=== PATIENT | female | born 1945 | race Caucasian/White ===

== ENCOUNTER → 2018-01-20 14:34 | Outpatient (POV) | payer MEDICARE, OTHER, SELFPAY ==
[2018-01-20 14:54] VITALS: BP 142/48; PULSE 82; RESP 18; TEMP 36.6; O2SAT 97; BMI 26.6
--- NOTE | 2018-01-20 16:24 | HMH.PAINSOAP ---
[facility] Pain Management SOAP Note Subjective:: Patient's a very pleasant 72-year-old white female who presents today as a follow-up. Patient has had good relief with her lumbar epidural steroid injection she had back in September. Patient states that it helped 80% for 3 months. Patient states that the pain is beginning to return. Patient also on tramadol as needed. She states that this helps during the winter. She does not need refills today. Patient's DORIAN #[id number] reviewed and appropriate. States that the medication helps her 70%. She denies any side effects. Patient is interested in getting another lumbar epidural steroid injection. ROS General: no recent weight change, no fever, no sleep disturbances Respiratory: no cough, no shortness of air, no recurring pulmonary infections Cardiovascular/Peripheral Vascular: No chest pain, No palpitations, no edema, no shortness of breath. Gastrointestinal: no incontinence, normal bowel movements reported Genitourinary: no incontinence Musculoskeletal: Back pain Psychiatric: normal mood/ affect, [denies depression], [denies anxiety] Neurological: [denies weakness in extremities], [denies balance issues] Objective:: Physical Exam General: Alert and oriented x3, no acute distress, pleasant and cooperative, [on room air] Lungs: Resps E/U, Symmetrical chest expansion, [CTA bilateral] Eyes: PERRL Musculoskeletal: Flexion and extension of lumbar spine somewhat guarded secondary to pain, deep tendon reflexes normal, strength in upper and lower extremities [5/5], slightly antalgic gait noted, bilateral straight leg test positive at 30? Neurological: speech clear, telephone diaphragm assembler equal, no gross sensory deficits Assessment:: Degenerative disc disease of the lumbar spine with lumbar radiculopathy Plan:: We will schedule lumbar epidural steroid injection at L4-L5 for this patient. Patient has done well with these in the past having up to 80% relief for 3 months. Patient has tried and failed anti-inflammatories along with physical therapy. I will follow-up with this patient 2 weeks after her injection and reassess her symptoms at that time. This note was dictated using voice recognition software and may contain errors or omissions
--- NOTE | 2018-01-20 16:27 | P.CONS_ITS ---
[facility] Pain Management SOAP Note Subjective:: Patient's a very pleasant 72-year-old white female who presents today as a follow-up. Patient has had good relief with her lumbar epidural steroid injection she had back in September. Patient states that it helped 80% for 3 months. Patient states that the pain is beginning to return. Patient also on tramadol as needed. She states that this helps during the winter. She does not need refills today. Patient's DORIAN #[id number] reviewed and appropriate. States that the medication helps her 70%. She denies any side effects. Patient is interested in getting another lumbar epidural steroid injection. ROS General: no recent weight change, no fever, no sleep disturbances Respiratory: no cough, no shortness of air, no recurring pulmonary infections Cardiovascular/Peripheral Vascular: No chest pain, No palpitations, no edema, no shortness of breath. Gastrointestinal: no incontinence, normal bowel movements reported Genitourinary: no incontinence Musculoskeletal: Back pain Psychiatric: normal mood/ affect, [denies depression], [denies anxiety] Neurological: [denies weakness in extremities], [denies balance issues] Objective:: Physical Exam General: Alert and oriented x3, no acute distress, pleasant and cooperative, [ on room air] Lungs: Resps E/U, Symmetrical chest expansion, [CTA bilateral] Eyes: PERRL Musculoskeletal: Flexion and extension of lumbar spine somewhat guarded secondary to pain, deep tendon reflexes normal, strength in upper and lower extremities [5/5], slightly antalgic gait noted, bilateral straight leg test positive at 30? Neurological: speech clear, furniture mover helper equal, no gross sensory deficits Assessment:: Degenerative disc disease of the lumbar spine with lumbar radiculopathy Plan:: We will schedule lumbar epidural steroid injection at L4-L5 for this patient. Patient has done well with these in the past having up to 80% relief for 3 months. Patient has tried and failed anti-inflammatories along with physical therapy. I will follow-up with this patient 2 weeks after her injection and reassess her symptoms at that time. This note was dictated using voice recognition software and may contain errors or omissions
== END ==
PROVIDERS: Family Provider Internal Medicine Adolescent Medicine; PCP Internal Medicine Adolescent Medicine; Visit Provider Clinical Nurse Specialist Family Health
DX: M54.16 Radiculopathy, lumbar region (principal)
CPT/HCPCS: 99212

== ENCOUNTER 2018-02-06 14:16 | Day surgery (SDC) | payer MEDICARE, OTHER, SELFPAY ==
[2018-02-06 14:26] VITALS: BP 174/81; PULSE 69; RESP 18; TEMP 36.9; O2SAT 97; BMI 26.9
--- NOTE | 2018-02-06 15:16 | HMH.PMPROC ---
- Procedure Date: 02/06/18 Time: 15:24 Anesthesiologist:: Hector Mukherjee MD Complications:: None Pre-procedure Diagnosis:: Degenerative disc disease of lumbar spine with lumbar radiculopathy symptoms Post-procedure Diagnosis:: Same Indications for Procedure:: This patient is a pleasant 72-year-old white female who we are treating for low back pain with lumbar radiculopathy symptoms. She had previous lumbar epidural steroid injections back in September which helped her tremendously she was 80% better for 3 months. Her pain is started to return. We will do a repeat lumbar epidural steroid injection today. Procedure Details:: Lumbar epidural steroid injection under fluoroscopy Informed consent was obtained and the risk and benefits of the procedure was explained to the patient. The patient was taken to the procedure room. The patient was placed prone on the procedure table. The patient was prepped and draped in sterile fashion. C-arm fluoroscopy was used to view the lumbar spine. Skin and subcutaneous tissues were anesthetized using lidocaine. I placed an 18-gauge epidural needle and advanced into the L4-L5 interspace using fluoroscopic guidance and [id number] to air. After confirmation of needle placement in the epidural space with dye I injected 2 mL of lidocaine 1.5% with Depo-Medrol 80 mg. Patient tolerated the procedure well with no complications. Plan and Disposition:: We will follow-up with her in 2 weeks we will reevaluate her symptoms at that time.
[2018-02-06 15:17] VITALS: BP 154/98; PULSE 72; RESP 18
[2018-02-06 15:19] VITALS: BP 157/92; PULSE 84; RESP 20
--- NOTE | 2018-02-06 15:24 | P.PCN_ITS ---
- Procedure Date: 02/06/18 Time: 15:24 Anesthesiologist:: Hector Mukherjee MD Complications:: None Pre-procedure Diagnosis:: Degenerative disc disease of lumbar spine with lumbar radiculopathy symptoms Post-procedure Diagnosis:: Same Indications for Procedure:: This patient is a pleasant 72-year-old white female who we are treating for low back pain with lumbar radiculopathy symptoms. She had previous lumbar epidural steroid injections back in September which helped her tremendously she was 80% better for 3 months. Her pain is started to return. We will do a repeat lumbar epidural steroid injection today. Procedure Details:: Lumbar epidural steroid injection under fluoroscopy Informed consent was obtained and the risk and benefits of the procedure was explained to the patient. The patient was taken to the procedure room. The patient was placed prone on the procedure table. The patient was prepped and draped in sterile fashion. C-arm fluoroscopy was used to view the lumbar spine. Skin and subcutaneous tissues were anesthetized using lidocaine. I placed an 18-gauge epidural needle and advanced into the L4-L5 interspace using fluoroscopic guidance and [id number] to air. After confirmation of needle placement in the epidural space with dye I injected 2 mL of lidocaine 1.5 % with Depo-Medrol 80 mg. Patient tolerated the procedure well with no complications. Plan and Disposition:: We will follow-up with her in 2 weeks we will reevaluate her symptoms at that time.
[2018-02-06 15:28] VITALS: BP 184/92; PULSE 81; RESP 16; O2SAT 96
== END 2018-02-06 15:30 | disposition home or self-care (01) ==
LOC: SC.PAINP 14:18
PROVIDERS: Family Provider Internal Medicine Adolescent Medicine; PCP Internal Medicine Adolescent Medicine; Visit Provider Anesthesiology
DX: M51.16 Intervertebral disc disorders with radiculopathy, lumbar region (principal)
CPT/HCPCS: 62323; J1040; Q9966

== ENCOUNTER → 2018-02-24 11:38 | Outpatient (POV) | payer MEDICARE, OTHER, SELFPAY ==
[2018-02-24 11:56] VITALS: BP 130/58; PULSE 60; RESP 18; O2SAT 97; BMI 28.3
--- NOTE | 2018-02-24 12:07 | HMH.PAINSOAP ---
[facility] Pain Management SOAP Note Subjective:: She has a very pleasant 72-year-old white female who presents today for follow-up after lumbar epidural steroid injection. Patient is doing extremely well. Patient has significant pain relief of 90%. Patient's last injection lasted her 3 months. Patient states that she would like to return when her pain begins to come back. Patient is also being medically managed with tramadol 50 mg 1 p.o. 4 times daily. Patient does not need refills today. Patient denies any side effects to the medication. Patient rates her pain at 2 out of 10 today. ROS General: no recent weight change, no fever, no sleep disturbances Respiratory: no cough, no shortness of air, no recurring pulmonary infections Cardiovascular/Peripheral Vascular: No chest pain, No palpitations, no edema, no shortness of breath. Gastrointestinal: no new onset incontinence, normal bowel movements reported Genitourinary: no new onset incontinence Musculoskeletal: Back pain Psychiatric: normal mood/ affect, Neurological: [denies weakness in extremities], [denies balance issues] Objective:: Physical Exam General: Alert and oriented x3, no acute distress, pleasant and cooperative, [on room air] Lungs: Resps E/U, Symmetrical chest expansion, Eyes: PERRL Musculoskeletal: Flexion and extension of lumbar spine somewhat guarded secondary to pain, deep tendon reflexes normal, strength in upper and lower extremities [5/5], slightly antalgic gait noted Neurological: speech clear, automotive brake technician equal, no gross sensory deficits Assessment:: Degenerative disc disease of the lumbar spine with lumbar radiculopathy symptoms Plan:: We will plan to see this patient back in 3 months and reassess her symptoms at that time. Patient is to call our office if her pain begins to return or worsen. Patient is in no need for tramadol refills today however we will call some in if she needs them. Patient's DORIAN #[id number] reviewed and appropriate. This note was dictated using voice recognition software and may contain errors or omissions
--- NOTE | 2018-04-03 12:09 | PC.PHONENOTE ---
called in Rx for Tramadol 50mg QID with 1 refill to pt's pharmacy
== END ==
PROVIDERS: Family Provider Internal Medicine Adolescent Medicine; PCP Internal Medicine Adolescent Medicine; Visit Provider Clinical Nurse Specialist Family Health
DX: M54.16 Radiculopathy, lumbar region (principal)
CPT/HCPCS: 99212

== ENCOUNTER → 2018-03-04 07:02 | Outpatient (CLI) | payer MEDICARE, OTHER, SELFPAY ==
--- NOTE | 2018-03-04 07:05 | NM_ITS ---
CARDIOLITE SPECT MYOCARDIAL PERFUSION SCAN, REST AND STRESS: EXERCISE STRESS [facility] REVIEW QGS EF AND WALL MOTION EVALUATION: QPS - PERFUSION EVALUATION HISTORY: sob DOSE: 10.27 mCi technetium 99m mibi intravenously at rest followed by 30.6 mCi technetium 99m mibi following the intravenous ministration of 0.4 mg of Lexiscan. Resting blood pressure is 174/89. Stress blood pressure 176/86. FINDINGS: Ejection fraction is calculated to be 78. Stress images reveal decreased activity in the mid anterior apical wall while rest images reveal no significant change. IMPRESSION: Clinical correlation. It is possible this could represent breast attenuation however anterior defect is also possible. Normal ejection fraction wall motion
--- NOTE | 2018-03-04 08:28 | HMH.ITSHM ---
METHOTREXATE MELOXICAM OMEPRAZOLE FOLIC ACID ZETIA TRAMADOL LISIONPRIL CARVEDILOL AMLODIPINE
== END ==
PROVIDERS: Family Provider Internal Medicine Adolescent Medicine; PCP Internal Medicine Adolescent Medicine; Visit Provider Internal Medicine Adolescent Medicine
DX: R06.09 Other forms of dyspnea (principal)
CPT/HCPCS: 78452; 93017; A9502; J2785

== ENCOUNTER → 2018-05-26 09:21 | Outpatient (POV) | payer MEDICARE, OTHER, SELFPAY ==
[2018-05-26 09:23] VITALS: BP 177/86; PULSE 80; RESP 18; O2SAT 98; BMI 27.4
--- NOTE | 2018-05-26 09:34 | HMH.PAINSOAP ---
[facility] Pain Management SOAP Note Subjective:: Patient is a pleasant 72-year-old white female who presents today for follow-up. Patient has been doing extremely well with receiving injections every couple months along with her tramadol 50 mg 1 p.o. 4 times daily. Patient only takes this when necessary. Patient does not need any refills today. Patient denies any side effects to the medication. She rates the pain a 4 out of 10 today. Patient's recently she states that standing at the exacerbated her pain. Patient would like to have another epidural injection. Patient gets 80-90% relief of her pain symptoms for up to 3 months with these injections. Patient states she is much more functional. Patient is continuing to do home stretching regimen and is not on any anticoagulation therapy. ROS General: no recent weight change, no fever, no sleep disturbances Respiratory: no cough, no shortness of air, no recurring pulmonary infections Cardiovascular/Peripheral Vascular: No chest pain, No palpitations, no edema, no shortness of breath. Gastrointestinal: no incontinence, normal bowel movements reported Genitourinary: no incontinence Musculoskeletal: Back pain, leg pain Psychiatric: normal mood/ affect Neurological: [denies weakness in extremities], [denies balance issues] Objective:: Physical Exam General: Alert and oriented x3, no acute distress, pleasant and cooperative, [on room air] Lungs: Resps E/U, Symmetrical chest expansion, Eyes: PERRL Musculoskeletal: Flexion and extension of lumbar spine somewhat guarded secondary to pain, deep tendon reflexes normal, strength in upper and lower extremities [5/5], antalgic gait noted, positive straight leg raise test bilaterally at 30? Neurological: speech clear, cardiac technician equal, no gross sensory deficits Assessment:: Degenerative disc disease of the lumbar spine with lumbar radiculopathy Plan:: We will schedule L4-L5 lumbar epidural steroid injection for the patient given the efficacy of this in the past. Patient's can continue on with her tramadol 50 mg 1 p.o. 4 times daily as needed. Patient does not need any refills today. I will follow-up with this patient after her injection. This note was dictated using voice recognition software and may contain errors or omissions
--- NOTE | 2018-05-26 09:37 | P.CONS_ITS ---
[facility] Pain Management SOAP Note Subjective:: Patient is a pleasant 72-year-old white female who presents today for follow- up. Patient has been doing extremely well with receiving injections every couple months along with her tramadol 50 mg 1 p.o. 4 times daily. Patient only takes this when necessary. Patient does not need any refills today. Patient denies any side effects to the medication. She rates the pain a 4 out of 10 today. Patient's recently she states that standing at the exacerbated her pain. Patient would like to have another epidural injection. Patient gets 80-90% relief of her pain symptoms for up to 3 months with these injections. Patient states she is much more functional. Patient is continuing to do home stretching regimen and is not on any anticoagulation therapy. ROS General: no recent weight change, no fever, no sleep disturbances Respiratory: no cough, no shortness of air, no recurring pulmonary infections Cardiovascular/Peripheral Vascular: No chest pain, No palpitations, no edema, no shortness of breath. Gastrointestinal: no incontinence, normal bowel movements reported Genitourinary: no incontinence Musculoskeletal: Back pain, leg pain Psychiatric: normal mood/ affect Neurological: [denies weakness in extremities], [denies balance issues] Objective:: Physical Exam General: Alert and oriented x3, no acute distress, pleasant and cooperative, [ on room air] Lungs: Resps E/U, Symmetrical chest expansion, Eyes: PERRL Musculoskeletal: Flexion and extension of lumbar spine somewhat guarded secondary to pain, deep tendon reflexes normal, strength in upper and lower extremities [5/5], antalgic gait noted, positive straight leg raise test bilaterally at 30? Neurological: speech clear, automotive detailer equal, no gross sensory deficits Assessment:: Degenerative disc disease of the lumbar spine with lumbar radiculopathy Plan:: We will schedule L4-L5 lumbar epidural steroid injection for the patient given the efficacy of this in the past. Patient's can continue on with her tramadol 50 mg 1 p.o. 4 times daily as needed. Patient does not need any refills today. I will follow-up with this patient after her injection. This note was dictated using voice recognition software and may contain errors or omissions
== END ==
PROVIDERS: Family Provider Internal Medicine Adolescent Medicine; PCP Internal Medicine Adolescent Medicine; Visit Provider Clinical Nurse Specialist Family Health
DX: M54.16 Radiculopathy, lumbar region (principal)
CPT/HCPCS: 99212

== ENCOUNTER → 2018-06-30 12:49 | Outpatient (POV) | payer MEDICARE, OTHER, SELFPAY ==
[2018-06-30 12:57] VITALS: BP 156/78; PULSE 74; RESP 18; O2SAT 98; BMI 27.4
--- NOTE | 2018-06-30 13:08 | HMH.PAINSOAP ---
[facility] Pain Management SOAP Note Subjective:: patient is a pleasant 72-year-old white female who presents today for follow-up after lumbar epidural steroid injection patient is having complete relief in her back however she is having a lot of left SI joint pain. She rates the pain a 3 out of 10. Patient states that she if she sits for long periods of time she has a lot of numbness and tingling in her buttock. ROS General: no recent weight change, no fever, no sleep disturbances Respiratory: no cough, no shortness of air, no recurring pulmonary infections Cardiovascular/Peripheral Vascular: No chest pain, No palpitations, no edema, no shortness of breath. Gastrointestinal: no incontinence, normal bowel movements reported Genitourinary: no incontinence Musculoskeletal: SI joint pain Psychiatric: normal mood/ affect Neurological: [denies weakness in extremities], [denies balance issues] Objective:: Physical Exam General: Alert and oriented x3, no acute distress, pleasant and cooperative, [on room air] Lungs: Resps E/U, Symmetrical chest expansion, Eyes: PERRL Musculoskeletal: Flexion and extension of lumbar spine somewhat guarded secondary to pain, deep tendon reflexes normal, strength in upper and lower extremities [5/5], [abnormal gait noted] the left sided Humble's test positive Neurological: speech clear, iron assorter equal, no gross sensory deficits Assessment:: 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 I believe it would be beneficial given her symptomology. Patient's tried and failed anti-inflammatories. This note was dictated using voice recognition software and may contain errors or omissions
--- NOTE | 2018-06-30 13:11 | P.CONS_ITS ---
[facility] Pain Management SOAP Note Subjective:: patient is a pleasant 72-year-old white female who presents today for follow-up after lumbar epidural steroid injection patient is having complete relief in her back however she is having a lot of left SI joint pain. She rates the pain a 3 out of 10. Patient states that she if she sits for long periods of time she has a lot of numbness and tingling in her buttock. ROS General: no recent weight change, no fever, no sleep disturbances Respiratory: no cough, no shortness of air, no recurring pulmonary infections Cardiovascular/Peripheral Vascular: No chest pain, No palpitations, no edema, no shortness of breath. Gastrointestinal: no incontinence, normal bowel movements reported Genitourinary: no incontinence Musculoskeletal: SI joint pain Psychiatric: normal mood/ affect Neurological: [denies weakness in extremities], [denies balance issues] Objective:: Physical Exam General: Alert and oriented x3, no acute distress, pleasant and cooperative, [ on room air] Lungs: Resps E/U, Symmetrical chest expansion, Eyes: PERRL Musculoskeletal: Flexion and extension of lumbar spine somewhat guarded secondary to pain, deep tendon reflexes normal, strength in upper and lower extremities [5/5], [abnormal gait noted] the left sided Humble's test positive Neurological: speech clear, map maker equal, no gross sensory deficits Assessment:: 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 I believe it would be beneficial given her symptomology. Patient's tried and failed anti-inflammatories. This note was dictated using voice recognition software and may contain errors or omissions
== END ==
PROVIDERS: Family Provider Internal Medicine Adolescent Medicine; PCP Internal Medicine Adolescent Medicine; Visit Provider Clinical Nurse Specialist Family Health
DX: M51.16 Intervertebral disc disorders with radiculopathy, lumbar region (principal); M46.1 Sacroiliitis, not elsewhere classified
CPT/HCPCS: 99213

== ENCOUNTER → 2018-09-08 11:26 | Outpatient (POV) | payer MEDICARE, OTHER, SELFPAY ==
[2018-09-08 11:38] VITALS: BP 140/89; PULSE 97; RESP 18; O2SAT 97; BMI 26.9
--- NOTE | 2018-09-08 12:11 | HMH.PAINSOAP ---
[facility] Pain Management SOAP Note Subjective:: Patient is a pleasant 72-year-old white female who presents today for follow-up. Patient states that she has begun to have more pain in her lower back and would like a repeat of her lumbar epidural steroid injection. Patient states she gets 80% relief for several months with this. She rates her pain a 3 out of 10 today however she states it does fluctuate. Patient's not on any blood thinner and is continuing a home stretching program. Patient's tried and failed anti-inflammatories along with physical therapy. ROS General: no recent weight change, no fever, no sleep disturbances Respiratory: no cough, no shortness of air, no recurring pulmonary infections Cardiovascular/Peripheral Vascular: No chest pain, No palpitations, no edema, no shortness of breath. Gastrointestinal: no incontinence, normal bowel movements reported Genitourinary: no incontinence Musculoskeletal: Back pain, leg pain Psychiatric: normal mood/ affect Neurological: [denies weakness in extremities], [denies balance issues] Objective:: Physical Exam General: Alert and oriented x3, no acute distress, pleasant and cooperative, [on room air] Lungs: Resps E/U, Symmetrical chest expansion, Eyes: PERRL Musculoskeletal: Flexion and extension of lumbar spine somewhat guarded secondary to pain, deep tendon reflexes normal, strength in upper and lower extremities [5/5], antalgic gait noted Neurological: speech clear, nutrition associate equal, no gross sensory deficits Assessment:: Degenerative disc disease lumbar spine with lumbar radiculopathy Plan:: We will schedule a L4-L5 lumbar epidural injection for the patient. We will also refill her tramadol 50 mg 1 p.o. 4 times daily as needed. Patient denies side effects to this. Patient's DORIAN reviewed and appropriate. Dr. Mukherjee is reviewed this chart and agrees with this plan of care. This note was dictated using voice recognition software and may contain errors or omissions
== END ==
PROVIDERS: PCP Internal Medicine Adolescent Medicine; Visit Provider Clinical Nurse Specialist Family Health
DX: M51.16 Intervertebral disc disorders with radiculopathy, lumbar region (principal)
CPT/HCPCS: 99213

== ENCOUNTER → 2018-10-20 13:41 | Outpatient (POV) | payer MEDICARE, OTHER, SELFPAY ==
[2018-10-20 14:17] VITALS: BP 137/68; PULSE 87; RESP 18; O2SAT 99; BMI 26.9
--- NOTE | 2018-10-20 14:37 | P.CONS_ITS ---
[facility] Pain Management SOAP Note Subjective:: Patient is a pleasant 73-year-old white female who we are treating for low back pain. Patient is following up after lumbar epidural steroid injection. She is doing extremely well rating her pain a 3 out of 10 today. Patient would like to follow-up on a as needed basis. ROS General: no recent weight change, no fever, no sleep disturbances Respiratory: no cough, no shortness of air, no recurring pulmonary infections Cardiovascular/Peripheral Vascular: No chest pain, No palpitations, no edema, no shortness of breath. Gastrointestinal: no incontinence, normal bowel movements reported Genitourinary: no incontinence Musculoskeletal: Back pain at times Psychiatric: normal mood/ affect Neurological: [denies weakness in extremities], [denies balance issues] Objective:: Physical Exam General: Alert and oriented x3, no acute distress, pleasant and cooperative, [on room air] Lungs: Resps E/U, Symmetrical chest expansion, Eyes: PERRL Musculoskeletal: Flexion and extension of lumbar spine somewhat guarded secondary to pain, deep tendon reflexes normal, strength in upper and lower extremities [5/5], slightly antalgic gait noted Neurological: speech clear, nurse practitioner physician assistant equal, no gross sensory deficits Assessment:: Degenerative disc disease lumbar spine with lumbar radiculopathy symptoms Plan:: We will see the patient back on an as-needed basis. Patient's been instructed to call the office if she has any issues prior to her next appointment. This note was dictated using voice recognition software and may contain errors or omissions
--- NOTE | 2018-12-16 14:59 | PC.NURSE ---
TRAMADOL 50MG QID WITH 2 REFILLS CALLED INTO [facility] PER PROVIDER ORDER.
== END ==
PROVIDERS: PCP Internal Medicine Adolescent Medicine; Visit Provider Clinical Nurse Specialist Family Health
DX: M51.16 Intervertebral disc disorders with radiculopathy, lumbar region (principal)
CPT/HCPCS: 99213

== ENCOUNTER → 2018-12-03 12:27 | Outpatient (CLI) | payer MEDICARE, OTHER, SELFPAY ==
--- NOTE | 2018-12-03 12:35 | XR_ITS ---
XR chest 2V HISTORY: Cough ITS.REASON: ACUTE BRONCHOPNEUMONIA ORDERING PHYSICIAN: Mayank Jimenes MD PATIENT AGE: 73 years COMPARISON: 04/01/2017 FINDINGS: The cardiomediastinal silhouette and pulmonary vascularity are within normal limits. Hiatal hernia is present.. There is slight increased density in the right perihilar region with some silhouetting of the heart border suggesting an area of infiltrate within the right middle lobe. No acute bony abnormalities. IMPRESSION: Hiatal hernia. Right middle lobe infiltrate
== END ==
PROVIDERS: PCP Internal Medicine Adolescent Medicine; Visit Provider Internal Medicine Adolescent Medicine
DX: J18.0 Bronchopneumonia, unspecified organism (principal)
CPT/HCPCS: 71046

== ENCOUNTER → 2018-12-15 10:24 | Outpatient (CLI) | payer MEDICARE, OTHER, SELFPAY ==
--- NOTE | 2018-12-15 10:38 | MM_ITS ---
MM Dig screening mamm BI w/CAD ORDERING PHYSICIAN : Mayank Jimenes MD PATIENT AGE: 73 years GENDER: Female COMPARISON: January 2017. November 2013 bilateral digital mammogram. Also, film screen studies from 2008 INDICATION: Routine SCREENINGNo hormones. No new complaints. Patient with benign excisional biopsy left and right breast. Family history. Mother breast cancer premenopausal TECHNIQUE: Standard CC and MLO images were obtained. R2 CAD reviewed. Additional MLO view left breast included FINDINGS: Minimal residual fibroglandular elements with moderate generalized fatty replacement. Lower breast bilaterally.. No Dominant mass nor suspicious calcifications either breast. .. Have some subtle architectural distortion from previous biopsy particularly evident on left breast MLO view.. No significant new findings. CAD computer review highlights no areas of concern. IMPRESSION: ....... Stable bilateral mammogram. No new areas of concern. Bilateral follow-up one year recommended. Low-density breast BI-RADS Category: 1 Negative RECOMMENDED FOLLOW-UP: 1YR 1 YEAR FOLLOW-UP (A letter has been sent to the patient regarding results of the study.)
--- NOTE | 2018-12-15 10:39 | XR_ITS ---
XR DEXA axial skeleton HISTORY: ITS.REASON: OSTEOPOROSIS ORDERING PHYSICIAN: Mayank Jimenes MD PATIENT AGE: 73 years COMPARISON: None FINDINGS: The BMD measured at the right femoral neck is 0.579 g/cm squared with a T score of -3.4. This is considered osteoporotic according to the World Health Organization criteria. Fracture risk is high. Treatment is advised. The L1-L4 density has a T score of 0.9. There is sclerosis of the lumbar spine with scoliosis. IMPRESSION: Osteoporosis with high fracture risk. Treatment is advised. Recommend follow-up exam December 2019
== END ==
PROVIDERS: PCP Internal Medicine Adolescent Medicine; Visit Provider Internal Medicine Adolescent Medicine
DX: Z12.31 Encounter for screening mammogram for malignant neoplasm of breast (principal); M81.0 Age-related osteoporosis without current pathological fracture
CPT/HCPCS: 77067; 77080

== ENCOUNTER 2019-01-08 14:05 | Outpatient (CLI) | payer MEDICARE, OTHER, SELFPAY ==
[2019-01-08 14:00] VITALS: BP 122/72; PULSE 70; RESP 18; TEMP 36.6; O2SAT 97
== END 2019-01-08 14:20 | disposition home or self-care (01) ==
LOC: INF 14:05
PROVIDERS: Visit Provider Internal Medicine Adolescent Medicine
DX: M81.0 Age-related osteoporosis without current pathological fracture (principal)
CPT/HCPCS: 96372; J0897

== ENCOUNTER → 2019-02-16 12:26 | Outpatient (CLI) | payer MEDICARE, OTHER, SELFPAY ==
--- NOTE | 2019-02-16 12:31 | XR_ITS ---
XR chest 2V HISTORY: Follow-up pneumonia ITS.REASON: PNEUMONIA ORDERING PHYSICIAN: Mayank Jimenes MD PATIENT AGE: 73 years COMPARISON: 12/03/2018 FINDINGS: Unremarkable heart size. There is a moderate-sized hiatal hernia. Previously noted consolidation and right perihilar region has shown improvement. Patchy density is present in the left midlung laterally may be due to an area of atelectasis or infiltrate. No lobar consolidation or collapse is evident at this time. There is mild wedging of T12 and L1. IMPRESSION: 1. Resolved right perihilar infiltrate. 2. Left midlung atelectasis or infiltrate versus developing fibrosis. 3. Hiatal hernia
== END ==
PROVIDERS: PCP Internal Medicine Adolescent Medicine; Visit Provider Internal Medicine Adolescent Medicine
DX: J18.1 Lobar pneumonia, unspecified organism (principal)
CPT/HCPCS: 71046

== ENCOUNTER → 2019-06-08 11:22 | Outpatient (POV) | payer MEDICARE, OTHER, SELFPAY ==
[2019-06-08 11:29] VITALS: BP 140/81; PULSE 78; RESP 16; O2SAT 98; BMI 26.6
--- NOTE | 2019-06-08 11:37 | HMH.PAINSOAP ---
[facility] Pain Management SOAP Note Subjective:: Patient is an extremely pleasant 73-year-old white female who presents today for follow-up. Patient is having a new complaint in regards to her pain it is more of a heaviness and weakness when she standing and walking. She finds herself leaning forward for relief. Back in 2017 she was diagnosed with severe canal stenosis. We have not had any updated imaging. I do believe it would be beneficial. She has had multiple epidurals with significant relief however she is due one now. She is not on any anticoagulation therapy. She rates her pain today a 6 out of 10. ROS General: no recent weight change, no fever, no sleep disturbances Respiratory: no cough, no shortness of air, no recurring pulmonary infections Cardiovascular/Peripheral Vascular: No chest pain, No palpitations, no edema, no shortness of breath. Gastrointestinal: no incontinence, normal bowel movements reported Genitourinary: no incontinence Musculoskeletal: Back pain, leg pain Psychiatric: normal mood/ affect Neurological: [denies weakness in extremities], [denies balance issues] Objective:: Physical Exam General: Alert and oriented x3, no acute distress, pleasant and cooperative, [on room air] Lungs: Resps E/U, Symmetrical chest expansion, Eyes: PERRL Musculoskeletal: Flexion and extension of lumbar spine somewhat guarded secondary to pain, deep tendon reflexes normal, strength in upper and lower extremities [5/5], [abnormal gait noted] Neurological: speech clear, quantitative software engineer equal, no gross sensory deficits Assessment:: 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 Since her pain is changed and it seems more stenotic in nature. We will send her for an updated MRI for potential mild procedure. Dr. Mukherjee has reviewed this note and agrees with this plan of care. This note was dictated using voice recognition software and may contain errors or omissions
== END ==
PROVIDERS: PCP Internal Medicine Adolescent Medicine; Visit Provider Clinical Nurse Specialist Family Health
DX: M51.16 Intervertebral disc disorders with radiculopathy, lumbar region (principal); M48.062 Spinal stenosis, lumbar region with neurogenic claudication
CPT/HCPCS: 99212

== ENCOUNTER → 2019-06-10 10:14 | Outpatient (CLI) | payer MEDICARE, OTHER, SELFPAY ==
--- NOTE | 2019-06-10 10:17 | MR_ITS ---
MR lumbar spine wo con, MR 3-d myelogram/MRCP HISTORY: LBP. Burning sensation on RT side of back. Weakness bilateral legs. Tingling and numbness in LT leg. Unable to stand for long periods. Symptoms XYRS. ITS.REASON: BACK PAIN ORDERING PHYSICIAN: Hector Mukherjee MD PATIENT AGE: 73 years Comparison: MRI 03-29-17 TECHNIQUE: Standard multiplanar multiecho sequences are performed without contrast. 3-D MIP and myelographic images are also rendered and reviewed FINDINGS: Severe degenerative changes are present in the lumbar spine with multilevel degenerative disc disease, bulging disc, and facet and ligamentum hypertrophy as detailed below. There is mild lumbar scoliosis convex left slightly greater compared to the previous study. T11-T12: Unremarkable. T12-L1: Degenerative disc disease with bulging disc slightly eccentric toward the left with [id number] left-sided foraminal narrowing not significantly changed. L1-L2: Degenerative disc disease with concentric bulging disc eccentric toward the left with facet and ligamentum flavum hypertrophy with moderate bilateral foraminal narrowing not significant change. There is mild right lateral translation of L1 on L2 slightly greater when compared to the previous exam. L2-L3: Degenerative disc disease with concentric bulging disc with moderate facet and ligamentum flavum hypertrophy with moderate to severe right-sided lateral recess and foraminal narrowing and moderate left-sided foraminal narrowing. Not significantly changed. There is also prominent bulging of the disc laterally at this level similar to the previous exam L3-L4: Degenerative disc disease with bulging disc with moderate to severe facet and ligamentum flavum hypertrophy with canal stenosis. There is a small central disc herniation with superior extrusion as previously described. There is severe bilateral lateral recess and foraminal narrowing not significant changed. L4-L5: Degenerative disc disease with concentric bulging disc which is eccentric toward the left with severe facet and ligamentum hypertrophy with transverse narrowing of the canal. There is severe left lateral recess and foraminal narrowing and moderate right lateral recess and severe right-sided foraminal narrowing. There is an associated small left paracentral disc protrusion similar to the previous exam. L5-S1: Degenerative disc disease with bulging disc with canal stenosis with severe bilateral foraminal narrowing along with facet and ligamentum flavum hypertrophy. No acute fracture or dislocation. Overall no significant change compared to the previous exam. IMPRESSION: Abnormal MRI lumbar spine. There is lumbar scoliosis with multilevel degenerative disc disease along with facet and ligamentum flavum hypertrophy bulging disc and central disc herniation with superior extrusion at L3-L4 and small left paracentral disc protrusion at L4-L5. There is canal stenosis with severe lateral recess and foraminal narrowing. PLEASE SEE ABOVE FOR DETAILED DESCRIPTION AT EACH LEVEL. Overall no significant change compared to the previous exam
== END ==
PROVIDERS: PCP Internal Medicine Adolescent Medicine; Visit Provider Anesthesiology
DX: M54.5 Low back pain (principal)
CPT/HCPCS: 72148; 76376

== ENCOUNTER 2019-06-11 13:56 | Outpatient (CLI) | payer MEDICARE, OTHER, SELFPAY | END 2019-06-11 14:00 | disposition home or self-care (01) | LOC: INF 13:56 | PROVIDERS: Visit Provider Internal Medicine Adolescent Medicine | DX: M81.0 Age-related osteoporosis without current pathological fracture (principal) | CPT/HCPCS: 96372; J0897 ==

== ENCOUNTER → 2019-07-20 10:37 | Outpatient (POV) | payer MEDICARE, OTHER, SELFPAY ==
[2019-07-20 11:59] VITALS: BP 128/77; PULSE 88; RESP 18; O2SAT 98; BMI 26.8
--- NOTE | 2019-07-20 12:25 | HMH.PAINSOAP ---
[facility] Pain Management SOAP Note Subjective:: It is a very pleasant 73-year-old white female who presents today for follow-up after epidural injection. She is doing well rating her pain a 3 out of 10. Patient also wanted to discuss a mild procedure. We talked in length in regards to this. Patient at this time is good to continue to think about it. She would like a repeat epidural when the weather begins to get cold. She gets 80% relief up to 3 months with it. ROS General: no recent weight change, no fever, no sleep disturbances Respiratory: no cough, no shortness of air, no recurring pulmonary infections Cardiovascular/Peripheral Vascular: No chest pain, No palpitations, no edema, no shortness of breath. Gastrointestinal: no incontinence, normal bowel movements reported Genitourinary: no incontinence Musculoskeletal: Back pain, leg pain Psychiatric: normal mood/ affect, Neurological: [denies weakness in extremities], [denies balance issues] Objective:: Physical Exam General: Alert and oriented x3, no acute distress, pleasant and cooperative, [on room air] Lungs: Resps E/U, Symmetrical chest expansion, Eyes: PERRL Musculoskeletal: Flexion and extension of lumbar spine somewhat guarded secondary to pain, deep tendon reflexes normal, strength in upper and lower extremities [5/5], [abnormal gait noted] Neurological: speech clear, elastic cutter equal, no gross sensory deficits Assessment:: Degenerative disc disease lumbar spine with lumbar radiculopathy along with ligamentum flavum hypertrophy spinal stenosis and neurogenic claudication Plan:: We will schedule an L4-L5 lumbar epidural steroid injection for the patient in 2 months reassess her symptoms at that time. She is good to take information in regards to the mild home with her. She is not on any anticoagulation therapy she is continuing a home stretching program. She is also on anti-inflammatories. She has been instructed to call the office if she has any issues prior to her next appointment. Dr. Mukherjee has reviewed this note and agrees with this plan of care. This note was dictated using voice recognition software and may contain errors or omissions Pain Management Hx Components *Have you ever received a pneumonia vaccine?: Yes *Have you received a flu vaccine this season?: Yes - *Social History *Occupational Status:: other *Travel in the last 8 weeks: None
--- NOTE | 2019-07-20 12:28 | P.CONS_ITS ---
[facility] Pain Management SOAP Note Subjective:: It is a very pleasant 73-year-old white female who presents today for follow-up after epidural injection. She is doing well rating her pain a 3 out of 10. Patient also wanted to discuss a mild procedure. We talked in length in regards to this. Patient at this time is good to continue to think about it. She would like a repeat epidural when the weather begins to get cold. She gets 80% relief up to 3 months with it. ROS General: no recent weight change, no fever, no sleep disturbances Respiratory: no cough, no shortness of air, no recurring pulmonary infections Cardiovascular/Peripheral Vascular: No chest pain, No palpitations, no edema, no shortness of breath. Gastrointestinal: no incontinence, normal bowel movements reported Genitourinary: no incontinence Musculoskeletal: Back pain, leg pain Psychiatric: normal mood/ affect, Neurological: [denies weakness in extremities], [denies balance issues] Objective:: Physical Exam General: Alert and oriented x3, no acute distress, pleasant and cooperative, [on room air] Lungs: Resps E/U, Symmetrical chest expansion, Eyes: PERRL Musculoskeletal: Flexion and extension of lumbar spine somewhat guarded secondary to pain, deep tendon reflexes normal, strength in upper and lower extremities [5/5], [abnormal gait noted] Neurological: speech clear, ground nuclear weapons assembly officer equal, no gross sensory deficits Assessment:: Degenerative disc disease lumbar spine with lumbar radiculopathy along with ligamentum flavum hypertrophy spinal stenosis and neurogenic claudication Plan:: We will schedule an L4-L5 lumbar epidural steroid injection for the patient in 2 months reassess her symptoms at that time. She is good to take information in regards to the mild home with her. She is not on any anticoagulation therapy she is continuing a home stretching program. She is also on anti- inflammatories. She has been instructed to call the office if she has any issues prior to her next appointment. Dr. Mukherjee has reviewed this note and agrees with this plan of care. This note was dictated using voice recognition software and may contain errors or omissions Pain Management Hx Components *Have you ever received a pneumonia vaccine?: Yes *Have you received a flu vaccine this season?: Yes - *Social History *Occupational Status:: other *Travel in the last 8 weeks: None
== END ==
PROVIDERS: PCP Internal Medicine Adolescent Medicine; Visit Provider Clinical Nurse Specialist Family Health
DX: M51.16 Intervertebral disc disorders with radiculopathy, lumbar region (principal); M48.062 Spinal stenosis, lumbar region with neurogenic claudication; M46.06 Spinal enthesopathy, lumbar region
CPT/HCPCS: 99212

== ENCOUNTER 2019-12-23 11:03 | Outpatient (CLI) | payer MEDICARE, OTHER, SELFPAY ==
[2019-12-23 11:06] VITALS: BP 139/77; PULSE 76; RESP 18; TEMP 36.6; O2SAT 98
== END 2019-12-23 11:35 | disposition home or self-care (01) ==
LOC: INF 11:04
PROVIDERS: Visit Provider Internal Medicine Adolescent Medicine
DX: M81.0 Age-related osteoporosis without current pathological fracture (principal)
CPT/HCPCS: 96372; J0897

== ENCOUNTER 2020-06-22 11:20 | Outpatient (CLI) | payer MEDICARE, OTHER, SELFPAY ==
[2020-06-22 12:05] VITALS: BP 122/85; PULSE 98; RESP 18; TEMP 36.8; O2SAT 100
== END 2020-06-22 12:15 | disposition home or self-care (01) ==
LOC: INF 11:39
PROVIDERS: Visit Provider Internal Medicine Adolescent Medicine
DX: M81.0 Age-related osteoporosis without current pathological fracture (principal)
CPT/HCPCS: 96372; J0897

== ENCOUNTER 2021-01-18 10:55 | Outpatient (CLI) | payer MEDICARE, OTHER, SELFPAY ==
[2021-01-18 11:04] VITALS: BP 120/66; PULSE 78; RESP 18; TEMP 36.4; O2SAT 100
== END 2021-01-18 11:26 | disposition home or self-care (01) ==
LOC: INF 10:55
PROVIDERS: Visit Provider Internal Medicine Adolescent Medicine
DX: M81.0 Age-related osteoporosis without current pathological fracture (principal)
CPT/HCPCS: 96372; J0897

== ENCOUNTER → 2021-02-13 10:44 | Outpatient (POV) | payer MEDICARE, OTHER, SELFPAY ==
[2021-02-13 12:24] VITALS: BP 121/74; PULSE 69; RESP 18; O2SAT 98; BMI 31.2
--- NOTE | 2021-02-13 12:29 | P.CONS_ITS ---
[facility] Pain Management SOAP Note Subjective:: Patient is a pleasant 75-year-old white female who presents today for follow-up. Patient was previously scheduled for a L3-L4 L4-L5 L5-S1 bilateral minimally invasive lumbar decompression. This was prior to the pandemic. Patient is now returning wanting to move forward with this. Patient has had an epidurogram showing significant stenosis in this area. Per Dr. Nelson last note these are the levels he felt would benefit from a minimally invasive lumbar decompression. We will move forward with this. Patient's not on any anticoagulation therapy. She rates her pain a 4 out of 10. She has difficulty with standing or walking. She has relief of her symptomology when she sitting down. ROS General: no recent weight change, no fever, no sleep disturbances Respiratory: no cough, no shortness of air, no recurring pulmonary infections Cardiovascular/Peripheral Vascular: No chest pain, No palpitations, no edema, no shortness of breath. Gastrointestinal: no new onset incontinence, normal bowel movements reported Genitourinary: no new onset incontinence Musculoskeletal: Back pain, leg pain Psychiatric: normal mood/ affect, [denies depression], [denies anxiety] Neurological: Weakness in bilateral lower extremities when walking and standing, [denies new onset balance issues] Objective:: Physical Exam General: Alert and oriented x3, no acute distress, pleasant and cooperative, [on room air] Lungs: Resps E/U, Symmetrical chest expansion, Eyes: PERRL Musculoskeletal: Flexion and extension of lumbar spine somewhat guarded secondary to pain, deep tendon reflexes normal, strength in upper and lower extremities [5/5], [abnormal gait noted] Neurological: speech clear, shopping investigator equal, no gross sensory deficits Assessment:: Generative disc disease lumbar spine lumbar radiculopathy symptoms with spinal stenosis and neurogenic claudication Plan:: Forward with a before planned L3-L4 L4-L5 L5-S1 bilateral minimally invasive lumbar decompression. I will follow-up with her afterwards reassess her symptoms at that time she has been instructed to call the office if she has any issues prior to her next appointment. We will continue her tramadol 50 mg 1 p.o. 3 times daily as needed. Dr. Mukherjee has reviewed this note and agrees with this plan of care. This note was dictated using voice recognition software and may contain errors or omissions [facility] History I have reviewed the patient's past medical history: Yes Medical History: Reports:: Hyperlipidemia, Hypertension, Palpitations Denies:: Cancer, Diabetes Mellitus Type 1, Diabetes Mellitus Type 2, Internal Pacemaker, MRSA, Seizures *Have you ever received a pneumonia vaccine?: Yes *Have you received a flu vaccine this season?: Yes Other Medical History: Reports: Anemia, Arthritis, Cataracts, Hormone Therapy, Sinus Problems. Denies: Blood Transfusion Reaction Laterality Cases: Left: Carpal Tunnel Release, Bilateral: Breast Biopsy, Tonsillectomy Other Surgeries: Yes: Tubal Ligation. No: Pacemaker Amputation: No Fractures: No - *Social History Smoking Status: Former smoker Alcohol Intake: never *Occupational Status:: other Housing: house Household Members: none *Travel in the last 8 weeks: None Family Hx:: Cancer, Diabetes, Hypertension, Stroke
== END ==
PROVIDERS: PCP Internal Medicine Adolescent Medicine; Visit Provider Clinical Nurse Specialist Family Health
DX: M51.16 Intervertebral disc disorders with radiculopathy, lumbar region (principal); M48.062 Spinal stenosis, lumbar region with neurogenic claudication
CPT/HCPCS: 99212; G0463

== ENCOUNTER → 2021-02-21 14:07 | Outpatient (CLI) | payer MEDICARE, OTHER, SELFPAY ==
[2021-02-21 14:36] LABS: Basophils % 0.3 % (0.1-2.0); Eosinophils # 0.5 K/mm3 (0.0-0.4); Eosinophils % 4.3 % (0.1-12.0); Hematocrit 35.5 % (37.0-47.0); Hemoglobin 11.6 g/dL (12.2-16.2); Lymphocytes # 2.1 K/mm3 (0.7-4.5); Lymphocytes % 17.6 % (10-50); Mean Corpuscular HGB Conc 32.7 g/dL (31.8-35.4); Mean Corpuscular Hemoglobin 30.4 pg (27.0-31.2); Mean Platelet Volume 8.3 fl (7.4-10.4); Monocytes # 0.6 K/mm3 (0.1-1.0); Monocytes % 5.4 % (1.7-9.3); Neutrophils # 8.4 K/mm3 (1.8-7.8); Neutrophils % 72.3 % (37.0-80.0); Platelet Count 252 K/mm3 (142-424); Red Blood Count 3.82 M/mm3 (4.20-5.40); Red Cell Distribution Width 15.2 % (11.5-17.5); White Blood Count 11.7 K/mm3 (4.8-10.8)
[2021-02-21 15:57] LABS: Chloride 100 mmol/L (98-107)
[2021-02-21 15:58] LABS: Potassium 4.7 mmoL/L (3.5-5.1); Sodium 136 mmol/L (136-145)
[2021-02-21 16:01] LABS: Anion Gap 14.7 mEq/L (5-15); Blood Urea Nitrogen 17 mg/dl (7-17); Calcium 9.1 mg/dl (8.4-10.2); Carbon Dioxide 26 mmol/L (22.0-30.0); Estimated Glomerular Filt Rate 44 ml/min (>60); GFR (African American) 53 ML/MIN (>60); Glucose 100 mg/dl (74-100)
[2021-02-21 16:36] LABS: Coronavirus 19 IgG Antibody Positive (Negative); Coronavirus 19 IgM Antibody Negative (Negative)
== END ==
PROVIDERS: Visit Provider Anesthesiology
DX: Z01.818 Encounter for other preprocedural examination (principal); Z20.822 Contact with and (suspected) exposure to COVID-19; M51.36 Other intervertebral disc degeneration, lumbar region
CPT/HCPCS: 36415; 80048; 85025; 86328

== ENCOUNTER → 2021-02-22 08:32 | Day surgery (SDC) | payer MEDICARE, OTHER, SELFPAY ==
[2021-02-20 14:25] VITALS: BMI 26.6
--- NOTE | 2021-02-22 09:02 | SUR.PREOP ---
Patient not NPO, patient to be rescheduled
== END ==
PROVIDERS: PCP Internal Medicine Adolescent Medicine; Visit Provider Anesthesiology
DX: Z53.20 Procedure and treatment not carried out because of patient's decision for unspecified reasons (principal)
CPT/HCPCS: 96374

== ENCOUNTER → 2021-05-08 14:23 | Outpatient (POV) | payer MEDICARE, OTHER, SELFPAY ==
[2021-05-08 14:55] VITALS: BP 130/71; PULSE 80; RESP 20; O2SAT 98; BMI 25.7
--- NOTE | 2021-05-08 15:17 | HMH.PAINSOAP ---
[facility] Pain Management SOAP Note Subjective:: Patient is a 75-year-old white female who presents today for follow-up. Patient is being treated in clinic for degenerative disc disease lumbar spine with lumbar radicular symptoms. She was scheduled for mild procedure at L3-L4 L4-L5 L5-S1 bilaterally. Unfortunately, during Covid, her procedure was canceled. She has gotten somewhat confused during that time as to what procedure entailed and whether or not she wished to proceed proceed with the procedure. She is here today for her medication refill tramadol 50 mg 1 tablet p.o. 3 times daily. She denies any side effects to the medication. She and I did have a long discussion concerning a mild procedure. Her pain is primarily in her low back. She says due to the pain she has difficulty standing and walking for prolonged periods. She does not have any radicular pain, however. Her pain is primarily in her low back worse to the left low back area at this time. She says she can only walk 20 to 30 feet without developing severe low back pain and having to sit. He has tried and failed conservative therapies of physical therapy for more than 6 weeks along with continued home stretching. She has not gotten any significant relief. Tramadol does give her some relief. She denies any side effects. Her Dorian #[id number] has been reviewed and is appropriate. Drug screen is appropriate. Review of Systems General: No recent weight changes, no fever, no sleep disturbances Respiratory: No cough, no shortness of air, no recurring pulmonary infections Cardiovascular/peripheral vascular: No chest pain, no palpitations, no edema, no shortness of breath Gastrointestinal: No new onset incontinence, normal bowel movements reported Genitourinary: No new onset incontinence Musculoskeletal: No back pain worse with standing or walking Psychiatric: Normal mood/affect Neurological: [Denies weakness in extremities], [denies balance issues] Objective:: Physical exam General: Alert and oriented x3, no acute distress, pleasant and cooperative, [on room air] Lungs: Respirations even and unlabored, symmetrical chest expansion Eyes: PERRL Musculoskeletal: Flexion and extension of lumbar spine somewhat guarded secondary to pain, deep tendon reflexes normal, strength in upper and lower extremities [5/5], [abnormal gait noted] Neurological: Speech clear, management coordinator equal, no gross sensory deficit Assessment:: Degenerative disc disease lumbar spine with lumbar radiculopathy symptoms, back pain Plan:: We will refill the patient's tramadol 50 mg 1 tablet p.o. 3 times daily. We will give the patient 3 months of medication see her back in the clinic in 3 months for reevaluation of symptoms. She has been instructed to contact clinic if she has an concerns for next ointment. Risks and benefits of the medication have been explained in detail to the patient. The patient has been advised to consult with his/her primary care provider and pharmacist regarding drug-drug interaction of medications currently prescribed. Patient has been prescribed a controlled substance after being counseled on the medication, medication safety, and possible side effects. DORIAN report has been obtained and reviewed prior to prescription and found to be appropriate. Opioid contract was reviewed and signed by the patient, and that they have agreed to all of the terms set forth by our compliance program. Patient has been instructed to contact the clinic with any concerns before the next appointment. Dr. Mukherjee has reviewed this note and agrees with this plan of care. This note was dictated using voice recognition software and make contain errors or omissions. [facility] History I have reviewed the patient's past medical history: Yes Medical History: Reports:: Hyperlipidemia, Hypertension, Palpitations Denies:: Cancer, Diabetes Mellitus Type 1, Diabetes Mellitus Type 2, Internal Pacemaker, MRSA, Seizures *Hav
== END ==
PROVIDERS: PCP Internal Medicine Adolescent Medicine; Visit Provider Clinical Nurse Specialist Family Health
DX: M51.16 Intervertebral disc disorders with radiculopathy, lumbar region (principal)
CPT/HCPCS: 99212; G0463

== ENCOUNTER → 2021-06-12 14:37 | Outpatient (POV) | payer MEDICARE, OTHER, SELFPAY ==
[2021-06-12 14:50] VITALS: BP 162/78; PULSE 78; RESP 18; O2SAT 97; BMI 25.0
--- NOTE | 2021-06-12 15:03 | P.CONS_ITS ---
[facility] Pain Management SOAP Note Subjective:: Patient is a pleasant 75-year-old white female that presents today for follow-up and medication refills. She is currently being treated for degenerative disc disease of the lumbar spine with lumbar radiculopathy. She is rating her pain today a 7 out of 10. She is currently managed with tramadol 50 mg 3 times a day. She was scheduled for a mild procedure previously to bilateral L3-L4 L4-L5 and L5-S1. The procedure was canceled during Covid. At this time she is willing to postpone her mild procedure. She is requesting refills on her prescriptions today. Her Eleazar number is [id number] she has an active morphine equivalent of 0. Her previous drug screens have been reviewed and appropriate Review of Systems General: No recent weight changes, no fever, no sleep disturbances Respiratory: No cough, no shortness of air, no recurring pulmonary infections Cardiovascular/peripheral vascular: No chest pain, no palpitations, no edema, no shortness of breath Gastrointestinal: No new onset incontinence, normal bowel movements reported Genitourinary: No new onset incontinence Musculoskeletal: [Low back pain is] Psychiatric: [Normal mood/affect] Neurological: [Denies weakness in extremities], [denies balance issues] Objective:: Physical exam General: Alert and oriented x3 no acute distress, pleasant and cooperative, [on room air] Lungs: Respirations even and unlabored, symmetrical chest expansion Eyes: PERRL Musculoskeletal: Flexion and extension of the lumbar spine nonguarded, deep tendon reflexes normal, strength in upper and lower extremities 5 out of 5 normal gait noted Neurological: Speech clear, enterprise analyst equal, no gross sensory deficit Assessment:: Degenerative disc disease of the lumbar spine with lumbar radiculopathy, back pain Plan:: We will continue the patient's tramadol 50 mg 3 times daily. We will provide her with 3 months worth of medication refills. She will need to follow-up in the clinic in 3 months. She is welcome to contact the clinic prior to her next appointment date if she has any questions or concerns. Dr. Mukherjee has reviewed this note and agrees with this plan of care. This note was dictated using voice recognition software and make contain errors or omissions. [facility] History Medical History: Reports:: Hyperlipidemia, Hypertension, Palpitations Denies:: Cancer, Diabetes Mellitus Type 1, Diabetes Mellitus Type 2, Internal Pacemaker, MRSA, Seizures *Have you ever received a pneumonia vaccine?: Yes *Have you received a flu vaccine this season?: Yes Other Medical History: Reports: Anemia, Arthritis, Cataracts, Hormone Therapy, Sinus Problems. Denies: Blood Transfusion Reaction Laterality Cases: Left: Carpal Tunnel Release, Bilateral: Breast Biopsy, Tonsillectomy Other Surgeries: Yes: Tubal Ligation. No: Pacemaker Amputation: No Fractures: No - *Social History Smoking Status: Former smoker Tobacco Type: cigarettes # Packs/Day (cigarettes): 1 Alcohol Intake: never Alcohol Intake Frequency:: holidays/special occasions only *Occupational Status:: unemployed Housing: house Household Members: none *Travel in the last 8 weeks: None Family Hx:: Cancer, Diabetes, Hypertension, Stroke
== END ==
PROVIDERS: Visit Provider Family Medicine
DX: M51.16 Intervertebral disc disorders with radiculopathy, lumbar region (principal)
CPT/HCPCS: 99212; G0463

== ENCOUNTER 2021-08-02 10:51 | Outpatient (CLI) | payer MEDICARE, OTHER, SELFPAY ==
[2021-08-02 11:10] VITALS: BP 136/72; PULSE 85; RESP 16; TEMP 36.6; O2SAT 100
== END 2021-08-02 11:25 | disposition home or self-care (01) ==
LOC: INF 10:53
PROVIDERS: PCP Internal Medicine Adolescent Medicine; Visit Provider Internal Medicine Adolescent Medicine
DX: M81.0 Age-related osteoporosis without current pathological fracture (principal)
CPT/HCPCS: 96372; J0897

== ENCOUNTER → 2021-08-08 11:32 | Outpatient (POV) | payer MEDICARE, OTHER, SELFPAY ==
[2021-08-08 11:46] VITALS: BP 135/56; PULSE 61; RESP 18; O2SAT 98; BMI 25.2
--- NOTE | 2021-08-08 12:07 | HMH.PAINSOAP ---
[facility] Pain Management SOAP Note Subjective:: Patient is a 75-year-old white female who presents today for follow-up and for medication refills. She has been treated for degenerative disc disease lumbar spine with lumbar radiculopathy symptoms. Patient's pain is a 6 out of 10. She says that she is having worsening low back pain, left side that improved somewhat with sitting, however, worsens with standing and walking and with bending forward. She does not want to undergo injective therapy at this time. She has postponed the mild procedure. She is currently on tramadol 50 mg 1 tablet p.o. 3 times daily. She says this does give her significant relief up to 60%, however, pain is returning midday. We discussed increasing to 4 times daily. She would like to try this. She does not want any medication stronger than what she is currently taking. We also discussed compounding cream. She would like to try this. She is using Salonpas to the left low back area. She uses ice and heat intermittently. Review of Systems General: No recent weight changes, no fever, no sleep disturbances Respiratory: No cough, no shortness of air, no recurring pulmonary infections Cardiovascular/peripheral vascular: No chest pain, no palpitations, no edema, no shortness of breath Gastrointestinal: No new onset incontinence, normal bowel movements reported Genitourinary: No new onset incontinence Musculoskeletal: Left low back pain worse with standing, walking and bending Psychiatric: [Normal mood/affect] Neurological: [Denies weakness in extremities], [denies balance issues] Objective:: Physical exam General: Alert and oriented x3, no acute distress, pleasant and cooperative, [on room air] Lungs: Respirations even and unlabored, symmetrical chest expansion Eyes: PERRL Musculoskeletal: Flexion and extension of lumbar [spine] somewhat guarded secondary to pain, strength in upper and lower extremities [5/5], [antalgic gait noted] Neurological: 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 We will give the patient 3 months of medication. We will also start her on compounding cream to the lumbar spine to see if this relieves some of the patient's breakthrough pain. Due to Covid and high risk of exposure in the facility along with the patient's comorbidities, we will schedule the patient for a telehealth visit via telephone with her next visit. She is in agreement. Risks and benefits of the medication have been explained in detail to the patient. The patient has been advised to consult with his/her primary care provider and pharmacist regarding drug-drug interaction of medications currently prescribed. Patient has been prescribed a controlled substance after being counseled on the medication, medication safety, and possible side effects. DORIAN report has been obtained and reviewed prior to prescription and found to be appropriate. Opioid contract was reviewed and signed by the patient, and that they have agreed to all of the terms set forth by our compliance program. Patient has been instructed to contact the clinic with any concerns before the next appointment. Dr. Mukherjee has reviewed this note and agrees with this plan of care. This note was dictated using voice recognition software and make contain errors or omissions. No [facility] History I have reviewed the patient's past medical history: Yes Medical History: Reports:: Hyperlipidemia, Hypertension, Palpitations Denies:: Cancer, Diabetes Mellitus Type 1, Diabetes Mellitus Type 2, Internal Pacemaker, MRSA, Seizures *Have you ever received a pneumonia vaccine?: Yes *Have you received a flu vaccine this season?: Yes Other Medical History: Reports: Anemia, Arthritis, Cataracts, Hormone Therapy, Sinus Problems. Denies: Blood Tr
== END ==
PROVIDERS: PCP Internal Medicine Adolescent Medicine; Visit Provider Clinical Nurse Specialist Family Health
DX: M51.16 Intervertebral disc disorders with radiculopathy, lumbar region (principal)
CPT/HCPCS: 99212; G0463

== ENCOUNTER → 2021-09-11 11:27 | Outpatient (POV) | payer MEDICARE, OTHER, SELFPAY ==
[2021-09-11 11:33] VITALS: BP 176/98; PULSE 88; RESP 18; O2SAT 98; BMI 25.2
--- NOTE | 2021-09-11 13:58 | HMH.PAINSOAP ---
[facility] Pain Management SOAP Note Subjective:: Patient is a very pleasant 75-year-old white female who presents today for medication refills. We do treat the patient for chronic low back pain. She has pain that is worse to the left side. The pain does worsen with standing, walking and bending forward. She has undergone injective therapy in the past and has gotten minimal relief. She does rate her pain a 6 out of 10 today. She was ordered compounding cream at her last visit but has forgotten to use the medication. She says that she will try to remember to take the medication this week. We do manage the patient with tramadol 50 mg 1 tablet p.o. 3 times daily which does give her up to 70% relief. Patient's Dorian #[id number] has been reviewed and is appropriate. Morphine equivalent is 20. Drug screens have been appropriate. She denies any side effects to the medication. Review of Systems General: No recent weight changes, no fever, no sleep disturbances Respiratory: No cough, no shortness of air, no recurring pulmonary infections Cardiovascular/peripheral vascular: No chest pain, no palpitations, no edema, no shortness of breath Gastrointestinal: No new onset incontinence, normal bowel movements reported Genitourinary: No new onset incontinence Musculoskeletal: Low back pain worse to left side Psychiatric: [Normal mood/affect] Neurological: [Denies weakness in extremities], [denies balance issues] Objective:: Physical exam General: Alert and oriented x3, no acute distress, pleasant and cooperative Lungs: Respirations even and unlabored, symmetrical chest expansion Eyes: PERRL Musculoskeletal: Flexion and extension of lumbar [spine] somewhat guarded secondary to pain, [antalgic gait noted] Neurological: Speech clear, no gross sensory deficit Assessment:: Degenerative disc disease lumbar spine with lumbar radiculopathy symptoms Plan:: We will refill the patient's tramadol 50 mg 1 tablet p.o. 3 times daily. We will give her 3 months of medication. She does have a telehealth visit in October. We will refill medications at that time as well. We will avoid exposure to Covid by doing telehealth visit. She has been advised that she can contact the clinic, however if symptoms change or if she needs to be seen in the clinic before or after her telehealth visit. Risks and benefits of the medication have been explained in detail to the patient. If side effects do present with the medication, patient has been advised to stop the medication immediately and call the clinic. The patient has been advised to consult with his/her primary care provider and pharmacist regarding drug-drug interaction of medications currently prescribed. Risks and benefits of the medication have been explained in detail to the patient. The patient does understand the risk of dependence on the medication when given over a prolonged period. Patient has been advised of risks of oversedation with the prescribed medication. Narcan has been offered to the paitent in the event of oversedation. Patient has been advised that a family member should also be educated regarding administration of Narcan. The patient has been advised to consult with his/her primary care provider and pharmacist regarding drug-drug interaction of medications currently prescribed. Patient has been prescribed a controlled substance after being counseled on the medication, medication safety, and possible side effects. DORIAN report has been obtained and reviewed prior to prescription and found to be appropriate. Opioid contract was reviewed and signed by the patient, and that they have agreed to all of the terms set forth by our compliance program. Patient has been instructed to contact the clinic with any concerns before the next appointment. Dr. Mukherjee has reviewed this note and agrees with this plan of care. This note was dictated using voice recognition software and make contain
== END ==
PROVIDERS: Visit Provider Clinical Nurse Specialist Family Health
DX: M51.16 Intervertebral disc disorders with radiculopathy, lumbar region (principal)
CPT/HCPCS: 99212; G0463

== ENCOUNTER → 2021-09-15 13:22 | Outpatient (CLI) | payer MEDICARE, OTHER, SELFPAY | PROVIDERS: Visit Provider Nurse Practitioner Family | DX: M54.50 Low back pain, unspecified (principal) | CPT/HCPCS: 87086 ==

== ENCOUNTER 2021-10-04 18:09 | Emergency (ER) | payer MEDICARE, OTHER, SELFPAY ==
[2021-10-04 19:34] VITALS: BP 139/71; PULSE 69; RESP 19; TEMP 36.8; O2SAT 99; BMI 25.7
--- NOTE | 2021-10-04 19:53 | XR_ITS ---
PROCEDURE INFORMATION: Exam: XR Chest Exam date and time: 10/04/2021 7:53 PM Age: 76 years old Clinical indication: Cough and shortness of breath; Patient HX: SOA, congestion; Additional info: SOA, congestions TECHNIQUE: Imaging protocol: XR of the chest. Views: 2 views. COMPARISON: DX CXR2V XR chest 2V 02/16/2019 12:36 PM FINDINGS: Lungs: Hyperexpanded lungs without infiltrate. Pleural spaces: Unremarkable. No pleural effusion. No pneumothorax. Heart/Mediastinum: Large hiatal hernia. Bones/joints: Unremarkable. IMPRESSION: 1. Hyperexpanded lungs without infiltrate. 2. Hiatal hernia.
[2021-10-04 19:59] LABS: Basophils # 0.1 K/mm3 (0-0.2); Basophils % 0.6 % (0.1-2.0); Eosinophils # 0.2 K/mm3 (0.0-0.4); Eosinophils % 2.6 % (0.1-12.0); Hematocrit 34.9 % (37.0-47.0); Hemoglobin 11.6 g/dL (12.2-16.2); Lymphocytes # 1.5 K/mm3 (0.7-4.5); Lymphocytes % 19.3 % (10-50); Mean Corpuscular HGB Conc 33.3 g/dL (31.8-35.4); Mean Corpuscular Volume 96.2 fl (81-99); Mean Platelet Volume 9.3 fl (7.4-10.4); Monocytes # 0.3 K/mm3 (0.1-1.0); Monocytes % 3.6 % (1.7-9.3); Neutrophils # 5.7 K/mm3 (1.8-7.8); Neutrophils % 73.9 % (37.0-80.0); Platelet Count 235 K/mm3 (142-424); Red Blood Count 3.63 M/mm3 (4.20-5.40); Red Cell Distribution Width 15.4 % (11.5-17.5); White Blood Count 7.7 K/mm3 (4.8-10.8)
[2021-10-04 20:03] LABS: Chloride 100 mmol/L (98-107); Sodium 133 mmol/L (136-145)
[2021-10-04 20:04] LABS: Potassium 4.8 mmoL/L (3.5-5.1)
[2021-10-04 20:06] LABS: Alanine Aminotransferase 16 U/L (12-78); Albumin Level 4.1 g/dl (3.5-5.0); Albumin/Globulin Ratio 1.4 (1.1-1.8); Alkaline Phosphatase 77 U/L (38-126); Anion Gap 12.8 mEq/L (5-15); Aspartate Amino Transferase 46 U/L (14-36); Bilirubin,Total 0.4 mg/dl (0.2-1.3); Blood Urea Nitrogen 18 mg/dl (7-17); Calcium 9.1 mg/dl (8.4-10.2); Carbon Dioxide 25 mmol/L (22.0-30.0); Creatinine Clearance Estimated 47 mL/min (50-200); Estimated Glomerular Filt Rate 48 ml/min (>60); GFR (African American) 58 ML/MIN (>60); Globulin 2.9 g/dL (1.3-3.2); Glucose 103 mg/dl (74-100)
[2021-10-04 20:07] LABS: Magnesium 1.9 mg/dl (1.6-2.3)
[2021-10-04 20:21] LABS: Troponin I < 0.01 ng/ml (0.00-0.034)
--- NOTE | 2021-10-04 20:22 | CT_ITS ---
PROCEDURE INFORMATION: Exam: CT Head Without Contrast Exam date and time: 10/04/2021 8:22 PM Age: 76 years old Clinical indication: Dizziness TECHNIQUE: Imaging protocol: Computed tomography of the head without contrast. Radiation optimization: All CT scans at this facility use at least one of these dose optimization techniques: automated exposure control; mA and/or kV adjustment per patient size (includes targeted exams where dose is matched to clinical indication); or iterative reconstruction. COMPARISON: [facility] CT HEAD-W/WO CONTRAST 03/29/2017 12:45 PM FINDINGS: Brain: Normal. No hemorrhage. Unremarkable white matter. No mass effect. Cerebral ventricles: No ventriculomegaly. Paranasal sinuses: Visualized sinuses are unremarkable. No fluid levels. Mastoid air cells: Visualized mastoid air cells are well aerated. Bones/joints: Unremarkable. No acute fracture. Soft tissues: Unremarkable. IMPRESSION: No acute intracranial abnormality.
--- NOTE | 2021-10-04 20:37 | HMH.EDDIZZ ---
ED Disposition Clinical Impression: Dizziness UTI (urinary tract infection) Qualifiers: Urinary tract infection type: site unspecified Hematuria presence: without hematuria Qualified Code(s): N39.0 - Urinary tract infection, site not specified Disposition: Home, Self-Care Condition on Discharge: Good Instructions: DI for Urinary Tract Infection (UTI) Additional Instructions: use meds and see pcp for follow up and urine culture results Prescriptions: Fluconazole [Diflucan 150mg tab] 150 mg PO ONCE #3 tab Prescription Printed Cefdinir [Omnicef 300mg Capsule] 300 mg PO BID #14 cap Prescription Printed Referrals: Mayank Jimenes MD [Primary Care Provider] - - Critical Care Critical Care Time: No Attestation: On 10/04/21, the high probability of a clinically significant, sudden or life threatening deterioration of the following system(s) required my full and direct attention, intervention and personal management. The time I documented below is in addition to time spent performing reported procedures but includes the following listed in this critical care notation. Medical Decision Making - Medical Records Medical records reviewed: Yes: I reviewed the patient's medical records. - Eleazar Inquiry Pt receiving controlled substance: No Vital Signs: 10/04/21 19:34 Temperature 98.2 F Temperature Source Oral Pulse Rate [Right] 69 Respiratory Rate 19 Blood Pressure [Right Arm] 139/71 Blood Pressure Mean [Right Arm] 93 Blood Pressure Source [Right Arm] Automatic Cuff 02 Sat by Pulse Oximetry 99 Oxygen Delivery Method Room Air - Lab Data Lab results reviewed: Yes: I reviewed the patient's lab results. Lab Results 10/04/21 19:38: WBC 7.7, RBC 3.63 L, Hgb 11.6 L, Hct 34.9 L, MCV 96.2, MCH 32.0 H, MCHC 33.3, RDW 15.4, Plt Count 235, MPV 9.3, Neut % (Auto) 73.9, Lymph % (Auto) 19.3, [place] % (Auto) 3.6, Eos % (Auto) 2.6, Baso % (Auto) 0.6, Neut # (Auto) 5.7, Lymph # (Auto) 1.5, [place] # (Auto) 0.3, Eos # (Auto) 0.2, Baso # (Auto) 0.1, ESR 66 H 10/04/21 19:38: Sodium 133 L, Potassium 4.8, Chloride 100, Carbon Dioxide 25, Anion Gap 12.8, BUN 18 H, Creatinine 1.10 H, Estimated Creat Clear 47, Estimated GFR 48 L, Est GFR ( Amer) 58 L, Glucose 103 H, Calcium 9.1, Magnesium 1.9, Total Bilirubin 0.4, AST 46 H, ALT 16, Alkaline Phosphatase 77, Troponin I < 0.01, C-Reactive Protein 2.0, Total Protein 7.0, Albumin 4.1, Globulin 2.9, Albumin/Globulin Ratio 1.4, Procalcitonin 0.080 10/04/21 20:55: Urine Color Yellow, Urine Appearance Sl cloudy, Urine pH 7.0, Ur Specific [place] <= 1.005, Urine Protein Negative, Urine Glucose (UA) Negative, Urine Ketones Negative, Urine Blood Trace-i, Urine Nitrate Negative, Urine Bilirubin Negative, Urine Urobilinogen 0.2, Ur Leukocyte Esterase 3+ A, Urine RBC Occasional, Urine WBC 20-50, Ur Squamous Epith Cells 3-5, Urine Bacteria 3+ 10/04/21 20:55: SARS-CoV-2 (PCR) Not detected, Influenza A Untype (PCR) Not detected, Influenza Type B (PCR) Not detected Result diagrams: 10/04/21 19:38 10/04/21 19:38 Orders (Tests/Meds): ED MEDICATIONS Generic Name Dose Route Start Last Admin Trade Name Freq PRN Reason Stop Dose Admin Ceftriaxone Sodium 1 gm/ 50 mls @ 100 mls/hr 10/04/21 21:45 10/04/21 21:52 Sodium Chloride IV 10/18/21 21:44 100 mls/hr Q24H ANKIT Administration Discontinued Medications Generic Name Dose Route Start Last Admin Trade Name Freq PRN Reason Stop Dose Admin Fluconazole 100 mg 10/04/21 22:34 10/04/21 22:37 Fluconazole 100mg Tablet PO 10/04/21 22:35 100 mg ONCE ONE Administration Sodium Chloride 1,000 mls @ 999 mls/hr 10/04/21 20:00 10/04/21 19:57 Sod Chlor 0.9% 1000ml Bag IV 10/04/21 21:00 999 mls/hr .Q1H1M ANKIT Administration Methylprednisolone Sodium Succinate 125 mg 10/04/21 21:35 10/04/21 21:52 Methylprednisolone Sod Succ 125mg Vial IV 10/04/21 21:36 125 mg ONCE ONE Administration ORDERS Category Date Time S
--- NOTE | 2021-10-04 20:38 | CT_ITS ---
PROCEDURE INFORMATION: Exam: CT Maxillofacial Without Contrast, Sinus Exam date and time: 10/04/2021 8:38 PM Age: 76 years old Clinical indication: Nasal congestion; Additional info: Sinus congestion TECHNIQUE: Imaging protocol: CT Maxillofacial without contrast. Focus on the sinuses. Radiation optimization: All CT scans at this facility use at least one of these dose optimization techniques: automated exposure control; mA and/or kV adjustment per patient size (includes targeted exams where dose is matched to clinical indication); or iterative reconstruction. COMPARISON: CT HEAD/BRAIN WO CON 10/04/2021 8:40 PM FINDINGS: Frontal sinuses: Normal. No air-fluid levels. Ethmoid air cells: Normal. No air-fluid levels. Sphenoid sinuses: A small amount of frothy material is seen in the dependent portion of the left sphenoid sinus. Maxillary sinuses: Normal. No air-fluid levels. Ostiomeatal units are patent. Nasal cavity/Septum: Unremarkable. Orbital cavity: Bilateral pseudophakia noted. Bones/joints: Unremarkable. Soft tissues: Unremarkable. Auditory system: Soft tissue density in the bilateral external auditory canals is most likely cerumen. Dental: Metal artifact from dental hardware slightly limits exam. IMPRESSION: A small amount of frothy material is seen in the left sphenoid sinus. Sinuses are otherwise clear.
--- NOTE | 2021-10-04 20:40 | PC.NURSE ---
pt to CT
[2021-10-04 21:01] LABS: Coronavirus 19, PCR Not Detected (NotDetected); Influenza A, PCR Not Detected (NotDetected); Influenza B, PCR Not Detected (NotDetected)
[2021-10-04 21:03] LABS: Microscopic, Urine URINE MICROSCOPIC (MICROSCOPIC)
[2021-10-04 21:14] LABS: Appearance,Urine SL CLOUDY (Clear); Bilirubin,Urine Negative (Negative); Blood, Urine TRACE-I (Negative); Color,Urine YELLOW (Yellow); Glucose,Urine (UA) Negative (Negative); Ketones,Urine Negative (Negative); Leukocyte Esterase,Urine 3+ (Negative); Nitrate,Urine Negative (Negative); Protein,Urine Negative (Negative); Specific Gravity, Urine <= 1.005 (1.005-1.030); Urobilinogen,Urine 0.2 EU/dl (0.2)
[2021-10-04 21:15] LABS: Erythrocyte Sedimentation Rate 66 mm/hr (0-30)
[2021-10-04 21:26] LABS: Bacteria,Urine 3+ /lpf; RBC,Urine Occasional #/hpf (0-3); WBC,Urine 20-50 #/hpf (0-3)
[2021-10-04 22:42] LABS: NT Pro Brain Natriuretic Pep. 492 pg/mL (0-450)
[2021-10-04 23:04] VITALS: BP 126/82; PULSE 78; RESP 18; TEMP 36.7; O2SAT 99
== END 2021-10-04 23:06 | disposition home or self-care (01) ==
LOC: UTC 18:13 → ER 18:46
PROVIDERS: Emergency Provider Emergency Medicine; PCP Internal Medicine Adolescent Medicine
DX: N30.00 Acute cystitis without hematuria (principal); I10 Essential (primary) hypertension; E78.5 Hyperlipidemia, unspecified; Z88.2 Allergy status to sulfonamides; Z87.891 Personal history of nicotine dependence; Z20.822 Contact with and (suspected) exposure to COVID-19
CPT/HCPCS: 70450; 70486; 71046; 80053; 81001; 83735; 83880; 84145; 84484; 85025; 85651; 86140; 87086; 96365; 96366; 96375; 99283; C9803; U0003; U0005

== ENCOUNTER → 2021-11-02 17:50 | Outpatient (CLI) | payer MEDICARE, OTHER, SELFPAY | PROVIDERS: Visit Provider Internal Medicine Adolescent Medicine | DX: R30.0 Dysuria (principal); B95.2 Enterococcus as the cause of diseases classified elsewhere | CPT/HCPCS: 87086; 87088; 87186 ==

== ENCOUNTER → 2021-11-06 11:39 | Outpatient (POV) | payer MEDICARE, OTHER, SELFPAY ==
--- NOTE | 2021-11-06 11:55 | P.CONS_ITS ---
[facility] Pain Management SOAP Note Subjective:: Patient is a pleasant 76-year-old female who is here as a telehealth visit. Patient is currently being treated for degenerative disc disease of lumbar spine with lumbar radiculopathy symptoms. Patient is being treated with tramadol 50 mg 3 times a day. Patient denies any side effects from this medication. Patient denies any change in location type of pain. Patient says that there was a miscommunication last time she was only scheduled tramadol 50 mg daily. She says this is not enough to manage her pain so she has been supplementing it with Tylenol. She is also using compounding cream to help with her discomfort. She rates her pain today as 7 out of 10. Her Eleazra number is [id number] with an active morphine equivalent of 5. General: No recent weight changes, no fever, no sleep disturbances Respiratory: No cough, no shortness of air, no recurring pulmonary infections Cardiovascular/peripheral vascular: No chest pain, no palpitations, no edema, no shortness of breath Gastrointestinal: No new onset incontinence, normal bowel movements reported Genitourinary: No new onset incontinence Musculoskeletal: Low back pain Psychiatric: [Normal mood/affect] Neurological: [Denies weakness in extremities], [denies balance issues] Objective:: General: Alert and oriented x3, no acute distress, pleasant and cooperative, [on room air] Lungs: Respirations even and unlabored, symmetrical chest expansion Eyes: PERRL Musculoskeletal: Flexion and extension of [lumbar] [spine] somewhat guarded secondary to pain, [antalgic gait noted] Neurological: Speech clear, no gross sensory deficit Assessment:: Patient did disease of the lumbar spine with lumbar radiculopathy symptoms Plan:: We will refill the patient's tramadol 50 mg 3 times a day. We will provide the patient with 3 months worth of refills. We will see the patient back in 3 months here in our clinic. Patient has been instructed to contact the clinic with any concerns before the next appointment. This note was dictated using voice recognition software and make contain errors or omissions. [facility] History Medical History: Reports:: Hyperlipidemia, Hypertension, Palpitations Denies:: Cancer, Diabetes Mellitus Type 1, Diabetes Mellitus Type 2, Internal Pacemaker, MRSA, Seizures *Have you ever received a pneumonia vaccine?: Yes *Have you received a flu vaccine this season?: Yes Other Medical History: Reports: Anemia, Arthritis, Cataracts, Hormone Therapy, Sinus Problems. Denies: Blood Transfusion Reaction Laterality Cases: Left: Carpal Tunnel Release, Bilateral: Breast Biopsy, Tonsillectomy Other Surgeries: Yes: Tubal Ligation. No: Pacemaker Amputation: No Fractures: No - *Social History Smoking Status: Former smoker Tobacco Type: cigarettes # Packs/Day (cigarettes): 1 Alcohol Intake: never Alcohol Intake Frequency:: holidays/special occasions only *Occupational Status:: unemployed Housing: house Household Members: none *Travel in the last 8 weeks: Inside the [place] Family Hx:: Cancer, Diabetes, Hypertension, Stroke
== END ==
PROVIDERS: Visit Provider Family Medicine
DX: M51.16 Intervertebral disc disorders with radiculopathy, lumbar region (principal)
CPT/HCPCS: 99212; G0463

== ENCOUNTER → 2021-12-21 13:36 | Outpatient (CLI) | payer MEDICARE, OTHER, SELFPAY ==
--- NOTE | 2021-12-21 13:41 | CT_ITS ---
FINAL REPORT TECHNIQUE: Thin section axial CT images of the facial bones and sinuses were obtained without contrast. Coronal reformatted images were also obtained.This study was performed with techniques to keep radiation doses as low as reasonably achievable, (ALARA). Individualized dose reduction techniques using automated exposure control or adjustment of mA and/or kV according to the patient''''s size were employed. CLINICAL HISTORY: CHRONIC MAXILLARY,CHRONIC VERTIGO COMPARISON: October 04, 2021 FINDINGS: There is opacification of the left posterior ethmoid air cells. There is mild mucosal thickening of the superior left maxillary sinus. There is mild mucosal thickening of several ethmoid air cells. No fluid levels are identified. There is been interval improvement in fluid or debris in the left sphenoid sinus as seen on the previous exam. The ostiomeatal units have an unremarkable appearance. There is minimal leftward nasal septal deviation. No fracture or acute bony abnormality is identified. IMPRESSION: Findings consistent with mild sinusitis. Reviewed, Interpreted and Dictated by Vladislav Mckinley III, MD Transcribed by Misty Rocha Authenticated by Vladislav Mckinley III, MD on 12/21/2021 03:32:49 PM [facility]
--- NOTE | 2021-12-21 13:41 | CT_ITS ---
FINAL REPORT TECHNIQUE: Axial images of the temporal bones including the mastoid regions were obtained. Coronal and sagittal reformats were submitted. This study was performed with techniques to keep radiation doses as low as reasonably achievable (ALARA). Individualized dose reduction techniques using automated exposure control or adjustment of mA and/or kV according to the patient's size were employed. CLINICAL HISTORY: CHRONIC MAXILLARY,CHRONIC VERTIGO COMPARISON: Head C dated October 04, 2021 FINDINGS: The bilateral mastoid air cells and mastoid antra have an unremarkable appearance without evidence of mastoiditis. There are no fluid levels. Middle ear cavities appear normal. Ossicles are normal. Inner ear structures are intact. The external auditory canals are normal. IMPRESSION: No acute abnormality is identified. Reviewed, Interpreted and Dictated by Vladislva Mckinley III, MD Transcribed by Misty Rocha Authenticated by Vladislav Mckinley III, MD on 12/21/2021 03:33:[address] [facility]
== END ==
PROVIDERS: PCP Internal Medicine Adolescent Medicine; Visit Provider Internal Medicine Adolescent Medicine
DX: R42 Dizziness and giddiness (principal); J32.0 Chronic maxillary sinusitis
CPT/HCPCS: 70486

== ENCOUNTER → 2022-02-19 13:50 | Outpatient (POV) | payer MEDICARE, OTHER, SELFPAY ==
[2022-02-19 14:59] VITALS: BP 121/58; PULSE 99; RESP 18; TEMP 36.3; O2SAT 95; BMI 26.6
--- NOTE | 2022-02-19 15:19 | HMH.PAINSOAP ---
[facility] Pain Management SOAP Note Subjective:: Patient is a pleasant 76-year-old female who is here for medication refill and follow-up. Patient is currently being treated for degenerative disc disease of lumbar spine with lumbar radiculopathy symptoms. Patient is being managed with tramadol 50 mg 3 times a day and compounding cream. Patient denies any side effects from the medications. Patient denies any changes to the location and type of pain. Patient states that this is adequately helping manage their pain. Rates pain as 6 out of 10. [facility] number [id number] with an active morphine equivalent 0. Drug screens have been reviewed and appropriate. ORT score is low risk Review of Systems: General: No recent weight changes, no fever, no sleep disturbances Respiratory: No cough, no shortness of air, no recurring pulmonary infections Cardiovascular/peripheral vascular: No chest pain, no palpitations, no edema, no shortness of breath Gastrointestinal: No new onset incontinence, normal bowel movements reported Genitourinary: No new onset incontinence Musculoskeletal: Low back pain Psychiatric: [Normal mood/affect] Neurological: [Denies weakness in extremities], [denies balance issues] Objective:: Physical Exam: General: Alert and oriented x3, no acute distress, pleasant and cooperative, [on room air] Lungs: Respirations even and unlabored, symmetrical chest expansion Eyes: PERRL Musculoskeletal: Flexion and extension of lumbar [spine] somewhat guarded secondary to pain, [antalgic gait noted] Neurological: Speech clear, no gross sensory deficit Assessment:: Degenerative disc disease of lumbar spine with lumbar radiculopathy symptoms Plan:: We will continue the patient's tramadol 50 mg 3 times a day and compounding cream. We will provide the patient with 3 months of refills. We would like to see the patient back in 3 months for follow-up and reevaluation of chronic pain syndrome. Patient has been advised of risks of oversedation with the prescribed medication. Narcan has been offered to the patient in the event of oversedation. Patient has been advised that a family member should also be educated regarding administration of Narcan. Patient has been instructed to contact the clinic with any concerns before the next appointment. Dr. Mukherjee has reviewed this note and agrees with this plan of care. This note was dictated using voice recognition software and make contain errors or omissions. [facility] History Medical History: Reports:: Hyperlipidemia, Hypertension, Palpitations Denies:: Cancer, Diabetes Mellitus Type 1, Diabetes Mellitus Type 2, Internal Pacemaker, MRSA, Seizures *Have you ever received a pneumonia vaccine?: Yes *Have you received a flu vaccine this season?: Yes Other Medical History: Reports: Anemia, Arthritis, Cataracts, Hormone Therapy, Sinus Problems. Denies: Blood Transfusion Reaction Laterality Cases: Left: Carpal Tunnel Release, Bilateral: Breast Biopsy, Tonsillectomy Other Surgeries: Yes: Tubal Ligation. No: Pacemaker Amputation: No Fractures: No - *Social History Smoking Status: Former smoker Tobacco Type: cigarettes # Packs/Day (cigarettes): 1 Alcohol Intake: never Alcohol Intake Frequency:: holidays/special occasions only *Occupational Status:: retired Housing: house Household Members: none *Travel in the last 8 weeks: None Family Hx:: Cancer, Diabetes, Hypertension, Stroke
== END ==
PROVIDERS: Visit Provider Student in an Organized Health Care Education/Training Program
DX: M51.16 Intervertebral disc disorders with radiculopathy, lumbar region (principal)
CPT/HCPCS: 99212; G0463

== ENCOUNTER 2022-02-27 08:32 | Observation (INO) | payer MEDICARE, OTHER, SELFPAY ==
[2022-02-27] VITALS (12 sets, daily range): BP systolic 134–168; BP diastolic 63–102; PULSE 65–93; RESP 14–20; TEMP 36.3–36.8; O2SAT 94–99; BMI 25.7; BMI 25.0
--- NOTE | 2022-02-27 08:47 | HMH.EDGENADL ---
ED Disposition Clinical Impression: Renal cyst GI bleed Qualifiers: GI bleed type/associated pathology: gastrointestinal hemorrhage with hematemesis Qualified Code(s): K92.0 - Hematemesis Disposition: Admitted As Inpatient Condition on Discharge: Fair Time of Disposition: 12:11 - Critical Care Critical Care Time: No Attestation: On 02/27/22, the high probability of a clinically significant, sudden or life threatening deterioration of the following system(s) required my full and direct attention, intervention and personal management. The time I documented below is in addition to time spent performing reported procedures but includes the following listed in this critical care notation. Medical Decision Making - Medical Records Medical records reviewed: Yes: I reviewed the patient's medical records. - Eleazar Inquiry Pt receiving controlled substance: No Vital Signs: 02/27/22 08:32 02/27/22 09:01 02/27/22 09:30 Temperature 98.2 F Temperature Source Oral Pulse Rate 81 67 Pulse Rate [Right Radial] 93 H Respiratory Rate 18 18 Blood Pressure 145/88 H 168/85 H Blood Pressure [Right Arm] 164/102 H Blood Pressure Mean 107 104 Blood Pressure Mean [Right Arm] 122 Blood Pressure Source [Right Arm] Automatic Cuff Blood Pressure Position [Right Arm] Sitting 02 Sat by Pulse Oximetry 97 99 96 Oxygen Delivery Method Room Air Room Air Room Air 02/27/22 10:00 02/27/22 10:30 02/27/22 11:00 Temperature Temperature Source Pulse Rate 65 77 69 Pulse Rate [Right Radial] Respiratory Rate 14 16 15 Blood Pressure 164/80 H 165/81 H 167/70 H Blood Pressure [Right Arm] Blood Pressure Mean 108 101 102 Blood Pressure Mean [Right Arm] Blood Pressure Source [Right Arm] Blood Pressure Position [Right Arm] 02 Sat by Pulse Oximetry 96 96 96 Oxygen Delivery Method 02/27/22 12:11 Temperature Temperature Source Pulse Rate 82 Pulse Rate [Right Radial] Respiratory Rate Blood Pressure 146/81 H Blood Pressure [Right Arm] Blood Pressure Mean 104 Blood Pressure Mean [Right Arm] Blood Pressure Source [Right Arm] Blood Pressure Position [Right Arm] 02 Sat by Pulse Oximetry 96 Oxygen Delivery Method Room Air - Lab Data Lab Results 02/27/22 08:49: WBC 12.9 H, RBC 3.62 L, Hgb 11.0 L, Hct 34.0 L, MCV 93.9, MCH 30.3, MCHC 32.3, RDW 15.2, Plt Count 312, MPV 9.1, Neut % (Auto) 80.8 H, Lymph % (Auto) 10.5, [place] % (Auto) 4.5, Eos % (Auto) 1.5, Baso % (Auto) 2.7 H, Neut # (Auto) 10.4 H, Lymph # (Auto) 1.4, [place] # (Auto) 0.6, Eos # (Auto) 0.2, Baso # (Auto) 0.4 H 02/27/22 08:49: Sodium 135 L, Potassium 3.7, Chloride 96 L, Carbon Dioxide 34 H, Anion Gap 8.7, BUN 29 H, Creatinine 1.20 H, Estimated GFR 43 L, Est GFR ( Amer) 53 L, Glucose 133 H, Calcium 11.1 H, Total Bilirubin 0.8, AST 33, ALT 24, Alkaline Phosphatase 71, Total Protein 6.7, Albumin 3.7, Globulin 3.0, Albumin/Globulin Ratio 1.2, Lipase 27 02/27/22 09:23: Gastric Occult Blood Positive 02/27/22 09:33: SARS-CoV-2 (PCR) Not detected, Influenza A Untype (PCR) Not detected, Influenza Type B (PCR) Not detected Result diagrams: 02/27/22 08:49 02/27/22 08:49 Orders (Tests/Meds): ED MEDICATIONS Generic Name Dose Route Start Last Admin Trade Name Freq PRN Reason Stop Dose Admin Pantoprazole Sodium 80 mg/ 100 mls @ 100 mls/hr 02/27/22 12:15 Sodium Chloride IV 02/27/22 13:14 ONCE ONE Pantoprazole Sodium 80 mg/ 100 mls @ 10 mls/hr 02/27/22 13:15 Sodium Chloride IV 03/02/22 13:14 .Q10H ANKIT Discontinued Medications Generic Name Dose Route Start Last Admin Trade Name Freq PRN Reason Stop Dose Admin Lactated Ringer's 1,000 mls @ 999 mls/hr 02/27/22 08:45 02/27/22 08:52 Lactated Ringer's 1000 Ml Bag IV 02/27/22 09:45 999 mls/hr .Q1H1M ANKIT Administration Iopamidol 75 ml 02/27/22 10:24 02/27/22 10:25 Iopamidol-370 (76%);100ml Bottle IV 02/27/22 10:25 75 ml ONCE ONE Administratio
[2022-02-27 09:00] LABS: Basophils # 0.4 K/mm3 (0-0.2); Basophils % 2.7 % (0.1-2.0); Eosinophils # 0.2 K/mm3 (0.0-0.4); Eosinophils % 1.5 % (0.1-12.0); Lymphocytes # 1.4 K/mm3 (0.7-4.5); Lymphocytes % 10.5 % (10-50); Mean Corpuscular HGB Conc 32.3 g/dL (31.8-35.4); Mean Corpuscular Hemoglobin 30.3 pg (27.0-31.2); Mean Corpuscular Volume 93.9 fl (81-99); Mean Platelet Volume 9.1 fl (7.4-10.4); Monocytes # 0.6 K/mm3 (0.1-1.0); Monocytes % 4.5 % (1.7-9.3); Neutrophils # 10.4 K/mm3 (1.8-7.8); Neutrophils % 80.8 % (37.0-80.0); Platelet Count 312 K/mm3 (142-424); Red Blood Count 3.62 M/mm3 (4.20-5.40); Red Cell Distribution Width 15.2 % (11.5-17.5); White Blood Count 12.9 K/mm3 (4.8-10.8)
[2022-02-27 09:02] LABS: Chloride 96 mmol/L (98-107); Potassium 3.7 mmoL/L (3.5-5.1); Sodium 135 mmol/L (136-145)
[2022-02-27 09:05] LABS: Alanine Aminotransferase 24 U/L (12-78); Albumin Level 3.7 g/dl (3.5-5.0); Albumin/Globulin Ratio 1.2 (1.1-1.8); Alkaline Phosphatase 71 U/L (38-126); Anion Gap 8.7 mEq/L (5-15); Aspartate Amino Transferase 33 U/L (14-36); Bilirubin,Total 0.8 mg/dl (0.2-1.3); Blood Urea Nitrogen 29 mg/dl (7-17); Calcium 11.1 mg/dl (8.4-10.2); Carbon Dioxide 34 mmol/L (22.0-30.0); Estimated Glomerular Filt Rate 43 ml/min (>60); GFR (African American) 53 ML/MIN (>60); Glucose 133 mg/dl (74-100); Lipase 27 U/L (23-300); Total Protein,Serum 6.7 g/dl (6.3-8.2)
--- NOTE | 2022-02-27 09:26 | CT_ITS ---
FINAL REPORT CLINICAL HISTORY: abdominal pain, vomiting FINDINGS: Technique: The patient was injected with intravenous contrast. Oral contrast was administered. Axial images through the abdomen and pelvis were performed. This study was performed with techniques to keep radiation doses as low as reasonably achievable (ALARA). Individualized dose reduction techniques using automated exposure control or adjustment of mA and/or kV according to the patient's size were employed. Abdomen: There are several small nodules in the lung bases with the largest on the right measuring 3 mm and the largest on the left measuring 7 mm. There is mild atelectasis or scarring in the lung bases. There is a large hiatal hernia. The liver is normal in size and attenuation. There are gallstones within the gallbladder. The spleen is unremarkable. The adrenals are normal. The pancreas is unremarkable. There are several small bilateral renal cysts. There is a mass in the posterior right kidney measuring 7 mm that does not appear to be a simple cyst. This may represent a hyperdense cyst or renal neoplasm. The aorta is normal in caliber. There is no free fluid or adenopathy. Pelvis: The appendix is normal. There is sigmoid diverticulosis. There is wall thickening of the posterior urinary bladder which may be inflammatory or neoplastic. There is no free fluid or adenopathy. IMPRESSION: Several small nodules in the lung bases. Recommend follow-up chest CT in 6 months. Mass in posterior right kidney, does not appear to be a simple cyst. Recommend renal mass protocol CT. Wall thickening of the posterior urinary bladder, may be inflammatory or neoplastic. Can be further evaluated with cystoscopy. Reviewed, Interpreted and Dictated by Vladislav Mckinley III, MD Transcribed by Misty Rocha Authenticated by Vladislav Mckinley III, MD on 02/27/2022 11:41:44 AM [facility]
[2022-02-27 09:40] LABS: Coronavirus 19, PCR Not Detected (NotDetected); Influenza A, PCR Not Detected (NotDetected); Influenza B, PCR Not Detected (NotDetected)
[2022-02-27 09:49] LABS: Occult Blood,Gastric Fluid Positive (Negative)
--- NOTE | 2022-02-27 09:57 | PC.NURSE ---
rad notified of CT order, spoke with Milton
--- NOTE | 2022-02-27 10:16 | PC.NURSE ---
pt to CT
--- NOTE | 2022-02-27 10:23 | PC.NURSE ---
pt return from CT
--- NOTE | 2022-02-27 11:21 | PC.NURSE ---
contacted rad to check on status of CT reading, they checked on it said radiologist is in reading the study now.
--- NOTE | 2022-02-27 11:40 | PC.NURSE ---
calling rashmi again to obtain a final CT read. spoke with tera and she stated the prelim was in that she was going to call and have it moved to final.
--- NOTE | 2022-02-27 11:46 | PC.NURSE ---
when pt came back from the rest room she requested to have a break from the vs monitor
--- NOTE | 2022-02-27 12:13 | PC.NURSE ---
CAROLA FIGUEROA speaking with Dr. High
--- NOTE | 2022-02-27 12:17 | PC.NURSE ---
notified care management of admission, spoke with Noris
--- NOTE | 2022-02-27 12:22 | PC.NURSE ---
Called Dr Bagley for consult on patient, they will let him know and have him call back.
--- NOTE | 2022-02-27 12:28 | PC.NURSE ---
pt medication list obtained over the phone by Christine at [facility]
--- NOTE | 2022-02-27 12:41 | PC.NURSE ---
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
[2022-02-27 12:47] LABS: Lactic Acid 1.1 mmol/L (0.7-2.1)
--- NOTE | 2022-02-27 12:59 | PC.NURSE ---
dr frank at bedside
--- NOTE | 2022-02-27 12:59 | PC.NURSE ---
Dr. High at BS
--- NOTE | 2022-02-27 13:03 | PC.NURSE ---
report called to josefa castellon rn on second floor.
--- NOTE | 2022-02-27 13:58 | P.CONPHA_ITS ---
[facility] Pharmacy VTE Monitoring - Patient Demographics Admission date: 02/27/22 Report Date: 02/27/22 Time: 13:58 Allergies/Adverse Reactions: Patient Allergies Sulfa (Sulfonamide Antibiotics) [SULFA (SULFONAMIDE ANTIBIOTICS)] Allergy (Intermediate, Verified 05/08/21 14:55) HEART RACES Height: 1.65 m Weight: 70.307 kg Patient Problems: Current Active Problems GI bleed (Acute) Renal cyst (Acute) - VTE Risk Labs: VTE Related Lab Results Hgb 11.0 g/dL (12.2-16.2) L 02/27/22 08:49 Hct 34.0 % (37.0-47.0) L 02/27/22 08:49 Plt Count 312 K/mm3 (142-424) 02/27/22 08:49 BUN 29 mg/dl (7-17) H 02/27/22 08:49 Creatinine 1.20 mg/dl (0.52-1.04) H 02/27/22 08:49 Was VTE Risk Assessment Performed: Yes VTE Score: 5 VTE Risk Level: Low Risk Clinical Trial Participant: No - Prophylaxis VTE Prophylaxis Ordered?: Yes Types of VTE Prophylaxis: TEDS Knee High Location of Applied Device: Bilateral Lower Extremeties
--- NOTE | 2022-02-27 14:26 | HMH.GSCON ---
*Admission Date: 02/27/22 *Reason for consult:: Possible GI blood loss *History of present illness: Patient is a very pleasant 76-year-old female. She had been in her usual state of health until today when she presented to the emergency department. She had significant vomiting. This was quite copious. She describes it as dark thick resembling a tobacco use . She has been having some issues with urinary tract infections over several months and she does state that some of the medication has been upsetting to her stomach. She was evaluated in the emergency department and emesis was found to be Gastroccult positive. Currently has a stable hemoglobin of 11 with baseline of approximately 11.6. Her BUN is somewhat higher than normal at 29. Work-up in the emergency department included CT scan of the abdomen pelvis which revealed large hiatal hernia. Patient denies any rectal bleeding or definite melena. No prior history of ulcer disease. Given the patient's ongoing symptomatology arrangements were made for inpatient admission. Surgery was asked to see the patient for upper endoscopy. Review of Systems - Review of Systems Review of systems:: pertinent systems reviewed and negative unless documented below - *Neurologic Denies headache(s), Denies dizziness [facility] History I have reviewed the patient's past medical history: Yes Medical History: Reports:: Hyperlipidemia, Hypertension, Palpitations Denies:: Cancer, Diabetes Mellitus Type 1, Diabetes Mellitus Type 2, Internal Pacemaker, MRSA, Seizures *Have you ever received a pneumonia vaccine?: Yes *Have you received a flu vaccine this season?: Yes Other Medical History: Reports: Anemia, Arthritis (RA), Cataracts, Hormone Therapy, Sinus Problems. Denies: Blood Transfusion Reaction Laterality Cases: Left: Carpal Tunnel Release, Bilateral: Breast Biopsy, Tonsillectomy Other Surgeries: Yes: Tubal Ligation. No: Pacemaker Amputation: No Fractures: No - *Social History Last grade of school completed: High school graduate Smoking Status: Former smoker Tobacco Type: cigarettes # Packs/Day (cigarettes): 1 Alcohol Intake: never Alcohol Intake Frequency:: holidays/special occasions only *Occupational Status:: retired Housing: house Household Members: none *Travel in the last 8 weeks: None Family Hx:: Unable to obtain Meds Home Medications Medication Instructions Recorded Confirmed Type Folic Acid [Folic Acid 1mg tablet] 1 mg PO DAILY 01/08/19 02/27/22 History Omeprazole [Omeprazole 20mg Tab] 20 mg PO DAILY 01/08/19 02/27/22 History carvediloL [Carvedilol 12.5mg Tab] 12.5 mg PO BID 01/08/19 02/27/22 History lisinopriL [Lisinopril 10mg Tab] 10 mg PO BID 01/08/19 02/27/22 History metHOTREXate sodium [metHOTREXate 5 mg PO WEEKLY 01/08/19 02/27/22 History 2.5mg Tablet] Meloxicam 15 mg PO DAILY 01/18/21 02/27/22 History Rosuvastatin Calcium 10 mg PO DAILY 02/20/21 02/27/22 History Tramadol HCl [Tramadol 50mg 50 mg PO TID 02/19/22 02/27/22 History Tab] Methenamine Hippurate [Hiprex] 1 gm PO BID 02/27/22 02/27/22 History estradioL [Estradiol] 42.5 gm VG DIRECTED 02/27/22 02/27/22 History Allergies Allergy/AdvReac Type Severity Reaction Status Date / Time Sulfa (Sulfonamide Allergy Intermediate HEART RACES Verified 05/08/21 14:55 Antibiotics) [SULFA (SULFONAMIDE ANTIBIOTICS)] Exam Vital signs and Labs for Last 24 Hours: Temp Pulse Resp BP Pulse Ox 97.7 F 77 19 148/64 H 96 02/27/22 14:03 02/27/22 14:03 02/27/22 14:03 02/27/22 14:03 02/27/22 14:03 Laboratory Results - last 24 hr 02/27/22 08:49: WBC 12.9 H, RBC 3.62 L, Hgb 11.0 L, Hct 34.0 L, MCV 93.9, MCH 30.3, MCHC 32.3, RDW 15.2, Plt Count 312, MPV 9.1, Neut % (Auto) 80.8 H, Lymph % (Auto) 10.5, [place] % (Auto) 4.5, Eos % (Auto) 1.5, Baso % (Auto) 2.7 H, Neut # (Auto) 10.4 H, Lymph # (Auto) 1.4, [place] # (Auto) 0.6, Eos # (Auto) 0.2, Baso # (Auto) 0.4 H 02/27/22 08:49: Sodium 135 L, Potassium
[2022-02-27 15:49] LABS: Microscopic, Urine URINE MICROSCOPIC (MICROSCOPIC)
[2022-02-27 15:52] LABS: Appearance,Urine CLOUDY (Clear); Bilirubin,Urine Negative (Negative); Blood, Urine Negative (Negative); Color,Urine YELLOW (Yellow); Glucose,Urine (UA) Negative (Negative); Ketones,Urine Negative (Negative); Leukocyte Esterase,Urine Negative (Negative); Nitrate,Urine Negative (Negative); PH,Urine 7.5 (5.0-8.5); Protein,Urine Negative (Negative); Urobilinogen,Urine 0.2 EU/dl (0.2)
--- NOTE | 2022-02-27 15:57 | HMH.HP ---
*Admission Date: 02/27/22 *Chief complaint: nausea and vomiting, coffee ground emesis. *History of present illness: Mrs. Rocha is a pleasant 76-year-old female who presented to the ER this morning due to nausea and vomiting. At home she states that she was not feeling well and had an upset stomach. Has a hard vomiting that showed dark, coffee-ground type emesis. On arrival to the ER was found to be hemodynamically stable. Mild abdominal pain noted. Work-up initiated with CBC, CMP, lipase, gastric occult. Initiated on IV fluids, antiemetics, and pantoprazole. Gastroccult was positive. Concern for gastritis or esophageal irritation. Remainder of labs remarkable for mild anemia with hemoglobin of 11, not far off her baseline. Slight leukocytosis. Mild elevation in creatinine consistent with her baseline chronic kidney disease. BUN elevated above normal however. Has responded well to IV fluids. Medicine consulted for admission and observation. Surgery to be consulted in case of worsening GI bleed or need for scope. CT of abdomen obtained showing hiatal hernia. Patient evaluated in the ER by myself prior to her transfer to the floor. Appeared in good spirits, no significant pain. No further vomiting at this time. Denies shortness of breath, cough, chest pain, diarrhea. [facility] History I have reviewed the patient's past medical history: Yes Medical History: Reports:: Hyperlipidemia, Hypertension, Palpitations Denies:: Cancer, Diabetes Mellitus Type 1, Diabetes Mellitus Type 2, Internal Pacemaker, MRSA, Seizures *Have you ever received a pneumonia vaccine?: Yes *Have you received a flu vaccine this season?: Yes Other Medical History: Reports: Anemia, Arthritis (RA), Cataracts, Hormone Therapy, Sinus Problems. Denies: Blood Transfusion Reaction Laterality Cases: Left: Carpal Tunnel Release, Bilateral: Breast Biopsy, Tonsillectomy Other Surgeries: Yes: Tubal Ligation. No: Pacemaker Amputation: No Fractures: No - *Social History Last grade of school completed: High school graduate Smoking Status: Former smoker Tobacco Type: cigarettes # Packs/Day (cigarettes): 1 Alcohol Intake: never Alcohol Intake Frequency:: holidays/special occasions only *Occupational Status:: retired Housing: house Household Members: none *Travel in the last 8 weeks: None Family Hx:: Unable to obtain Review of Systems - Review of Systems Review of systems:: pertinent systems reviewed and negative unless documented below (14 point review of systems performed, pertinent positives and negatives as per HPI) - *Neurologic Denies headache(s), Denies dizziness Meds Home Medications Medication Instructions Recorded Confirmed Type Folic Acid [Folic Acid 1mg tablet] 1 mg PO DAILY 01/08/19 02/27/22 History Omeprazole [Omeprazole 20mg Tab] 20 mg PO DAILY 01/08/19 02/27/22 History carvediloL [Carvedilol 12.5mg Tab] 12.5 mg PO BID 01/08/19 02/27/22 History lisinopriL [Lisinopril 10mg Tab] 10 mg PO BID 01/08/19 02/27/22 History metHOTREXate sodium [metHOTREXate 5 mg PO WEEKLY 01/08/19 02/27/22 History 2.5mg Tablet] Meloxicam 15 mg PO DAILY 01/18/21 02/27/22 History Rosuvastatin Calcium 10 mg PO DAILY 02/20/21 02/27/22 History Tramadol HCl [Tramadol 50mg 50 mg PO TID 02/19/22 02/27/22 History Tab] Amlodipine Besylate 1 tab PO DAILY 02/27/22 02/27/22 History Methenamine Hippurate [Hiprex] 1 gm PO BID 02/27/22 02/27/22 History estradioL [Estradiol] 42.5 gm VG DIRECTED 02/27/22 02/27/22 History Allergies Allergy/AdvReac Type Severity Reaction Status Date / Time Sulfa (Sulfonamide Allergy Intermediate HEART RACES Verified 05/08/21 14:55 Antibiotics) [SULFA (SULFONAMIDE ANTIBIOTICS)] Exam Vital signs and Labs for Last 24 Hours: Temp Pulse Resp BP Pulse Ox 97.7 F 77 19 148/64 H 96 02/27/22 14:03 02/27/22 14:03 02/27/22 14:03 02/27/22 14:03 02/27/22 14:03 Laboratory Results - last 24 hr 02/27/22 08:49: WBC 1
[2022-02-27 17:01] LABS: Bacteria,Urine 4+ /lpf
[2022-02-28] VITALS (14 sets, daily range): BP systolic 98–138; BP diastolic 48–78; PULSE 70–83; RESP 16–20; TEMP 36.3–36.9; O2SAT 93–98; BMI 55.8
--- NOTE | 2022-02-28 06:17 | PC.NURSE ---
PT OFF FLOOR VIA BED WITH OR STAFF AT THIS TIME
--- NOTE | 2022-02-28 06:52 | HMH.ANESCL ---
[facility] Anesthesia Checklist - Patient Identification Patient Identification: Arm Band - Structural Data Admitted From: Home Planned Operative Procedure/s: EGD Consent for Planned Operative Procedure(s) Verified: Yes Verified Documents: Surgical Consent, History and Physical - NPO Status Verified Time NPO: 00:00 - Additional verifications Anesthesia Reactions: No Hx Blood Transfusions: Yes Blood Transfusion Reaction: No - Airway Assessment C-Spine Mobility Assessed: Yes (mp2) TMJ Mobility Assessed: Yes Dentition: Good Dentition - Neurological Assessment Level of Consciousness: Awake, Alert - Anesthesia Plan Anesthesia Risk discussed: Yes Anesthesia Plan: Verified ASA Class: II Anesthesia Type: MAC [facility] History I have reviewed the patient's past medical history: Yes Medical History: Reports:: Hyperlipidemia, Hypertension, Palpitations Denies:: Cancer, Diabetes Mellitus Type 1, Diabetes Mellitus Type 2, Internal Pacemaker, MRSA, Seizures *Have you ever received a pneumonia vaccine?: Yes *Have you received a flu vaccine this season?: Yes Other Medical History: Reports: Anemia, Arthritis (RA), Cataracts, Hormone Therapy, Sinus Problems. Denies: Blood Transfusion Reaction Anesthesia experience/problems:: nac Laterality Cases: Left: Carpal Tunnel Release, Bilateral: Breast Biopsy, Tonsillectomy Other Surgeries: Yes: Tubal Ligation. No: Pacemaker Amputation: No Fractures: No - *Social History Last grade of school completed: High school graduate Smoking Status: Former smoker Tobacco Type: cigarettes # Packs/Day (cigarettes): 1 Alcohol Intake: never Alcohol Intake Frequency:: holidays/special occasions only Substance Use Type: denies use *Occupational Status:: retired Housing: house Household Members: none *Travel in the last 8 weeks: None Family Hx:: Unable to obtain
--- NOTE | 2022-02-28 07:15 | HMH.SCOPE ---
- Procedure: Date: 02/28/22 Patient Date of :: 1945 Procedure Performed:: Esophagogastroduodenoscopy with biopsy Indications:: Patient is a very pleasant 76-year-old female. She had been in her usual state of health until today when she presented to the emergency department. She had significant vomiting. This was quite copious. She describes it as dark thick resembling a tobacco use . She has been having some issues with urinary tract infections over several months and she does state that some of the medication has been upsetting to her stomach. She was evaluated in the emergency department and emesis was found to be Gastroccult positive. Currently has a stable hemoglobin of 11 with baseline of approximately 11.6. Her BUN is somewhat higher than normal at 29. Work-up in the emergency department included CT scan of the abdomen pelvis which revealed large hiatal hernia. Patient denies any rectal bleeding or definite melena. No prior history of ulcer disease. Given the patient's ongoing symptomatology arrangements were made for inpatient admission. Surgery was asked to see the patient for upper endoscopy. She does take meloxicam. Overnight she has done well with no clinical bleeding. She has had some dry heaves . Performing Provider:: Vladislav Downs MD Referring Provider:: Uvaldo High MD Sedation:: MAC sedation Procedure:: Patient was taken to endoscopy procedure room. She was positioned in lateral decubitus position. Adequate intravenous sedation was achieved with anesthesia titration of propofol. Olympus endoscope was inserted via the oropharynx. Esophagus was cannulated. There was some mild tortuosity of the esophagus consistent with possible esophageal dysmotility. Gastroesophageal junction was encountered at 32 cm from the incisors. Stomach was cannulated and insufflated. Retroflexion revealed a moderately large sliding hiatal hernia. There were some very shallow Victor Hugo's erosions from the hiatal hernia but this was relatively minimal. There is some diffuse gastropathy. In the prepyloric location there was a small erosion which was shallow. Pylorus was traversed. Within the duodenum there was noted to be duodenitis. She did have 2 moderate ulcers within the duodenal bulb which were clean-based and shallow. No stigmata of bleeding. There was an ulcer in the second portion of the duodenum which had a clean exudative base. It was felt unsafe to advance the endoscope beyond this. Endoscope was withdrawn to the stomach and gastric antral mucosal biopsies obtained for histopathologic analysis for MARIA ESTHER test. Stomach was desufflated and the scope was withdrawn. Findings:: 1. Findings consistent with mild esophageal dysmotility 2. Gastroesophageal junction at 32 cm 3. Minimal shallow Victor Hugo's erosions 4. Moderately large sliding hiatal hernia 5. Diffuse gastropathy 6. Prepyloric gastric erosion 7. Duodenitis 8. 2 moderate shallow clean-based ulcers in the duodenal bulb, no stigmata of bleeding 9. Moderate ulcer and second portion of the duodenum, clean-based, no stigmata of bleeding Endoscope was not advanced beyond the second portion of the duodenum Recommendations:: We will go ahead and start a limited diet. Recommend high-dose proton pump inhibitors. If she is ultimately tolerating diet without nausea or vomiting and remains stable may be able to discharge on therapeutic dose proton pump inhibitors with plans for follow-up endoscopy in 6 to 12 weeks. Complications:: None Estimated blood obtained (mL): 1
--- NOTE | 2022-02-28 07:45 | PC.NURSE ---
Pt a + o x4. Pt has not had any episodes of n/v t/o night. No BM. Pt has been NPO since midnight. No complaints voiced to staff. Call light within reach.
--- NOTE | 2022-02-28 07:55 | HMH.PHAINT ---
Home medication list was verified using the patient's P[employer] claim history and information provided by the patient.
--- NOTE | 2022-02-28 08:24 | HMH.ACPN2 ---
Internal Medicine - PN: Subj *Date: 02/28/22 *Time: 08:24 Interval history: Patient did well with endoscopy. Discussed case with surgeon and reviewed note. Appreciate procedure. Patient is awake and alert. Exam Vital signs and Labs for Last 24 Hours: Temp Pulse Resp BP Pulse Ox 97.4 F L 74 18 117/55 L 97 02/28/22 07:15 02/28/22 07:30 02/28/22 07:30 02/28/22 07:30 02/28/22 07:30 Laboratory Results - last 24 hr 02/27/22 08:49: WBC 12.9 H, RBC 3.62 L, Hgb 11.0 L, Hct 34.0 L, MCV 93.9, MCH 30.3, MCHC 32.3, RDW 15.2, Plt Count 312, MPV 9.1, Neut % (Auto) 80.8 H, Lymph % (Auto) 10.5, [place] % (Auto) 4.5, Eos % (Auto) 1.5, Baso % (Auto) 2.7 H, Neut # (Auto) 10.4 H, Lymph # (Auto) 1.4, [place] # (Auto) 0.6, Eos # (Auto) 0.2, Baso # (Auto) 0.4 H 02/27/22 08:49: Sodium 135 L, Potassium 3.7, Chloride 96 L, Carbon Dioxide 34 H, Anion Gap 8.7, BUN 29 H, Creatinine 1.20 H, Estimated GFR 43 L, Est GFR ( Amer) 53 L, Glucose 133 H, Calcium 11.1 H, Total Bilirubin 0.8, AST 33, ALT 24, Alkaline Phosphatase 71, Total Protein 6.7, Albumin 3.7, Globulin 3.0, Albumin/Globulin Ratio 1.2, Lipase 27 02/27/22 09:23: Gastric Occult Blood Positive 02/27/22 09:33: SARS-CoV-2 (PCR) Not detected, Influenza A Untype (PCR) Not detected, Influenza Type B (PCR) Not detected 02/27/22 12:38: Lactate 1.1 02/27/22 15:45: Urine Color Yellow, Urine Appearance Cloudy, Urine pH 7.5, Ur Specific [place] 1.010, Urine Protein Negative, Urine Glucose (UA) Negative, Urine Ketones Negative, Urine Blood Negative, Urine Nitrate Negative, Urine Bilirubin Negative, Urine Urobilinogen 0.2, Ur Leukocyte Esterase Negative, Urine RBC None, Urine WBC 10-20, Ur Squamous Epith Cells 3-5, Urine Bacteria 4+ I & O for Last 24 hours: Intake & Output 02/25/22 02/26/22 02/27/22 02/28/22 11:59 11:59 11:59 11:59 Output Total 0 / 0 Balance 0 / 0 Weight 155 lb 335 lb 1.642 oz - Constitutional no acute distress - *Routine HEENT Exam Head: Present: normocephalic Eye: Present: EOMI, PERRL ENT: Present: mucous membranes moist - *Routine Neck Exam Present: supple. Absent: lymphadenopathy - *Routine Respiratory Exam Present: CTA bilaterally - *Routine Cardiovascular Exam Present: RRR - *Routine Abdominal Exam Present: soft, normoactive bowel sounds. Absent: tenderness - *Routine Extremities Exam Absent: cyanosis, clubbing, edema - *Routine Skin Exam Present: warm. Absent: rash - *Routine Neurological Exam Present: alert, oriented X3 Assessment and Plan (1) GI bleed Status: Acute Category: Medical Code(s): K92.2 - Gastrointestinal hemorrhage, unspecified (2) Essential hypertension Status: Chronic Category: Medical Code(s): I10 - Essential (primary) hypertension (3) Hyperlipidemia Status: Chronic Category: Medical Code(s): E78.5 - Hyperlipidemia, unspecified (4) History of recurrent UTI (urinary tract infection) Status: Chronic Category: Medical Code(s): Z87.440 - Personal history of urinary (tract) infections (5) Mild chronic anemia Status: Chronic Category: Medical Code(s): D64.9 - Anemia, unspecified (6) CKD (chronic kidney disease) stage 3, GFR 30-59 ml/min Status: Chronic Qualifiers: Chronic kidney disease stage 3 subtype: stage 3a (GFR 45-59) Qualified Code(s): N18.31 - Chronic kidney disease, stage 3a Category: Medical Code(s): N18.30 - Chronic kidney disease, stage 3 unspecified - Assessment and plan all Dx Assessment and Plan for all problems:: No evidence of bleeding. No oxygen requirement. If does well with lunch will discharge home with plan outlined by surgery. Hold meloxicam
[2022-02-28 09:44] LABS: Chloride 100 mmol/L (98-107); Potassium 3.3 mmoL/L (3.5-5.1); Sodium 134 mmol/L (136-145)
[2022-02-28 09:47] LABS: Anion Gap 9.3 mEq/L (5-15); Basophils # 0.2 K/mm3 (0-0.2); Basophils % 1.8 % (0.1-2.0); Blood Urea Nitrogen 19 mg/dl (7-17); Calcium 9.1 mg/dl (8.4-10.2); Carbon Dioxide 28 mmol/L (22.0-30.0); Creatinine Clearance Estimated 36 mL/min (50-200); Eosinophils # 0.2 K/mm3 (0.0-0.4); Eosinophils % 2.2 % (0.1-12.0); Estimated Glomerular Filt Rate 48 ml/min (>60); GFR (African American) 58 ML/MIN (>60); Glucose 105 mg/dl (74-100); Hematocrit 29.6 % (37.0-47.0); Hemoglobin 9.3 g/dL (12.2-16.2); Lymphocytes # 2.2 K/mm3 (0.7-4.5); Lymphocytes % 21.7 % (10-50); Mean Corpuscular HGB Conc 31.3 g/dL (31.8-35.4); Mean Corpuscular Volume 95.7 fl (81-99); Mean Platelet Volume 9.8 fl (7.4-10.4); Monocytes # 0.5 K/mm3 (0.1-1.0); Monocytes % 5.4 % (1.7-9.3); Neutrophils % 68.9 % (37.0-80.0); Platelet Count 234 K/mm3 (142-424); Red Blood Count 3.09 M/mm3 (4.20-5.40); Red Cell Distribution Width 15.3 % (11.5-17.5); White Blood Count 10.1 K/mm3 (4.8-10.8)
--- NOTE | 2022-02-28 12:06 | PC.NURSE ---
PT IS RESTING IN BED WITH FAMILY IN ROOM. ALERT AND ORIENTED X4. PT TOLERATED FULL LIQUID DIET THIS MORNING. LUNG SOUNDS CLEAR. ABDOMEN SOFT/NON TENDER WITH ACTIVE BOWEL SOUNDS. PT HAS BEEN AMBULATING TO THE BATHROOM. VSS. WILL CONTINUE TO MONITOR.
--- NOTE | 2022-02-28 13:36 | HMH.DCSUM ---
General - General Admission date:: 02/27/22 Discharge date: 02/28/22 HPI HPI: Mrs. Rocha is a pleasant 76-year-old female who presented to the ER this morning due to nausea and vomiting. At home she states that she was not feeling well and had an upset stomach. Has a hard vomiting that showed dark, coffee-ground type emesis. On arrival to the ER was found to be hemodynamically stable. Mild abdominal pain noted. Work-up initiated with CBC, CMP, lipase, gastric occult. Initiated on IV fluids, antiemetics, and pantoprazole. Gastroccult was positive. Concern for gastritis or esophageal irritation. Remainder of labs remarkable for mild anemia with hemoglobin of 11, not far off her baseline. Slight leukocytosis. Mild elevation in creatinine consistent with her baseline chronic kidney disease. BUN elevated above normal however. Has responded well to IV fluids. Medicine consulted for admission and observation. Surgery to be consulted in case of worsening GI bleed or need for scope. CT of abdomen obtained showing hiatal hernia. Patient evaluated in the ER by myself prior to her transfer to the floor. Appeared in good spirits, no significant pain. No further vomiting at this time. Denies shortness of breath, cough, chest pain, diarrhea. Hospital Course Hospital Course: Patient was admitted, placed on IV fluids and intravenous Protonix. Stopped vomiting, no further hematemesis. Surgery took her to the EGD suite this morning, found Victor Hugo's erosions and shallow ulcerations, biopsies were taken but no suspicious lesions were noted. The patient tolerated this well and had vast improvement in her abdominal pain. Through the morning and early afternoon today she is progressed with her diet, has progressed to a full liquid diet with no problems, nausea or vomiting. No melanotic stool. Plan we did discharge home today. I have asked her to stop her meloxicam, we have started Protonix twice daily and sucralfate 4 times daily. I will see her on Saturday, surgical follow-up will be arranged for repeat endoscopy in the next couple of months. Objective Vital signs: Temp Pulse Resp BP Pulse Ox 97.9 F 78 16 138/73 98 02/28/22 10:45 02/28/22 10:45 02/28/22 10:45 02/28/22 10:45 02/28/22 10:45 no acute distress - *Routine HEENT Exam Head: Present: normocephalic Eye: Present: EOMI, PERRL ENT: Present: mucous membranes moist - *Routine Neck Exam Present: supple - *Routine Respiratory Exam Present: CTA bilaterally - *Routine Cardiovascular Exam Present: RRR - *Routine Abdominal Exam Present: soft, normoactive bowel sounds. Absent: tenderness - *Routine Extremities Exam Absent: cyanosis, clubbing, edema - *Routine Skin Exam Present: warm. Absent: rash - Detailed Eye Exam Eyelids: Bilateral normal inspection Results Labs on day of discharge: Labs from last 24 hours 02/28/22 02/28/22 02/27/22 09:24 09:24 15:45 WBC 10.1 RBC 3.09 L Hgb 9.3 L Hct 29.6 L MCV 95.7 MCH 30.0 MCHC 31.3 L RDW 15.3 Plt Count 234 MPV 9.8 Neut % (Auto) 68.9 Lymph % (Auto) 21.7 [place] % (Auto) 5.4 Eos % (Auto) 2.2 Baso % (Auto) 1.8 Neut # (Auto) 7.0 Lymph # (Auto) 2.2 [place] # (Auto) 0.5 Eos # (Auto) 0.2 Baso # (Auto) 0.2 Sodium 134 L Potassium 3.3 L Chloride 100 Carbon Dioxide 28 Anion Gap 9.3 BUN 19 H D Creatinine 1.10 H Estimated Creat Clear 36 Estimated GFR 48 L Est GFR ( Amer) 58 L Glucose 105 H Calcium 9.1 Urine Color Yellow Urine Appearance Cloudy Urine pH 7.5 Ur Specific [place] 1.010 Urine Protein Negative Urine Glucose (UA) Negative Urine Ketones Negative Urine Blood Negative Urine Nitrate Negative Urine Bilirubin Negative Urine Urobilinogen 0.2 Ur Leukocyte Esterase Negative Urine RBC None Urine WBC 10-20 Ur Squamous Epith Cells
--- NOTE | 2022-02-28 13:52 | HMH.PHAINT ---
I spoke with the patient and her family member today about her medication list. Went over the new medications being sent in for the patient, medications the patient was to continue, medication the patient was to hold, and the medications the patient was to stop taking. When we spoke, the patient and the family member did not have any questions or concerns. The patient was provided a copy of the medication list and informed on where the new medications could be picked up at.
--- NOTE | 2022-03-01 14:56 | CARE MANAGER ---
Contacted patient and discussed hospital discharge. Patient states she feels better and had a good night's sleep. She has picked up her medication and stopped what she is not supposed to take anymore. She is aware of follow up appointment on the . She denies questions or concerns. NINOSKA Davis
== END 2022-02-28 14:11 | disposition home or self-care (01) ==
LOC: ER 12:11 → 2ND 12:35
PROVIDERS: Surgery; Admitting Provider Internal Medicine Adolescent Medicine; Emergency Provider Emergency Medicine; PCP Internal Medicine Adolescent Medicine; Visit Provider Internal Medicine Adolescent Medicine
PROC: 0DJ08ZZ Inspection of Upper Intestinal Tract, Via Natural or Artificial Opening Endoscopic (ICD-10-PCS; CPT 43235; principal; 2022-02-28 07:00)
DX: K92.0 Hematemesis (principal); K22.4 Dyskinesia of esophagus; K44.9 Diaphragmatic hernia without obstruction or gangrene; K26.4 Chronic or unspecified duodenal ulcer with hemorrhage; K29.81 Duodenitis with bleeding; K25.4 Chronic or unspecified gastric ulcer with hemorrhage; N18.30 Chronic kidney disease, stage 3 unspecified; I12.9 Hypertensive chronic kidney disease with stage 1 through stage 4 chronic kidney disease, or unspecified chronic kidney disease; E87.5 Hyperkalemia; Z20.822 Contact with and (suspected) exposure to COVID-19; Z79.890 Hormone replacement therapy; Z79.899 Other long term (current) drug therapy; Z88.2 Allergy status to sulfonamides; D64.9 Anemia, unspecified
CPT/HCPCS: 43239; G0378; 36415; 74177; 80048; 80053; 81001; 82272; 83605; 83690; 85025; 87086; 88305; 96365; 96375; 99285; C9803; G0328; J2405; Q9967; U0003; U0005

== ENCOUNTER → 2022-03-05 12:35 | Outpatient (CLI) | payer MEDICARE, OTHER, SELFPAY ==
[2022-03-05 14:07] LABS: Blood Urea Nitrogen 18 mg/dl (7-17); Estimated Glomerular Filt Rate 48 ml/min (>60); GFR (African American) 58 ML/MIN (>60)
== END ==
PROVIDERS: Visit Provider Internal Medicine Adolescent Medicine
DX: N28.89 Other specified disorders of kidney and ureter (principal)
CPT/HCPCS: 36415; 82565; 84520

== ENCOUNTER → 2022-03-09 09:55 | Outpatient (CLI) | payer MEDICARE, OTHER, SELFPAY ==
--- NOTE | 2022-03-09 10:02 | CT_ITS ---
FINAL REPORT TECHNIQUE: Axial images were obtained from the lung bases through the pubic symphysis before and after the administration of intravenous contrast. This study was performed with techniques to keep radiation doses as low as reasonably achievable (ALARA). Individualized dose reduction techniques using automated exposure control or adjustment of mA and/or kV according to the patient's size were employed. CLINICAL HISTORY: RENAL PROTOCOL-RENAL MASS FINDINGS: Precontrast images demonstrate no evidence of nephrolithiasis or hydronephrosis. There are high-density gallstones in the dependent portion of the gallbladder. Abdomen: A majority of the stomach is intrathoracic. There is an incompletely visualized 8 mm nodule in the left lung base on image 1 of series 5. The liver parenchyma is homogeneous. There is fatty infiltration of the pancreas. The spleen, and adrenal glands are unremarkable. There is a high-density partially exophytic mass arising from the posterior right kidney measuring 9 mm. This demonstrates 49 Hounsfield units pre-contrast and 55 Hounsfield units post-contrast consistent with a complex benign cyst. There is a 1.2 cm mass in the anterior left kidney consistent with a benign cyst. There is no evidence of bowel obstruction. Pelvis: The appendix is normal. There is urinary bladder wall thickening and trabeculation that may represent chronic cystitis. There is no mass, free fluid or adenopathy. The uterus lies eccentric to the right. There is scattered diverticula throughout the sigmoid colon. IMPRESSION: Complex benign cyst in the posterior right kidney with benign cyst in the anterior left kidney. Gallstones. Intrathoracic stomach. 8 mm nodule in the left lung base. Recommend dedicated chest CT. Reviewed, Interpreted and Dictated by Silvestre Edmond MD Transcribed by Uday Brock Authenticated by Silvestre Edmond MD on 03/09/2022 04:57:25 PM [facility]
== END ==
PROVIDERS: PCP Internal Medicine Adolescent Medicine; Visit Provider Internal Medicine Adolescent Medicine
DX: N28.89 Other specified disorders of kidney and ureter (principal)
CPT/HCPCS: 74178; Q9967

== ENCOUNTER 2022-03-09 19:05 | Emergency (ER) | payer MEDICARE, OTHER, SELFPAY ==
[2022-03-09 19:05] VITALS: BP 115/92; PULSE 129; RESP 24; TEMP 37.7; O2SAT 94; BMI 25.2
--- NOTE | 2022-03-09 19:16 | ECG_ITS ---
APPROVED REPORT Exam: Resting ECG HR:101 bpm ECG Measurements Heart Rate 101 AXES QRSd 82 QRS 78 QT 307 T 72 QTc 365 Conclusion ATRIAL FIBRILLATION WITH RAPID VENTRICULAR RESPONSE MODERATE ST DEPRESSION [0.05+ mV ST DEPRESSION] ABNORMAL ECG UNCONFIRMED REPORT Electronically signed by : Mayank Jimenes MD 03/11/2022 20:15:51
--- NOTE | 2022-03-09 19:23 | PC.NURSE ---
PT PLACED ON 02 2L NC FOR COMFORT.
--- NOTE | 2022-03-09 19:26 | XR_ITS ---
PROCEDURE INFORMATION: Exam: XR Chest Exam date and time: 03/09/2022 7:29 PM Age: 76 years old Clinical indication: Shortness of breath; Additional info: SOA TECHNIQUE: Imaging protocol: XR of the chest. Views: 1 view. COMPARISON: CR XR CHEST 2V 10/04/2021 7:55 PM FINDINGS: Lungs: Diffuse interstitial coarsening which is more prominent than on prior examination. No lobar consolidation. Pleural spaces: No pneumothorax. Heart/Mediastinum: Moderate hiatal hernia. Bones/joints: Degenerative changes of the shoulders. IMPRESSION: Diffuse interstitial coarsening which may in part be chronic however can be seen atypical infection or asymmetric edema.
[2022-03-09 19:30] VITALS: PULSE 117; PULSE 95; O2SAT 96
--- NOTE | 2022-03-09 19:35 | CT_ITS ---
PROCEDURE INFORMATION: Exam: CTA Chest With Contrast Exam date and time: 03/09/2022 8:14 PM Age: 76 years old Clinical indication: Shortness of breath; Additional info: Hypoxia TECHNIQUE: Imaging protocol: Computed tomographic angiography of the chest with contrast. 3D rendering (Not supervised by radiologist): MIP and/or 3D reconstructed images were created by the technologist. Radiation optimization: All CT scans at this facility use at least one of these dose optimization techniques: automated exposure control; mA and/or kV adjustment per patient size (includes targeted exams where dose is matched to clinical indication); or iterative reconstruction. Contrast material: ISOVUE 370; Contrast volume: 70 ml; Contrast route: INTRAVENOUS (IV); COMPARISON: CR XR CHEST PORTABLE 03/09/2022 7:29 PM FINDINGS: Pulmonary arteries: Normal. No pulmonary emboli. Aorta: No aortic aneurysm. No aortic dissection. Lungs: Interstitial and bronchial wall thickening with multiple nodular opacities throughout bilateral lungs measuring up to 13 mm. Pleural spaces: No pneumothorax. No pleural effusion. Heart: No cardiomegaly. No pericardial effusion. Lymph nodes: Enlarged mediastinal lymph nodes measuring up to 12 mm. Diaphragm: Moderately large hiatal hernia. Bones/joints: No acute fracture. Soft tissues: No significant swelling. IMPRESSION: Interstitial and bronchial wall thickening with multiple nodular opacities throughout bilateral lungs which may be infectious or inflammatory however malignancy cannot be excluded.For patients at low risk (minimal or absent history of smoking and of other known risk factors), recommend CT Chest at 3-6 months, then consider CT Chest at 18-24 months. For patients at high risk (history of smoking or of other known risk factors), recommend CT Chest at 3-6 months, then CT Chest at 18-24 months. (Reference: Dav) References: Dav Westbrook et al. Guidelines for Management of Incidental Pulmonary Nodules Detected on CT Images: From the Fleischner Society 2017. Radiology. 2017;284(1):228-243.
[2022-03-09 19:50] LABS: Coronavirus 19, PCR Not Detected (NotDetected); Influenza A, PCR Not Detected (NotDetected); Influenza B, PCR Not Detected (NotDetected)
[2022-03-09 20:01] LABS: Alanine Aminotransferase 21 U/L (12-78); Albumin Level 3.5 g/dl (3.5-5.0); Albumin/Globulin Ratio 1.3 (1.1-1.8); Alkaline Phosphatase 63 U/L (38-126); Anion Gap 12.6 mEq/L (5-15); Aspartate Amino Transferase 30 U/L (14-36); Bilirubin,Total 0.6 mg/dl (0.2-1.3); Blood Urea Nitrogen 9 mg/dl (7-17); Calcium 9.2 mg/dl (8.4-10.2); Carbon Dioxide 25 mmol/L (22.0-30.0); Chloride 96 mmol/L (98-107); Creatinine Clearance Estimated 50 mL/min (50-200); Estimated Glomerular Filt Rate 54 ml/min (>60); GFR (African American) 65 ML/MIN (>60); Globulin 2.8 g/dL (1.3-3.2); Glucose 148 mg/dl (74-100); Potassium 3.6 mmoL/L (3.5-5.1); Sodium 130 mmol/L (136-145); Total Protein,Serum 6.3 g/dl (6.3-8.2)
[2022-03-09 20:07] LABS: VBG Base Excess -2.4 mmol/L (-2.4-2.3); VBG HCO3 21.9 mmol/L (23-30); VBG Oxygen Saturation 91.8 % (50-70); VBG PCO2 33.6 mmol/L (35-51); VBG PH 7.43 mmol/L (7.31-7.41); VBG PO2 57.7 mmol/L (28-40); VBG Total CO2 22.9 mmol/L (23-27)
[2022-03-09 20:14] LABS: NT Pro Brain Natriuretic Pep. 638 pg/mL (0-450)
[2022-03-09 20:15] LABS: Troponin I < 0.01 ng/ml (0.00-0.034)
--- NOTE | 2022-03-09 20:39 | HMH.EDGENADL ---
ED Disposition Clinical Impression: Shortness of breath Disposition: Home, Self-Care Condition on Discharge: Good Referrals: Alexis Sams MD [Primary Care Provider] - - Critical Care Critical Care Time: No Attestation: On 03/09/22, the high probability of a clinically significant, sudden or life threatening deterioration of the following system(s) required my full and direct attention, intervention and personal management. The time I documented below is in addition to time spent performing reported procedures but includes the following listed in this critical care notation. Medical Decision Making - Medical Records Medical records reviewed: Yes: I reviewed the patient's medical records. - [place]azar Inquiry Pt receiving controlled substance: No Vital Signs: 03/09/22 19:05 Temperature 99.8 F H Temperature Source Oral Pulse Rate [Left Radial] 129 H Respiratory Rate 24 Blood Pressure [Right Arm] 115/92 H Blood Pressure Mean [Right Arm] 99 Blood Pressure Position [Right Arm] Sitting 02 Sat by Pulse Oximetry 94 L Oxygen Delivery Method Room Air - Lab Data Lab Results 03/09/22 19:26: VBG pH 7.43 H, VBG pCO2 33.6 L, VBG pO2 57.7 H, VBG HCO3 21.9 L, VBG Total CO2 22.9 L, VBG O2 Saturation 91.8 H, VBG Base Excess -2.4 03/09/22 19:37: SARS-CoV-2 (PCR) Not detected, Influenza A Untype (PCR) Not detected, Influenza Type B (PCR) Not detected 03/09/22 19:42: WBC 10.5, RBC 3.40 L, Hgb 9.9 L, Hct 30.9 L, MCV 90.7, MCH 28.9, MCHC 31.9, RDW 13.8, Plt Count 248, MPV 8.7, Neut % (Auto) 94.5 H, Lymph % (Auto) 1.9 L, [place] % (Auto) 2.9, Eos % (Auto) 0.6, Baso % (Auto) 0.0 L, Neut # (Auto) 9.9 H, Lymph # (Auto) 0.2 L, [place] # (Auto) 0.3, Eos # (Auto) 0.1, Baso # (Auto) 0.0, Total Counted 100, Neutrophils % (Manual) 92 H, Band Neutrophils % 1.0, Lymphocytes % (Manual) 1 L, Monocytes % (Manual) 6, Platelet Estimate Normal, Stomatocytes 1+ 03/09/22 19:42: Sodium 130 L, Potassium 3.6, Chloride 96 L, Carbon Dioxide 25, Anion Gap 12.6, BUN 9, Creatinine 1.00, Estimated Creat Clear 50, Estimated GFR 54 L, Est GFR ( Amer) 65, Glucose 148 H, Calcium 9.2, Total Bilirubin 0.6, AST 30, ALT 21, Alkaline Phosphatase 63, Troponin I < 0.01, NT-Pro-B Natriuret Pep 638 H, Total Protein 6.3, Albumin 3.5, Globulin 2.8, Albumin/Globulin Ratio 1.3 Result diagrams: 03/09/22 19:42 03/09/22 19:42 Orders (Tests/Meds): ED MEDICATIONS Generic Name Dose Route Start Last Admin Trade Name Freq PRN Reason Stop Dose Admin Lactated Ringer's 500 mls @ 999 mls/hr 03/09/22 19:30 03/09/22 19:38 Lactated Ringer's 1000 Ml Bag IV 03/09/22 20:00 999 mls/hr .Q31M ANKIT Administration Sodium Chloride 8 ml 03/09/22 19:26 Sodium Chloride 0.9% 10ml Vial IV 04/08/22 19:25 NEEDED PRN dilute pepcid Discontinued Medications Generic Name Dose Route Start Last Admin Trade Name Freq PRN Reason Stop Dose Admin Albuterol/Ipratropium 6 ml 03/09/22 19:26 Ipratropium/Albuterol 3 Ml Neb IH 03/09/22 19:27 ONCE ONE Diphenhydramine HCl 50 mg 03/09/22 19:26 03/09/22 19:38 Diphenhydramine 50mg/Ml Vial IV 03/09/22 19:27 50 mg ONCE ONE Administration Famotidine 20 mg 03/09/22 19:26 03/09/22 19:38 Famotidine 20mg/2ml Vial IV 03/09/22 19:27 20 mg ONCE ONE Administration Iopamidol 70 ml 03/09/22 20:33 03/09/22 20:34 Iopamidol-370 (76%);100ml Bottle IV 03/09/22 20:34 70 ml ONCE ONE Administration Methylprednisolone Sodium Succinate 125 mg 03/09/22 19:26 03/09/22 19:39 Methylprednisolone Sod Succ 125mg Vial IV 03/09/22 19:27 125 mg ONCE ONE Administration Sodium Chloride 50 ml 03/09/22 20:33 0.9 % Sodium Chloride 50 Ml Vial IV 03/09/22 20:34 ONCE ONE Sodium Chloride 10 ml 03/09/22 20:33 03/09/22 20:34 Sodium Chloride 0.9% 10ml Syr (Rad Only) IV 03/09/22 20:34 10 ml ONCE ONE Administration ORDERS Category Date Time Status Troponin I Q3H Lab 03/09/22 22:30 [place]
[2022-03-09 21:00] LABS: Eosinophils # 0.1 K/mm3 (0.0-0.4); Eosinophils % 0.6 % (0.1-12.0); Hematocrit 30.9 % (37.0-47.0); Hemoglobin 9.9 g/dL (12.2-16.2); Lymphocytes # 0.2 K/mm3 (0.7-4.5); Lymphocytes % 1.9 % (10-50); Mean Corpuscular HGB Conc 31.9 g/dL (31.8-35.4); Mean Corpuscular Hemoglobin 28.9 pg (27.0-31.2); Mean Corpuscular Volume 90.7 fl (81-99); Mean Platelet Volume 8.7 fl (7.4-10.4); Monocytes # 0.3 K/mm3 (0.1-1.0); Monocytes % 2.9 % (1.7-9.3); Neutrophils # 9.9 K/mm3 (1.8-7.8); Neutrophils % 94.5 % (37.0-80.0); Platelet Count 248 K/mm3 (142-424); Red Cell Distribution Width 13.8 % (11.5-17.5); White Blood Count 10.5 K/mm3 (4.8-10.8)
[2022-03-09 21:02] LABS: MANUAL DIFFERENTIAL MANUAL DIFFERENTIAL (MANUAL DIFF)
[2022-03-09 21:29] LABS: Lymphocytes % 1 % (10-50); Monocytes % 6 % (2-9); Neutrophils % 92 % (42-76); Platelet Estimate Normal; Stomatocytes 1+; Total Cells Counted 100
[2022-03-09 22:22] VITALS: BP 148/68; PULSE 90; RESP 18; TEMP 37; O2SAT 97
== END 2022-03-09 23:04 | disposition home or self-care (01) ==
PROVIDERS: Emergency Provider Emergency Medicine; PCP Emergency Medicine
DX: R06.02 Shortness of breath (principal); R00.2 Palpitations; E78.5 Hyperlipidemia, unspecified; Z87.891 Personal history of nicotine dependence; Z79.899 Other long term (current) drug therapy; I10 Essential (primary) hypertension
CPT/HCPCS: 71045; 71275; 74178; 80053; 82803; 83880; 84484; 85007; 85025; 93005; 96374; 96375; 99284; C9803; Q9967; U0003; U0005

== ENCOUNTER → 2022-05-09 11:15 | Outpatient (CLI) | payer MEDICARE, OTHER, SELFPAY | PROVIDERS: PCP Internal Medicine Adolescent Medicine; Visit Provider Surgery | DX: Z01.812 Encounter for preprocedural laboratory examination (principal); Z20.822 Contact with and (suspected) exposure to COVID-19; Z13.810 Encounter for screening for upper gastrointestinal disorder; K27.9 Peptic ulcer, site unspecified, unspecified as acute or chronic, without hemorrhage or perforation | CPT/HCPCS: C9803; U0003; U0005 ==

== ENCOUNTER 2022-05-11 11:21 | Day surgery (SDC) | payer MEDICARE, OTHER, SELFPAY ==
[2022-05-04 15:42] VITALS: BMI 25.2
[2022-05-11 11:56] VITALS: BP 144/85; PULSE 50; RESP 20; TEMP 37.2; O2SAT 98
--- NOTE | 2022-05-11 12:35 | HMH.ANESCL ---
[facility] Anesthesia Checklist - Patient Identification Patient Identification: Arm Band - Structural Data Admitted From: Home Planned Operative Procedure/s: EGD Consent for Planned Operative Procedure(s) Verified: Yes - NPO Status Verified Time NPO: 00:00 - Additional verifications Anesthesia Reactions: No Hx Blood Transfusions: Yes Blood Transfusion Reaction: No - Airway Assessment C-Spine Mobility Assessed: Yes TMJ Mobility Assessed: Yes - Neurological Assessment Level of Consciousness: Awake Hx Seizures: No Numbness or tingling in extremities: No - Anesthesia Plan Anesthesia Risk discussed: Yes Anesthesia Plan: Verified ASA Class: II Anesthesia Type: [facility] History I have reviewed the patient's past medical history: Yes Medical History: Reports:: Hyperlipidemia, Hypertension, Palpitations Denies:: Cancer, Diabetes Mellitus Type 1, Diabetes Mellitus Type 2, Internal Pacemaker, MRSA, Seizures *Have you ever received a pneumonia vaccine?: Yes *Have you received a flu vaccine this season?: Yes Other Medical History: Reports: Anemia, Arthritis, Cataracts, Hormone Therapy, Sinus Problems. Denies: Blood Transfusion Reaction Anesthesia experience/problems:: None Laterality Cases: Left: Carpal Tunnel Release, Bilateral: Breast Biopsy, Tonsillectomy Other Surgeries: Yes: EGD, Tubal Ligation. No: Pacemaker Amputation: No Fractures: No - *Social History Last grade of school completed: Advanced degree Smoking Status: Former smoker Tobacco Type: cigarettes # Packs/Day (cigarettes): 1 Alcohol Intake: never Alcohol Intake Frequency:: holidays/special occasions only Substance Use Type: denies use *Occupational Status:: retired Housing: house Household Members: none *Travel in the last 8 weeks: None Family Hx:: Unable to obtain
[2022-05-11 13:08] VITALS: O2SAT 98
--- NOTE | 2022-05-11 13:09 | HMH.GSHP ---
HPI HPI: Patient presents to the office for follow-up EGD. She underwent EGD as an inpatient on 02/28/2022 after she had presented with vomiting resembling coffee-ground and tobacco juice . EGD revealed the followin.? Findings consistent with mild esophageal dysmotility 2.? Gastroesophageal junction at 32 cm 3.? Minimal shallow Victor Hugo's erosions 4.? Moderately large sliding hiatal hernia 5.? Diffuse gastropathy 6.? Prepyloric gastric erosion 7.? Duodenitis 8.? 2 moderate shallow clean-based ulcers in the duodenal bulb, no stigmata of bleeding 9.? Moderate ulcer and second portion of the duodenum, clean-based, no stigmata of bleeding Endoscope was not advanced beyond the second portion of the duodenum Patient has been doing relatively well. She has been watching her diet. She has had some nausea from sinus drainage. She is on Carafate and Protonix. She is off meloxicam and methotrexate. [facility] History I have reviewed the patient's past medical history: Yes Medical History: Reports:: Hyperlipidemia, Hypertension, Palpitations Denies:: Cancer, Diabetes Mellitus Type 1, Diabetes Mellitus Type 2, Internal Pacemaker, MRSA, Seizures *Have you ever received a pneumonia vaccine?: Yes *Have you received a flu vaccine this season?: Yes Other Medical History: Reports: Anemia, Arthritis, Cataracts, Hormone Therapy, Sinus Problems. Denies: Blood Transfusion Reaction Anesthesia experience/problems:: None Laterality Cases: Left: Carpal Tunnel Release, Bilateral: Breast Biopsy, Tonsillectomy Other Surgeries: Yes: EGD, Tubal Ligation. No: Pacemaker Amputation: No Fractures: No - *Social History Last grade of school completed: Advanced degree Smoking Status: Former smoker Tobacco Type: cigarettes # Packs/Day (cigarettes): 1 Alcohol Intake: never Alcohol Intake Frequency:: holidays/special occasions only Substance Use Type: denies use *Occupational Status:: retired Housing: house Household Members: none *Travel in the last 8 weeks: None Family Hx:: Unable to obtain Review of Systems - Review of Systems Review of systems:: pertinent systems reviewed and negative unless documented below Meds Home Medications Medication Instructions Recorded Confirmed Type Folic Acid [Folic Acid 1mg tablet] 1 mg PO DAILY 01/08/19 05/11/22 History carvediloL [Carvedilol 12.5mg Tab] 12.5 mg PO BID 01/08/19 05/11/22 History lisinopriL [Lisinopril 10mg Tab] 10 mg PO BID 01/08/19 05/11/22 History Rosuvastatin Calcium 10 mg PO DAILY 02/20/21 05/11/22 History Tramadol HCl [Tramadol 50mg 50 mg PO TID 02/19/22 05/11/22 History Tab] Amlodipine Besylate 2.5 mg PO DAILY 02/27/22 05/11/22 History estradioL [Estradiol] 1 applic VG DIRECTED 02/27/22 05/11/22 History Pantoprazole Sodium [Protonix 40mg 40 mg PO BID 03/09/22 05/11/22 History tablet] Sucralfate [Sucralfate 1gm 1 gm PO ACHS 03/09/22 05/11/22 History Tab] methotrexate sodium 2.5 mg tablet 2.5 mg PO DAILY tab 03/29/22 05/11/22 History Allergies Allergy/AdvReac Type Severity Reaction Status Date / Time Sulfa (Sulfonamide Allergy Intermediate HEART RACES Verified 03/29/22 09:27 Antibiotics) [SULFA (SULFONAMIDE ANTIBIOTICS)] Exam Vital signs and Labs for Last 24 Hours: Temp Pulse Resp BP Pulse Ox 98.9 F 50 L 20 144/85 H 98 05/11/22 11:56 05/11/22 11:56 05/11/22 11:56 05/11/22 11:56 05/11/22 11:56 - Constitutional no acute distress - *Routine HEENT Exam Head: Present: normocephalic Eye: Present: EOMI, PERRL ENT: Present: mucous membranes moist - *Routine Neck Exam Present: supple. Absent: lymphadenopathy - *Routine Respiratory Exam Present: CTA bilaterally - *Routine Cardiovascular Exam Present: RRR - *Routine Abdominal Exam Present: soft, normoactive bowel sounds. Absent: tenderness - *Routine Rectal Exam Rectal:: deferred - *Routine Genitalia Exam Genitalia:: deferred - *Routine Extremities Exam Abse
--- NOTE | 2022-05-11 13:27 | P.PCN_ITS ---
- Procedure: Date: 05/11/22 Patient Date of :: 1945 Procedure Performed:: Esophagogastroduodenoscopy with biopsies Indications:: Patient presents to the office for follow-up EGD. She underwent EGD as an inpatient on 02/28/2022 after she had presented with vomiting resembling coffee- ground and tobacco juice . EGD revealed the followin.? Findings consistent with mild esophageal dysmotility 2.? Gastroesophageal junction at 32 cm 3.? Minimal shallow Victor Hugo's erosions 4.? Moderately large sliding hiatal hernia 5.? Diffuse gastropathy 6.? Prepyloric gastric erosion 7.? Duodenitis 8.? 2 moderate shallow clean-based ulcers in the duodenal bulb, no stigmata of bleeding 9.? Moderate ulcer and second portion of the duodenum, clean-based, no stigmata of bleeding Endoscope was not advanced beyond the second portion of the duodenum Patient has been doing relatively well. She has been watching her diet. She is on Carafate and Protonix. She is off meloxicam and methotrexate. Performing Provider:: Vladislav Downs MD Referring Provider:: Mayank Jimenes MD Sedation:: MAC sedation Procedure:: Patient was taken to endoscopy procedure room. She was positioned in lateral decubitus position. Adequate intravenous sedation was achieved with anesthesia titration of propofol. Olympus endoscope was inserted via the oropharynx. Esophagus was cannulated. Endoscope was advanced. She had evidence of esophageal dysmotility. Gastroesophageal junction was encountered at 30 cm from the incisors. Initially evaluation of the gastric lumen was difficult due to hiatal hernia. Stomach was insufflated and retroflexion revealed a moderately large sliding hiatal hernia. There were some shallow minimal Victor Hugo's erosions. She had evidence of some mild diffuse gastropathy. Pylorus was traversed. Within the duodenal bulb there were couple of areas consistent with scarring from healed ulceration. There was no evidence of any persistent ulcer however. Biopsies were obtained. Hemostasis was observed. Endoscope was withdrawn into the stomach. Gastric antral mucosal biopsy was obtained. Stomach was desufflated and the endoscope was withdrawn. Findings:: Gastroesophageal junction at 30 cm from incisors Findings consistent with esophageal dysmotility Moderately large sliding hiatal hernia Shallow Victor Hugo's erosions secondary to hiatal hernia Evidence of healed duodenal ulcers, biopsied Mild gastropathy Recommendations:: I would recommend continuation of proton pump inhibitors. Plan to treat H. pylori if biopsies show positivity. May be able to discontinue Carafate. Complications:: Not immediately apparent Estimated blood obtained (mL): 3
[2022-05-11 13:35] VITALS: BP 80/50; PULSE 71; RESP 18; TEMP 36.6; O2SAT 93
[2022-05-11 13:45] VITALS: BP 103/56; PULSE 77; RESP 18; O2SAT 97
[2022-05-11 13:55] VITALS: BP 111/67; PULSE 72; RESP 18; O2SAT 97
== END 2022-05-11 13:55 | disposition home or self-care (01) ==
LOC: OUTP 11:22
PROVIDERS: PCP Internal Medicine Adolescent Medicine; Visit Provider Surgery
PROC: 0DJ08ZZ Inspection of Upper Intestinal Tract, Via Natural or Artificial Opening Endoscopic (ICD-10-PCS; CPT 43235; principal; 2022-05-11 12:30)
DX: K27.9 Peptic ulcer, site unspecified, unspecified as acute or chronic, without hemorrhage or perforation (principal); E78.5 Hyperlipidemia, unspecified; N18.30 Chronic kidney disease, stage 3 unspecified; I12.9 Hypertensive chronic kidney disease with stage 1 through stage 4 chronic kidney disease, or unspecified chronic kidney disease; Z79.899 Other long term (current) drug therapy
CPT/HCPCS: 43239; 88305

== ENCOUNTER → 2022-05-21 10:54 | Outpatient (POV) | payer MEDICARE, OTHER, SELFPAY ==
--- NOTE | 2022-05-21 12:13 | HMH.PAINSOAP ---
[facility] Pain Management SOAP Note Subjective:: Patient is a pleasant 76-year-old female who is here for medication refill and follow-up. Patient is currently being treated for degenerative disc disease of lumbar spine with lumbar radiculopathy symptoms. Patient is rating her pain a 6 out of 10 today. She states her pain is in her low back and describes it as a stiff achy pain. Patient is currently being managed with tramadol 50 mg 3 times a day and compounding cream. She denies any side effects from this medication. She denies any changes to the location or type of pain. She states that this is adequately managing her pain. sHe is requesting a refill of her tramadol and compounding cream today. Patient previously had a stomach bleed 2 months ago. SHe had to stop her methotrexate and meloxicam due to this reason. She is following up with Dr. Downs on regarding this. She had a scope 2 weeks ago and stated that the ulcer was healing. Her Eleazar is [id number]. It has been reviewed and is appropriate. Review of Systems: General: No recent weight changes, no fever, no sleep disturbances Respiratory: No cough, no shortness of air, no recurring pulmonary infections Cardiovascular/peripheral vascular: No chest pain, no palpitations, no edema, no shortness of breath Gastrointestinal: No new onset incontinence, normal bowel movements reported Genitourinary: No new onset incontinence Musculoskeletal: [Low back pain] Psychiatric: [Normal mood/affect] Neurological: [Denies weakness in extremities], [denies balance issues] Objective:: Physical Exam: General: Alert and oriented x3, no acute distress, pleasant and cooperative Lungs: Respirations even and unlabored, symmetrical chest expansion Eyes: PERRL Musculoskeletal: Flexion and extension of lumbar [spine] somewhat guarded secondary to pain, [antalgic gait noted] Neurological: Speech clear, no gross sensory deficit Assessment:: Degenerative disc disease of lumbar spine with lumbar radiculopathy symptoms Plan:: We will continue the patient's tramadol 50 mg 3 times a day. Her compounding cream should still have refills. I have given her handout to contact [place] to verify this and explained that she can call us back if she does not have any refills left. We will give her refills for 3 months. Patient will return to clinic in 3 months for follow-up and medication refill. Patient has been instructed to contact the clinic with any concerns before the next appointment. Dr. Mukherjee has reviewed this note and agrees with this plan of care. This note was dictated using voice recognition software and make contain errors or omissions. [facility] History I have reviewed the patient's past medical history: Yes Medical History: Reports:: Hyperlipidemia, Hypertension, Palpitations Denies:: Cancer, Diabetes Mellitus Type 1, Diabetes Mellitus Type 2, Internal Pacemaker, MRSA, Seizures *Have you ever received a pneumonia vaccine?: Yes *Have you received a flu vaccine this season?: Yes Other Medical History: Reports: Anemia, Arthritis, Cataracts, Hormone Therapy, Sinus Problems. Denies: Blood Transfusion Reaction Laterality Cases: Left: Carpal Tunnel Release, Bilateral: Breast Biopsy, Tonsillectomy Other Surgeries: Yes: EGD, Tubal Ligation. No: Pacemaker Amputation: No Fractures: No - *Social History Smoking Status: Former smoker Tobacco Type: cigarettes # Packs/Day (cigarettes): 1 Alcohol Intake: never Alcohol Intake Frequency:: holidays/special occasions only Substance Use Type: denies use *Occupational Status:: retired Housing: house Household Members: none *Travel in the last 8 weeks: Inside the [facility] Family Hx:: Unable to obtain
[2022-05-21 13:57] VITALS: BP 124/67; PULSE 93; RESP 18; TEMP 36.7; O2SAT 98; BMI 27.4
== END ==
PROVIDERS: Visit Provider Student in an Organized Health Care Education/Training Program
DX: M51.16 Intervertebral disc disorders with radiculopathy, lumbar region (principal); M19.90 Unspecified osteoarthritis, unspecified site
CPT/HCPCS: 99212; G0463

== ENCOUNTER → 2022-08-20 11:19 | Outpatient (POV) | payer MEDICARE, OTHER, SELFPAY ==
[2022-08-20 11:52] VITALS: BP 122/47; PULSE 91; RESP 18; TEMP 36.3; O2SAT 96; BMI 25.7
--- NOTE | 2022-08-20 12:46 | EXP.PAIN.SOA ---
[facility] Pain Management SOAP Note Subjective:: Patient is a pleasant 76-year-old female who is here for medication refill and follow-up. Patient is currently being treated for degenerative disease of lumbar spine with lumbar radiculopathy symptoms. Patient is being managed with tramadol 50 mg 3 times a day and compounding cream. Patient denies any side effects from the medications. Patient denies any changes to the location and type of pain. Patient states that this is adequately helping manage their pain. Rates pain as 8 out of 10. [facility] number [id number] with an active morphine equivalent 0. Drug screens have been reviewed and appropriate. Patient was previously prescribed methotrexate and meloxicam but had to be discontinued because she had stomach bleeding around February 2022. She has not had any more issues in regards to this. Review of Systems: General: No recent weight changes, no fever, no sleep disturbances Respiratory: No cough, no shortness of air, no recurring pulmonary infections Cardiovascular/peripheral vascular: No chest pain, no palpitations, no edema, no shortness of breath Gastrointestinal: No new onset incontinence, normal bowel movements reported Genitourinary: No new onset incontinence Musculoskeletal: Low back pain Psychiatric: [Normal mood/affect] Neurological: [Denies weakness in extremities], [denies balance issues] Objective:: Physical Exam: General: Alert and oriented x3, no acute distress, pleasant and cooperative Lungs: Respirations even and unlabored, symmetrical chest expansion Eyes: PERRL Musculoskeletal: Flexion and extension of lumbar [spine] somewhat guarded secondary to pain, [antalgic gait noted] Neurological: Speech clear, no gross sensory deficit Assessment:: Degenerative disc disease of the lumbar spine with lumbar radiculopathy symptoms Plan:: We will continue the patient's tramadol 50 mg 3 times a day. We will provide the patient with 3 months of refills. We would like to see the patient back in 3 months for follow-up and reevaluation of chronic pain syndrome. Patient has been advised of risks of oversedation with the prescribed medication. Narcan has been offered to the patient in the event of oversedation. Patient has been advised that a family member should also be educated regarding administration of Narcan. Patient has been instructed to contact the clinic with any concerns before the next appointment. Dr. Mukherjee has reviewed this note and agrees with this plan of care. This note was dictated using voice recognition software and make contain errors or omissions. PFSH PFSH Social History Smoking Status: Former smoker second hand exposure: No alcohol intake: never substance use type: denies use current occupational status: retired Travel in the last 8 weeks: None household members: none housing: house current occupational exposures/hazards: No caffeine: Yes
== END | disposition home or self-care (01) ==
PROVIDERS: PCP Internal Medicine Adolescent Medicine; Visit Provider Student in an Organized Health Care Education/Training Program
DX: M51.16 Intervertebral disc disorders with radiculopathy, lumbar region (principal); Z79.899 Other long term (current) drug therapy
CPT/HCPCS: 99212; G0463

== ENCOUNTER → 2022-10-23 10:17 | Outpatient (CLI) | payer MEDICARE, OTHER, SELFPAY ==
[2022-10-23 10:43] LABS: Basophils # 0.1 K/mm3 (0-0.2); Basophils % 0.9 % (0.1-2.0); Eosinophils # 0.3 K/mm3 (0.0-0.4); Eosinophils % 4.1 % (0.1-12.0); Hemoglobin 10.8 g/dL (12.2-16.2); Lymphocytes # 2.2 K/mm3 (0.7-4.5); Lymphocytes % 29.5 % (10-50); Mean Corpuscular HGB Conc 32.7 g/dL (31.8-35.4); Mean Corpuscular Hemoglobin 27.2 pg (27.0-31.2); Mean Corpuscular Volume 83.2 fl (81-99); Mean Platelet Volume 9.3 fl (7.4-10.4); Monocytes # 0.5 K/mm3 (0.1-1.0); Monocytes % 6.6 % (1.7-9.3); Neutrophils # 4.3 K/mm3 (1.8-7.8); Neutrophils % 58.9 % (37.0-80.0); Platelet Count 326 K/mm3 (142-424); Red Blood Count 3.97 M/mm3 (4.20-5.40); Red Cell Distribution Width 16.2 % (11.5-17.5); White Blood Count 7.3 K/mm3 (4.8-10.8)
[2022-10-23 11:10] LABS: Chloride 101 mmol/L (98-107); Potassium 4.5 mmoL/L (3.5-5.1); Sodium 136 mmol/L (136-145)
[2022-10-23 11:13] LABS: Alanine Aminotransferase 14 U/L (12-78); Alkaline Phosphatase 113 U/L (38-126); Amylase 40 U/L (30-110); Anion Gap 11.5 mEq/L (5-15); Aspartate Amino Transferase 31 U/L (14-36); Bilirubin,Total 0.4 mg/dl (0.2-1.3); Blood Urea Nitrogen 16 mg/dl (7-17); Calcium 10.1 mg/dl (8.4-10.2); Carbon Dioxide 28 mmol/L (22.0-30.0); Estimated Glomerular Filt Rate 40 ml/min (>60); GFR (African American) 48 ML/MIN (>60); Glucose 112 mg/dl (74-100); Lipase 12 U/L (23-300)
[2022-10-23 11:14] LABS: Albumin Level 3.5 g/dl (3.5-5.0); Albumin/Globulin Ratio 1.2 (1.1-1.8); Total Protein,Serum 6.5 g/dl (6.3-8.2)
== END ==
PROVIDERS: PCP Internal Medicine Adolescent Medicine; Visit Provider Internal Medicine Adolescent Medicine
DX: R10.10 Upper abdominal pain, unspecified (principal); K26.4 Chronic or unspecified duodenal ulcer with hemorrhage; N18.30 Chronic kidney disease, stage 3 unspecified
CPT/HCPCS: 36415; 80053; 82150; 83690; 85025

== ENCOUNTER → 2022-10-31 10:03 | Outpatient (CLI) | payer MEDICARE, OTHER, SELFPAY ==
--- NOTE | 2022-10-31 10:08 | CT_ITS ---
FINAL REPORT TECHNIQUE: Axial images through the abdomen and pelvis were performed without contrast. This study was performed with techniques to keep radiation doses as low as reasonably achievable, (ALARA). Individualized dose reduction techniques using automated exposure control or adjustment of mA and/or kV according to the patient's size were employed. CLINICAL HISTORY: DUODENAL ULCER WITH HEMORRAGE COMPARISON: 03/09/2022 FINDINGS: ABDOMEN: There is right middle lobe and right lower lobe atelectasis or scar. There are several small nodules in the right lower lobe, favor inflammatory. These are new since prior. There has been interval improvement in the left lower lobe nodule since the prior. There is a large hiatal hernia. The heart size is normal. Limited images of the liver are unremarkable. Multiple gallstones are identified. There is moderate vascular calcification. The spleen is normal. No adrenal mass is identified. The aorta is normal in caliber. There is no significant free fluid or adenopathy. There is no nephrolithiasis. There is no hydronephrosis. There are 2 small left renal masses consistent with cysts as seen on the prior. There is a 7 mm mass in the posterior right kidney which is not a simple cyst, hyperdense cyst is favored. Finding is slightly smaller since the previous. PELVIS: The appendix is unremarkable. There is sigmoid diverticulosis without evidence of diverticulitis. There is mild bladder wall thickening, likely inflammatory. There is no significant free fluid or adenopathy. IMPRESSION: Cholelithiasis. Bilateral renal cysts. Sigmoid diverticulosis without evidence of diverticulitis. Reviewed, Interpreted and Dictated by Vladislav Mckinley III, MD Transcribed by Yanna Gan Authenticated and [facility]
== END ==
PROVIDERS: PCP Internal Medicine Adolescent Medicine; Visit Provider Internal Medicine Adolescent Medicine
DX: R10.10 Upper abdominal pain, unspecified (principal); K26.4 Chronic or unspecified duodenal ulcer with hemorrhage; N18.30 Chronic kidney disease, stage 3 unspecified
CPT/HCPCS: 74176

== ENCOUNTER → 2022-11-19 10:22 | Outpatient (POV) | payer MEDICARE, OTHER, SELFPAY ==
--- NOTE | 2022-11-19 10:24 | EXP.PAIN.SOA ---
[facility] Pain Management SOAP Note Subjective:: Patient is a pleasant 77-year-old female who presents today for medication refill and follow-up. We are currently treating the patient for degenerative disc disease of lumbar spine with lumbar radiculopathy symptoms. Today the patient rates her pain a 5 out of 10. Patient denies any new trauma or injury. Patient denies any change location or type of pain she experiences. Patient is currently managed with tramadol 50 mg 3 times daily. Patient denies any side effects from this medication. She states this medication does help manage her pain symptoms. She is requesting a refill at today's visit. She is also prescribed compounding cream that provides additional improvement. Her Eleazar is. It has been reviewed and appropriate. Review of Systems: General: No recent weight changes, no fever, no sleep disturbances Respiratory: No cough, no shortness of air, no recurring pulmonary infections Cardiovascular/peripheral vascular: No chest pain, no palpitations, no edema, no shortness of breath Gastrointestinal: No new onset incontinence, normal bowel movements reported Genitourinary: No new onset incontinence Musculoskeletal: Low back pain Psychiatric: [Normal mood/affect] Neurological: [Denies weakness in extremities], [denies balance issues] Objective:: Physical Exam: General: Alert and oriented x3, no acute distress, pleasant and cooperative Lungs: Respirations even and unlabored, symmetrical chest expansion Eyes: PERRL Musculoskeletal: Flexion and extension of lumbar [spine] somewhat guarded secondary to pain, [antalgic gait noted] Neurological: Speech clear, no gross sensory deficit ORT score updated with minimal risk Assessment:: Degenerative disc disease of lumbar spine with lumbar radiculopathy symptoms Plan:: Patient continues to experience pain in her low back and radiating into her lower extremities however she is doing well with her current medication regimen. I will refill the patient's tramadol 50 mg 3 times daily and provide a 3-month supply of this medication. Patient was unable to provide a urine sample for a drug screen and I have counseled the patient that she can do this at her next visit. Patient will return to clinic in 3 months for reevaluation of symptoms, medication refill and follow-up. Patient has been advised of risks of oversedation with the prescribed medication. Narcan has been offered to the patient in the event of oversedation. Patient has been advised that a family member should also be educated regarding administration of Narcan. Patient has been instructed to contact the clinic with any concerns before the next appointment. Dr. Mukherjee has reviewed this note and agrees with this plan of care. This note was dictated using voice recognition software and make contain errors or omissions. [facility] Disclaimer: The information contained in this section may have been updated after the patient was seen, as this information can be updated by other users. Social History Smoking Status: Former smoker second hand exposure: No alcohol intake: never substance use type: denies use current occupational status: retired Travel in the last 8 weeks: None household members: none housing: house current occupational exposures/hazards: No caffeine: Yes
[2022-11-19 10:35] VITALS: BP 122/60; PULSE 96; RESP 18; O2SAT 97; BMI 25.7
== END | disposition home or self-care (01) ==
PROVIDERS: Visit Provider Nurse Practitioner Family
DX: M51.16 Intervertebral disc disorders with radiculopathy, lumbar region (principal); Z79.899 Other long term (current) drug therapy
CPT/HCPCS: 99212; G0463

== ENCOUNTER → 2023-02-18 09:46 | Outpatient (CLI) | payer MEDICARE, OTHER, SELFPAY ==
[2023-02-21 12:15] LABS: Acetone <.010 g/dL (0.000-0.010); Butalbital <1 ug/mL (1-10); Chlordiazepoxide <0.1 ug/mL (0.1-0.9); Diazepam <0.1 ug/mL (0.1-0.9); Ethanol <.010 g/dL (0.000-0.010); Isopropanol <.010 g/dL (0.000-0.010); Pentobarbital <1 ug/mL (1-5)
== END ==
PROVIDERS: PCP Internal Medicine Adolescent Medicine; Visit Provider Nurse Practitioner Family
DX: Z79.891 Long term (current) use of opiate analgesic (principal)
CPT/HCPCS: 36415; 80306; 80307

== ENCOUNTER → 2023-02-18 10:20 | Outpatient (POV) | payer MEDICARE, OTHER, SELFPAY ==
[2023-02-18 10:54] VITALS: BP 107/80; PULSE 78; RESP 18; O2SAT 97; BMI 28.3
--- NOTE | 2023-02-18 11:08 | A.OFFVIS_ITS ---
[facility] Pain Management SOAP Note Subjective:: Patient is a pleasant 77-year-old female who presents today for medication refill and follow-up. We are currently treating the patient for degenerative disc disease of lumbar spine with lumbar radiculopathy symptoms. Today she rates her pain a 4 out of 10. Patient denies any new trauma or injury. Patient denies any change location or type of pain she experiences. She does state that she continues to have significant pain related to her arthritis in her hands and other joints. She is currently managed with tramadol 50 mg 3 times a day and compounding cream. Patient denies any side effects from this medications. She is requesting a refill of her tramadol as well as her compounding cream. She states she has 1 last refill of her cream. Her Eleazar is [phone]. It has been reviewed and appropriate. Review of Systems: General: No recent weight changes, no fever, no sleep disturbances Respiratory: No cough, no shortness of air, no recurring pulmonary infections Cardiovascular/peripheral vascular: No chest pain, no palpitations, no edema, no shortness of breath Gastrointestinal: No new onset incontinence, normal bowel movements reported Genitourinary: No new onset incontinence Musculoskeletal: Low back pain, hand pain Psychiatric: [Normal mood/affect] Neurological: [Denies weakness in extremities], [denies balance issues] Objective:: Physical Exam: General: Alert and oriented x3, no acute distress, pleasant and cooperative Lungs: Respirations even and unlabored, symmetrical chest expansion Eyes: PERRL Musculoskeletal: Flexion and extension of lumbar [spine] somewhat guarded secondary to pain, [antalgic gait noted] Neurological: Speech clear, no gross sensory deficit Assessment:: Degenerative disc disease of lumbar spine with lumbar radiculopathy symptoms, arthritis Plan:: patient is doing well with her current medication regimen. I will refill her tramadol 50 mg 3 times a day and provide a 3-month supply of this medication. I will also send in a new order for compounding cream. Patient will return to clinic in 3 months for reevaluation of symptoms, medication refill and follow- up. Patient has been instructed to contact the clinic with any concerns before the next appointment. Dr. Mukherjee has reviewed this note and agrees with this plan of care. This note was dictated using voice recognition software and make contain errors or omissions. [facility] Disclaimer: The information contained in this section may have been updated after the patient was seen, as this information can be updated by other users. Social History Smoking Status: Former smoker second hand exposure: No alcohol intake: never substance use type: denies use current occupational status: retired Travel in the last 8 weeks: None household members: none housing: house current occupational exposures/hazards: No caffeine: Yes
== END | disposition home or self-care (01) ==
PROVIDERS: Visit Provider Nurse Practitioner Family
DX: M51.16 Intervertebral disc disorders with radiculopathy, lumbar region (principal); M19.90 Unspecified osteoarthritis, unspecified site; Z79.899 Other long term (current) drug therapy
CPT/HCPCS: 36415; 80306; 80307; 99212; G0463

== ENCOUNTER → 2023-02-22 09:19 | Outpatient (CLI) | payer MEDICARE, OTHER, SELFPAY ==
--- NOTE | 2023-02-22 09:24 | XR_ITS ---
FINAL REPORT TECHNIQUE: Bone densitometry calculations of the lumbar spine and left hip were obtained. CLINICAL HISTORY: . post menopausal screening FINDINGS: DEXA BONE DENSITY AXIAL SKELETON Using L1-4, the bone mineral density of the spine is 1.059 g/cm2, corresponding to T-score of 0.1. Note these values are likely falsely elevated secondary to hypertrophic changes. Using the right hip, the bone mineral density of the total hip is 0.477 g/cm2, corresponding to a T-score of -3.8. NOTE: T-score: Standard deviation compared with peak bone mass of young adult mean. *Following the recommendations of the International Society of Bone Densitometry, classification of hip BMD is based on the lower of two T-scores; total hip or femoral neck. IMPRESSION: Osteoporosis: Lowest T-score is at or below -2.5. This patient's T-score meets the World Health Organization criteria for osteoporosis. FRAX not reported because: Some T-score for Spine Total or hip Total or femoral neck at or below -2.5. Reviewed, Interpreted and Dictated by Vladislav Mckinley III, MD Transcribed by Misty Rocha Authenticated and [facility]
== END ==
PROVIDERS: PCP Internal Medicine Adolescent Medicine; Visit Provider Internal Medicine Adolescent Medicine
DX: M81.0 Age-related osteoporosis without current pathological fracture (principal)
CPT/HCPCS: 77080

== ENCOUNTER 2023-03-05 13:47 | Outpatient (CLI) | payer MEDICARE, OTHER, SELFPAY ==
[2023-03-05 13:55] VITALS: BP 120/72; PULSE 73; RESP 18; O2SAT 97
== END 2023-03-05 14:10 | disposition home or self-care (01) ==
LOC: INF 13:48
PROVIDERS: PCP Internal Medicine Adolescent Medicine; Visit Provider Internal Medicine Adolescent Medicine
DX: M81.0 Age-related osteoporosis without current pathological fracture (principal)
CPT/HCPCS: 96372; J0897

== ENCOUNTER 2023-04-15 14:25 | Outpatient (CLI) | payer MEDICARE, OTHER, SELFPAY ==
[2023-04-15 14:33] VITALS: BMI 24.2
[2023-04-15 15:13] LABS: Microscopic, Urine URINE MICROSCOPIC (MICROSCOPIC)
[2023-04-15 15:21] LABS: Basophils % 0.3 % (0.1-2.0); Eosinophils # 0.1 K/mm3 (0.0-0.4); Eosinophils % 1.9 % (0.1-12.0); Hematocrit 31.8 % (37.0-47.0); Hemoglobin 9.7 g/dL (12.2-16.2); Lymphocytes # 1.7 K/mm3 (0.7-4.5); Lymphocytes % 22.8 % (10-50); Mean Corpuscular HGB Conc 30.4 g/dL (31.8-35.4); Mean Corpuscular Hemoglobin 24.2 pg (27.0-31.2); Mean Corpuscular Volume 79.6 fl (81-99); Mean Platelet Volume 8.2 fl (7.4-10.4); Monocytes # 0.5 K/mm3 (0.1-1.0); Monocytes % 7.3 % (1.7-9.3); Neutrophils # 4.9 K/mm3 (1.8-7.8); Neutrophils % 67.8 % (37.0-80.0); Platelet Count 285 K/mm3 (142-424); Red Blood Count 3.99 M/mm3 (4.20-5.40); Red Cell Distribution Width 15.8 % (11.5-17.5); White Blood Count 7.2 K/mm3 (4.8-10.8)
[2023-04-15 15:32] VITALS: BP 117/68; PULSE 72; RESP 18; O2SAT 95
[2023-04-15 15:33] LABS: Chloride 102 mmol/L (98-107); Potassium 4.8 mmoL/L (3.5-5.1); Sodium 136 mmol/L (136-145)
[2023-04-15 15:36] LABS: Alanine Aminotransferase 22 U/L (12-78); Albumin Level 3.9 g/dl (3.5-5.0); Albumin/Globulin Ratio 1.1 (1.1-1.8); Alkaline Phosphatase 94 U/L (38-126); Anion Gap 15.8 mEq/L (5-15); Aspartate Amino Transferase 39 U/L (14-36); Bilirubin,Total 0.5 mg/dl (0.2-1.3); Blood Urea Nitrogen 14 mg/dl (7-17); Carbon Dioxide 23 mmol/L (22.0-30.0); Creatinine Clearance Estimated 49 mL/min (50-200); Estimated Glomerular Filt Rate 53 ml/min (>60); GFR (African American) 65 ML/MIN (>60); Globulin 3.5 g/dL (1.3-3.2); Total Protein,Serum 7.4 g/dl (6.3-8.2)
[2023-04-15 15:37] LABS: Calcium 8.8 mg/dl (8.4-10.2); Glucose 109 mg/dl (74-100)
[2023-04-15 15:50] LABS: Appearance,Urine CLEAR (Clear); Bilirubin,Urine Negative (Negative); Blood, Urine Negative (Negative); Color,Urine YELLOW (Yellow); Glucose,Urine (UA) Negative (Negative); Ketones,Urine Negative (Negative); Leukocyte Esterase,Urine Negative (Negative); Nitrate,Urine Negative (Negative); Protein,Urine Negative (Negative); Specific Gravity, Urine <= 1.005 (1.005-1.030); Urobilinogen,Urine 0.2 EU/dl (0.2)
[2023-04-15 16:00] VITALS: BP 124/72; PULSE 68; RESP 18; TEMP 36.8; O2SAT 95
[2023-04-15 16:21] LABS: Squamous Epithelial Cell,Urine Occasional #/hpf (0-5)
== END 2023-04-15 16:00 | disposition home or self-care (01) ==
LOC: INF 14:26
PROVIDERS: PCP Internal Medicine Adolescent Medicine; Visit Provider Internal Medicine Adolescent Medicine
DX: N39.0 Urinary tract infection, site not specified (principal); E86.0 Dehydration; Z45.2 Encounter for adjustment and management of vascular access device
CPT/HCPCS: 80053; 81001; 85025; 96360; 96367; G0463; J0696

== ENCOUNTER → 2023-05-20 11:00 | Outpatient (POV) | payer MEDICARE, OTHER, SELFPAY ==
--- NOTE | 2023-05-20 11:05 | EXP.PAIN.SOA ---
[facility] Pain Management SOAP Note Subjective:: Patient is a pleasant 77-year-old female who presents today for 3-month follow-up and medication refill. We are currently treating the patient for degenerative disc disease of lumbar spine with lumbar radiculopathy symptoms. Today she rates her pain a 5 out of 10. Patient denies any new trauma or injury. Patient denies any change location or type of pain she experiences. She does state that she continues to have pain in her low back and significant pain in her hands and other joints related to arthritis. She does state that some days are worse than others. She presents today in wheelchair for help with ambulation. She is currently managed with tramadol 50 mg 3 times a day and compounding cream. At our last visit we did send in a new order of compounding cream. Patient denies any side effects from this medications. She does continue to state that the compounding cream helps provide significant improvement on top of her tramadol. She does state that she has discontinued her methotrexate medication and that Dr. Jimenes's office did put her on occasional steroids and she believes this did help. Her Eleazar is [phone]. It has been reviewed and appropriate. Review of Systems: General: No recent weight changes, no fever, no sleep disturbances Respiratory: No cough, no shortness of air, no recurring pulmonary infections Cardiovascular/peripheral vascular: No chest pain, no palpitations, no edema, no shortness of breath Gastrointestinal: No new onset incontinence, normal bowel movements reported Genitourinary: No new onset incontinence Musculoskeletal: Low back pain, hand pain Psychiatric: [Normal mood/affect] Neurological: [Denies weakness in extremities], [denies balance issues] Objective:: Physical Exam: General: Alert and oriented x3, no acute distress, pleasant and cooperative Lungs: Respirations even and unlabored, symmetrical chest expansion Eyes: PERRL Musculoskeletal: Flexion and extension of lumbar [spine] somewhat guarded secondary to pain, [antalgic gait noted] Neurological: Speech clear, no gross sensory deficit Assessment:: Degenerative disc disease of the lumbar spine with lumbar radiculopathy symptoms Plan:: We will refill her tramadol 50 mg 3 times a day and provide a 3-month supply of this medication. We will send in a 3-month supply of this medication and she will return back in 3 months for reevaluation of symptoms and medication refill. Patient has been instructed to contact the clinic with any concerns before the next appointment. Dr. Mukherjee has reviewed this note and agrees with this plan of care. This note was dictated using voice recognition software and make contain errors or omissions. [facility] Disclaimer: The information contained in this section may have been updated after the patient was seen, as this information can be updated by other users. Social History Smoking Status: Former smoker second hand exposure: No alcohol intake: never substance use type: denies use current occupational status: retired Travel in the last 8 weeks: None household members: none housing: house current occupational exposures/hazards: No caffeine: Yes
[2023-05-20 11:16] VITALS: BP 110/47; PULSE 93; RESP 18; O2SAT 98; BMI 28.3
== END | disposition home or self-care (01) ==
PROVIDERS: PCP Internal Medicine Adolescent Medicine; Visit Provider Nurse Practitioner Family
DX: M51.16 Intervertebral disc disorders with radiculopathy, lumbar region (principal)
CPT/HCPCS: 99212; G0463

== ENCOUNTER → 2023-07-29 12:20 | Outpatient (CLI) | payer MEDICARE, OTHER, SELFPAY ==
--- NOTE | 2023-07-29 12:27 | XR_ITS ---
FINAL REPORT CLINICAL HISTORY: COUGH FINDINGS: 2 views of the chest were obtained . The heart is normal in size. The mediastinum is within normal limits. The lungs are clear. A moderate size hiatal hernia is present. There is no pneumothorax. Osseous structures are unremarkable. IMPRESSION: No acute cardiopulmonary process. Reviewed, Interpreted and Dictated by Silvestre Edmond MD Transcribed by Gayathri Jernigan Authenticated and [facility]
[2023-07-29 12:39] LABS: Coronavirus 19, PCR Not Detected (NotDetected); Influenza A, PCR Not Detected (NotDetected); Influenza B, PCR Not Detected (NotDetected)
== END ==
PROVIDERS: PCP Internal Medicine Adolescent Medicine; Visit Provider Internal Medicine Adolescent Medicine
DX: J06.9 Acute upper respiratory infection, unspecified (principal); R05.2 Subacute cough
CPT/HCPCS: 36415; 71046; 87636

== ENCOUNTER → 2023-08-29 11:10 | Outpatient (POV) | payer MEDICARE, OTHER, SELFPAY ==
[2023-08-29 12:02] VITALS: BP 129/69; PULSE 87; RESP 18; O2SAT 100; BMI 28.3
--- NOTE | 2023-08-29 12:15 | A.OFFVIS_ITS ---
[facility] Pain Management SOAP Note Subjective:: Patient is a pleasant 77-year-old female who presents today for 3-month follow- up. We are currently treating the patient for degenerative disc disease of lumbar spine with lumbar radiculopathy symptoms. Today she rates her pain a 4 out of 10. Patient denies any new trauma or injury. She denies any change location or type of pain she experiences. She is currently managed with tramadol 50 mg 3 times a day and compounded cream. Patient is requesting refills of both of these medications and denies any side effects. Patient does state that her pain today is more related to arthritis. She states that she noticed a big change with the weather. Her Eleazar is [id number]. Its been reviewed and appropriate. Review of Systems: General: No recent weight changes, no fever, no sleep disturbances Respiratory: No cough, no shortness of air, no recurring pulmonary infections Cardiovascular/peripheral vascular: No chest pain, no palpitations, no edema, no shortness of breath Gastrointestinal: No new onset incontinence, normal bowel movements reported Genitourinary: No new onset incontinence Musculoskeletal: Low back pain Psychiatric: [Normal mood/affect] Neurological: [Denies weakness in extremities], [denies balance issues] Objective:: Physical Exam: General: Alert and oriented x3, no acute distress, pleasant and cooperative Lungs: Respirations even and unlabored, symmetrical chest expansion Eyes: PERRL Musculoskeletal: Flexion and extension of lumbar [spine] somewhat guarded secondary to pain, [antalgic gait noted] Neurological: Speech clear, no gross sensory deficit Assessment:: Degenerative disc disease of lumbar spine with lumbar radiculopathy symptoms Plan:: I will refill the patient's compounded cream and also send in a refill of her tramadol 50 mg 3 times a day and provide a 3-month supply of this medication. Patient will return to clinic in 3 months for reevaluation of symptoms and plan of care. Patient has been advised of risks of oversedation with the prescribed medication. Narcan has been offered to the patient in the event of oversedation. Patient has been advised that a family member should also be educated regarding administration of Narcan. Patient has been instructed to contact the clinic with any concerns before the next appointment. Dr. Mukherjee has reviewed this note and agrees with this plan of care. This note was dictated using voice recognition software and make contain errors or omissions. [facility] Disclaimer: The information contained in this section may have been updated after the patient was seen, as this information can be updated by other users. Medical History Uterine procidentia Surgical History H/O tubal ligation History of tonsillectomy and adenoidectomy Family History Other Cancer Hyperlipidemia Hypertension Stroke Social History Smoking Status: Former smoker tobacco type: cigarettes packs per day: 1 second hand exposure: No alcohol intake: never substance use type: denies use current occupational status: retired Travel in the last 8 weeks: None household members: none housing: house current occupational exposures/hazards: No caffeine: Yes
== END | disposition home or self-care (01) ==
PROVIDERS: PCP Internal Medicine Adolescent Medicine; Visit Provider Nurse Practitioner Family
DX: M51.16 Intervertebral disc disorders with radiculopathy, lumbar region (principal)
CPT/HCPCS: 99212; G0463

== ENCOUNTER 2023-09-11 11:15 | Outpatient (CLI) | payer MEDICARE, OTHER, SELFPAY ==
[2023-09-11 11:25] VITALS: BP 131/69; PULSE 76; RESP 18; O2SAT 97
== END 2023-09-11 11:35 | disposition home or self-care (01) ==
LOC: INF 11:17
PROVIDERS: PCP Internal Medicine Adolescent Medicine; Visit Provider Internal Medicine Adolescent Medicine
DX: M81.0 Age-related osteoporosis without current pathological fracture (principal)
CPT/HCPCS: 96372; J0897

== ENCOUNTER → 2023-11-28 10:45 | Outpatient (POV) | payer MEDICARE, OTHER, SELFPAY ==
--- OUTSIDE RECORDS SUMMARY | 2023-11-28 10:48 | XMS_ITS | Patient Health Record ---
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 Gr. 1.015 Ketone neg Bili neg Glucose neg Rapid Covid Antigen Reviewed date:03/26/2023 04:36:55 PM Interpretation:Negative Performing Lab: Notes/Report: Negative COMPREHENSIVE METABOLIC PANE L (71935) Reviewed date:03/27/2023 03:50:52 PM Interpretation: Performing Lab:CB, [facility] [address], [place]ner[place]izxGI[address] Avinash Kirk Notes/Report: NON-FASTING; NON-FASTING; NON-FASTING; NON-FASTING FASTING:NO FASTING: NO GLUCOSE 80 65-139 mg/dL Non-fasting reference interval UREA NITROGEN (BUN) 13 7-25 mg/dL CREATININE 1.17 0.60-1.00 mg/dL EGFR 47 > OR = 60 mL/min/1.73m2 The eGFR is based on the CKD-EPI 2020 equation. To calculate the new eGFR from a previous Creatinine or Cystatin C result, go to https://www.kidney.org/pr ofessionals/ kdoqi/gfr%5Fcalculator BUN/CREATININE RATIO 11 6-22 (calc) SODIUM 133 135-146 mmol/L POTASSIUM 4.5 3.5-5.3 mmol/L CHLORIDE 101 98-110 mmol/L CARBON DIOXIDE 24 20-32 mmol/L CALCIUM 9.4 8.6-10.4 mg/dL PROTEIN, TOTAL 7.2 6.1-8.1 g/dL ALBUMIN 3.9 3.6-5.1 g/dL GLOBULIN 3.3 1.9-3.7 g/dL (calc) ALBUMIN/GLOBULIN RATIO 1.2 1.0-2.5 (calc) BILIRUBIN, TOTAL 0.6 0.2-1.2 mg/dL ALKALINE PHOSPHATASE 80 37-153 U/L AST 17 10-35 U/L ALT 10 6-29 U/L CBC (INCLUDES DIFF/PLT) (639 9) Reviewed date:03/27/2023 03:50:53 PM Interpretation: Performing Lab:CB, [facility] [address], [facility] ClinicXzjgLQ[address] Avinash Kirk Notes/Report: NON-FASTING; NON-FASTING; NON-FASTING; NON-FASTING FASTING:NO FASTING: NO WHITE BLOOD CELL COUNT 14.9 3.8-10.8 Thousand/ uL RED BLOOD CELL COUNT 4.43 3.80-5.10 Million/uL HEMOGLOBIN 10.6 11.7-15.5 g/dL HEMATOCRIT 34.6 35.0-45.0 % MCV 78.1 80.0-100.0 fL MCH 23.9 27.0-33.0 pg MCHC 30.6 32.0-36.0 g/dL RDW 14.8 11.0-15.0 % PLATELET COUNT 333 140-400 Thousand/uL MPV 11.9 7.5-12.5 fL ABSOLUTE NEUTROPHILS 84582 [id number] cells/uL ABSOLUTE LYMPHOCYTES 6318 381-8277 cells/uL ABSOLUTE MONOCYTES 1207 200-950 cells/uL ABSOLUTE EOSINOPHILS 104 15-500 cells/uL ABSOLUTE BASOPHILS 45 0-200 cells/uL NEUTROPHILS 80.2 LYMPHOCYTES 10.7 MONOCYTES 8.1 EOSINOPHILS 0.7 BASOPHILS 0.3 TSH (899) Reviewed date:03/27/2023 03:50:53 PM Interpretation: Performing Lab:[facility] [place] [address], ONTRAPORTRmfbCG[address] Avinash Kirk Notes/Report: NON-FASTING; NON-FASTING; NON-FASTING; NON-FASTING FASTING:NO FASTING: NO TSH 1.08 0.40-4.50 mIU/L VITAMIN D,25-OH,TOTAL,IA (17 306) Reviewed date:03/27/2023 03:50:53 PM Interpretation: Performing Lab:[facility] [place] [address], ONTRAPORTQtuaRV[address] Avinash Kirk Notes/Report: NON-FASTING; NON-FASTING; NON-FASTING; NON-FASTING FASTING:NO FASTING: NO VITAMIN D,25-OH,TOTAL,IA 21 30-100 ng/mL Vitamin D Status 25-OH Vitamin D: Deficiency: <20 ng/mL Insufficiency: 20 - 29 ng/mL Optimal: > or = 30 ng/mL For 25-OH Vitamin D testing on patients on D2-supplementation and patients for whom quantitation of D2 and D3 fractions is required, the QuestAssureD(TM) 25-OH VIT D, (D2,D3), LC/MS/MS is recommended: order code 71856 (patients >2yrs). See Note 1 Note 1 For additional information, please refer to http://education.Industriaplex/faq/SKC448 (This link is being provided for informational/ educational purposes only.) Urinalysis Reviewed date:03/27/2023 03:50:52 PM Interpretation: Performing Lab: Notes/Report: Color/Clarity yellow/cloudy Leuk small Nitrite neg Urobili 0.2 Protein 100mg pH 6.5 Blood large Sp. Gr. >=1.030 Ketone neg Bili neg Glucose neg CULTURE, URINE, ROUTINE (395 ) Reviewed date:03/30/2023 07:42:12 AM Interpretation: Performing Lab:[facility] [place] [address], ONTRAPORTYfrtPR[address] Avinash Kirk Notes/Report: NON-FASTING CULTURE, URINE, ROUTINE SEE NOTE CULTURE, URINE, ROUTINE Micro Number: [id number] Test Status: Final Specimen Source: Urine, clean catch Specimen Quality: Adequate Result: Greater than 100,000 CFU/mL of Escherichia coli E.coli INT LE AMOX/CLAVULANATE S 4 AMPICILLIN S 4 AMP/SULBACTAM S <=2 CEFAZOLIN NR <=4 2 CEFEPIME S <=1 CEFTAZIDIME S <=1 CEFTRIAXONE S <=1 CIPROFLOXACIN S <=0.25 GENTAMICIN S <=1 IMIPENEM S <=0.25 LEVOFLOXACIN S <=0.12 NITROFURANTOIN S <=16 PIP/TAZOBACTAM S <=4 TOBRAMYCIN S <=1 TRIMETHOPRIM/SULFA S <=20 S=Susceptible I=Intermediate R=Resistant * = Not Tested NR = Not Reported NN = See Therapy Comments THERAPY COMMENTS Note 1: For infections other than uncomplicated UTI caused by E. coli, K. pneumoniae or P. mirabilis: Cefazolin is resistant if LE > or = 8 mcg/mL. (Distinguishing susceptible versus intermediate for isolates with LE < or = 4 mcg/mL requires additional testing.) Note 2: For uncomplicated UTI caused by E. coli, K. pneumoniae or P. mirabilis: Cefazolin is susceptible if LE <32 mcg/mL and predicts susceptible to the oral agents cefaclor, cefdinir, cefpodoxime, cefprozil, cefuroxime, cephalexin and loracarbef. DEMENTIA PANEL, BERNADINE(NAHEED) ([id number]) Reviewed date:05/06/2023 11:50:03 AM Interpretation: Performing Lab:LARS, [facility] [address] [facility], [facility] HospitalApdyCJ[address] Avinash Kirk Notes/Report: NON-FASTING FASTING:NO FASTING: NO GLUCOSE 85 65-139 mg/dL Non-fasting reference interval UREA NITROGEN (BUN) 27 7-25 mg/dL CREATININE 1.53 0.60-1.00 mg/dL EGFR 34 > OR = 60 mL/min/1.73m2 The eGFR is based on the CKD-EPI 2020 equation. To calculate the new eGFR from a previous Creatinine or Cystatin C result, go to https://www.kidney.org/pr ofessionals/ kdoqi/gfr%5Fcalculator BUN/CREATININE RATIO 18 6-22 (calc) SODIUM 135 135-146 mmol/L POTASSIUM 5.3 3.5-5.3 mmol/L CHLORIDE 101 98-110 mmol/L CARBON DIOXIDE 26 20-32 mmol/L CALCIUM 9.0 8.6-10.4 mg/dL PROTEIN, TOTAL 6.8 6.1-8.1 g/dL ALBUMIN 4.0 3.6-5.1 g/dL GLOBULIN 2.8 1.9-3.7 g/dL (calc) ALBUMIN/GLOBULIN RATIO 1.4 1.0-2.5 (calc) BILIRUBIN, TOTAL 0.4 0.2-1.2 mg/dL ALKALINE PHOSPHATASE 61 37-153 U/L AST 22 10-35 U/L ALT 14 6-29 U/L WHITE BLOOD CELL COUNT 8.4 3.8-10.8 Thousand/ uL RED BLOOD CELL COUNT 4.05 3.80-5.10 Million/uL HEMOGLOBIN 10.0 11.7-15.5 g/dL HEMATOCRIT 32.5 35.0-45.0 % MCV 80.2 80.0-100.0 fL MCH 24.7 27.0-33.0 pg MCHC 30.8 32.0-36.0 g/dL RDW 15.0 11.0-15.0 % PLATELET COUNT 327 140-400 Thousand/uL MPV 11.6 7.5-12.5 fL ABSOLUTE NEUTROPHILS 4351 2108-3054 cells/uL ABSOLUTE LYMPHOCYTES 3100 850-3900 cells/uL ABSOLUTE MONOCYTES 764 200-950 cells/uL ABSOLUTE EOSINOPHILS 143 15-500 cells/uL ABSOLUTE BASOPHILS 42 0-200 cells/uL NEUTROPHILS 51.8 LYMPHOCYTES 36.9 MONOCYTES 9.1 EOSINOPHILS 1.7 BASOPHILS 0.5 TSH 3.22 0.40-4.50 mIU/L VITAMIN B12 133 740-0865 pg/mL FOLATE, SERUM 12.7 Reference Range Low: <3.4 Borderline: 3.4-5.4 Normal: >5.4 COMMENT If a patient with suspected dementia has a history of risk factors for sexually transmitted infections, blood testing for syphilis and human immunodeficiency virus (HIV) infection should be considered. For information on advanced diagnostic testing for dementia including Alzheimer's Disease please click on Frequently Asked Questions (FAQs) or visit the following link http://education.Lifefactory/faq/FAQ88 Enhanced report to follow. QUEST AD DETECT(TM), BETA AM YLOID 42/40 RATIO, P (11201) Reviewed date:05/04/2023 08:48:38 AM Interpretation: Performing Lab:Zina GOLDBERG[facility],[address] [address] [facility] HospitalCA[address] Ruby Castañeda MD,PhD,SAUD Notes/Report: NON-FASTING FASTING:NO FASTING: NO ABETA 42 62 Reference Range: NOT ESTABLISHED ABETA 40 374 Reference Range: NOT ESTABLISHED ABETA 42/40 RATIO 0.166 > OR = 0.170 Plasma beta-amyloid 42/40 ratio Risk Table: Risk of Alzheimer's Disease: Lower Risk: > or = 0.170 Intermediate Risk: 0.150 - 0.169 Higher Risk: <0.150 This test was developed and its analytical performance characteristics have been determined by [facility]. It has not been cleared or approved by FDA. This assay has been validated pursuant to the CLIA regulations and is used for clinical purposes. Urinalysis Reviewed date:09/11/2023 04:50:44 PM Interpretation: Performing Lab: Notes/Report: Color/Clarity lt yellow/cloudy Leuk small Nitrite neg Urobili 0.2 Protein neg pH 7.0 Blood neg Sp. Gr. 1.020 Ketone neg Bili neg Glucose neg Urinalysis Reviewed date:10/07/2023 05:17:22 PM Interpretation: Performing Lab: Notes/Report: Color/Clarity Yellow cloudy Leuk trace Nitrite neg Urobili 0.2 Protein neg pH 7.0 Blood trace-intact Sp. Gr. 1.025 Ketone neg Bili neg Glucose neg CULTURE, URINE, ROUTINE (395 ) Reviewed date:10/10/2023 11:13:17 AM Interpretation: Performing Lab:[facility] [address] [facility] [address], [place] CodyPbhrEC[address] Avinash Kirk Notes/Report: CULTURE, URINE, ROUTINE SEE NOTE CULTURE, URINE, ROUTINE Micro Number: [id number] Test Status: Final Specimen Source: Urine Specimen Quality: Adequate Result: Greater than 100,000 CFU/mL of Escherichia coli E.coli INT LE AMOX/CLAVULANATE S 4 AMP/SULBACTAM S 4 CEFAZOLIN NR <=4 2 CEFEPIME S <=0.12 CEFTAZIDIME S <=1 CEFTRIAXONE S <=0.25 CIPROFLOXACIN S <=0.06 GENTAMICIN S <=1 IMIPENEM S <=0.25 LEVOFLOXACIN S <=0.12 MEROPENEM S <=0.25 NITROFURANTOIN S <=16 PIP/TAZOBACTAM S <=4 TRIMETHOPRIM/SULFA S <=20 S=Susceptible I=Intermediate R=Resistant * = Not Tested NR = Not Reported NN = See Therapy Comments THERAPY COMMENTS Note 1: For infections other than uncomplicated UTI caused by E. coli, K. pneumoniae or P. mirabilis: Cefazolin is resistant if LE > or = 8 mcg/mL. (Distinguishing susceptible versus intermediate for isolates with LE < or = 4 mcg/mL requires additional testing.) Note 2: For uncomplicated UTI caused by E. coli, K. pneumoniae or P. mirabilis: Cefazolin is susceptible if LE <32 mcg/mL and predicts susceptible to the oral agents cefaclor, cefdinir, cefpodoxime, cefprozil, cefuroxime, cephalexin and loracarbef. Urinalysis Reviewed date:10/28/2023 05:02:47 PM Interpretation: Performing Lab: Notes/Report: Color/Clarity yellow clear Leuk neg Nitrite neg Urobili 0.2 Protein neg pH 7.0 Blood neg Sp. Gr. >=1.030 Ketone neg Bili neg Glucose neg URINALYSIS, COMPLETE (3729) Reviewed date:04/12/2023 04:39:01 PM Interpretation: Performing Lab:CB, [facility] [address], [facility] ClinicVcydJQ[address] Avinash Kirk Notes/Report: NON-FASTING; NON-FASTING COLOR YELLOW YELLOW APPEARANCE CLEAR CLEAR SPECIFIC GRAVITY 1.007 1.001-1.035 PH 7.0 5.0-8.0 GLUCOSE NEGATIVE NEGATIVE BILIRUBIN NEGATIVE NEGATIVE KETONES NEGATIVE NEGATIVE OCCULT BLOOD NEGATIVE NEGATIVE PROTEIN NEGATIVE NEGATIVE NITRITE NEGATIVE NEGATIVE LEUKOCYTE ESTERASE NEGATIVE NEGATIVE WBC NONE SEEN < OR = 5 /HPF RBC NONE SEEN < OR = 2 /HPF SQUAMOUS EPITHELIAL CELLS 0-5 < OR = 5 /HPF BACTERIA NONE SEEN NONE SEEN /HPF HYALINE CAST 0-5 NONE SEEN /LPF CULTURE, URINE, ROUTINE (395 ) Reviewed date:04/12/2023 04:39:11 PM Interpretation: Performing Lab:[facility] [place] [address], [facility] HospitalQjyhGC[address] Avinash Kirk Notes/Report: NON-FASTING; NON-FASTING CULTURE, URINE, ROUTINE SEE NOTE CULTURE, URINE, ROUTINE Micro Number: [id number] Test Status: Final Specimen Source: Urine, clean catch Specimen Quality: Adequate Result: Mixed genital femi isolated. These superficial bacteria are not indicative of a urinary tract infection. No further organism identification is warranted on this specimen. If clinically indicated, recollect clean-catch, mid-stream urine and transfer immediately to Urine Culture Transport Tube. URINALYSIS, COMPLETE (7444) Reviewed date:07/23/2023 03:12:13 PM Interpretation: Performing Lab:[facility] [address], [facility] HospitalFzmzLU[address] Avinash Kirk Notes/Report: NON-FASTING; NON-FASTING COLOR YELLOW YELLOW APPEARANCE CLEAR CLEAR SPECIFIC GRAVITY 1.009 1.001-1.035 PH 6.5 5.0-8.0 GLUCOSE NEGATIVE NEGATIVE BILIRUBIN NEGATIVE NEGATIVE KETONES NEGATIVE NEGATIVE OCCULT BLOOD NEGATIVE NEGATIVE PROTEIN NEGATIVE NEGATIVE NITRITE NEGATIVE NEGATIVE LEUKOCYTE ESTERASE NEGATIVE NEGATIVE WBC NONE SEEN < OR = 5 /HPF RBC NONE SEEN < OR = 2 /HPF SQUAMOUS EPITHELIAL CELLS NONE SEEN < OR = 5 /HPF BACTERIA NONE SEEN NONE SEEN /HPF HYALINE CAST NONE SEEN NONE SEEN /LPF NOTE This urine was analyzed for the presence of WBC, RBC, bacteria, casts, and other formed elements. Only those elements seen were reported. CULTURE, URINE, ROUTINE (395 ) Reviewed date:07/25/2023 03:55:21 PM Interpretation: Performing Lab:[facility] [place] [address], [place] DdnwDA[address] Avinash Kirk Notes/Report: NON-FASTING; NON-FASTING CULTURE, URINE, ROUTINE SEE NOTE CULTURE, URINE, ROUTINE Micro Number: [id number] Test Status: Final Specimen Source: Urine Specimen Quality: Adequate Result: No Growth M-Complete Blood Count Auto Diff Reviewed date:04/16/2023 02:38:53 PM Interpretation: Performing Lab: Notes/Report: WBC 7.2 4.8-10.8 K/mm3 RBC 3.99 4.20-5.40 M/mm3 HGB 9.7 12.2-16.2 g/dL HCT 31.8 37.0-47.0 % MCV 79.6 81-99 fl MCH 24.2 27.0-31.2 pg MCHC 30.4 31.8-35.4 g/dL RDW 15.8 11.5-17.5 % PLT 285 142-424 K/mm3 MPV 8.2 7.4-10.4 fl NE% 67.8 37.0-80.0 % LY% 22.8 10-50 % MO% 7.3 1.7-9.3 % EO% 1.9 0.1-12.0 % BA% 0.3 0.1-2.0 % NE# 4.9 1.8-7.8 K/mm3 LY# 1.7 0.7-4.5 K/mm3 MO# 0.5 0.1-1.0 K/mm3 EO# 0.1 0.0-0.4 K/mm3 BA# 0.0 0-0.2 K/mm3 M-Urinalysis and Microscopic Reviewed date:04/16/2023 02:38:53 PM Interpretation: Performing Lab: Notes/Report: Method to collect specimen catheterized collection UCOL YELLOW Yellow UAPP CLEAR Clear UPH 6.0 5.0-8.5 USG <= 1.005 1.005-1.030 UPRO Negative Negative UGLU Negative Negative UKET Negative Negative UBLD Negative Negative UNIT Negative Negative UBIL Negative Negative UURO 0.2 0.2 EU/dl ULEU Negative Negative M-Comprehensive Metabolic Pa roro Reviewed date:04/16/2023 02:38:53 PM Interpretation: Performing Lab: Notes/Report: NA 136 136-145 mmol/L K 4.8 3.5-5.1 mmoL/L CL 102 98-107 mmol/L CO2 23 22.0-30.0 mmol/L GAP 15.8 5-15 mEq/L BUN 14 7-17 mg/dl CREATT 1.00 0.52-1.04 mg/dl CRCLE 49 50-200 mL/min GFRAA 65 >60 ML/MIN EGFR 53 >60 ml/min GLU 109 74-100 mg/dl CA 8.8 8.4-10.2 mg/dl BILIT 0.5 0.2-1.3 mg/dl AST 39 14-36 U/L ALT 22 12-78 U/L TP 7.4 6.3-8.2 g/dl ALB 3.9 3.5-5.0 g/dl GLOB 3.5 1.3-3.2 g/dL AGRATIO 1.1 1.1-1.8 ALP 94 38-126 U/L H-COVRAPPCR Reviewed date:07/29/2023 06:15:42 PM Interpretation: Performing Lab: Notes/Report: No Is this the 1st COVID test for the patient? Unknown Does the patient have COVID symptoms? No Is the patient employed in healthcare? No Is patient an [facility] employee? N Is patient currently hospitalized? No Is patient currently in ICU? No Date of Symptom onset Is patient a resident in a congregate care setting? No COVPCR Not Detected NotDetected Effective 07/04/21, Positive covid results will no longer be called to the ordering physician. Infection control and the physician?s office will continue to report positive covid results to the local Health Department as required. This assay is for in vitro diagnostic use under FDA Emergency Use Authorization only. Negative results do not preclude infection with SARS CoV 2 virus and should not be the sole basis of a patient treatment/management or public health decision. Follow up testing should be performed according to the current CDC recommendations. FLUAPCR Not Detected NotDetected FLUBPCR Not Detected NotDetected Urinalysis Reviewed date:04/16/2023 02:38:53 PM Interpretation: Performing Lab: Notes/Report: Color/Clarity yellow Leuk neg Nitrite neg Urobili 0.2 Protein neg pH 7.0 Blood NEG Sp. Gr. 1.015 Ketone neg Bili neg Glucose neg X ray : Chest PA and Lateral Reviewed date:08/01/2023 12:16:06 PM Interpretation: Performing Lab: Notes/Report: Urinalysis Reviewed date:07/29/2023 06:11:33 PM Interpretation: Performing Lab: Notes/Report: Color/Clarity yellow clear Leuk neg Nitrite neg Urobili 0.2 Protein neg pH 5.5 Blood neg Sp. Gr. 1.010 Ketone neg Bili neg Glucose neg Urinalysis Reviewed date:07/22/2023 09:23:58 PM Interpretation: Performing Lab: Notes/Report: Color/Clarity yellow Leuk negative Nitrite negative Urobili 0.2 Protein negative pH 6.5 Blood negative Sp. Gr. 1.020 Ketone negative Bili negative Glucose negative Urinalysis Reviewed date:03/13/2023 09:23:03 PM Interpretation: Performing Lab: Notes/Report: Color/Clarity lt yellow Leuk neg Nitrite neg Urobili 0.2 Protein neg pH 7.0 Blood neg Sp. Gr. 1.020 Ketone neg Bili neg Glucose neg DEXA [facility] - Diagnos tic Reviewed date:02/28/2023 02:48:58 PM Interpretation: Performing Lab: Notes/Report: MEDICATIONS Medication SIG (Take, Route, Frequency, Duration) Notes Start Date End Date Status Xiao 180 mg 1 tab qd prn Ac tive Fluticasone Propionate 50 mcg/inh 2 spray(s) in each nostril once a day for 30 day(s) prn 08/29/2022 Active Zofran 4 mg 1 tab(s) orally 3 times a day as needed for nausea for 10 day(s) 11/02/2021 Active pantoprazole 40 mg 1 tab(s) orally twic e a day for 90 days Active lisinopril 10MG 1 tab(s) orally 2 times a day for 90 days Active Triamcinolone Acetonide Topical 0.5% 1 boogie applied topically 2 times a day for 7 day(s) 04/24/2023 Active sucralfate 1 g 1 tab(s) orally 4 times a day (before meals and at bedtime) for 30 days prn Active Tylenol 325 mg 2 tab(s) orally ever y 4 hours prn Active rosuvastatin 10 mg 1 tab(s) orally once a day for 90 days Active MiraLax (obsolete) prn A ctive Estrace Vaginal 0.1 mg/g one applicator intravaginally 3 times a week for 30 day(s) Active traMADol 50 mg 1 tabs orally QID PRN Active amoxicillin-clavulana te 875 mg-125 mg 1 tab(s) orally every 12 hours for 7 days 10/07/2023 Active lidocaine topical 4% 1 boogie applied topically 3 times a day KEt/Juan Pablo/Lido/Cl in/IBU compound Active AmLODIPine Besylate 2.5MG 1 tab(s) orally once a day for 90 days Active IMMUNIZATIONS Vaccine Route Administration Date Status Comme nts Prevnar PCV-13 (Pneumococcal conjugate 13) IM Intramuscular 10/11/2016 Administered Pneumovax-23 (pneumococccal vaccine polyvalent)2 years or older IM Intramuscular 05/31/2014 Administered Influenza (Fluzone)--Medicare only IM Intramuscular 08/22/2015 Administered Influenza (Fluzone)--Medicare only IM Intramuscular 07/17/2017 Administered Fluzone High Dose IM Intramuscular 08/08/2018 Administered Fluzone High Dose IM Intramuscular 08/14/2019 Administered Fluzone High Dose IM Intramuscular 08/15/2020 Administered Fluzone High Dose IM Intramuscular 06/29/2021 Administered Fluvirin--Influenza vaccine 3+ year IM Intramuscular 09/07/2008 Administered Fluvirin--Influenza vaccine 3+ year IM Intramuscular 08/08/2013 Administered Fluvirin--Influenza vaccine 3+ year IM Intramuscular 08/09/2014 Administered Fluvirin (MEDICARE ONLY) IM Intramuscular 07/30/2016 Admin istered SOCIAL HISTORY Sex Assigned At : Social History Observation Description Sex Assigned At Unknown PROBLEMS Problem Type ICD Code Onset Dates Problem Status W/U Status Risk SNOMED Code Notes Problem Essential (primary) hypertension (I10) Active confirmed Essential hypertension (42406429) Problem Hypertensive chronic kidney disease with stage 1 through stage 4 chronic kidney disease, or unspecified chronic kidney disease (I12.9) Active confirmed Chronic kidn ey disease due to hypertension (021447811715205) Problem Chronic maxillary sinusitis (J32.0) Active confirmed 66810997 Problem Chronic or unspecified gastric ulcer with hemorrhage (K25.4) Active confirmed Chronic g astric ulcer with haemorrhage (12253867) Problem 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) Active confirmed Chronic duodena l ulcer with hemorrhage (38066204) Problem Sciatica, right side (M54.31) Active confirmed [id number] Problem Sciatica, left side (M54.32) Active confirmed 52597023 Problem Dysuria (R30.0) Active confirmed Dysuri a (39613116) Problem Vitamin D deficiency (E55.9) Active confirmed 76608386 Problem Osteoporosis (M81.0) Active confirmed 25301142 Problem Hyperlipemia, 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 confirmed 041368478 Problem Mild cognitive impairment (G31.84) Active confirmed 355204554 Problem Urinary frequency (R35.0) Active confirmed Urinary frequen cy (839226131) Problem Acute sinusitis (J01.90) Active confirmed 53555790 Problem Urinary incontinence (R32) Active confirmed Urinary incontinence (228588702) Problem Burning with urination (R30.0) Active confirmed Dysuria (12881230) Problem Gastroesophageal reflux disease without esophagitis (K21.9) Active confirmed 052208693 Problem Contact dermatitis (L25.9) Active confirmed 17127565 Problem Incontinence (R32) Active confirmed Inc ontinence (58568785) Problem Rheumatoid arthritis involving multiple sites, unspecified rheumatoid factor presence (M06.9) Active confirmed 718346141 Problem Urinary hesitancy (R39.11) Active confirmed 8255152 Problem Vaginal dryness, menopausal (N95.1) Active confirmed 08583510 Problem Hyperlipidemia, unspecified hyperlipidemia type (E78.5) Active confirmed 24441345 Problem Seasonal allergic rhinitis due to pollen (J30.1) Active confirmed 48104858 Problem Esophageal spasm (K22.4) Active confirmed Esophageal spas m (02261744) Problem Microcytic anemia (D50.9) Active confirmed 023745452 Problem Healthcare maintenance (Z00.00) Active confirmed 707614217 Problem Uterine prolapse (N81.4) Active confirmed 59044252 Problem Hypertensive chronic kidney disease w stg 1-4/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) Active confirmed Malignant hypertensive chronic kidney disease (847848446520986) Problem Primary hypertension (I10) Active confirmed 39582330 Problem Seasonal allergic rhinitis, unspecified trigger (J30.2) Active confirmed 074509404 Problem Renal mass (N28.89) Active confirmed 722788140 Problem Chronic kidney disease, stage 3 unspecified (N18.30) Active confirmed Chronic kidney disease stage 3 (disorder) (117132042) Problem Cough (R05.9) Active confirmed Cough (4 2235680) VITAL SIGNS Heart Rate 92 /min 10/07/2023 Temperature 98 degrees Fahrenheit 10/07/2023 Blood pressure diastolic 92 mm Hg 10/07/2023 Height 64.5 in 10/07/2023 Blood pressure systolic 144 mm Hg 10/07/2023 Weight 154 lbs 10/07/2023 BMI 26.02 kg/m2 10/07/2023 Encounters Encounter Location Date Provider Diagnosis [facility] [address] [place] [id number] 01/09/2023 Mayank Besson Osteoporosis M81.0 ; Rheumatoid arthritis involving multiple sites, unspecified rheumatoid factor presence M06.9 and Seasonal allergic rhinitis due to pollen J30.1 [facility] [address] [place] [phone] 01/14/2023 Mayank Besson Dysuria R30.0 [facility] [address] [place] [phone] 03/13/2023 Mayankchristiano Jimenes Rheumatoid arthritis involving multiple sites, unspecified rheumatoid factor presence M06.9 ; Essential (primary) hypertension I10 ; Dyspnea on effort R06.09 and Incontinence R32 [facility] [address] [place] [address] 03/26/2023 Ashley McNees Urinary incontinence R32 ; Viral URI J06.9 ; Cough R05.9 ; Fatigue, unspecified type R53.83 and Vitamin D deficiency E55.9 [facility] [address] [place] [address] 03/27/2023 Ashley McNees Urinary incontinence R32 [facility] [address] [place] [id number] 04/15/2023 Mayank Besson Dysuria R30.0 and Voiding dysfunction N39.8 [facility] [address] [place] [address] 04/24/2023 Mayank Besson Rash R21 ; Microcyti c anemia D50.9 ; Uterine prolapse N81.4 and Mild cognitive impairment G31.84 [facility] [address] [place] [address] 06/10/2023 Mayank Besson Mild cognitive impairment G31.84 ; Uterine prolapse N81.4 ; Microcytic anemia D50.9 and Vitamin D deficiency E55.9 [facility] [address] [place] [address] 07/22/2023 Mayank Besson Dysuria R30.0 [facility] [address] [place] [address] 07/29/2023 Mayank Besson Subacute cough R05.2 ; Dysuria R30.0 and Acute URI J06.9 [facility] [address] [place] [address] 09/11/2023 Mayank Besson Urinary frequency R3 5.0 ; Primary hypertension I10 ; Hyperlipidemia, unspecified hyperlipidemia type E78.5 ; Gastroesophageal reflux disease without esophagitis K21.9 ; Healthcare maintenance Z00.00 and Seasonal allergic rhinitis, unspecified trigger J30.2 [facility] [address] [place] [address] 10/07/2023 Mayank Besson Cystitis N30.90 ; Urinary incontinence R32 and Dysuria R30.0 [facility] [address] [place] [address] 10/28/2023 Mayank Besson Burning with urinati on R30.0 [facility] [address] [place] [address] 01/14/2023 Mayank Besson [facility] [address] [place] [address] 03/27/2023 Mayank Besson [facility] [address] [place] [address] 03/28/2023 Mayank Besson [facility] [address] [place] [address] 04/09/2023 Mayank Besson Urinary hesitancy R3 9.11 [facility] [address] [place] [address] 07/22/2023 Mayank Besson Dysuria R30.0 [facility] [address] [place] [address] 10/28/2023 Mayank Besson [facility] [address] [place] [address] 01/16/2023 Mayank Besson [facility] [address] [place] [address] 04/05/2023 Mayank Besson [facility] [address] [place] [address] 04/05/2023 Mayank Besson [facility] [address] [place], [place] [address] 04/05/2023 Mayank Besjeremias 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.4 [facility] [address] [facility] [address] [place], [place] [address] 04/29/2023 Mayank Jimenes ASSESSMENTS Encounter Date Diagnosis Assessment Notes Treatment Notes Treatment Clinical Notes 01/09/2023 Osteoporosis (ICD-10 - M81.0) - ordered repeat DEXA - if still in osteoprosis range can start prolia injections 01/09/2023 Rheumatoid arthritis involving multiple sites, unspecified rheumatoid factor presence (ICD-10 - M06.9) - continue tylenol & tramadol PRN - will start hydroxychloroquine for a DMARD given that she cannot take NSAIDs or methotrexate - needs eye exam prior to starting hydroxychloroquine - stop folic acid since no longer on methotrexate 01/14/2023 Dysuria (ICD-10 - R30.0) 03/26/2023 Viral URI (ICD-10 - J06.9) Reassurance. Discussed the etiology & expected course of a viral URI and discussed the rationale for not prescribing antibiotics. Continue supportive care with PRN antipyretics, OTC cough/cold meds, nasal saline rinses, cough drops, and humidifier. Encourage PO hydration. Discussed the signs and symptoms of worsening condition and need for reassessment in clinic or ED. 03/26/2023 Urinary incontinence (ICD-10 - R32) Unable to provide urine sample today, will obtain and drop off in the am. Trial of Gemtesa, samples provided 03/27/2023 Urinary incontinence (ICD-10 - R32) 04/09/2023 Urinary hesitancy (ICD-10 - R39.11) 04/15/2023 Dysuria (ICD-10 - R30.0) Urinalysis here is clear but given her symptom burden we will send to infusion department at [facility]. I have ordered a CBC, CMP and a cathed urinalysis with microscopic review and a culture. We will administer 500 mils of normal saline and 500 mg of ceftriaxone at the infusion department and then await urine culture. 04/15/2023 Voiding dysfunction (ICD-10 - N39.8) 04/24/2023 Rash (ICD-10 - R21) Start triamcinolone ointment. Avoid OTC lotions. 04/24/2023 Microcytic anemia (ICD-10 - D50.9) Schedule appoint with surgery for colonoscopy. Patient also needs [employer] evaluation to see if she could be bleeding from the uterine prolapse. 06/10/2023 Uterine prolapse (ICD-10 - N81.4) Discussed recent evaluation with [employer] and the referral to [facility] gynecologic urology program. I strongly recommended going to this appointment to make sure there is something we can do to help her with her recurrent UTIs which certainly would be impacting her memory. 07/22/2023 Dysuria (ICD-10 - R30.0) 07/29/2023 Dysuria (ICD-10 - R30.0) 06/10/2023 Mild cognitive impairment (ICD-10 - G31.84) Long discussion about patient's memory/cognitive impairment profile. MoCA testing . With main deficits being word recall. Amyloid ratio testing from [facility] shows intermediate risk of Alzheimer's disease. Restore panel shows lots of risk factors for cognitive impairment other than Alzheimer disease, and recommended vitamins, some exercise, increase socialization. I went over this in detail with patient and her son. They will discuss efforts to try to get out of the house more and be involved in [employer] exercise. I spent greater than 30 minutes discussing her memory issues and ways to help him. At this point given her low risk of Alzheimer's disease I do not believe she is a candidate for medication therapy and she is happy with this. 07/29/2023 Subacute cough (ICD-10 - R05.2) Given the subacute cough and her chronic respiratory issues will get chest x-ray and upper respiratory PCR. I do not think she needs antibiotics at this point. We will run a UA to reassure her about her urine status issues. 09/11/2023 Urinary frequency (ICD-10 - R35.0) Following with urogynecology at [facility], underwent pessary placement one week prior to presentation. She reports some improvement of her symptoms since that time. She will have follow-up in approximately one week. UA performed in clinic with no concern for UTI. 09/11/2023 Primary hypertension (ICD-10 - I10) BP remains well-controlled on current regimen. Will continue Lisinopril, Amlodipine. 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 Trial of prednisone to help with the rash and then twice weekly for symptomatic relief. She also is taking tramadol and Tylenol in warmer weather is helping her joints. 03/13/2023 Dyspnea on effort (ICD-10 - R06.09) DC carvedilol given possible fatigue issues. We have evaluated lungs and cardiac issues. Check blood pressure in 4 to 6 weeks. 10/07/2023 Urinary incontinence (ICD-10 - R32) 03/26/2023 Cough (ICD-10 - R05.9) 09/11/2023 Hyperlipidemia, unspecified hyperlipidemia type (ICD-10 - E78.5) Continue Crestor. 06/10/2023 Microcytic anemia (ICD-10 - D50.9) Discussed recent labs, vitamin replacement as noted above 07/29/2023 Acute URI (ICD-10 - J06.9) 04/24/2023 Uterine prolapse (ICD-10 - N81.4) Dr. Vidal evaluation for uterine prolapse and possible pessary versus surgical correction 01/09/2023 Seasonal allergic rhinitis due to pollen (ICD-10 - J30.1) - continue xiao daily - start flonase 1 spray in each nostril BID for 7 days then 1 spray in each nostril at night thereafter 03/26/2023 Fatigue, unspecified type (ICD-10 - R53.83) Last labs approx 6 months ago, will obtain to r/o underlying pathology given her worsening fatigue issues 06/10/2023 Vitamin D deficiency (ICD-10 - E55.9) Continue vitamin D therapy. 04/24/2023 Mild cognitive impairment (ICD-10 - G31.84) Panel ordered for cognitive impairment, amyloid ratio, etc. 09/11/2023 Gastroesophageal reflux disease without esophagitis (ICD-10 - K21.9) Continue pantoprazole. 10/07/2023 Dysuria (ICD-10 - R30.0) 03/13/2023 Incontinence (ICD-10 - R32) Symptoms improving, reassured that urinalysis was normal. 09/11/2023 Healthcare maintenance (ICD-10 - Z00.00) -Received flu vaccine 08/2023 -Will plan to follow-up for RSV vaccine prior to next follow-up. -Received Zostavax in the past, will consider Shingrix prior to next follow-up. -Received pneumococcal vaccines in . Aged out of cancer screening. No recent falls. On medication for anxiety and mild dysthymia. Therefore no depression screening. Good family support system. 03/26/2023 Vitamin D deficiency (ICD-10 - E55.9) 09/11/2023 Seasonal allergic rhinitis, unspecified trigger (ICD-10 - J30.2) Continue Flonase PLAN OF TREATMENT Pending Test Test Name Order Date Urinalysis 03/26/2023 H-URINE CULTURE 07/10/2014 CT Scan : Kidneys with and without contr ast 03/05/2022 C-FERRITIN 09/18/2017 C-TRANSFERRIN 09/18/2017 C-CBC 01/15/2020 C-Sed Rate (ESR) 01/15/2020 C-CMP 01/15/2020 C-LIPID PANEL 01/15/2020 C-FOLATE 09/18/2017 C-IRON 09/18/2017 C-VITAMIN B12 09/18/2017 C-ARTHRITIS 06/02/2018 C-URINE CULTURE 11/02/2021 C-URINE CULTURE 01/05/2014 C-VITAMIN D, 25-HYDROXY 01/15/2020 C-TIBC 09/18/2017 DEXA Hip and Spine - Diagnostic 05/28/20 22 M-Complete Blood Count Auto Diff 020 M-Comprehensive Metabolic Panel 04/28/20 20 M-Upper Respiratory Panel, PCR 3 CBC (INCLUDES DIFF/PLT) (6399) 3 Future Test Test Name Order Date C-BASIC METABOLIC 09/11/2013 C-VITAMIN D, 25-HYDROXY 09/11/2013 C-parathyroid hormone 09/11/2013 C-CMP 02/24/2014 C-LIPID PANEL 02/24/2014 C-TSH 02/24/2014 C-VITAMIN D, 25-HYDROXY 02/24/2014 C-CMP 10/13/2015 C-LIPID PANEL 10/13/2015 C-VITAMIN D, 25-HYDROXY 10/13/2015 C-CBC 11/10/2018 C-Sed Rate (ESR) 11/10/2018 C-CMP 11/10/2018 C-LIPID PANEL 11/10/2018 C-TSH 11/10/2018 C-VITAMIN D, 25-HYDROXY 11/10/2018 C-CBC 02/17/2019 C-Sed Rate (ESR) 02/17/2019 C-CMP 02/17/2019 C-LIPID PANEL 02/17/2019 C-VITAMIN D, 25-HYDROXY 02/17/2019 C-CBC 05/19/2019 C-CMP 05/19/2019 C-CBC 06/14/2020 C-Sed Rate (ESR) 06/14/2020 C-CMP 06/14/2020 C-LIPID PANEL 06/14/2020 C-VITAMIN D, 25-HYDROXY 06/14/2020 Next Appt Details Provider Name:Mayank Jimenes, 12/16/2023 12:15:00 PM, [address], [place], [address], Insurance Providers Payer Name Payer Address Payer Phone Subscriber Number Group Number Insured Name Patient Relationship to Insured Coverage Start Date Coverage End Date [place] [address] [place] [place] [address] [phone] [id number] Trice Mauro Self - patient is the insured [employer] [facility] [address] [address] [place] [address] [id number] Trice Mauro Self - patient is the insured MEDICATIONS ADMINISTERED Medication Instructions Date of Administration Dosage Notes Dexamethasone 4mg Injection 10/01/2022 4 mg Triamcinolone Acetonide 40mg Injection 01/27/2019 1 mL Kenalog 03/19/2014 Kenalog 11/13/2014 1 mL Kenalog 11/25/2015 1 mL Kenalog 10/17/2016 1 mL Kenalog 02/04/2017 1 mL MEDICAL (GENERAL) HISTORY Medical History History ICD Code RA, osteoporosis, Spinal anjelica nosis, Degenerative disc disease, Sciatic nerve problems, Low Vitamin D Normal mammogram 02/25 and 11/2018 negative cologuard screening February 2017 and again in 07/2020 severe osteoporosis on DEXA scan in December 2018. Medical therapy started - still low in 01/31... prolia recommended Surgical History Surgery Date(Month/Year) Tonsillectomy 1951 Barthlin cyst removal 1979 Breast tissue removed Cataract removal rt eye 2008 Cararact removal lt eye 2012 Epidural injs x 2 2016 Upper GI 02/2022 Upper GI 05/2022 Teeth extraction 05/2023 Hospitalization History Reason Date(Month/Year) vomiting blood 02/2022 Blood pressure, sciatic 03/2017 Tonsillectomy D&C Child -tubal ligation
--- NOTE | 2023-11-28 11:26 | A.OFFVIS_ITS ---
[facility] Pain Management SOAP Note Subjective:: Patient is a pleasant 78-year-old female who presents today for 3-month follow- up and medication refill. We are currently treating the patient for degenerative disc disease of lumbar spine with lumbar radiculopathy symptoms. Today she rates her pain a 4 out of 10. Patient denies any new trauma or injury. She states she continues to have her chronic pain in her low back. She is currently managed with tramadol 50 mg 3 times a day and compounded cream. Patient denies any side effects from this medication. She states it does continue to provide additional improvement. Patient does state that she is going to be scheduled for an upcoming vaginal surgery to repair her prolapse. She states she does not have a date just yet but has done all her pretesting. Her Eleazar has been reviewed and is appropriate. Review of Systems: General: No recent weight changes, no fever, no sleep disturbances Respiratory: No cough, no shortness of air, no recurring pulmonary infections Cardiovascular/peripheral vascular: No chest pain, no palpitations, no edema, no shortness of breath Gastrointestinal: No new onset incontinence, normal bowel movements reported Genitourinary: No new onset incontinence Musculoskeletal: Low back pain Psychiatric: [Normal mood/affect] Neurological: [Denies weakness in extremities], [denies balance issues] Objective:: Physical Exam: General: Alert and oriented x3, no acute distress, pleasant and cooperative Lungs: Respirations even and unlabored, symmetrical chest expansion Eyes: PERRL Musculoskeletal: Flexion and extension of lumbar [spine] somewhat guarded secondary to pain, [antalgic gait noted] Neurological: Speech clear, no gross sensory deficit Assessment:: Degenerative disc disease of lumbar spine with lumbar radiculopathy symptoms Plan:: I will send in a refill of her tramadol 50 mg 3 times daily and provide a 3- month supply of this medication. Patient will return to clinic in 3 months for reevaluation of symptoms and plan of care. Patient has been advised of risks of oversedation with the prescribed medication. Narcan has been offered to the patient in the event of oversedation. Patient has been advised that a family member should also be educated regarding administration of Narcan. Patient has been instructed to contact the clinic with any concerns before the next appointment. Dr. Mukherjee has reviewed this note and agrees with this plan of care. This note was dictated using voice recognition software and make contain errors or omissions. [facility] Disclaimer: The information contained in this section may have been updated after the patient was seen, as this information can be updated by other users. Medical History Uterine procidentia Surgical History H/O tubal ligation History of tonsillectomy and adenoidectomy Family History Other Cancer Hyperlipidemia Hypertension Stroke Social History Smoking Status: Former smoker tobacco type: cigarettes packs per day: 1 second hand exposure: No alcohol intake: never substance use type: denies use current occupational status: retired Travel in the last 8 weeks: None household members: none housing: house current occupational exposures/hazards: No caffeine: Yes
[2023-11-28 12:57] VITALS: BP 100/58; PULSE 118; RESP 18; O2SAT 100; BMI 28.3
== END | disposition home or self-care (01) ==
PROVIDERS: PCP Internal Medicine Adolescent Medicine; Visit Provider Nurse Practitioner Family
DX: M51.16 Intervertebral disc disorders with radiculopathy, lumbar region (principal)
CPT/HCPCS: 99212; G0463

== ENCOUNTER 2024-01-15 12:51 | Outpatient (CLI) | payer MEDICARE, OTHER, SELFPAY ==
--- NOTE | 2024-01-15 | XR_ITS ---
FINAL REPORT CLINICAL HISTORY: Shortness of breath. Pre op for upcoming sx on bladder in February. Medicated for high bp. Non smoker. COMPARISON: 03/09/2022 FINDINGS: Two views of the chest were obtained. The heart size and pulmonary vascularity are within normal limits. The mediastinum is normal. No acute pulmonary abnormality is identified. There is no pneumothorax. There is a moderate hiatal hernia. The bony thorax is intact. IMPRESSION: No active cardiopulmonary disease. Reviewed, Interpreted and Dictated by Vladislav Mckinley III, MD Transcribed by Payal Mariee Authenticated and [facility]
[2024-01-15 12:56] VITALS: BMI 25.9
[2024-01-15 13:45] LABS: Microscopic, Urine URINE MICROSCOPIC (MICROSCOPIC)
[2024-01-15 13:56] LABS: Appearance,Urine CLEAR (Clear); Basophils # 0.1 K/mm3 (0-0.2); Basophils % 0.7 % (0.1-2.0); Bilirubin,Urine Negative (Negative); Blood, Urine Negative (Negative); Color,Urine YELLOW (Yellow); Eosinophils # 0.2 K/mm3 (0.0-0.4); Eosinophils % 2.5 % (0.1-12.0); Glucose,Urine (UA) Negative (Negative); Hematocrit 34.9 % (37.0-47.0); Ketones,Urine Negative (Negative); Leukocyte Esterase,Urine Negative (Negative); Lymphocytes # 2.3 K/mm3 (0.7-4.5); Lymphocytes % 27.7 % (10-50); Mean Corpuscular HGB Conc 31.5 g/dL (31.8-35.4); Mean Corpuscular Hemoglobin 26.4 pg (27.0-31.2); Mean Platelet Volume 9.6 fl (7.4-10.4); Monocytes # 0.5 K/mm3 (0.1-1.0); Monocytes % 5.9 % (1.7-9.3); Neutrophils # 5.2 K/mm3 (1.8-7.8); Neutrophils % 63.1 % (37.0-80.0); Nitrate,Urine Negative (Negative); Platelet Count 263 K/mm3 (142-424); Protein,Urine Negative (Negative); Red Blood Count 4.16 M/mm3 (4.20-5.40); Red Cell Distribution Width 16.6 % (11.5-17.5); Urobilinogen,Urine 0.2 EU/dl (0.2); White Blood Count 8.2 K/mm3 (4.8-10.8)
[2024-01-15 14:03] LABS: Alanine Aminotransferase 23 U/L (12-78); Albumin Level 3.9 g/dl (3.5-5.0); Albumin/Globulin Ratio 1.3 (1.1-1.8); Alkaline Phosphatase 60 U/L (38-126); Anion Gap 10.6 mEq/L (5-15); Aspartate Amino Transferase 40 U/L (14-36); Bilirubin,Total 0.5 mg/dl (0.2-1.3); Blood Urea Nitrogen 19 mg/dl (7-17); Calcium 9.2 mg/dl (8.4-10.2); Carbon Dioxide 25 mmol/L (22.0-30.0); Chloride 103 mmol/L (98-107); Creatinine Clearance Estimated 39 mL/min (50-200); Estimated Glomerular Filt Rate 39 ml/min (>60); GFR (African American) 48 ML/MIN (>60); Glucose 119 mg/dl (74-100); Potassium 4.6 mmoL/L (3.5-5.1); Sodium 134 mmol/L (136-145); Total Protein,Serum 6.9 g/dl (6.3-8.2)
[2024-01-15 14:45] LABS: WBC,Urine Occasional #/hpf (0-3)
[2024-01-15 14:46] LABS: Bacteria,Urine Trace /lpf; Squamous Epithelial Cell,Urine Occasional #/hpf (0-5)
== END 2024-01-15 13:40 | disposition home or self-care (01) ==
LOC: INF 12:52
PROVIDERS: PCP Internal Medicine Adolescent Medicine; Visit Provider Internal Medicine Adolescent Medicine
DX: Z01.812 Encounter for preprocedural laboratory examination (principal); R06.00 Dyspnea, unspecified; R30.0 Dysuria
CPT/HCPCS: 36415; 71046; 80053; 81001; 85025; 87086; G0463

== ENCOUNTER 2024-02-27 11:29 | Outpatient (POV) | payer MEDICARE, OTHER, SELFPAY ==
--- NOTE | 2024-02-27 11:48 | A.OFFVIS_ITS ---
[facility] Pain Management SOAP Note Subjective:: Patient is a pleasant 78-year-old female who presents today for medication refill and follow-up. Patient rates her pain today a 3 out of 10. From our last visit she did undergo vaginal reconstruction for her prolapse and states that the first week and a half was a little bit worse however she is doing much better now. She does state that urinating is a whole lot easier now and that she does not have the pressure sensations like what she did. Patient is currently managed with compounded cream and tramadol 50 mg 3 times a day. She denies any side effects from this medication and states that it really does make a difference. She is requesting a refill. Her Eleazar has been reviewed and is appropriate. Review of Systems: General: No recent weight changes, no fever, no sleep disturbances Respiratory: No cough, no shortness of air, no recurring pulmonary infections Cardiovascular/peripheral vascular: No chest pain, no palpitations, no edema, no shortness of breath Gastrointestinal: No new onset incontinence, normal bowel movements reported Genitourinary: No new onset incontinence Musculoskeletal: Low back pain Psychiatric: [Normal mood/affect] Neurological: [Denies weakness in extremities], [denies balance issues] Objective:: Physical Exam: General: Alert and oriented x3, no acute distress, pleasant and cooperative Lungs: Respirations even and unlabored, symmetrical chest expansion Eyes: PERRL Musculoskeletal: Flexion and extension of lumbar [spine] somewhat guarded secondary to pain, [antalgic gait noted] Neurological: Speech clear, no gross sensory deficit Assessment:: Degenerative disc disease of lumbar spine with lumbar radiculopathy symptoms Plan:: I will refill the patient's compounded cream as well as her tramadol 50 mg 3 times a day. Not have this medication. Patient will return to clinic in 3 months for reevaluation of symptoms and plan of care. Risks and benefits of the medication have been explained in detail to the patient. The patient does understand the risk of dependence on the medication when given over a prolonged period. Patient has been advised of risks of oversedation with the prescribed medication. Narcan has been offered to the paitent in the event of oversedation. Patient has been advised that a family member should also be educated regarding administration of Narcan. The patient has been advised to consult with his/her primary care provider and pharmacist regarding drug-drug interaction of medications currently prescribed. Patient has been prescribed a controlled substance after being counseled on the medication, medication safety, and possible side effects. Opioid contract was reviewed and signed by the patient, and that they have agreed to all of the te elizabeth set forth by our compliance program. Patient has been instructed to contact the clinic with any concerns before the next appointment. Dr. Mukherjee has reviewed this note and agrees with this plan of care. This note was dictated using voice recognition software and make contain errors or omissions. [facility] Disclaimer: The information contained in this section may have been updated after the patient was seen, as this information can be updated by other users. Medical History Uterine procidentia Surgical History H/O tubal ligation History of tonsillectomy and adenoidectomy Family History Other Cancer Hyperlipidemia Hypertension Stroke Social History Smoking Status: Former smoker tobacco type: cigarettes packs per day: 1 second hand exposure: No alcohol intake: never substance use type: denies use current occupational status: retired Travel in the last 8 weeks: None household members: none housing: house current occupational exposures/hazards: No caffeine: Yes
[2024-02-27 12:18] VITALS: BP 135/92; PULSE 79; RESP 16; O2SAT 97; BMI 25.2
== END 2024-02-27 23:59 | disposition home or self-care (01) ==
PROVIDERS: PCP Internal Medicine Adolescent Medicine; Visit Provider Nurse Practitioner Family
DX: M51.16 Intervertebral disc disorders with radiculopathy, lumbar region (principal)
CPT/HCPCS: 99212; G0463

== ENCOUNTER 2024-05-28 11:10 | Outpatient (POV) | payer MEDICARE, OTHER, SELFPAY ==
--- NOTE | 2024-05-28 11:35 | A.OFFVIS_ITS ---
[facility] Disclaimer: The information contained in this section may have been updated after the patient was seen, as this information can be updated by other users. Medical History Uterine procidentia Surgical History H/O tubal ligation History of tonsillectomy and adenoidectomy Family History Other Cancer Hyperlipidemia Hypertension Stroke Social History Smoking Status: Former smoker tobacco type: cigarettes packs per day: 1 second hand exposure: No alcohol intake: never substance use type: denies use current occupational status: retired Travel in the last 8 weeks: None household members: none housing: house current occupational exposures/hazards: No caffeine: Yes PM Subjective & Objective Subjective Subjective:: Patient is a pleasant 78-year-old female who presents today for medication refill and follow-up. Today she rates her pain a 4 out of 10. Patient denies any new trauma or injury. Patient states that she is still doing very well with her tramadol. She is currently managed with tramadol 50 mg 3 times a day. Patient states that on most days she does not have to take it 3 times a day and denies any side effects. She is also prescribed compounded cream. Her Eleazar has been reviewed and is appropriate. Review of Systems: General: No recent weight changes, no fever, no sleep disturbances Respiratory: No cough, no shortness of air, no recurring pulmonary infections Cardiovascular/peripheral vascular: No chest pain, no palpitations, no edema, no shortness of breath Gastrointestinal: No new onset incontinence, normal bowel movements reported Genitourinary: No new onset incontinence Musculoskeletal: Low back pain Psychiatric: [Normal mood/affect] Neurological: [Denies weakness in extremities], [denies balance issues] Pain at rest (0-10 scale): 4 Objective Objective:: Physical Exam: General: Alert and oriented x3, no acute distress, pleasant and cooperative Lungs: Respirations even and unlabored, symmetrical chest expansion Eyes: PERRL Musculoskeletal: Flexion and extension of lumbar [spine] somewhat guarded secondary to pain, [antalgic gait noted] Neurological: Speech clear, no gross sensory deficit Has patient had previous pain injection?: No Conservative treatment options previously tried: Home exercise plan Length of treatment: Longer than 6 weeks and Prescription medications Length of treatment: Longer than 6 weeks Meds Home Medications and Allergies Home Medications Medication Instructions Recorded Confirmed Type carvedilol 12.5 mg tablet 12.5 mg PO BID High blood pressure 01/08/19 05/28/24 History lisinopril 10 mg tablet 10 mg PO BID High blood pressure 01/08/19 05/28/24 History rosuvastatin 10 mg tablet 10 mg PO DAILY High cholesterol 02/20/21 05/28/24 History amlodipine 2.5 mg tablet 2.5 mg PO DAILY High blood pressure 02/27/22 05/28/24 History pantoprazole 40 mg tablet,delayed 40 mg PO BID GERD 03/09/22 05/28/24 History release fluticasone propionate 50 1 spray intranasal NEEDED PRN 05/24/22 05/28/24 History mcg/actuation nasal ALLERGIES spray,suspension estradiol 0.01% (0.1 mg/gram) 1 applic vaginal .twice weekly 06/03/23 05/28/24 Rx vaginal cream hormones #42.5 grams prednisone 10 mg tablet 10 mg PO .twice weekly 06/03/23 05/28/24 History sucralfate 1 gram tablet 1 g PO BID 06/03/23 05/28/24 History tramadol 50 mg tablet 50 mg PO TID Pain #90 tabs 02/27/24 05/28/24 Rx hydrocodone 5 mg-acetaminophen 325 1 tab PO TID #90 tabs 05/29/24 Rx mg tablet New Prescriptions to Start Prescriptions: hydrocodone-acetaminophen Cathleen Momin Allergies Allergy/AdvReac Type Severity Reaction Status Date / Time Sulfa (Sulfonamide Allergy Intermediate HEART RACES Verified 06/03/23 15:03 Antibiotics) [SULFA (SULFONAMIDE ANTIBIOTICS)] Assessment and Plan *Assessment and plan (1) Degenerative disc disease, lumbar: Status: Acute Category: Medical Code(s): M51.36 - Other intervertebral disc degeneration, lumbar region (2) Lumbar radiculopathy: Status: Acute Category: Medical Code(s): M54.16 - Radiculopathy, lumbar region Plan Pt did have lowered gfr from previous labs. Pt was recommended ordering new labs before sending in additional prescriptions of tramadol. Pt's son was notified of new labs with continued GFR of 39. Due to this I have discussed sending in [place] 5mg tid [address] of the tramadol. Family and pt are agreeable to this option. PT will be given a 1 month supply of this medication and return to clinic in 3 months. Risks and benefits of the medication have been explained in detail to the patient. The patient does understand the risk of dependence on the medication when given over a prolonged period. Patient has been advised of risks of oversedation with the prescribed medication. Narcan has been offered to the paitent in the event of oversedation. Patient has been advised that a family member should also be educated regarding administration of Narcan. The patient has been advised to consult with his/her primary care provider and pharmacist regarding drug-drug interaction of medications currently prescribed. Patient has been prescribed a controlled substance after being counseled on the medication, medication safety, and possible side effects. Opioid contract was reviewed and signed by the patient, and that they have agreed to all of the terms set forth by our compliance program. Patient has been instructed to contact the clinic with any concerns before the next appointment. Dr. Mukherjee has reviewed this note and agrees with this plan of care. This note was dictated using voice recognition software and make contain errors or omissions.
[2024-05-28 12:00] VITALS: BP 127/70; PULSE 96; RESP 18; O2SAT 95; BMI 25.0
== END 2024-05-28 23:59 | disposition home or self-care (01) ==
LOC: SC.PAIN 11:11
PROVIDERS: PCP Internal Medicine Adolescent Medicine; Visit Provider Nurse Practitioner Family
DX: M51.36 Other intervertebral disc degeneration, lumbar region (principal); M54.16 Radiculopathy, lumbar region
CPT/HCPCS: 99212; G0463

== ENCOUNTER 2024-05-28 12:06 | Outpatient (CLI) | payer MEDICARE, OTHER, SELFPAY ==
[2024-05-28 12:52] LABS: Basophils # 0.1 K/mm3 (0-0.2); Basophils % 0.8 % (0.1-2.0); Eosinophils # 0.4 K/mm3 (0.0-0.4); Eosinophils % 5.5 % (0.1-12.0); Hematocrit 34.5 % (37.0-47.0); Hemoglobin 11.1 g/dL (12.2-16.2); Lymphocytes # 2.1 K/mm3 (0.7-4.5); Lymphocytes % 29.5 % (10-50); Mean Corpuscular HGB Conc 32.1 g/dL (31.8-35.4); Mean Corpuscular Hemoglobin 27.5 pg (27.0-31.2); Mean Corpuscular Volume 85.5 fl (81-99); Mean Platelet Volume 8.8 fl (7.4-10.4); Monocytes # 0.5 K/mm3 (0.1-1.0); Monocytes % 6.6 % (1.7-9.3); Neutrophils # 4.1 K/mm3 (1.8-7.8); Neutrophils % 57.6 % (37.0-80.0); Platelet Count 260 K/mm3 (142-424); Red Blood Count 4.04 M/mm3 (4.20-5.40); Red Cell Distribution Width 16.2 % (11.5-17.5)
[2024-05-28 14:30] LABS: Alanine Aminotransferase 25 U/L (12-78); Albumin Level 3.7 g/dl (3.5-5.0); Albumin/Globulin Ratio 1.2 (1.1-1.8); Alkaline Phosphatase 82 U/L (38-126); Anion Gap 9.3 mEq/L (5-15); Aspartate Amino Transferase 54 U/L (14-36); Bilirubin,Total 0.6 mg/dl (0.2-1.3); Blood Urea Nitrogen 22 mg/dl (7-17); Calcium 9.5 mg/dl (8.4-10.2); Carbon Dioxide 27 mmol/L (22.0-30.0); Chloride 104 mmol/L (98-107); Estimated Glomerular Filt Rate 39 ml/min (>60); GFR (African American) 48 ML/MIN (>60); Glucose 102 mg/dl (74-100); Potassium 4.3 mmoL/L (3.5-5.1); Sodium 136 mmol/L (136-145); Total Protein,Serum 6.7 g/dl (6.3-8.2)
== END 2024-05-28 23:59 | disposition home or self-care (01) ==
LOC: LAB 12:08
PROVIDERS: Nurse Practitioner Family; PCP Internal Medicine Adolescent Medicine; Visit Provider Anesthesiology
DX: R94.4 Abnormal results of kidney function studies (principal); M51.36 Other intervertebral disc degeneration, lumbar region; M54.16 Radiculopathy, lumbar region; Z79.899 Other long term (current) drug therapy
CPT/HCPCS: 36415; 80053; 85025; 99212; G0463

== ENCOUNTER 2024-07-03 14:17 | Outpatient (CLI) | payer MEDICARE, OTHER, SELFPAY ==
--- NOTE | 2024-07-03 | CA_ITS ---
APPROVED REPORT EXAM: Comprehensive 2D, Doppler, and color-flow Echocardiogram Rubber Belt Splicer: Hetal Randall CRT Ht: 5 ft 0 in Wt: 160lbs BSA: 1.70 BP: 120/82 mmHg Indications: Edema, stroke, HTN, HLD 2D Dimensions Left Atrium 2.87 cm LVEF (Pedersen's) 59.10 % RVID Base (AP4) 1.25 cm (M/F) 2.5-4.1 LV Volume 77.20 mL LVOT 1.91 cm (M/F) 1.5-2.5 LA Volume 19.30 mL LA Volume Index 11.40 mL/m2 (M/F) 16-34 EF AP4 52.00 % EF AP2 68.3 % EF BP 59.1 % GL Strain -11.2 % M-Mode Dimensions RVDd 2.35 cm (0.9-2.6) LVDd 3.95 cm (3.5-5.7) Ao Diam 3.80 cm (2.0-3.7) LVDs 2.81 cm (3.5-5.7) IVSd 1.00 cm (0.6-1.1) PWd 1.42 cm (0.6-1.1) EF (Teich) 56.10% FS 28.90% EDV (Teich) 67.90 mL ESV (Teich) 29.80 mL LV Diastology E Decel Time 369 (160-240 msec) E/A Ratio 0.74 MED E' 6.0 (>= 7 cm/sec) MED A' 13.20 cm/s E'/MED E' Ratio 11.47 (<= 14) LAT E' 6.5 (>= 10 cm/sec) LAT A' 11.20 cm/s E/LAT E' Ratio 10.58 (<= 14) Aortic Valve AoV Peak Bnoy. 135.0 (50-130 cm/s) AI PHT 368.00 ms AO Peak GR. 7.30 mmHg Mitral Valve MV E Max Bony. 69.0 (40-130 cm/s) MV A Velocity 93.0 (40-130 cm/s) E/A Ratio 0.74 MV Decel. Time 369 (160-240 ms) Tricuspid Valve TR P. Velocity 269.00 cm/s RAP Estimate 10.00 mmHg RVSP 38.90 mmHg Left Ventricle The left ventricle is normal size. The left ventricular systolic function is normal. The left ventricular ejection fraction is within the normal range. There is increased LV wall thickness. There is normal LV segmental wall motion. Transmitral Doppler flow pattern suggests impaired LV relaxation. LVEF is 55%. Right Ventricle The right ventricle is mildly dilated. The right ventricular systolic function is normal. Atria Left atrium is mildly dilated. The right atrium size is normal. There is no Doppler evidence of interatrial shunt. Aortic Valve The aortic valve is mildly thickened. There is no aortic valvular stenosis. Mild aortic regurgitation. Mitral Valve The mitral valve leaflets are mildly thickened. No evidence of mitral valve stenosis. Mild mitral regurgitation. The MR jet is eccentric and may be underestimated. Tricuspid Valve The tricuspid valve leaflets are thin and pliable. Mild tricuspid regurgitation. RVSP is 25-30 mmHg. Pulmonic Valve The pulmonary valve is normal in structure. Trace pulmonic regurgitation. Great Vessels The aortic root is normal in size. The ascending aorta is normal in size. IVC is normal in size and collapses >50% with inspiration. Pericardium There is no pericardial effusion. Other Information Study Quality: Fair Conclusion Normal biventricular systolic function. Mild RV dilation. Mild LA dilation. Mild AI, mild TR. Mild MR. The MR jet is eccentric and may be underestimated on TTE (but does not appear to be severe). Electronically signed by : Jaki Catherine MD 07/09/2024 12:32:27
== END 2024-07-03 23:59 | disposition home or self-care (01) ==
LOC: RT 14:17
PROVIDERS: PCP Internal Medicine Adolescent Medicine; Visit Provider Internal Medicine Adolescent Medicine
DX: I34.0 Nonrheumatic mitral (valve) insufficiency (principal); I51.7 Cardiomegaly; J81.1 Chronic pulmonary edema
CPT/HCPCS: 93306

== ENCOUNTER 2024-09-09 11:35 | Outpatient (POV) | payer MEDICARE, OTHER, SELFPAY ==
--- NOTE | 2024-09-09 12:12 | A.OFFVIS_ITS ---
[facility] Disclaimer: The information contained in this section may have been updated after the patient was seen, as this information can be updated by other users. Medical History Uterine procidentia Surgical History H/O tubal ligation History of tonsillectomy and adenoidectomy Family History Other Cancer Hyperlipidemia Hypertension Stroke Social History Smoking Status: Former smoker tobacco type: cigarettes packs per day: 1 second hand exposure: No alcohol intake: never substance use type: denies use current occupational status: retired Travel in the last 8 weeks: None household members: none housing: house current occupational exposures/hazards: No caffeine: Yes PM Subjective & Objective Subjective Subjective:: Patient is a pleasant 78-year-old female who presents today for medication refill and follow-up. Today she rates her pain a 7 out of 10. She denies any new trauma or injury. She does state that she continues to have her same low back pain. She at her last visit was given [place] 5 mg 3 times daily due to having a GFR of 39. Patient states that the [place] does help but she does not feel like it is as effective as the tramadol was. Patient was previously on 50 mg 3 times a day. Patient is also prescribed compounded cream. Her Eleazar has been reviewed and is appropriate. Review of Systems: General: No recent weight changes, no fever, no sleep disturbances Respiratory: No cough, no shortness of air, no recurring pulmonary infections Cardiovascular/peripheral vascular: No chest pain, no palpitations, no edema, no shortness of breath Gastrointestinal: No new onset incontinence, normal bowel movements reported Genitourinary: No new onset incontinence Musculoskeletal: Low back pain Psychiatric: [Normal mood/affect] Neurological: [Denies weakness in extremities], [denies balance issues] Pain at rest (0-10 scale): 7 Objective Objective:: Physical Exam: General: Alert and oriented x3, no acute distress, pleasant and cooperative Lungs: Respirations even and unlabored, symmetrical chest expansion Eyes: PERRL Musculoskeletal: Flexion and extension of lumbar [spine] somewhat guarded secondary to pain, [antalgic gait noted] Neurological: Speech clear, no gross sensory deficit Has patient had previous pain injection?: No Conservative treatment options previously tried: Home exercise plan Length of treatment: Longer than 12 weeks Meds Home Medications and Allergies Home Medications ?Medication ?Instructions ?Recorded ?Confirmed ?Type carvedilol 12.5 mg tablet 12.5 mg PO BID High blood pressure 01/08/19 09/09/24 History lisinopril 10 mg tablet 10 mg PO BID High blood pressure 01/08/19 09/09/24 History rosuvastatin 10 mg tablet 10 mg PO DAILY High cholesterol 02/20/21 09/09/24 History amlodipine 2.5 mg tablet 2.5 mg PO DAILY High blood pressure 02/27/22 09/09/24 History pantoprazole 40 mg tablet,delayed 40 mg PO BID GERD 03/09/22 09/09/24 History release fluticasone propionate 50 1 spray intranasal NEEDED PRN 05/24/22 09/09/24 History mcg/actuation nasal ALLERGIES spray,suspension estradiol 0.01% (0.1 mg/gram) 1 applic vaginal .twice weekly 06/03/23 09/09/24 Rx vaginal cream hormones #42.5 grams sucralfate 1 gram tablet 1 g PO BID 06/03/23 09/09/24 History tramadol 50 mg tablet 50 mg PO TID Pain #90 tabs 02/27/24 09/09/24 Rx hydrocodone 5 mg-acetaminophen 325 1 tab PO TID #90 tabs 07/23/24 09/09/24 Rx mg tablet New Prescriptions to Start Prescriptions: Allergies Allergy/AdvReac Type Severity Reaction Status Date / Time Sulfa (Sulfonamide Allergy Intermediate HEART RACES Verified 06/03/23 15:03 Antibiotics) [SULFA (SULFONAMIDE ANTIBIOTICS)] Assessment and Plan *Assessment and plan (1) Degenerative disc disease, lumbar: Status: Acute Category: Medical Code(s): M51.36 - Other intervertebral disc degeneration, lumbar region (2) Lumbar radiculopathy: Status: Acute Category: Medical Code(s): M54.16 - Radiculopathy, lumbar region Plan I did discuss with the patient and her son that I will order additional labs to see if her GFR has improved. Patient was counseled that if it is now within normal limits we can always go back to the tramadol however if its still altered kidney function that we will have to stick with the [place]. Patient does state that she has only been taking about 1-1/2 to 2 tablets/day. I did discuss with the patient that she still can take the additional medication and see if this does help the pain better. I will order the patient a CBC and CMP to evaluate any overall changes. We will wait to order her medications until after reviewing these labs. I did review over the patient's updated labs she is still anemic but does still have altered kidney function. We will send in a 1 month supply of her [place]. Patient's numbers did improve to a GFR of 48. Risks and benefits of the medication have been explained in detail to the patient. The patient does understand the risk of dependence on the medication when given over a prolonged period. Patient has been advised of risks of oversedation with the prescribed medication. Narcan has been offered to the paitent in the event of oversedation. Patient has been advised that a family member should also be educated regarding administration of Narcan. The patient has been advised to consult with his/her primary care provider and pharmacist regarding drug-drug interaction of medications currently prescribed. Patient has been prescribed a controlled substance after being counseled on the medication, medication safety, and possible side effects. Opioid contract was reviewed and signed by the patient, and that they have agreed to all of the terms set forth by our compliance program. Patient has been instructed to contact the clinic with any concerns before the next appointment. Dr. Mukherjee has reviewed this note and agrees with this plan of care. This note was dictated using voice recognition software and make contain errors or omissions.
[2024-09-09 12:29] LABS: Basophils # 0.1 K/mm3 (0-0.2); Basophils % 0.6 % (0.1-2.0); Eosinophils # 0.2 K/mm3 (0.0-0.4); Eosinophils % 1.4 % (0.1-12.0); Hematocrit 34.8 % (37.0-47.0); Hemoglobin 11.2 g/dL (12.2-16.2); Lymphocytes # 2.1 K/mm3 (0.7-4.5); Lymphocytes % 13.3 % (10-50); Mean Corpuscular HGB Conc 32.3 g/dL (31.8-35.4); Mean Corpuscular Hemoglobin 26.7 pg (27.0-31.2); Mean Corpuscular Volume 82.8 fl (81-99); Mean Platelet Volume 8.6 fl (7.4-10.4); Monocytes # 0.9 K/mm3 (0.1-1.0); Monocytes % 5.5 % (1.7-9.3); Neutrophils # 12.8 K/mm3 (1.8-7.8); Neutrophils % 79.3 % (37.0-80.0); Platelet Count 327 K/mm3 (142-424); Red Cell Distribution Width 15.6 % (11.5-17.5); White Blood Count 16.1 K/mm3 (4.8-10.8)
[2024-09-09 12:39] LABS: MANUAL DIFFERENTIAL MANUAL DIFFERENTIAL (MANUAL DIFF)
[2024-09-09 12:51] VITALS: BP 116/65; PULSE 95; RESP 20; O2SAT 96; BMI 29.6
[2024-09-09 13:02] LABS: Alanine Aminotransferase 36 U/L (12-78); Albumin Level 3.5 g/dl (3.5-5.0); Albumin/Globulin Ratio 1.1 (1.1-1.8); Alkaline Phosphatase 110 U/L (38-126); Anion Gap 12.8 mEq/L (5-15); Aspartate Amino Transferase 59 U/L (14-36); Bilirubin,Total 0.7 mg/dl (0.2-1.3); Blood Urea Nitrogen 17 mg/dl (7-17); Calcium 9.4 mg/dl (8.4-10.2); Carbon Dioxide 28 mmol/L (22.0-30.0); Chloride 101 mmol/L (98-107); Creatinine Clearance Estimated 47 mL/min (50-200); Estimated Glomerular Filt Rate 48 ml/min (>60); GFR (African American) 58 ML/MIN (>60); Globulin 3.2 g/dL (1.3-3.2); Glucose 101 mg/dl (74-100); Potassium 3.8 mmoL/L (3.5-5.1); Sodium 138 mmol/L (136-145); Total Protein,Serum 6.7 g/dl (6.3-8.2)
[2024-09-09 13:16] LABS: Eosinophils % 1 % (0-3); Hypochromasia 1+; Lymphocytes % 12 % (10-50); Monocytes % 2 % (2-9); Neutrophils % 85 % (42-76); Platelet Estimate Normal; Total Cells Counted 100
== END 2024-09-09 23:59 | disposition home or self-care (01) ==
PROVIDERS: PCP Internal Medicine Adolescent Medicine; Visit Provider Nurse Practitioner Family
DX: R94.4 Abnormal results of kidney function studies (principal); M51.16 Intervertebral disc disorders with radiculopathy, lumbar region; Z87.891 Personal history of nicotine dependence
CPT/HCPCS: 36415; 80053; 85007; 85025; 99212; G0463

== ENCOUNTER 2024-10-02 13:31 | Outpatient (POV) | payer MEDICARE, OTHER, SELFPAY ==
[2024-10-02 13:52] VITALS: BP 138/67; PULSE 79; RESP 16; O2SAT 97; BMI 26.9
--- NOTE | 2024-10-02 14:06 | A.OFFVIS_ITS ---
[facility] Disclaimer: The information contained in this section may have been updated after the patient was seen, as this information can be updated by other users. Medical History Uterine procidentia Surgical History H/O tubal ligation History of tonsillectomy and adenoidectomy Family History Other Cancer Hyperlipidemia Hypertension Stroke Social History Smoking Status: Former smoker tobacco type: cigarettes packs per day: 1 second hand exposure: No alcohol intake: never substance use type: denies use current occupational status: other household members: none housing: house current occupational exposures/hazards: No caffeine: Yes PM Subjective & Objective Subjective Subjective:: Patient is a pleasant 79-year-old female who presents today for 1 month follow- up and medication refill. Today she rates her pain a 5 out of 10. Patient states that she has been doing better with the medication by taking 1 tablet in the morning and at least 1 tablet at night. Patient does feel like she has little bit more movements with this combination along with her compounded cream. Patient denies any other changes. Her Eleazar has been reviewed and is appropriate. Review of Systems: General: No recent weight changes, no fever, no sleep disturbances Respiratory: No cough, no shortness of air, no recurring pulmonary infections Cardiovascular/peripheral vascular: No chest pain, no palpitations, no edema, no shortness of breath Gastrointestinal: No new onset incontinence, normal bowel movements reported Genitourinary: No new onset incontinence Musculoskeletal: Low back pain Psychiatric: [Normal mood/affect] Neurological: [Denies weakness in extremities], [denies balance issues] Pain at rest (0-10 scale): 5 Objective Objective:: Physical Exam: General: Alert and oriented x3, no acute distress, pleasant and cooperative Lungs: Respirations even and unlabored, symmetrical chest expansion Eyes: PERRL Musculoskeletal: Flexion and extension of lumbar [spine] somewhat guarded secondary to pain, [antalgic gait noted] Neurological: Speech clear, no gross sensory deficit Has patient had previous pain injection?: No Conservative treatment options previously tried: Home exercise plan Length of treatment: Longer than 12 weeks Meds Home Medications and Allergies Home Medications ?Medication ?Instructions ?Recorded ?Confirmed ?Type carvedilol 12.5 mg tablet 12.5 mg PO BID High blood pressure 01/08/19 10/02/24 History lisinopril 10 mg tablet 10 mg PO BID High blood pressure 01/08/19 10/02/24 History rosuvastatin 10 mg tablet 10 mg PO DAILY High cholesterol 02/20/21 10/02/24 History amlodipine 2.5 mg tablet 2.5 mg PO DAILY High blood pressure 02/27/22 10/02/24 History pantoprazole 40 mg tablet,delayed 40 mg PO BID GERD 03/09/22 10/02/24 History release fluticasone propionate 50 1 spray intranasal NEEDED PRN 05/24/22 10/02/24 H istory mcg/actuation nasal ALLERGIES spray,suspension estradiol 0.01% (0.1 mg/gram) 1 applic vaginal .twice weekly 06/03/23 10/02/24 Rx vaginal cream hormones #42.5 grams sucralfate 1 gram tablet 1 g PO BID 06/03/23 10/02/24 History tramadol 50 mg tablet 50 mg PO TID Pain #90 tabs 02/27/24 10/02/24 Rx hydrocodone 5 mg-acetaminophen 325 1 tab PO TID #90 tabs 09/09/24 10/02/24 Rx mg tablet New Prescriptions to Start Prescriptions: Allergies Allergy/AdvReac Type Severity Reaction Status Date / Time Sulfa (Sulfonamide Allergy Intermediate HEART RACES Verified 06/03/23 15:03 Antibiotics) (SULFA (SULFONAMIDE ANTIBIOTICS)) Assessment and Plan *Assessment and plan (1) Lumbar radiculopathy: Status: Acute Category: Medical Code(s): M54.16 - Radiculopathy, lumbar region (2) Degenerative disc disease, lumbar: Status: Acute Category: Medical Code(s): M51.36 - Other intervertebral disc degeneration, lumbar region Plan I will refill the patient's [place] and provide a 1 month supply of this medication. Patient will return to clinic in 1 month for reevaluation of symptoms and plan of care. Risks and benefits of the medication have been explained in detail to the patient. The patient does understand the risk of dependence on the medication when given over a prolonged period. Patient has been advised of risks of oversedation with the prescribed medication. Narcan has been offered to the paitent in the event of oversedation. Patient has been advised that a family member should also be educated regarding administration of Narcan. The patient has been advised to consult with his/her primary care provider and pharmacist regarding drug-drug interaction of medications currently prescribed. Patient has been prescribed a controlled substance after being counseled on the medication, medication safety, and possible side effects. Opioid contract was reviewed and signed by the patient, and that they have agreed to all of the terms set forth by our compliance program. Patient has been instructed to contact the clinic with any concerns before the next appointment. Dr. Mukherjee has reviewed this note and agrees with this plan of c are. This note was dictated using voice recognition software and make contain errors or omissions.
== END 2024-10-02 23:59 | disposition home or self-care (01) ==
PROVIDERS: PCP Internal Medicine Adolescent Medicine; Visit Provider Nurse Practitioner Family
DX: M51.16 Intervertebral disc disorders with radiculopathy, lumbar region (principal); Z87.891 Personal history of nicotine dependence
CPT/HCPCS: 99212; G0463

== ENCOUNTER 2024-10-30 13:55 | Outpatient (POV) | payer MEDICARE, OTHER, SELFPAY ==
--- NOTE | 2024-10-30 14:00 | EXP.PAIN.SOA ---
[facility] Disclaimer: The information contained in this section may have been updated after the patient was seen, as this information can be updated by other users. Medical History Uterine procidentia Surgical History H/O tubal ligation History of tonsillectomy and adenoidectomy Family History Other Cancer Hyperlipidemia Hypertension Stroke Social History (Updated 10/02/24 @ 14:08 by Cathleen Momin APRN) Smoking Status: Former smoker tobacco type: cigarettes packs per day: 1 second hand exposure: No alcohol intake: never substance use type: denies use current occupational status: other Travel in the last 8 weeks: None household members: none housing: house current occupational exposures/hazards: No caffeine: Yes PM Subjective & Objective Subjective Subjective:: Patient is a pleasant 79-year-old female who presents today for medication refill via telehealth appointment. She does rate her pain a 6 out of 10 and denies any new trauma or injury. Patient is present with her son today and has given verbal consent for this audio appointment. Patient denies any changes from her last appointment. She does state that her [place] 5 mg 3 times daily is helping. She denies any side effects or changes to her pharmacy. Her Eleazar has been reviewed and is appropriate. Review of Systems: General: No recent weight changes, no fever, no sleep disturbances Respiratory: No cough, no shortness of air, no recurring pulmonary infections Cardiovascular/peripheral vascular: No chest pain, no palpitations, no edema, no shortness of breath Gastrointestinal: No new onset incontinence, normal bowel movements reported Genitourinary: No new onset incontinence Musculoskeletal: Low back pain Psychiatric: [Normal mood/affect] Neurological: [Denies weakness in extremities], [denies balance issues] Pain at rest (0-10 scale): 6 Objective Objective:: General: Alert and oriented x3, pleasant and cooperative Lungs: Patient is able to say complete sentences without dyspnea Neurological: Speech clear Has patient had previous pain injection?: No Conservative treatment options previously tried: Prescription medications Length of treatment: Longer than 12 weeks Meds Home Medications and Allergies Home Medications ?Medication ?Instructions ?Recorded ?Confirmed ?Type carvedilol 12.5 mg tablet 12.5 mg PO BID High blood pressure 01/08/19 10/02/24 History lisinopril 10 mg tablet 10 mg PO BID High blood pressure 01/08/19 10/02/24 History rosuvastatin 10 mg tablet 10 mg PO DAILY High cholesterol 02/20/21 10/02/24 History amlodipine 2.5 mg tablet 2.5 mg PO DAILY High blood pressure 02/27/22 10/02/24 History pantoprazole 40 mg tablet,delayed 40 mg PO BID GERD 03/09/22 10/02/24 History release fluticasone propionate 50 1 spray intranasal NEEDED PRN 05/24/22 10/02/24 History mcg/actuation nasal ALLERGIES spray,suspension estradiol 0.01% (0.1 mg/gram) 1 applic vaginal .twice weekly 06/03/23 10/02/24 Rx vaginal cream hormones #42.5 grams sucralfate 1 gram tablet 1 g PO BID 06/03/23 10/02/24 History tramadol 50 mg tablet 50 mg PO TID Pain #90 tabs 02/27/24 10/02/24 Rx hydrocodone 5 mg-acetaminophen 325 1 tab PO TID #90 tabs 10/02/24 Rx mg tablet New Prescriptions to Start Prescriptions: Allergies Allergy/AdvReac Type Severity Reaction Status Date / Time Sulfa (Sulfonamide Allergy Intermediate HEART RACES Verified 06/03/23 15:03 Antibiotics) (SULFA (SULFONAMIDE ANTIBIOTICS)) Assessment and Plan *Assessment and plan (1) Lumbar radiculopathy: Status: Acute Category: Medical Code(s): M54.16 - Radiculopathy, lumbar region (2) Degenerative disc disease, lumbar: Status: Acute Category: Medical Code(s): M51.369 - Other intervertebral disc degeneration, lumbar region without mention of lumbar back pain or lower extremity pain Plan We will refill the patient's [place] and provide a 1 month supply of this medication. Patient will return to clinic in 1 month for reevaluation of symptoms and plan of care. This visit did last from -1400. Risks and benefits of the medication have been explained in detail to the patient. The patient does understand the risk of dependence on the medication when given over a prolonged period. Patient has been advised of risks of oversedation with the prescribed medication. Narcan has been offered to the paitent in the event of oversedation. Patient has been advised that a family member should also be educated regarding administration of Narcan. The patient has been advised to consult with his/her primary care provider and pharmacist regarding drug-drug interaction of medications currently prescribed. Patient has been prescribed a controlled substance after being counseled on the medication, medication safety, and possible side effects. Opioid contract was reviewed and signed by the patient, and that they have agreed to all of the terms set forth by our compliance program. A UDS is needed to verify patient's compliance with our office pain contract. This is ordered based off specific treatments related to chronic pain with the potential to abuse certain medications. Patient has been instructed to contact the clinic with any concerns before the next appointment. Dr. Mukherjee has reviewed this note and agrees with this plan of care. This note was dictated using voice recognition software and make contain errors or omissions.
== END 2024-10-30 23:59 | disposition home or self-care (01) ==
PROVIDERS: Visit Provider Nurse Practitioner Family
DX: M51.16 Intervertebral disc disorders with radiculopathy, lumbar region (principal); Z87.891 Personal history of nicotine dependence
CPT/HCPCS: 99212; G0463

== ENCOUNTER 2024-11-14 04:05 | Inpatient (IN) | payer MEDICARE, OTHER, SELFPAY ==
[2024-11-14] VITALS (12 sets, daily range): BP systolic 133–182; BP diastolic 71–86; PULSE 65–107; RESP 16–31; TEMP 36.1–37.7; O2SAT 94–97; BMI 30.1; BMI 31.1
--- NOTE | 2024-11-14 04:34 | ED_ITS ---
Discharge Plan Disposition Patient Disposition: Admitted Clinical Impressions Clinical Impression: Pneumonia Discharge ED Provider: Prasad Joy General Adult HPI General Chief complaint: Shortness of Breath/Dyspnea Stated complaint: trouble breathing Time Seen by Provider: 11/14/24 04:10 History of Present Illness HPI narrative: 79-year-old female with history of chronic respiratory failure on 2 to nasal cannula baseline, rheumatoid arthritis, dementia presents with worsening shortness of breath. Patient and family report that she awoke with worsening cough and tachypnea at home. They are not sure what the underlying cause of her respiratory insufficiency is, could be rheumatoid lung. No reported history of COPD or asthma. On arrival patient is tachypneic, complaining of some back pain. Related Data Home Medications ?Medication ?Instructions ?Recorded ?Confirmed carvedilol 12.5 mg tablet 12.5 mg PO BID High blood pressure 01/08/19 11/14/24 rosuvastatin 10 mg tablet 10 mg PO DAILY High cholesterol 02/20/21 11/14/24 pantoprazole 40 mg tablet,delayed 40 mg PO BID GERD 03/09/22 11/14/24 release fluticasone propionate 50 1 spray intranasal NEEDED PRN 05/24/22 11/14/24 mcg/actuation nasal ALLERGIES spray,suspension sucralfate 1 gram tablet 1 g PO BID 06/03/23 11/14/24 buspirone 10 mg tablet 10 mg PO DAILY 11/14/24 11/14/24 donepezil 5 mg tablet 5 mg PO HS 11/14/24 11/14/24 Previous Rx's ?Medication ?Instructions ?Recorded hydrocodone 5 mg-acetaminophen 325 1 tab PO TID #90 tabs 10/30/24 mg tablet Allergies Allergy/AdvReac Type Severity Reaction Status Date / Time Sulfa (Sulfonamide Allergy Intermediate HEART RACES Verified 06/03/23 15:03 Antibiotics) (SULFA (SULFONAMIDE ANTIBIOTICS)) [facility] Disclaimer: The information contained in this section may have been updated after the patient was seen, as this information can be updated by other users. Medical History (Updated 11/14/24 @ 07:18 by Prasad Joy MD) Rheumatoid arthritis GI bleed Uterine procidentia Surgical History History of tonsillectomy and adenoidectomy H/O tubal ligation Family History Other Cancer Hyperlipidemia Hypertension Stroke Social History (Updated 11/14/24 @ 06:54 by Samantha Rivera RN) Smoking Status: Former smoker tobacco type: cigarettes packs per day: 1 second hand exposure: No alcohol intake: never substance use type: denies use current occupational status: other Travel in the last 8 weeks: None household members: none housing: house current occupational exposures/hazards: No caffeine: Yes Have you lived/traveled outside [place] in past 30 days?: No Contact w/someone who lives/traveled outside [place] past 30 days?: No Exposure to someone with infectious disease in past 14 days?: No Do you have a fever (greater than 100.4 F or 38 C)?: No Have you tested positive for COVID-19: No Exposed to someone with COVID-19 in past 14 days?: No Do you have a sore throat?: No Do you have a cough?: No Do you have any weakness?: No Are you experiencing any nausea/vomitting?: No Do you have any diarrhea?: No Are you experiencing any unusual bleeding?: No Do you have any muscle aches/pain?: No Do you have any abdominal pain?: No Are you experiencing loss of taste or smell?: No Other Medical History Have you received the Flu Vaccine for this season: Yes Have you received the Pneumonia Vaccine: Yes ROS Obtained: Yes All systems reviewed & no additional complaints except as documented Physical Exam General General appearance: alert and anxious Head Head exam: atraumatic and normocephalic Eye Eye exam: Present normal appearance, PERRL and EOMI ENT ENT exam: Present normal oropharynx and normal external ear exam Neck Neck exam: Present normal inspection and full ROM Chest Chest inspection: Present normal inspection and symmetric chest wall rise; Absent tenderness Respiratory Respiratory exam: Present respiratory distress (Tachypneic, slight diminished breath sounds bilaterally) Cardiovascular Cardiovascular exam: Present normal rhythm and tachycardia Abdominal Exam Abdominal exam: Present soft; Absent distention, tenderness or guarding Extremities Exam Extremities exam: Present normal inspection; Absent edema or joint swelling Back Exam Back exam: Present normal inspection; Absent tenderness Neurological Exam Neurological exam: Present alert, oriented X3 and other (Somewhat repetitive questioning); Absent motor sensory deficit Psychiatric Psychiatric exam: Present anxious Skin Skin exam: Present warm, dry and normal color Lymphatic Lymphatic Findings: no adenopathy Medical Decision Making Medical Records Medical records reviewed: Yes I reviewed the patient's medical records. Screening: Per USPSTF and CDC recommendations, given the prevalence of disease in our region, it is our hospital?s policy to screen for HIV and viral Hepatitis for all patients aged 18 and over and those with ongoing risk factors. Eleazar Inquiry Pt receiving controlled substance: No Eleazar was queried for this patient: No Vital Signs: 11/14/24 04:05 11/14/24 06:09 Temperature 99.9 F H 99.0 F Temperature Source Oral Oral Pulse Rate 84 Pulse Rate [Left] 65 Respiratory Rate 30 H 24 Blood Pressure 182/84 H Blood Pressure [Right Arm] 164/86 H Blood Pressure Mean [Right Arm] 112 Blood Pressure Source Automatic Cuff Blood Pressure Source [Right Arm] Manual Cuff/ Auscultation Blood Pressure Position Supine 02 Sat by Pulse Oximetry 95 Oxygen Delivery Method Nasal Cannula Nasal Cannula Oxygen Flow Rate (LPM) 4 2 Lab Data Lab results reviewed: Yes I reviewed the patient's lab results. Lab Results 11/14/24 04:30: WBC 18.3 H, RBC 3.58 L, Hgb 9.8 L, Hct 29.9 L, MCV 83.5, MCH 27.4, MCHC 32.8, RDW 14.9, Plt Count 263, MPV 11.6 H, Neut % (Auto) 83.6 H, L ymph % (Auto) 9.1 L, [place] % (Auto) 5.4, Eos % (Auto) 0.9, Baso % (Auto) 0.3, N eut # (Auto) 15.3 H, Lymph # (Auto) 1.7, [place] # (Auto) 1.0, Eos # (Auto) 0.2, Baso # (Auto) 0.1, Total Counted 100, Neutrophils % (Manual) 77 H, Lymphocytes % (Manual) 20, Monocytes % (Manual) 3, Platelet Estimate Normal, Hypochromasia 1+, Anisocytosis 1+, Microcytosis 1+, Sodium 135 L, Potassium 4.5, Chloride 102, Carbon Dioxide 22, Anion Gap 15.5 H, BUN 24 H, Creatinine 1.10 H, Estimated Creat Clear 49, Estimated GFR 48 L, Est GFR ( Amer) 58 L, Glucose 134 H, Calcium 9.1, Total Bilirubin 0.6, AST 89 H, ALT 41, Alkaline Phosphatase 140 H, Total Protein 7.0, Albumin 3.7, Globulin 3.3 H, Albumin/Globulin Ratio 1.1, HIV Ag/Ab Combo Qual Negative 11/14/24 04:34: VBG pH 7.43 H, VBG pCO2 35.7, VBG pO2 31.7, VBG HCO3 23.2, VBG Total CO2 24.3, VBG O2 Saturation 65.5, VBG Base Excess -1.1, VBG Lactic Acid 1.8, POC RSV Rapid Negative 11/14/24 04:30 11/14/24 04:30 Orders (Tests/Meds): ED MEDICATIONS Generic Name Dose Route Start Last Admin Trade Name Freq PRN Reason Stop Dose Admin Acetaminophen 650 mg 11/14/24 05:56 Acetaminophen 325mg Tab PO 12/14/24 05:55 Q4HP PRN Fever or Mild Pain (1-3) Albuterol/Ipratropium 3 ml 11/14/24 12:00 Ipratropium/Albuterol 3 Ml Critical access hospital 12/14/24 11:59 Q6RT [facility] Budesonide 0.5 mg 11/14/24 18:00 Budesonide 0.5mg/2ml Critical access hospital 12/14/24 17:59 BIDRT [facility] Furosemide 40 mg 11/14/24 09:00 Furosemide 40mg/4ml Vial IV 12/14/24 08:59 BIDL [facility] Heparin Sodium (Porcine) 5,000 unit 11/14/24 06:15 11/14/24 06:25 Heparin Sodium 5,000 Unit/Ml Vial SUBCUT 12/14/24 06:14 5,000 unit Q8H [facility] Administration Hydralazine HCl 10 mg 11/14/24 06:34 Hydralazine 20mg/Ml Vial IV 12/14/24 06:33 Q6HP PRN sbp > 180 or dbp > 110 Azithromycin 500 mg/ Sodium 250 mls @ 250 mls/hr 11/15/24 09:00 Chloride IV 11/25/24 08:59 Q24H [facility] Ceftriaxone Sodium 1 gm/ 50 mls @ 100 mls/hr 11/15/24 09:00 Sodium Chloride IV 11/25/24 08:59 Q24H [facility] Methylprednisolone Sodium Succinate 40 mg 11/14/24 06:15 11/14/24 06:24 Methylprednisolone Sod Succ 40mg Vial IV 12/14/24 06:14 40 mg Q12H ANKIT Administration Montelukast Sodium 10 mg 11/14/24 18:00 Montelukast Sodium 10mg Tab PO 12/14/24 17:59 PM ANKIT Ondansetron HCl 4 mg 11/14/24 05:56 Ondansetron 4mg/2ml Vial IV 12/14/24 05:55 Q8HP PRN Nausea Sodium Chloride 10 ml 11/14/24 05:28 Sodium Chloride 0.9% 10ml Vial IV 12/14/24 05:27 NEEDED PRN to Dilute Lorazepam inj Sodium Chloride 3 ml 11/14/24 06:34 Sodium Chloride 3% 15ml Neb IH 12/14/24 06:33 ONCE PRN INDUCE SPUTUM COLLECTION Discontinued Medications Generic Name Dose Route Start Last Admin Trade Name Freq PRN Reason Stop Dose Admin Furosemide 40 mg 11/14/24 05:56 11/14/24 06:24 Furosemide 40mg/4ml Vial IV 11/14/24 05:57 40 mg ONCE ONE Administration Ceftriaxone Sodium 1 gm/ 50 mls @ 100 mls/hr 11/14/24 05:25 11/14/24 05:37 Sodium Chloride IV 11/14/24 05:54 100 mls/hr ONCE ONE Administration Azithromycin 500 mg/ Sodium 250 mls @ 250 mls/hr 11/14/24 05:26 11/14/24 05:49 Chloride IV 11/14/24 05:27 250 mls/hr ONCE ONE Administration Lorazepam 1 mg 11/14/24 05:28 11/14/24 05:32 Lorazepam 2mg/Ml Vial IV 11/14/24 05:29 1 mg ONCE ONE Administration ORDERS Category Date Time Status CXR --portable [XR chest portable] Stat Exams 11/14/24 04:35 Taken CBC w/Auto Diff [Complete Blood Count Auto Diff] Stat Lab 11/14/24 04:30 Completed CMP [Comprehensive Metabolic Panel] Stat Lab 11/14/24 04:30 Completed HIV (1&2) Antibody Rapid Stat Lab 11/14/24 04:45 Ordered HIV Combo Routine Lab 11/14/24 04:30 Completed Hep C Ab with Reflex to RNA Stat Lab 11/14/24 04:45 Ordered RSV Rapid Ab Screen Stat Lab 11/14/24 04:34 Completed Rapid PCR Covid and Flu A/B Stat Lab 11/14/24 04:35 Ordered UA [Urinalysis and Microscopic] Stat Lab 11/14/24 04:35 Ordered Blood Culture Stat Micro 11/14/24 04:30 Received VBG [Venous Blood Gas] Stat RT 11/14/24 04:34 Completed Medical Decision Narrative: 79-year-old female with history of chronic respiratory failure on 2 L nasal cannula, dementia, CKD, hypertension, hyperlipidemia presents with worsening shortness of breath and tachypnea. History was obtained via interactive discussion with patient, family. On arrival, patient is afebrile, hypertensive, satting mid 80s on home 2 L, tachypneic, moving all extremities spontaneously. Differential includes but is not limited to viral/bacterial pneumonia, fluid overload, COVID, flu. Patient was given DuoNeb for symptomatic management and correction of underlying abnormalities. Workup initiated including VBG CBC CMP chest x-ray blood cultures. On re-evaluation, patient [remains afebrile, HD stable.] Respiratory status not significantly changed after DuoNeb. Laboratory workup independently interpreted by me and significant for VBG unremarkable, no respiratory derangements. Patient has leukocytosis with a white count of 18. No significant electrolyte derangement. Imaging independently interpreted by me and significant for bilateral infiltrates and concern for some pulmonary edema. See radiology read for full review of final results. Patient joann tachypneic despite normal blood gas and satting appropriately on nasal cannula and reports the patient is very anxious. We considered CPAP but decided to trial Ativan. Given patient history, exam and workup, patient's presentation most likely represents pneumonia. Patient is initiated on ceftriaxone azithromycin admitted to the hospital for further evaluation management.. Procedures Risk/Benefits of Procedure(s) Were Explained: Yes Critical Care Critical Care Time Critical Care Time: No
[2024-11-14 04:35] LABS: Lactate Venous 1.8 mmol/L (0.4-2.0); VBG Base Excess -1.1 mmol/L (-2.4-2.3); VBG HCO3 23.2 mmol/L (23-30); VBG Oxygen Saturation 65.5 % (50-70); VBG PCO2 35.7 mmol/L (35-51); VBG PH 7.43 mmol/L (7.31-7.41); VBG PO2 31.7 mmol/L (28-40); VBG Total CO2 24.3 mmol/L (23-27)
--- NOTE | 2024-11-14 04:35 | XR_ITS ---
PROCEDURE INFORMATION: Exam: XR Chest Exam date and time: 11/14/2024 4:48 AM Age: 79 years old Clinical indication: Shortness of breath; Additional info: SOA TECHNIQUE: Imaging protocol: Radiologic exam of the chest. Views: 1 view. COMPARISON: CR XR CHEST 2V 01/15/2024 1:56 PM FINDINGS: Lungs: Opacity in the left perihilar region and left base may represent pneumonia.. Pleural spaces: Unremarkable. No pleural effusion. No pneumothorax. Heart/Mediastinum: Stable cardiac silhouette. Hiatal hernia measures 12.5 cm Bones/joints: Degenerative changes in the glenohumeral joints bilaterally IMPRESSION: Opacity in the left perihilar region and left base may represent pneumonia..
[2024-11-14 04:43] LABS: Basophils # 0.1 K/mm3 (0-0.2); Basophils % 0.3 % (0.1-2.0); Eosinophils # 0.2 K/mm3 (0.0-0.4); Eosinophils % 0.9 % (0.1-12.0); Hematocrit 29.9 % (37.0-47.0); Hemoglobin 9.8 g/dL (12.2-16.2); Lymphocytes # 1.7 K/mm3 (0.7-4.5); Lymphocytes % 9.1 % (10-50); Mean Corpuscular HGB Conc 32.8 g/dL (31.8-35.4); Mean Corpuscular Hemoglobin 27.4 pg (27.0-31.2); Mean Corpuscular Volume 83.5 fl (81-99); Mean Platelet Volume 11.6 fl (7.4-10.4); Monocytes % 5.4 % (1.7-9.3); Neutrophils # 15.3 K/mm3 (1.8-7.8); Neutrophils % 83.6 % (37.0-80.0); Platelet Count 263 K/mm3 (142-424); Red Blood Count 3.58 M/mm3 (4.20-5.40); Red Cell Distribution Width 14.9 % (11.5-17.5); White Blood Count 18.3 K/mm3 (4.8-10.8)
[2024-11-14 04:45] LABS: Albumin Level 3.7 g/dl (3.5-5.0); Chloride 102 mmol/L (98-107); Potassium 4.5 mmoL/L (3.5-5.1); Sodium 135 mmol/L (136-145)
--- NOTE | 2024-11-14 04:46 | PC.NURSE ---
Called [facility] at 04:25 in regards for pt. [facility] then called back at 04:41 accepting the pt to transfer to . compounding and finishing supervisor notified helicopter will be approximately 40ish minutes out.
[2024-11-14 04:48] LABS: Alanine Aminotransferase 41 U/L (12-78); Albumin/Globulin Ratio 1.1 (1.1-1.8); Alkaline Phosphatase 140 U/L (38-126); Anion Gap 15.5 mEq/L (5-15); Aspartate Amino Transferase 89 U/L (14-36); Bilirubin,Total 0.6 mg/dl (0.2-1.3); Blood Urea Nitrogen 24 mg/dl (7-17); Carbon Dioxide 22 mmol/L (22.0-30.0); Creatinine Clearance Estimated 49 mL/min (50-200); Estimated Glomerular Filt Rate 48 ml/min (>60); GFR (African American) 58 ML/MIN (>60); Globulin 3.3 g/dL (1.3-3.2)
[2024-11-14 04:49] LABS: Calcium 9.1 mg/dl (8.4-10.2); Glucose 134 mg/dl (74-100)
[2024-11-14 04:51] LABS: MANUAL DIFFERENTIAL MANUAL DIFFERENTIAL (MANUAL DIFF)
[2024-11-14 04:57] LABS: RSV Rapid Ab Screen Negative (Negative)
[2024-11-14 05:23] LABS: Anisocytosis 1+; Lymphocytes % 20 % (10-50); Microcytosis 1+; Monocytes % 3 % (2-9); Neutrophils % 77 % (42-76); Platelet Estimate Normal; Total Cells Counted 100
[2024-11-14 05:24] LABS: Hypochromasia 1+
[2024-11-14] MEDS: LORazepam 2MG/ML VIAL 1 MG IV (05:32)
[2024-11-14] MEDS: CEFTRIAXONE 1 GM 1 GM in 0.9 % SODIUM CHLORIDE 50 ML IV (05:37)
[2024-11-14 05:44] LABS: HIV Combo NEGATIVE (Negative)
[2024-11-14] MEDS: AZITHROMYCIN 500 MG in 0.9 % SODIUM CHLORIDE 250 ML 250 MG IV (05:49)
--- NOTE | 2024-11-14 06:03 | PC.NURSE ---
Report given to Tanisha Singh on second floor
--- NOTE | 2024-11-14 06:06 | EXP.HP ---
History of Present Illness *Admission Date: 11/14/24 *Reason for visit:: shortness of Breath *History of present illness: This is an 79-year old female who has a past medical history significant for lumbar radiculopathy, uterine procidentia, GI bleed, renal cyst, hypertension, hyperlipidemia, anemia, stage III chronic kidney disease, Home O2 dependency at 2 L,and dementia Who presents with a chief complaint of shortness of breath. Patient has advanced dementia and was recently given Ativan while in er, so her review of systems is limited; as a result, the Majority of her information was obtained from the ER provider, son at the bedside, and chart review. According to ER provider, Patient presented in respiratory distress. Initial blood gas obtained was within normal limits. However, patient was requiring additional supplemental oxygen From her baseline home O2 requirements of 2 L. Plain films obtained in the emergency room of the chest -per my read- is consistent with vascular prominence/congestion, probable pneumonia/effusion to the right lower base and left lower base, and possible left lower lobe pneumonia. Moreover, patient's white blood cell count was elevated and she was very tachypneic. As a result of these findings, patient has been admitted for further management During my evaluation of the patient, she could provide no additional meaningful data. Son at the bedside states her symptomology started approximately 2 weeks ago and has worsened since Saturday. Recently, patient did see her primary care physician on Saturday of this week who gave her a steroid injection. Son states that his mom has had increased dyspnea with exertion over the past 24 to 48 hours. On further questioning, son states that mom did smoke 1 pack of cigarettes a day but quit many years ago. I had a long discussion with son concerning CODE STATUS and he would prefer mom to be a DO NOT RESUSCITATE. Additional pertinent values obtained including hemoglobin 9.8, hematocrit 29.9, red blood cell count of 3.58, white blood cell count of 18.3, neutrophils 72.1%, creatinine 1.1, GFR 48, AST of 89, and alkaline phos 140.It is worth mentioning that patient is prescribed Lasix to take every other day [facility] Disclaimer: The information contained in this section may have been updated after the patient was seen, as this information can be updated by other users. Medical History Uterine procidentia Surgical History H/O tubal ligation History of tonsillectomy and adenoidectomy Family History Other Cancer Hyperlipidemia Hypertension Stroke Social History (Updated 10/02/24 @ 14:08 by Cathleen Momin APRN) Smoking Status: Former smoker tobacco type: cigarettes packs per day: 1 second hand exposure: No alcohol intake: never substance use type: denies use current occupational status: other Travel in the last 8 weeks: None household members: none housing: house current occupational exposures/hazards: No caffeine: Yes Have you lived/traveled outside [place] in past 30 days?: No Contact w/someone who lives/traveled outside US past 30 days?: No Exposure to someone with infectious disease in past 14 days?: No Do you have a fever (greater than 100.4 F or 38 C)?: No Have you tested positive for COVID-19: No Exposed to someone with COVID-19 in past 14 days?: No Do you have a sore throat?: No Do you have a cough?: No Do you have any weakness?: No Do you have any diarrhea?: No Are you experiencing any unusual bleeding?: No Do you have any muscle aches/pain?: No Do you have any abdominal pain?: No Are you experiencing loss of taste or smell?: No Other Medical History Have you received the Flu Vaccine for this season: Yes Have you received the Pneumonia Vaccine: Yes Review of Systems Review of Systems Review of systems:: unable to obtain Meds Home Medications and Allergies Home Medications ?Medication ?Instructions ?Recorded ?Confirmed ?Type carvedilol 12.5 mg tablet 12.5 mg PO BID High blood pressure 01/08/19 11/14/24 History rosuvastatin 10 mg tablet 10 mg PO DAILY High cholesterol 02/20/21 11/14/24 History pantoprazole 40 mg tablet,delayed 40 mg PO BID GERD 03/09/22 11/14/24 History release fluticasone propionate 50 1 spray intranasal NEEDED PRN 05/24/22 11/14/24 History mcg/actuation nasal ALLERGIES spray,suspension sucralfate 1 gram tablet 1 g PO BID 06/03/23 11/14/24 History hydrocodone 5 mg-acetaminophen 325 1 tab PO TID #90 tabs 10/30/24 11/14/24 Rx mg tablet buspirone 10 mg tablet 10 mg PO DAILY 11/14/24 11/14/24 History donepezil 5 mg tablet 5 mg PO HS 11/14/24 11/14/24 History New Prescriptions to Start Prescriptions: Allergies Allergy/AdvReac Type Severity Reaction Status Date / Time Sulfa (Sulfonamide Allergy Intermediate HEART RACES Verified 06/03/23 15:03 Antibiotics) (SULFA (SULFONAMIDE ANTIBIOTICS)) Exam Data for Last 24 hours Vital signs and Labs for Last 24 Hours: Temp Pulse Resp BP Pulse Ox O2 Del Method O2 Flow Rate 99.9 F H 65 30 H 164/86 H 95 Nasal Cannula 4 11/14/24 04:05 11/14/24 04:05 11/14/24 04:05 11/14/24 04:05 11/14/24 04:05 11/14/24 04:05 11/14/24 04:05 Laboratory Results - last 24 hr 11/14/24 04:30: WBC 18.3 H, RBC 3.58 L, Hgb 9.8 L, Hct 29.9 L, MCV 83.5, MCH 27.4, MCHC 32.8, RDW 14.9, Plt Count 263, MPV 11.6 H, Neut % (Auto) 83.6 H, Lymph % (Auto) 9.1 L, [place] % (Auto) 5.4, Eos % (Auto) 0.9, Baso % (Auto) 0.3, Neut # (Auto) 15.3 H, Lymph # (Auto) 1.7, [place] # (Auto) 1.0, Eos # (Auto) 0.2, Baso # (Auto) 0.1, Total Counted 100, Neutrophils % (Manual) 77 H, Lymphocytes % (Manual) 20, Monocytes % (Manual) 3, Platelet Estimate Normal, Hypochromasia 1+, Anisocytosis 1+, Microcytosis 1+, Sodium 135 L, Potassium 4.5, Chloride 102, Carbon Dioxide 22, Anion Gap 15.5 H, BUN 24 H, Creatinine 1.10 H, Estimated Creat Clear 49, Estimated GFR 48 L, Est GFR ( Amer) 58 L, Glucose 134 H, Calcium 9.1, Total Bilirubin 0.6, AST 89 H, ALT 41, Alkaline Phosphatase 140 H, Total Protein 7.0, Albumin 3.7, Globulin 3.3 H, Albumin/Globulin Ratio 1.1, HIV Ag/Ab Combo Qual Negative 11/14/24 04:34: VBG pH 7.43 H, VBG pCO2 35.7, VBG pO2 31.7, VBG HCO3 23.2, VBG Total CO2 24.3, VBG O2 Saturation 65.5, VBG Base Excess -1.1, VBG Lactic Acid 1.8, POC RSV Rapid Negative I & O for Last 24 hours: Intake & Output 11/11/24 11/12/24 11/13/24 11/14/24 23:59 23:59 23:59 23:59 Weight 77.111 kg Constitutional Constitutional: moderate distress *Routine HEENT Exam Head: Present normocephalic Eye: Present EOMI ENT: Present mucous membranes moist *Routine Neck Exam Neck: Present supple and full ROM *Routine Respiratory Exam Respiratory: Present decreased breath sounds, respiratory distress, wheezes and diminished air movement Comments: Noted inspiratory and expiratory wheezing *Routine Cardiovascular Exam Cardiovascular: Present RRR, Normal S1 and Normal S2 *Routine Abdominal Exam Abdominal: Present soft and normoactive bowel sounds *Routine Rectal Exam Rectal:: deferred *Routine Genitalia Exam Genitalia:: deferred *Routine Extremities Exam Extremities: Present edema Comments: 1+ pitting edema noted to bilateral lower extremities *Routine Skin Exam Comments: Diaphoretic *Routine Neurological Exam Neurological: Present altered mental status Routine Psychiatric Exam Psychiatric: Present anxious H&P: Result Impressions This is an 79-year-old female who presents with some pulmonary edema moderate to severe distress. Patient has worsening dyspnea with exertion over the past 2 weeks and appears to be somewhat hypovolemic with possible underlying superimposed pneumonia. White blood cell count was elevated 18,000 no reported fevers from family. Patient had low-grade fever of 99 while in the emergency room. Clinically, patient is presenting in respiratory distress and the family is wanting to know intubation or CPR performed making patient a DNR Assessment and Plan *Assessment and plan (1) Pneumonia: Start date: 11/14/24 Start time: 06:22 Status: Acute Qualifiers: Laterality: right Lung location: lower lobe of lung Pneumonia type: due to unspecified organism Qualified Code(s): J18.9 - Pneumonia, unspecified organism Category: Medical Code(s): J18.9 - Pneumonia, unspecified organism Plan: -1 g Rocephin IV daily -500 mg azithromycin IV daily -DuoNebs every 6 hours -Sputum for culture -Blood cultures x 2 (2) Pulmonary edema: Start date: 11/14/24 Start time: 06:24 Status: Acute Qualifiers: Chronicity: acute Qualified Code(s): J81.0 - Acute pulmonary edema Category: Medical Code(s): J81.1 - Chronic pulmonary edema Plan: -40 mg of Lasix IV twice daily -Monitor intake and output Daily -Last 2D echo was obtained in June of this year and revealed an EF of 59% -BiPAP with an IPAP of 14 and EPAP of 7-to help with pulmonary shunting -Obtain BNP (3) Acute on chronic hypoxic respiratory failure: Start date: 11/14/24 Start time: 06:25 Status: Acute Category: Medical Code(s): J96.21 - Acute and chronic respiratory failure with hypoxia Plan: -Placed patient on a BiPAP with a IPAP of 14 and EPAP of 7 -Give supplemental oxygen to maintain oxygen saturation greater than 92% -We will wean patient's supplemental oxygen as tolerated back to her baseline home O2 -Current ABG is without any acute findings -Continuous O2 monitoring (4) Anemia: Start date: 11/14/24 Start time: 06:26 Status: Acute Qualifiers: Anemia type: due to chronic kidney disease Chronic kidney disease stage: stage 3 (moderate) Chronic kidney disease stage 3 subtype: stage 3b (GFR 30-44) Qualified Code(s): N18.32 - Chronic kidney disease, stage 3b; D63.1 - Anemia in chronic kidney disease Category: Medical Code(s): D64.9 - Anemia, unspecified Plan: -Hemoglobin hematocrit are close to baseline -Will monitor (5) CKD (chronic kidney disease): Start date: 11/14/24 Start time: 06:27 Status: Acute Qualifiers: Chronic kidney disease stage: stage 3 (moderate) Chronic kidney disease stage 3 subtype: stage 3b (GFR 30-44) Qualified Code(s): N18.32 - Chronic kidney disease, stage 3b Category: Medical Code(s): N18.9 - Chronic kidney disease, unspecified Plan: -Patient is baseline creatinine -Will monitor Creatinine daily (6) Hypervolemia: Start date: 11/14/24 Start time: 06:29 Status: Acute Qualifiers: Hypervolemia type: unspecified Qualified Code(s): E87.70 - Fluid overload, unspecified Category: Medical Code(s): E87.70 - Fluid overload, unspecified Plan: -will give 40 mg of Lasix IV twice daily -Place patient on BiPAP for pulmonary edema -SCDs to bilateral lower extremities -Monitor intake and output closely -Hopefully will diurese to ease patient's workload of breathing (7) Hypertensive urgency: Start date: 11/14/24 Start time: 06:30 Status: Acute Category: Medical Code(s): I16.0 - Hypertensive urgency Plan: -Most likely in the setting of hypervolemia -Will give 40 mg of Lasix IV twice daily -10 mg of hydralazine IV push every 6 hours for systolic blood pressure greater than 180 or diastolic blood pressure greater than 110 (8) COPD exacerbation: Start date: 11/14/24 Start time: 06:31 Status: Acute Category: Medical Code(s): J44.1 - Chronic obstructive pulmonary disease with (acute) exacerbation Plan: -DuoNebs every 6 hours -Supplemental oxygen maintain oxygen saturation greater than 92% -0.5 mg budesonide nebulized treatment twice daily -Use BiPAP to help ease work of breathing -Singulair 10 mg p.o. daily -Sputum for culture Plan Admit patient to the stepdown unit in a inpatient status; patient will require at least 2 midnight stays Patient will be a DNR [id number] mg of heparin subcu every 8 hours SCD to bilateral lower extremity cardiac diet Will encourage nursing staff to update patient's home medication Will discuss this case with attending physician Dr. mcghee And I look forward to more input
--- NOTE | 2024-11-14 06:14 | PC.NURSE ---
pt arrived to floor via stretcher from ED at 0612.
[2024-11-14] MEDS: FUROSEMIDE 40MG/4ML VIAL 40 MG IV ×3 (06:24→15:18)
[2024-11-14] MEDS: METHYLPREDNISOLONE SOD SUCC 40MG VIAL 40 MG IV ×2 (06:24→17:34)
[2024-11-14] MEDS: HEPARIN SODIUM 5,000 UNIT/ML VIAL 5000 UNIT SUBCUT ×3 (06:25→21:23)
[2024-11-14 07:49] LABS: Microscopic, Urine URINE MICROSCOPIC (MICROSCOPIC)
[2024-11-14 08:07] LABS: Anion Gap 12.2 mEq/L (5-15); Blood Urea Nitrogen 24 mg/dl (7-17); Calcium 8.9 mg/dl (8.4-10.2); Carbon Dioxide 23 mmol/L (22.0-30.0); Chloride 102 mmol/L (98-107); Creatinine Clearance Estimated 56 mL/min (50-200); Estimated Glomerular Filt Rate 53 ml/min (>60); GFR (African American) 64 ML/MIN (>60); Glucose 134 mg/dl (74-100); Potassium 4.2 mmoL/L (3.5-5.1); Sodium 133 mmol/L (136-145)
[2024-11-14 08:45] LABS: Appearance,Urine CLEAR (Clear); Bilirubin,Urine Negative (Negative); Blood, Urine Negative (Negative); Color,Urine YELLOW (Yellow); Glucose,Urine (UA) Negative (Negative); Ketones,Urine Negative (Negative); Leukocyte Esterase,Urine Negative (Negative); Nitrate,Urine Negative (Negative); Protein,Urine Negative (Negative); Specific Gravity, Urine 1.015 (1.005-1.030); Urobilinogen,Urine 0.2 EU/dl (0.2)
[2024-11-14] MEDS: ACETAMINOPHEN 325MG TAB 650 MG PO (08:46)
[2024-11-14 09:05] LABS: Coronavirus 19, PCR Not Detected (NotDetected); Influenza A, PCR Not Detected (NotDetected); Influenza B, PCR Not Detected (NotDetected)
[2024-11-14 09:17] LABS: Bacteria,Urine Trace /lpf; Squamous Epithelial Cell,Urine Occasional #/hpf (0-5); WBC,Urine Occasional #/hpf (0-3)
[2024-11-14 09:25] LABS: NT Pro Brain Natriuretic Pep. 1350 pg/mL (0-450)
[2024-11-14 09:47] LABS: Thyroid Stimulating Hormone 1.18 uIU/mL (0.465-4.68)
--- NOTE | 2024-11-14 10:07 | HMH.PHAINT1 ---
Pharmacy Intervention Comments: MEDICATION RECONCILIATION COMPLETE USING EXTERNAL PHARMACY FILL HISTORY AND DORIAN REPORT.
[2024-11-14] MEDS: IPRATROPIUM/ALBUTEROL 3 ML NEB IH (11:30)
[2024-11-14] MEDS: CARVEDILOL 12.5MG TABLET 12.5 MG PO ×2 (15:17→21:23)
[2024-11-14] MEDS: MONTELUKAST SODIUM 10MG TAB 10 MG PO (17:34)
[2024-11-14] MEDS: BUSPIRONE HCL 10 MG TABLET PO (21:23)
[2024-11-14] MEDS: ATORVASTATIN 40MG TABLET 40 MG PO (21:23)
[2024-11-14] MEDS: DONEPEZIL 5MG TAB 5 MG PO (21:23)
[2024-11-14] MEDS: PANTOPRAZOLE 40MG TABLET 40 MG PO (21:23)
--- NOTE | 2024-11-14 21:34 | PC.NURSE ---
Upon assessment, patient had diminished lung sounds with consistent expiratory wheezing. Scattered audible wheezing could be heard as well. Patient requested breathing treatment at this time, did not receive evening (18:00) breathing treatment according to MAR. Respiratory was paged at this time to notify of patient's request.
[2024-11-15] VITALS (11 sets, daily range): BP systolic 113–152; BP diastolic 58–68; PULSE 67–86; RESP 16–20; TEMP 36.4–36.8; O2SAT 93–98; BMI 30.7
[2024-11-15] MEDS: IPRATROPIUM/ALBUTEROL 3 ML NEB IH ×3 (00:07→11:40)
--- NOTE | 2024-11-15 04:16 | PC.NURSE ---
Patient is alert and oriented x4. Patient was observed to have eyes closed, respirations even on 2 L of oxygen nasal cannula, and no apparent distress throughout the majority of the shift, with occasional wakeful periods. Upon assessment, patient was noted to have some audible wheezing, along with expiratory wheezing and diminished air movement noted with auscultation. Patient did not have a breathing treatment at 18:00 during the previous shift, but was able to receive one prior to 22:00 this shift. Since receiving her scheduled breathing treatments, patient's work of breathing was noticed to be trending towards improvement this shift. Oxygen saturations have remained > 90%. Other scheduled medications were administered as appropriately per JAN. Nasal cannula was humidified this shift due to complaints of dry mucous membranes. She has also been having sputum production; sputum appearance has been mucoid and clear. Patient is able to self-turn effectively and assist staff during repositioning in bed. However, patient reports that she still feels weak. Patient did not have a bowel movement this shift, but claims she has been passing gas. Bowel sounds active. She has been running normal sinus/sinus arrhythmia on telemetry this shift. Patient has had multiple brief/purewick changes this shift. Urine emptied from canister and documented accordingly. Skin noted to be occasionally moist. Edema present in her bilateral lower extremities. At this time, the patient is resting in bed. Her son has remained at bedside this shift. She does not have any further complaints. Call light within reach.
--- NOTE | 2024-11-15 04:38 | PC.NURSE ---
At this time, the patient requested to take a break from the nasal cannula, stating that she was feeling better with no shortness of breath present. No current audible wheezing heard and respirations are even and unlabored. Oxygen saturations on room air was found to be 94%. Nasal cannula at bedside, patient educated about using oxygen if she were to become short of breath. surveillance monitor in place.
[2024-11-15] MEDS: HEPARIN SODIUM 5,000 UNIT/ML VIAL 5000 UNIT SUBCUT ×2 (06:10→13:37)
[2024-11-15] MEDS: METHYLPREDNISOLONE SOD SUCC 40MG VIAL 40 MG IV (06:10)
[2024-11-15] MEDS: BUDESONIDE 0.5MG/2ML NEB 0.5 MG IH (06:20)
[2024-11-15 07:28] LABS: Basophils % 0.1 % (0.1-2.0); Hematocrit 28.8 % (37.0-47.0); Hemoglobin 9.4 g/dL (12.2-16.2); Lymphocytes # 2.1 K/mm3 (0.7-4.5); Lymphocytes % 7.6 % (10-50); Mean Corpuscular HGB Conc 32.6 g/dL (31.8-35.4); Mean Corpuscular Hemoglobin 26.6 pg (27.0-31.2); Mean Corpuscular Volume 81.4 fl (81-99); Mean Platelet Volume 11.1 fl (7.4-10.4); Monocytes # 0.9 K/mm3 (0.1-1.0); Monocytes % 3.3 % (1.7-9.3); Neutrophils # 24.1 K/mm3 (1.8-7.8); Neutrophils % 88.1 % (37.0-80.0); Platelet Count 250 K/mm3 (142-424); Red Blood Count 3.54 M/mm3 (4.20-5.40); Red Cell Distribution Width 14.6 % (11.5-17.5); White Blood Count 27.3 K/mm3 (4.8-10.8)
[2024-11-15 07:47] LABS: Anion Gap 10.7 mEq/L (5-15); Blood Urea Nitrogen 32 mg/dl (7-17); Carbon Dioxide 30 mmol/L (22.0-30.0); Chloride 96 mmol/L (98-107); Creatinine Clearance Estimated 50 mL/min (50-200); Estimated Glomerular Filt Rate 48 ml/min (>60); GFR (African American) 58 ML/MIN (>60); Glucose 151 mg/dl (74-100); Potassium 3.7 mmoL/L (3.5-5.1); Sodium 133 mmol/L (136-145)
[2024-11-15 08:02] LABS: MANUAL DIFFERENTIAL MANUAL DIFFERENTIAL (MANUAL DIFF)
--- NOTE | 2024-11-15 08:27 | CT_ITS ---
PROCEDURE INFORMATION: Exam: CT Chest Without Contrast; Diagnostic Exam date and time: 11/15/2024 9:19 AM Age: 79 years old Clinical indication: Other: Worsening leukocytosis TECHNIQUE: Imaging protocol: Diagnostic computed tomography of the chest without contrast. Radiation optimization: All CT scans at this facility use at least one of these dose optimization techniques: automated exposure control; mA and/or kV adjustment per patient size (includes targeted exams where dose is matched to clinical indication); or iterative reconstruction. COMPARISON: CT ANGIO CHEST PE PROTOCOL 03/09/2022 8:14 PM FINDINGS: Lungs: 4.9 mm pulmonary nodule in the right upper lobe. (series 3, image 21) . 1.8 x 1.3 x 4.5 cm pleural-based opacity in the lateral aspect of the left lower lobe. . It measures 33 Hounsfield units. Worrisome for malignancy. Differential includes atypical infection. Pleural spaces: 6.6 mm pleural-based nodule along the right major fissure series 3, image 32.. Heart: There is calcification of the aortic valve annulus. Lymph nodes: Unremarkable. No enlarged lymph nodes. Vasculature: Unremarkable. No aortic aneurysm. Diaphragm: Large hiatal hernia. The entire stomach is herniated into the chest. Bones/joints: Moderate T5 compression fracture Soft tissues: Unremarkable. IMPRESSION: 1. 1.8 x 1.3 x 4.5 cm pleural-based opacity in the lateral aspect of the left lower lobe. . It measures 33 Hounsfield units. Worrisome for malignancy. Differential includes atypical infection. PET scan may be helpful for further evaluation 2. 4.9 mm pulmonary nodule in the right upper lobe. (series 3, image 21) . 3. 6.6 mm pleural-based nodule along the right major fissure series 3, image 32.. For patients at low risk (minimal or absent history of smoking and of other known risk factors), recommend CT Chest at 6-12 months, then consider CT Chest at 18-24 months. For patients at high risk (history of smoking or of other known risk factors), recommend CT Chest at 6-12 months, then [address] Chest at 18-24 months. (Reference: Dav) References: Dav Westbrook et al. Guidelines for Management of Incidental Pulmonary Nodules Detected on CT Images: From the Fleischner Society 2017. Radiology. 2017;284(1):228-243.
--- NOTE | 2024-11-15 08:27 | CT_ITS ---
PROCEDURE INFORMATION: Exam: CT Abdomen And Pelvis Without Contrast Exam date and time: 11/15/2024 9:19 AM Age: 79 years old Clinical indication: Other: Worsening leukocytosis TECHNIQUE: Imaging protocol: Computed tomography of the abdomen and pelvis without contrast. Radiation optimization: All CT scans at this facility use at least one of these dose optimization techniques: automated exposure control; mA and/or kV adjustment per patient size (includes targeted exams where dose is matched to clinical indication); or iterative reconstruction. COMPARISON: CT ABDOMEN PELVIS WO CON 10/31/2022 10:10 AM FINDINGS: Liver: Normal. No mass. Gallbladder and biliary ducts: Gallstones in the gallbladder. Pancreas: Normal. No ductal dilation. Spleen: Normal. No splenomegaly. Adrenal glands: Normal. No mass. Kidneys and ureters: Normal. No hydronephrosis. Stomach and bowel: Diverticulosis of the rectosigmoid. No diverticulitis Appendix: No evidence of appendicitis. Intraperitoneal space: Unremarkable. No free air. No significant fluid collection. Vasculature: Unremarkable. No abdominal aortic aneurysm. Lymph nodes: Unremarkable. No enlarged lymph nodes. Urinary bladder: Posterior bladder wall measures 9 mm. . It is hyperdense This is nonspecific and may represent inflammation or infection. Neoplastic process is included in the differential. Recommend urology consult. Reproductive: Unremarkable as visualized. Bones/joints: Unremarkable. No acute fracture. Soft tissues: Unremarkable. IMPRESSION: 1. Gallstones in the gallbladder. 2. Posterior bladder wall measures 9 mm. . It is hyperdense This is nonspecific and may represent inflammation or infection. Neoplastic process is included in the differential. Recommend urology consult.
[2024-11-15] MEDS: AZITHROMYCIN 500 MG in 0.9 % SODIUM CHLORIDE 250 ML 250 MG IV (08:36)
[2024-11-15] MEDS: PANTOPRAZOLE 40MG TABLET 40 MG PO ×2 (08:37→21:32)
[2024-11-15] MEDS: BUSPIRONE HCL 10 MG TABLET PO ×2 (08:37→21:32)
[2024-11-15] MEDS: FUROSEMIDE 40MG/4ML VIAL 40 MG IV (08:37)
[2024-11-15] MEDS: CARVEDILOL 12.5MG TABLET 12.5 MG PO ×2 (08:40→21:32)
[2024-11-15] MEDS: CEFTRIAXONE SODIUM 2 GM in 0.9 % SODIUM CHLORIDE 100 ML IV (08:40)
[2024-11-15 09:13] LABS: Vitamin B12 524 pg/mL (239-931)
[2024-11-15 09:51] LABS: Iron 29 ug/dL (37-170)
[2024-11-15 10:00] LABS: Total Iron Binding Capacity 308 ug/dL (265-497)
[2024-11-15 10:10] LABS: Lymphocytes % 14 % (10-50); Monocytes % 3 % (2-9); Neutrophils % 83 % (42-76); Total Cells Counted 100
[2024-11-15 10:11] LABS: Hypochromasia 1+; Platelet Estimate Normal
--- NOTE | 2024-11-15 10:25 | P.CONPHA_ITS ---
Pharmacy Consult Date: 11/15/24 Time: 10:26 Referring provider: DR DUMONT Reason for Consult:: VANCOMYCIN DOSING CONSULT Allergies Allergy/AdvReac Type Severity Reaction Status Date / Time Sulfa (Sulfonamide Allergy Intermediate HEART RACES Verified 06/03/23 15:03 Antibiotics) (SULFA (SULFONAMIDE ANTIBIOTICS)) Iodinated Contrast Media AdvReac Intermediate anxiety, Verified 11/15/24 09:16 rash Home Medications ?Medication ?Instructions ?Recorded ?Confirmed ?Type carvedilol 12.5 mg tablet 12.5 mg PO BID 01/08/19 11/14/24 History rosuvastatin 10 mg tablet 10 mg PO HS 02/20/21 11/14/24 History pantoprazole 40 mg tablet,delayed 40 mg PO BID GERD 03/09/22 11/14/24 History release fluticasone propionate 50 1 spray intranasal DAILYP PRN 05/24/22 11/14/24 History mcg/actuation nasal Allergy Symptoms spray,suspension sucralfate 1 gram tablet 1 g PO ACHS 06/03/23 11/14/24 History hydrocodone 5 mg-acetaminophen 325 1 tab PO TID #90 tabs 10/30/24 11/14/24 Rx mg tablet budesonide-formoterol HFA 160 2 inh inhalation BIDRT 11/14/24 11/14/24 History mcg-4.5 mcg/actuation aerosol inhaler (Symbicort) buspirone 10 mg tablet 10 mg PO BID 11/14/24 11/14/24 History donepezil 5 mg tablet 5 mg PO HS 11/14/24 11/14/24 History nifedipine 30 mg tablet,extended 30 mg PO DAILY 11/14/24 11/14/24 History release New Prescriptions to Start Prescriptions: Height: 1.6 m Weight: 78.471 kg Laboratory Results:: Laboratory Results - last 24 hr 11/14/24 07:46: Urine Color Yellow, Urine Appearance Clear, Urine pH 6.0, Ur Specific Beltrami 1.015, Urine Protein Negative, Urine Glucose (UA) Negative, Urine Ketones Negative, Urine Blood Negative, Urine Nitrate Negative, Urine Bilirubin Negative, Urine Urobilinogen 0.2, Ur Leukocyte Esterase Negative, Urine RBC None, Urine WBC Occasional, Ur Squamous Epith Cells Occasional, Urine Bacteria Trace 11/15/24 07:00: WBC 27.3 H* D, RBC 3.54 L, Hgb 9.4 L, Hct 28.8 L, MCV 81.4, MCH 26.6 L, MCHC 32.6, RDW 14.6, Plt Count 250, MPV 11.1 H, Neut % (Auto) 88.1 H, Lymph % (Auto) 7.6 L, [place] % (Auto) 3.3, Eos % (Auto) 0.0 L, Baso % (Auto) 0.1, Neut # (Auto) 24.1 H, Lymph # (Auto) 2.1, [place] # (Auto) 0.9, Eos # (Auto) 0.0, Baso # (Auto) 0.0, Total Counted 100, Neutrophils % (Manual) 83 H, Lymphocytes % (Manual) 14, Monocytes % (Manual) 3, Platelet Estimate Normal, Hypochromasia 1+, Sodium 133 L, Potassium 3.7, Chloride 96 L, Carbon Dioxide 30, Anion Gap 10.7, BUN 32 H D, Creatinine 1.10 H, Estimated Creat Clear 50, Estimated GFR 48 L, Est GFR ( Amer) 58 L, Glucose 151 H, Calcium 9.0, Iron 29 L, TIBC 308, Iron Saturation 9.20325 L, Vitamin B12 524 Medical History: Medical History (Updated 11/14/24 @ 07:18 by Prasad Joy MD) Rheumatoid arthritis GI bleed Uterine procidentia Assessment and Plan Assessment and plan all Dx Assessment and Plan for all problems:: Pharmacokinetic dosing service Objective: Age: 79 yo Serum creatinine: 1.1 mg/dL Height: 63.0 Inches Weight (kg): 78.471 Diagnosis: PNEUMONIA Assessment: IBW (kg): 52.40 Dosing wt(kg): 78.471 Estimated Creatinine clearance (ml/min): 39.8 CRCL method: Cockcroft and Gault using adjusted body weight Drug selected: Vancomycin Vd (liters): 54.9 (factor used: 0.7 L/kg) Porfirio (hr-1): 0.037 Half life (hrs): 18.73 CLvanco=?? 2.031 L/hr Recommended dose: 1500 mg Interval: 36 hrs Infusion time (hrs): 2.0 Predicted peak (mcg/mL): 35.8 Predicted trough (mcg/mL): 10.18 Total body weight is being used for vancomycin dosing. Recommendations: Give Vancomycin 1500 mg q 36 hrs with an expected Cpeak of 35.8 mcg/ml and an expected Ctrough of 10.18 mcg/ml AUC 0-24 /LE Data: LE 0.5 mcg/mL:?? AUC/LE:? 984.7 LE 1.0 mcg/mL:?? AUC/LE:? 492.4 --------- LE 1.5 mcg/mL:?? AUC/LE:? 328.2 LE 2.0 mcg/mL:?? AUC/LE:? 246.2 Thank you for the consult
[2024-11-15] MEDS: VANCOMYCIN/WATER FOR INJ (PEG) 1.5 GM/300 ML PIGGYBACK IV (11:44)
[2024-11-15 12:07] LABS: HCV Ab Non Reactive (Non Reactive)
--- NOTE | 2024-11-15 16:13 | P.PN_ITS ---
Subjective *Date: 11/15/24 *Time: 21:09 Exam Data for Last 24 hours Vital signs and Labs for Last 24 Hours: Temp Pulse Resp BP Pulse Ox O2 Del Method O2 Flow Rate 97.8 F 79 17 133/59 L 95 Nasal Cannula 2 11/15/24 16:00 11/15/24 16:00 11/15/24 16:00 11/15/24 16:00 11/15/24 16:00 11/15/24 16:00 11/15/24 16:00 FiO2 30 11/14/24 06:35 Laboratory Results - last 24 hr 11/14/24 07:15: Hepatitis C Antibody Non reactive 11/14/24 07:46: Urine Color Yellow, Urine Appearance Clear, Urine pH 6.0, Ur Specific [place] 1.015, Urine Protein Negative, Urine Glucose (UA) Negative, Urine Ketones Negative, Urine Blood Negative, Urine Nitrate Negative, Urine Bilirubin Negative, Urine Urobilinogen 0.2, Ur Leukocyte Esterase Negative, Urine RBC None, Urine WBC Occasional, Ur Squamous Epith Cells Occasional, Urine Bacteria Trace 11/15/24 07:00: WBC 27.3 H* D, RBC 3.54 L, Hgb 9.4 L, Hct 28.8 L, MCV 81.4, MCH 26.6 L, MCHC 32.6, RDW 14.6, Plt Count 250, MPV 11.1 H, Neut % (Auto) 88.1 H, Lymph % (Auto) 7.6 L, [place] % (Auto) 3.3, Eos % (Auto) 0.0 L, Baso % (Auto) 0.1, Neut # (Auto) 24.1 H, Lymph # (Auto) 2.1, Wallace # (Auto) 0.9, Eos # (Auto) 0.0, Baso # (Auto) 0.0, Total Counted 100, Neutrophils % (Manual) 83 H, Lymphocytes % (Manual) 14, Monocytes % (Manual) 3, Platelet Estimate Normal, Hypochromasia 1+, Sodium 133 L, Potassium 3.7, Chloride 96 L, Carbon Dioxide 30, Anion Gap 10.7, BUN 32 H D, Creatinine 1.10 H, Estimated Creat Clear 50, Estimated GFR 48 L, Est GFR ( Amer) 58 L, Glucose 151 H, Calcium 9.0, Iron 29 L, TIBC 308, Iron Saturation 9.82843 L, Ferritin 68.0, Vitamin B12 524 I & O for Last 24 hours: Intake & Output 11/12/24 11/13/24 11/14/24 11/15/24 23:59 23:59 23:59 23:59 Intake Total 220 / 784 1314 / 1314 Output Total 2049 / 2124 775 / 775 Balance -1830 / -1341 539 / 539 Weight 79.832 kg 78.471 kg Microbiology Reports for the Last 24 Hours: Microbiology 11/14/24 04:30 Blood Blood Culture - Preliminary Gram Positive Cocci 11/14/24 04:30 Blood Blood Culture - Preliminary Gram Positive Cocci 11/14/24 09:00 Sputum - Expectorated Sputum Gram Stain - Final Constitutional Constitutional: no acute distress Comments: Pleasantly demented. *Routine HEENT Exam Head: Present normocephalic Eye: Present EOMI and PERRL ENT: Present mucous membranes moist *Routine Neck Exam Neck: Present supple; Absent lymphadenopathy *Routine Respiratory Exam Respiratory: Present CTA bilaterally *Routine Cardiovascular Exam Cardiovascular: Present RRR *Routine Abdominal Exam Abdominal: Present soft and normoactive bowel sounds; Absent tenderness *Routine Extremities Exam Extremities: Absent cyanosis, clubbing or edema *Routine Skin Exam Skin: Present warm; Absent rash *Routine Neurological Exam Neurological: Present alert Assessment and Plan *Assessment and plan (1) Pneumonia: Status: Acute Category: Medical Code(s): J18.9 - Pneumonia, unspecified organism (2) CKD (chronic kidney disease): Status: Acute Qualifiers: Chronic kidney disease stage: stage 3 (moderate) Chronic kidney disease stage 3 subtype: stage 3b (GFR 30-44) Qualified Code(s): N18.32 - Chronic kidney disease, stage 3b Category: Medical Code(s): N18.9 - Chronic kidney disease, unspecified Plan Trice Rocha is a 79-year-old female who was admitted for acute on chronic hypoxic respiratory failure from community-acquired pneumonia. #Community-acquired pneumonia #Rare gram-positive bacteremia ? CXR reveals opacity in the left perihilar area, presented with tachycardia, tachypnea, leukocytosis. ? Blood cultures revealed rare gram-positive cocci in both bottles. ? Started vancomycin, continue ceftriaxone, azithromycin. ? Weaned to 2 L nasal cannula. Initially required BiPAP for tachypnea. ? Sputum cultures pending. #History of reactive airway disease ?History of rheumatoid arthritis, might have underlying interstitial lung disease. ? Resume home Symbicort #Multiple pleural lesions ? Found on CT chest. ? Pulmonology consulted, pending further recommendations. #Bladder wall thickening ? CT abdomen/pelvis reveals posterior bladder wall measuring 9 mm, hyperdense. ? Will refer to urology on discharge. #Dementia ? Resume home donepezil, memantine. #Hypertension ? Resume home carvedilol, hold home nifedipine. #GERD ? Resume home Protonix. #Rheumatoid arthritis ? Does not take DMARDs at this time. Continue [place] as needed. DNR DVT prophylaxis: Lovenox 40 mg
[2024-11-15] MEDS: MONTELUKAST SODIUM 10MG TAB 10 MG PO (17:51)
[2024-11-15] MEDS: DONEPEZIL 5MG TAB 5 MG PO (21:32)
[2024-11-15] MEDS: ATORVASTATIN 40MG TABLET 40 MG PO (21:32)
--- NOTE | 2024-11-15 21:35 | PC.NURSE ---
Patient complained of dry mucous membranes, no congestion present. She requested to have something to relieve her dryness, along with chapstick. Shani HUGHES was paged at this time to obtain a verbal order for a saline nasal spray PRN. Sanjuanita to be pulled from the [facility].
[2024-11-15] MEDS: SODIUM CHLORIDE NASAL SPRAY 44ML NS (21:42)
[2024-11-15] MEDS: ACETAMINOPHEN 325MG TAB 650 MG PO (23:10)
[2024-11-16] VITALS: PULSE 70
[2024-11-16 04:00] VITALS: BP 121/61; PULSE 60; PULSE 85; RESP 18; TEMP 37.1; O2SAT 97; BMI 31.0
--- NOTE | 2024-11-16 04:15 | PC.NURSE ---
Patient is alert and oriented, however, has expressed more pleasant confusion and forgetfulness this shift. One of her sons has remained at the bedside to help her remember questions and reorient her as needed. Patient was observed to have both wakeful periods and resting periods (eyes closed, respirations even) throughout the night. She has had complaints of dry mucous membranes consistently and hand/wrist pain once this shift. Patient was provided with saline nasal spray for her reported dryness, and Tylenol was administered per JAN for her pain. Chapstsissy is at her bedside for dry lips. Auscultation of her lungs appeared to show improvement compared to the previous night; no wheezing was heard but diminished air movement is still present within her lungs. Patient continues to have occasional sputum production (sputum clear and mucoid). Auscultation of her heart and bowels were within normal findings. Purewick and a brief remains in place. Scheduled medications were administered as appropriately per JAN. Vital signs have remained relatively stable this shift. Oxygen saturations remained > 90% on 2 L of oxygen via nasal cannula. At this time, the patient is resting in bed without further complaints. Call light within reach.
--- NOTE | 2024-11-16 06:00 | PC.NURSE ---
Patient appeared to be slightly more confused this morning. Patient reported that she is aware of having confusion; she has explained that she woke up feeling scared a few times during the night. She has asked about where she was and what time is it. She is easily redirected, comforted, and reoriented by staff and family. Son remains at bedside and continues to reassure the patient.
--- NOTE | 2024-11-16 06:12 | PC.NURSE ---
Patient's purewick was removed at this time. Patient opted for bedside commode and brief for elimination needs. Patient is able to stand/ambulate with x1 assistance; she tolerates it well.
--- NOTE | 2024-11-16 06:18 | EXP.EVENT.NO ---
Blood cultures noted positive for Streptococcus pneumonia, that was sensitive to all antibiotics patient is on 2 antibiotics at this time that should cover it
[2024-11-16] MEDS: ACETAMINOPHEN 325MG TAB 650 MG PO (06:25)
[2024-11-16] MEDS: SUCRALFATE 1GM TABLET 1 GM PO ×2 (06:27→11:42)
[2024-11-16 07:38] LABS: Basophils % 0.1 % (0.1-2.0); Hemoglobin 9.1 g/dL (12.2-16.2); Lymphocytes # 2.4 K/mm3 (0.7-4.5); Lymphocytes % 9.8 % (10-50); Mean Corpuscular HGB Conc 32.5 g/dL (31.8-35.4); Mean Corpuscular Hemoglobin 26.5 pg (27.0-31.2); Mean Corpuscular Volume 81.4 fl (81-99); Mean Platelet Volume 11.2 fl (7.4-10.4); Monocytes # 1.4 K/mm3 (0.1-1.0); Monocytes % 5.8 % (1.7-9.3); Neutrophils # 20.2 K/mm3 (1.8-7.8); Neutrophils % 83.2 % (37.0-80.0); Platelet Count 271 K/mm3 (142-424); Red Blood Count 3.44 M/mm3 (4.20-5.40); Red Cell Distribution Width 14.6 % (11.5-17.5); White Blood Count 24.3 K/mm3 (4.8-10.8)
[2024-11-16 07:55] LABS: MANUAL DIFFERENTIAL MANUAL DIFFERENTIAL (MANUAL DIFF)
[2024-11-16 08:00] VITALS: BP 143/75; PULSE 62; RESP 20; TEMP 36.5; O2SAT 99
[2024-11-16 08:01] LABS: Anion Gap 13.4 mEq/L (5-15); Blood Urea Nitrogen 33 mg/dl (7-17); Calcium 8.8 mg/dl (8.4-10.2); Carbon Dioxide 27 mmol/L (22.0-30.0); Chloride 88 mmol/L (98-107); Creatinine Clearance Estimated 50 mL/min (50-200); Estimated Glomerular Filt Rate 48 ml/min (>60); GFR (African American) 58 ML/MIN (>60); Glucose 104 mg/dl (74-100); Potassium 3.4 mmoL/L (3.5-5.1); Sodium 125 mmol/L (136-145)
[2024-11-16] MEDS: BUSPIRONE HCL 10 MG TABLET PO (09:29)
[2024-11-16] MEDS: CARVEDILOL 12.5MG TABLET 12.5 MG PO (09:29)
[2024-11-16] MEDS: PANTOPRAZOLE 40MG TABLET 40 MG PO (09:29)
[2024-11-16 09:37] LABS: Lymphocytes % 6 % (10-50); Monocytes % 4 % (2-9); Neutrophils % 89 % (42-76); Total Cells Counted 100
[2024-11-16 09:40] LABS: Platelet Estimate Normal; RBC Morphology Normal
--- NOTE | 2024-11-16 09:48 | ECG_ITS ---
APPROVED REPORT Exam: Resting ECG HR:67 bpm ECG Measurements Heart Rate 67 AXES KS 146 P 66 QRSd 90 QRS 44 QT 380 T 37 QTc 395 Conclusion SINUS RHYTHM LOW QRS VOLTAGE IN PRECORDIAL LEADS [QRS DEFLECTION < 1.0 mV IN CHEST LEADS] BORDERLINE ECG UNCONFIRMED REPORT Electronically signed by : Mayank Jimenes MD 11/17/2024 10:47:47
--- NOTE | 2024-11-16 09:49 | XR_ITS ---
FINAL REPORT TECHNIQUE: Single view chest CLINICAL HISTORY: SOB COMPARISON: 11/14/2024 FINDINGS: A single view of the chest was obtained. The heart is mildly enlarged. There is a large hiatal hernia. Opacity seen left perihilar region which is new from prior exam likely due to small focus of pneumonia. There is no pneumothorax. IMPRESSION: Opacity left perihilar region, new from prior exam likely due to small focus of pneumonia. Recommend follow-up to ensure resolution. Reviewed, Interpreted and Dictated by Silvestre Edmond MD Transcribed by Gayathri Jernigan Authenticated and [facility]
[2024-11-16] MEDS: IPRATROPIUM/ALBUTEROL 3 ML NEB IH (09:55)
[2024-11-16] MEDS: CEFTRIAXONE SODIUM 2 GM in 0.9 % SODIUM CHLORIDE 100 ML IV (09:57)
[2024-11-16 10:15] LABS: POC Glucose,Bedside 130 (70-110)
[2024-11-16] MEDS: AZITHROMYCIN 500 MG in 0.9 % SODIUM CHLORIDE 250 ML 250 MG IV (10:33)
[2024-11-16 12:00] VITALS: BP 143/75; PULSE 74; RESP 22; TEMP 36.4; O2SAT 98
--- NOTE | 2024-11-16 13:43 | HMH.OTEV ---
OT Inpatient Evaluation Rehab OT IP Evaluation Start: 11/15/24 21:08 Freq: ONCE Status: Active Protocol: Document 11/16/24 13:39 [facility] (Rec: 11/16/24 13:43 [facility] [id number]) Rehab OT IP Assessment Subjective History Pt oriented x 3 on arrival. Pt agreeable to engage in therapy evaluation. Pt's son present and supportive. Pt admitted on 11/14/24 due to SOB. History and physical: This is an 79-year old female who has a past medical history significant for lumbar radiculopathy, uterine procidentia, GI bleed, renal cyst, hypertension, hyperlipidemia, anemia, stage III chronic kidney disease, Home O2 dependency at 2 L,and dementia Who presents with a chief complaint of shortness of breath. Patient has advanced dementia and was recently given Ativan while in er, so her review of systems is limited; as a result, the Majority of her information was obtained from the ER provider, son at the bedside, and chart review. According to ER provider, Patient presented in respiratory distress. Initial blood gas obtained was within normal limits. However, patient was requiring additional supplemental oxygen From her baseline home O2 requirements of 2 L. Plain films obtained in the emergency room of the chest -per my read- is consistent with vascular prominence/congestion, probable pneumonia/effusion to the right lower base and left lower base, and possible left lower lobe pneumonia. Moreover, patient's white blood cell count was elevated and she was very tachypneic. As a result of these findings, patient has been admitted for further management Subjective Prior to being in the hospital , pt lived at home with her son and daughter in law. Normally patient is independent with all ADLs such as dressing, bathing, and feeding. Pt's bathroom does have AE set up to increase independence such as a shower chair and hand held shower head. Pt is dependent upon family for completion of all IADLs. Pt does use a rolling walker during functional transfers. Objective Patient Orientation Person,Place,Birthday Right Upper Extremity Gross ROM WFL Left Upper Extremity Gross ROM WFL Bed Mobility bed mobility-scooting,bed mobility - supine/sit Assist Level Supervision/Stand by Transfer Training Sit/Stand Transfer Assist Level Supervision/Stand by Chair Transfer Ability Supervision/Stand by Chair Transfer Technique Sit to/from Ambulatory Lower Body Dressing Ability Standby Assistance Rehab OT IP prob,goals,plan Problems Date of Evaluation: 11/16/24 Rehab Potential Rehab Potential Innapropriate for Skilled Therapy Discharge Plan OT Discharge Plan At this time, pt appears to be at her baseline with functional transfers and ADL independence. Pt can return home with family assistance once she is medically stable. Therapist does recommend OT evaluation for environmental safety upon returning home. Eval Complexity Eval Charge Codes 30749 - Low Complexity PHYSICIAN CERTIFICATION: I certify the specified therapy services for Trice Rocha are required, authorized, and reviewed every 30 days.
--- NOTE | 2024-11-16 13:44 | HMH.PTEV ---
Physical Therapy Evaluation Rehab PT IP Evaluation Start: 11/15/24 21:08 Freq: ONCE Status: Active Protocol: Document 11/16/24 13:41 [facility] (Rec: 11/16/24 13:44 [facility] [id number]) Subjective/History History History 79-year old female who has a past medical history significant for lumbar radiculopathy, uterine procidentia, GI bleed, renal cyst, hypertension, hyperlipidemia, anemia, stage III chronic kidney disease, Home O2 dependency at 2 L,and dementia Who presents with a chief complaint of shortness of breath. She reports she lives with family, 1 KIERAN the home, and is generally independent with mobility using a RW. Subjective Subjective She reports she is feeling better this afternoon and agrees to mobility assessment. Rehab PT IP Eval Objective Appearance Patient Behavior Appropriate Patient Orientation Person,Place,Time Difficulty following instructions none Speech Pattern Clear Ambulation Patient Able to Ambulate Yes Ambulation Observation IP General Gait Pattern Observation Wide Based Gait Ambulation Distance (feet) 50 Ambulation Assistive Device Rolling Walker Ambulation Ability Supervision/Stand by Balance Ability to Arise Able, uses arms to help Sitting Balance Steady, safe Standing Balance Steady, wide stance Dynamic Standing Balance Ability Good Transfers Bed Transfer Ability Supervision/Stand by Chair Transfer Ability Supervision/Stand by Sit to Stand Bed Transfer Ability Supervision/Stand by Sit to Stand Chair Transfer Ability Supervision/Stand by Rehab PT IP prob,goals,plan Problems Date of Evaluation: 11/16/24 Discharge Plan PT Discharge Plan Pt presents at baseline for all mobility at this time and is appropriate to return home once medically stable for d/c. Recommend Home health therapy after d/c home. No current inpatient therapy needs at this time. Eval Complexity Eval Charge Codes 09520 - High Complexity PHYSICIAN CERTIFICATION: I certify the specified therapy services for Trice Rocha are required, authorized, and reviewed every 30 days.
[2024-11-16] MEDS: ENOXAPARIN 40MG/0.4ML SYRINGE 40 MG SUBCUT (13:55)
[2024-11-16] MEDS: POTASSIUM CHLORIDE 20MEQ TAB 40 MEQ PO (13:55)
[2024-11-16 13:58] LABS: Basophils % 0.2 % (0.1-2.0); Eosinophils % 0.1 % (0.1-12.0); Hemoglobin 9.5 g/dL (12.2-16.2); Lymphocytes # 2.7 K/mm3 (0.7-4.5); Lymphocytes % 13.9 % (10-50); Mean Corpuscular HGB Conc 32.8 g/dL (31.8-35.4); Mean Corpuscular Hemoglobin 27.1 pg (27.0-31.2); Mean Corpuscular Volume 82.6 fl (81-99); Mean Platelet Volume 11.1 fl (7.4-10.4); Monocytes # 0.9 K/mm3 (0.1-1.0); Monocytes % 4.7 % (1.7-9.3); Neutrophils # 15.3 K/mm3 (1.8-7.8); Neutrophils % 79.9 % (37.0-80.0); Platelet Count 256 K/mm3 (142-424); Red Blood Count 3.51 M/mm3 (4.20-5.40); Red Cell Distribution Width 14.8 % (11.5-17.5); White Blood Count 19.1 K/mm3 (4.8-10.8)
[2024-11-16 14:02] LABS: Chloride 96 mmol/L (98-107); Sodium 132 mmol/L (136-145)
[2024-11-16 14:03] LABS: Potassium 3.3 mmoL/L (3.5-5.1)
[2024-11-16 14:06] LABS: Anion Gap 12.3 mEq/L (5-15); Blood Urea Nitrogen 30 mg/dl (7-17); Calcium 8.9 mg/dl (8.4-10.2); Carbon Dioxide 27 mmol/L (22.0-30.0); Creatinine Clearance Estimated 50 mL/min (50-200); Estimated Glomerular Filt Rate 48 ml/min (>60); GFR (African American) 58 ML/MIN (>60); Glucose 150 mg/dl (74-100)
--- NOTE | 2024-11-16 14:19 | SW/DCPLANNER ---
Addendum entered by Jaci Aranda 11/16/24 14:40: Patient will return home with son once ready for discharge. Patient's family is agreeable to home health services and prefers to use [facility]. I will set up home health services at time of discharge. Original Note: I attempted to contact patient's son regarding discharge planning: no answer at this time VM left. PT/OT have recommended patient return home with home health services. I will continue to attempt to contact patient's family. Per MD patient may discharge home this afternoon.
--- NOTE | 2024-11-16 14:41 | P.DS_ITS ---
General Admission date:: 11/14/24 HPI HPI HPI: This is an 79-year old female who has a past medical history significant for lumbar radiculopathy, uterine procidentia, GI bleed, renal cyst, hypertension, hyperlipidemia, anemia, stage III chronic kidney disease, Home O2 dependency at 2 L,and dementia Who presents with a chief complaint of shortness of breath. Patient has advanced dementia and was recently given Ativan while in er, so her review of systems is limited; as a result, the Majority of her information was obtained from the ER provider, son at the bedside, and chart review. According to ER provider, Patient presented in respiratory distress. Initial blood gas obtained was within normal limits. However, patient was requiring additional supplemental oxygen From her baseline home O2 requirements of 2 L. Plain films obtained in the emergency room of the chest -per my read- is consistent with vascular prominence/congestion, probable pneumonia/effusion to the right lower base and left lower base, and possible left lower lobe pneumonia. Moreover, patient's white blood cell count was elevated and she was very tachypneic. As a result of these findings, patient has been admitted for further management During my evaluation of the patient, she could provide no additional meaningful data. Son at the bedside states her symptomology started approximately 2 weeks ago and has worsened since Saturday. Recently, patient did see her primary care physician on Saturday of this week who gave her a steroid injection. Son states that his mom has had increased dyspnea with exertion over the past 24 to 48 hour s. On further questioning, son states that mom did smoke 1 pack of cigarettes a day but quit many years ago. I had a long discussion with son concerning CODE STATUS and he would prefer mom to be a DO NOT RESUSCITATE. Additional pertinent values obtained including hemoglobin 9.8, hematocrit 29.9, red blood cell count of 3.58, white blood cell count of 18.3, neutrophils 72.1%, creatinine 1.1, GFR 48, AST of 89, and alkaline phos 140.It is worth mentioning that patient is prescribed Lasix to take every other day Hospital Course Hospital Course Hospital Course: Trice Rocha is a 79-year-old female who was admitted for acute on chronic hypoxic respiratory failure from community-acquired pneumonia. #Community-acquired pneumonia #Strep pneumonia bacteremia ? CXR revealed opacity in the left perihilar area, presented with tachycardia, tachypnea, leukocytosis. ? Blood cultures revealed step pneumonia in both bottles. ? Clinically improved with vancomycin (initially), ceftriaxone, and azithromycin. ? Weaned to 2 L nasal cannula (saturating 88% on room air at rest). Initially required BiPAP for tachypnea. ? Discharged with cefdinir for 10 more days, azithromycin for 3 days. - Will follow-up with PCP within 1 week. #History of reactive airway disease ? History of rheumatoid arthritis, might have underlying interstitial lung disease. ? Resume home Symbicort. #Multiple pleural lesions ? Found on CT chest. - Will follow-up with Pulmonology within 2 weeks for further evaluation and management. #Bladder wall thickening ? CT abdomen/pelvis reveals posterior bladder wall measuring 9 mm, hyperdense. - Will follow-up with urology for further evaluation and management. #Dementia ? Resume home donepezil, memantine. #Hypertension ? Resume home carvedilol, hold home nifedipine. #GERD ? Resume home Protonix. #Rheumatoid arthritis ? Does not take DMARDs at this time. Continue [place] as needed. Exam Data for Last 24 hours Vital signs and Labs for Last 24 Hours: Temp Pulse Resp BP Pulse Ox O2 Del Method O2 Flow Rate 97.6 F 74 22 143/75 H 98 Nasal Cannula 3 11/16/24 12:00 11/16/24 12:00 11/16/24 12:00 11/16/24 12:00 11/16/24 12:00 11/16/24 13:00 11/16/24 12:00 FiO2 30 11/14/24 06:35 Laboratory Results - last 24 hr 11/16/24 07:00: WBC 24.3 H*, RBC 3.44 L, Hgb 9.1 L, Hct 28.0 L, MCV 81.4, MCH 26.5 L, MCHC 32.5, RDW 14.6, Plt Count 271, MPV 11.2 H, Neut % (Auto) 83.2 H, Lymph % (Auto) 9.8 L, [place] % (Auto) 5.8, Eos % (Auto) 0.0 L, Baso % (Auto) 0.1, Neut # (Auto) 20.2 H, Lymph # (Auto) 2.4, [place] # (Auto) 1.4 H, Eos # (Auto) 0.0, Baso # (Auto) 0.0, Total Counted 100, Neutrophils % (Manual) 89 H, Band Neutrophils % 1.0, Lymphocytes % (Manual) 6 L, Monocytes % (Manual) 4, Platelet Estimate Normal, RBC Morphology Normal, Sodium 125 L, Potassium 3.4 L, Chloride 88 L, Carbon Dioxide 27, Anion Gap 13.4, BUN 33 H, Creatinine 1.10 H, Estimated Creat Clear 50, Estimated GFR 48 L, Est GFR ( Amer) 58 L, Glucose 104 H D , Calcium 8.8 11/16/24 09:52: POC Glucose 130 H 11/16/24 13:50: WBC 19.1 H, RBC 3.51 L, Hgb 9.5 L, Hct 29.0 L, MCV 82.6, MCH 27.1, MCHC 32.8, RDW 14.8, Plt Count 256, MPV 11.1 H, Neut % (Auto) 79.9, Lymph % (Auto) 13.9, [place] % (Auto) 4.7, Eos % (Auto) 0.1, Baso % (Auto) 0.2, Neut # (Auto) 15.3 H, Lymph # (Auto) 2.7, [place] # (Auto) 0.9, Eos # (Auto) 0.0, Baso # (Auto) 0.0, Sodium 132 L, Potassium 3.3 L, Chloride 96 L, Carbon Dioxide 27, Anion Gap 12.3, BUN 30 H, Creatinine 1.10 H, Estimated Creat Clear 50, Estimated GFR 48 L, Est GFR ( Amer) 58 L, Glucose 150 H D, Calcium 8.9 I & O for Last 24 hours: Intake & Output 11/13/24 11/14/24 11/15/24 11/16/24 23:59 23:59 23:59 23:59 Intake Total 220 / 784 2364 / 2586 702 / 702 Output Total 2049 975 / 975 0 / 0 Balance -1830 / -1341 1389 / 1611 702 / 702 Weight 79.832 kg 78.471 kg 79.5 kg Microbiology Reports for the Last 24 Hours: Microbiology 11/14/24 09:00 Sputum - Expectorated Sputum Gram Stain - Final 11/14/24 09:00 Sputum - Expectorated Sputum Sputum Culture - Final 11/14/24 04:30 Blood Blood Culture - Final Streptococcus pneumoniae 11/14/24 04:30 Blood Blood Culture - Final Streptococcus pneumoniae Constitutional Constitutional: no acute distress Comments: Forgetful at times. *Routine HEENT Exam Head: Present normocephalic Eye: Present EOMI and PERRL ENT: Present mucous membranes moist *Routine Neck Exam Neck: Present supple; Absent lymphadenopathy *Routine Respiratory Exam Respiratory: Present CTA bilaterally *Routine Cardiovascular Exam Cardiovascular: Present RRR *Routine Abdominal Exam Abdominal: Present soft and normoactive bowel sounds; Absent tenderness *Routine Extremities Exam Extremities: Absent cyanosis, clubbing or edema *Routine Skin Exam Skin: Present warm; Absent rash *Routine Neurological Exam Neurological: Present alert Results Data Completed and Pending Labs on day of discharge: Labs from last 24 hours 11/16/24 11/16/24 11/16/24 13:50 09:52 07:00 WBC 19.1 H 24.3 H* RBC 3.51 L 3.44 L Hgb 9.5 L 9.1 L Hct 29.0 L 28.0 L MCV 82.6 81.4 MCH 27.1 26.5 L MCHC 32.8 32.5 RDW 14.8 14.6 Plt Count 256 271 MPV 11.1 H 11.2 H Neut % (Auto) 79.9 83.2 H Lymph % (Auto) 13.9 9.8 L [place] % (Auto) 4.7 5.8 Eos % (Auto) 0.1 0.0 L Baso % (Auto) 0.2 0.1 Neut # (Auto) 15.3 H 20.2 H Lymph # (Auto) 2.7 2.4 [place] # (Auto) 0.9 1.4 H Eos # (Auto) 0.0 0.0 Baso # (Auto) 0.0 0.0 Total Counted 100 Neutrophils % (Manual) 89 H Band Neutrophils % 1.0 Lymphocytes % (Manual) 6 L Monocytes % (Manual) 4 Platelet Estimate Normal RBC Morphology Normal Sodium 132 L 125 L Potassium 3.3 L 3.4 L Chloride 96 L 88 L Carbon Dioxide 27 27 Anion Gap 12.3 13.4 BUN 30 H 33 H Creatinine 1.10 H 1.10 H Estimated Creat Clear 50 50 Estimated GFR 48 L 48 L Est GFR ( Amer) 58 L 58 L Glucose 150 H D 104 H D POC Glucose 130 H Calcium 8.9 8.8 DS: Diagnosis Discharge Diagnosis (1) Pneumonia: Status: Acute Code(s): J18.9 - Pneumonia, unspecified organism (2) CKD (chronic kidney disease): Status: Acute Code(s): N18.9 - Chronic kidney disease, unspecified Qualifiers: Chronic kidney disease stage: stage 3 (moderate) Chronic kidney disease stage 3 subtype: stage 3b (GFR 30-44) Qualified Code(s): N18.32 - Chronic kidney disease, stage 3b Meds Home Medications and Allergies Home Medications ?Medication ?Instructions ?Recorded ?Confirmed ?Type carvedilol 12.5 mg tablet 12.5 mg PO BID 01/08/19 11/14/24 History rosuvastatin 10 mg tablet 10 mg PO HS 02/20/21 11/14/24 History pantoprazole 40 mg tablet,delayed 40 mg PO BID GERD 03/09/22 11/14/24 History release fluticasone propionate 50 1 spray intranasal DAILYP PRN 05/24/22 11/14/24 History mcg/actuation nasal Allergy Symptoms spray,suspension sucralfate 1 gram tablet 1 g PO ACHS 06/03/23 11/14/24 History hydrocodone 5 mg-acetaminophen 325 1 tab PO TID #90 tabs 10/30/24 11/14/24 Rx mg tablet budesonide-formoterol HFA 160 2 inh inhalation BIDRT 11/14/24 11/14/24 History mcg-4.5 mcg/actuation aerosol inhaler (Symbicort) buspirone 10 mg tablet 10 mg PO BID 11/14/24 11/14/24 History donepezil 5 mg tablet 5 mg PO HS 11/14/24 11/14/24 History nifedipine 30 mg tablet,extended 30 mg PO DAILY 11/14/24 11/14/24 History release azithromycin 250 mg tablet 250 mg PO DAILY 3 days #3 tabs 11/16/24 Rx cefdinir 300 mg capsule 300 mg PO BID 10 days #20 caps 11/16/24 Rx New Prescriptions to Start Prescriptions: Tommy Hoffmann cefdinir Tommy Moore Allergies Allergy/AdvReac Type Severity Reaction Status Date / Time Sulfa (Sulfonamide Allergy Intermediate HEART RACES Verified 06/03/23 15:03 Antibiotics) (SULFA (SULFONAMIDE ANTIBIOTICS)) Iodinated Contrast Media AdvReac Intermediate anxiety, Verified 11/15/24 09:16 rash Discharge Plan Disposition Patient Disposition: Home Health Service Condition: Fair Discharge Order Discharge Orders: Discharge Order (Routine); Ordered 11/16/24 Ordered By: Tommy Moore Follow up Plan Follow up with: Deion Glaser MD [Physician] - 11/24/24 (the office will call you in the morning 11/17/2024 to let you know your appointment date and time. Thank you ! ) Mayank Jimenes MD [Primary Care Provider] - 11/30/24 3:45 pm Prescriptions/Medication Reconciliation: New cefdinir 300 mg capsule 300 mg PO BID 10 Days Qty: 20 0RF azithromycin 250 mg tablet 250 mg PO DAILY 3 Days Qty: 3 0RF Rx Instructions: start on day 2 of therapy Continued fluticasone propionate 50 mcg/actuation spray,suspension 1 spray NS DAILYP PRN (Reason: Allergy Symptoms) sucralfate 1 gram tablet 1 g PO ACHS Patient Comments: TAKE 1 TABLET BY MOUTH 4 TIMES DAILY BEFORE MEAL(S) AND AT BEDTIME carvedilol 12.5 MG tablet 12.5 mg PO BID rosuvastatin 10 MG tablet 10 mg PO HS pantoprazole 40 MG tablet,delayed release (DR/EC) 40 mg PO BID hydrocodone-acetaminophen 5-325 mg tablet 1 tab PO TID Qty: 90 0RF buspirone 10 mg tablet 10 mg PO BID donepezil 5 mg tablet 5 mg PO HS Patient Comments: TAKE 1 TABLET BY MOUTH AT BEDTIME nifedipine 30 mg tablet extended release 30 mg PO DAILY budesonide-formoterol [Symbicort] 160-4.5 mcg/actuation HFA aerosol inhaler 2 inh INHALATION BIDRT Problem Reconciliation Problems Reviewed?: Yes Patient Discharge Instructions Patient Instructions: DI for Pneumonia -- Adult Print Language: [place]ian Providers Primary Care Provider: Mayank Jimenes Admit Provider: Tommy Moore Attending Provider: Tommy Moore
--- NOTE | 2024-11-17 11:16 | SW/DCPLANNER ---
Spoke with patients son on the phone. Patients son stated that his mom is doing good. Patients son stated that he is aware of his moms upcoming appointment and that her new medicine was brought to her bedside from clinic pharmacy. Patients son stated that they dont have any concerns or questions at this time. Elizabeth Connors
== END 2024-11-16 16:44 | disposition home health service (06) | DRG 189 ==
LOC: ER 04:10 → 2ND 06:10
PROVIDERS: Nurse Practitioner Family; Admitting Provider Student in an Organized Health Care Education/Training Program; Emergency Provider Emergency Medicine; PCP Internal Medicine Adolescent Medicine; Visit Provider Student in an Organized Health Care Education/Training Program
DX: J96.21 Acute and chronic respiratory failure with hypoxia (principal); J81.0 Acute pulmonary edema; J18.9 Pneumonia, unspecified organism; J44.1 Chronic obstructive pulmonary disease with (acute) exacerbation; R78.81 Bacteremia; N18.32 Chronic kidney disease, stage 3b; D63.1 Anemia in chronic kidney disease; E87.70 Fluid overload, unspecified; I16.0 Hypertensive urgency; I12.9 Hypertensive chronic kidney disease with stage 1 through stage 4 chronic kidney disease, or unspecified chronic kidney disease; E78.5 Hyperlipidemia, unspecified; K21.9 Gastro-esophageal reflux disease without esophagitis; F03.C0 Unspecified dementia, severe, without behavioral disturbance, psychotic disturbance, mood disturbance, and anxiety; M06.9 Rheumatoid arthritis, unspecified; Z87.891 Personal history of nicotine dependence; Z79.01 Long term (current) use of anticoagulants; Z99.81 Dependence on supplemental oxygen; B95.3 Streptococcus pneumoniae as the cause of diseases classified elsewhere
CPT/HCPCS: 36415; 71045; 71250; 74176; 80048; 80053; 81001; 82607; 82728; 82803; 82962; 83540; 83550; 83880; 84443; 85007; 85025; 86803; 87040; 87070; 87077; 87186; 87205; 87389; 87636; 87807; 93005; 94640; 94660; 94760; 97163; 97165; 99221; 99285; J0456; J0696; J1644; J1650; J1940; J2060; J2919; J3372; J7050; J7620

== ENCOUNTER 2024-11-30 13:28 | Outpatient (POV) | payer MEDICARE, OTHER, SELFPAY ==
--- NOTE | 2024-11-30 14:09 | A.OFFVIS_ITS ---
[facility] Disclaimer: The information contained in this section may have been updated after the patient was seen, as this information can be updated by other users. Medical History (Updated 11/14/24 @ 07:18 by Prasad Joy MD) Rheumatoid arthritis GI bleed Uterine procidentia Surgical History History of tonsillectomy and adenoidectomy H/O tubal ligation Family History Other Cancer Hyperlipidemia Hypertension Stroke Social History (Updated 11/14/24 @ 06:54 by Samantha Rivera, NINOSKA) Smoking Status: Former smoker tobacco type: cigarettes packs per day: 1 second hand exposure: No alcohol intake: never substance use type: denies use current occupational status: other Travel in the last 8 weeks: None household members: none housing: house current occupational exposures/hazards: No caffeine: Yes PM Subjective & Objective Subjective Subjective:: Patient is a pleasant 79-year-old female who presents today for medication refill and follow-up. Today she rates her pain a 5 out of 10. She does state from her last visit she ended up being hospitalized on the and 16 November due to pneumonia. Patient states she does feel better however is still very ti red. Patient denies any other changes from her last appointment. She does state that she is now doing physical therapy and Occupational Therapy at home and this is helping work on her strengthening. Patient is currently managed with [place] 5 mg 3 times a day. She denies any side effects from this medication. Her Eleazar has been reviewed and is appropriate. Review of Systems: General: No recent weight changes, no fever, no sleep disturbances Respiratory: No cough, no shortness of air, no recurring pulmonary infections Cardiovascular/peripheral vascular: No chest pain, no palpitations, no edema, no shortness of breath Gastrointestinal: No new onset incontinence, normal bowel movements reported Genitourinary: No new onset incontinence Musculoskeletal: Low back pain Psychiatric: [Normal mood/affect] Neurological: [Denies weakness in extremities], [denies balance issues] Pain at rest (0-10 scale): 5 Objective Objective:: Physical Exam: General: Alert and oriented x3, no acute distress, pleasant and cooperative Lungs: Respirations even and unlabored, symmetrical chest expansion Eyes: PERRL Musculoskeletal: Flexion and extension of lumbar [spine] somewhat guarded secondary to pain, [antalgic gait noted] Neurological: Speech clear, no gross sensory deficit Has patient had previous pain injection?: No Conservative treatment options previously tried: Prescription medications Length of treatment: Longer than 12 weeks Meds Home Medications and Allergies Home Medications ?Medication ?Instructions ?Recorded ?Confirmed ?Type carvedilol 12.5 mg tablet 12.5 mg PO BID 01/08/19 11/14/24 History rosuvastatin 10 mg tablet 10 mg PO HS 02/20/21 11/14/24 History pantoprazole 40 mg tablet,delayed 40 mg PO BID GERD 03/09/22 11/14/24 History release fluticasone propionate 50 1 spray intranasal DAILYP PRN 05/24/22 11/14/24 History mcg/actuation nasal Allergy Symptoms spray,suspension sucralfate 1 gram tablet 1 g PO ACHS 06/03/23 11/14/24 History hydrocodone 5 mg-acetaminophen 325 1 tab PO TID #90 tabs 10/30/24 11/14/24 Rx mg tablet budesonide-formoterol HFA 160 2 inh inhalation BIDRT 11/14/24 11/14/24 History mcg-4.5 mcg/actuation aerosol inhaler (Symbicort) buspirone 10 mg tablet 10 mg PO BID 11/14/24 11/14/24 History donepezil 5 mg tablet 5 mg PO HS 11/14/24 11/14/24 History nifedipine 30 mg tablet,extended 30 mg PO DAILY 11/14/24 11/14/24 History release azithromycin 250 mg tablet 250 mg PO DAILY 3 days #3 tabs 11/16/24 Rx cefdinir 300 mg capsule 300 mg PO BID 10 days #20 caps 11/16/24 Rx New Prescriptions to Start Prescriptions: Allergies Allergy/AdvReac Type Severity Reaction Status Date / Time Sulfa (Sulfonamide Allergy Intermediate HEART RACES Verified 06/03/23 15:03 Antibiotics) (SULFA (SULFONAMIDE ANTIBIOTICS)) Iodinated Contrast Media AdvReac Intermediate anxiety, Verified 11/15/24 09:16 rash Assessment and Plan *Assessment and plan (1) Lumbar radiculopathy: Status: Acute Category: Medical Code(s): M54.16 - Radiculopathy, lumbar region (2) Degenerative disc disease, lumbar: Status: Acute Category: Medical Code(s): M51.369 - Other intervertebral disc degeneration, lumbar region without mention of lumbar back pain or lower extremity pain Plan I will refill the patient's [place] and provide a 1 month supply of this medication. Patient will return to clinic in 1 month for reevaluation of symptoms and plan of care. Risks and benefits of the medication have been explained in detail to the patient. The patient does understand the risk of dependence on the medication when given over a prolonged period. Patient has been advised of risks of oversedation with the prescribed medication. Narcan has been offered to the paitent in the event of oversedation. Patient has been advised that a family member should also be educated regarding administration of Narcan. The patient has been advised to consult with his/her primary care provider and pharmacist regarding drug-drug interaction of medications currently prescribed. Patient has been prescribed a controlled substance after being counseled on the medication, medication safety, and possible side effects. Opioid contract was reviewed and signed by the patient, and that they have agreed to all of the terms set forth by our compliance program. A UDS is needed to verify patient's compliance with our office pain contract. This is ordered based off specific treatments related to chronic pain with the potential to abuse certain medications. Patient has been instructed to contact the clinic with any concerns before the next appointment. Dr. Mukherjee has reviewed this note and agrees with this plan of care. This note was dictated using voice recognition software and make contain errors or omissions.
[2024-11-30 14:15] VITALS: BP 114/61; PULSE 66; RESP 14; O2SAT 97; BMI 27.8
== END 2024-11-30 23:59 | disposition home or self-care (01) ==
PROVIDERS: PCP Internal Medicine Adolescent Medicine; Visit Provider Nurse Practitioner Family
DX: M51.16 Intervertebral disc disorders with radiculopathy, lumbar region (principal); Z87.891 Personal history of nicotine dependence
CPT/HCPCS: 99212; G0463

== ENCOUNTER 2024-12-31 14:10 | Outpatient (POV) | payer MEDICARE, OTHER, SELFPAY ==
--- NOTE | 2024-12-31 14:12 | A.OFFVIS_ITS ---
[facility] Disclaimer: The information contained in this section may have been updated after the patient was seen, as this information can be updated by other users. Medical History (Updated 12/04/24 @ 00:01 by Diana Nichols) Hypertensive urgency Hypervolemia CKD (chronic kidney disease) Degenerative disc disease, lumbar Shortness of breath GI bleed History of recurrent UTI (urinary tract infection) Hyperlipidemia Essential hypertension Renal cyst GI bleed UTI (urinary tract infection) Dizziness Rheumatoid arthritis GI bleed Uterine procidentia Surgical History History of tonsillectomy and adenoidectomy H/O tubal ligation Family History Other Cancer Hyperlipidemia Hypertension Stroke Social History (Updated 11/14/24 @ 06:54 by Samantha Rivera RN) Smoking Status: Former smoker tobacco type: cigarettes packs per day: 1 second hand exposure: No alcohol intake: never substance use type: denies use current occupational status: other Travel in the last 8 weeks: None household members: none housing: house current occupational exposures/hazards: No caffeine: Yes PM Subjective & Objective Subjective Subjective:: Patient was given a choice of telemedicine visit or office visit; patient chose telemedicine/telehealth visit. These telehealth appointments are made on a [id number] scenario generally related to patient being ill and contagious or environmental factors related to ongoing weather patterns that makes it unsafe for travel to our physical office location. Patient is an established patient with their informed consent to treat signed and on file. Patient has given verbal consent for this telehealth appointment however understands that they do have the right to withdraw consent at any time. Patient was counseled regarding risk versus benefits of telehealth appointments. Patient was counseled there may arise limitations to said appointments such as: -The telehealth encounter not yielding sufficient information to make approp riate clinical decision which may require additional in person visits -Technology problems that may delay a medical evaluation and treatment for today's encounter and in rare instances -Security protocols could fail, causing a breach of privacy of personal medical information. Should such an event occur, patient would be promptly notified of any security issues that may arise. Patient acknowledges understanding regarding any and all risk associated with this appointment and would like to proceed forward with the telehealth appointment. This visit is being conducted via telemedicine telehealth ([place]) in accordance with all applicable laws and regulations. Patient is located in [place] and the treating medical provider is located in [place], [place]. Patient is a pleasant 79-year-old female who presents today via telehealth appointment for medication refill and follow-up. This appointment is occurring at the patient's home and she does give verbal consent for this audio appointment. AT is taking place with her son present at the appointment as well. Today she rates her pain a 4 out of 10. She denies any new trauma or injury. She does state that overall she has been doing well. She states that she did have a little bit more headache symptoms today and did actually take some Tylenol. Patient states that the pain medication of Clovis 5 mg 3 times a day is still working well for her along with the compounded cream. Patient does state that she just used her last refill on her cream and is requesting additional refills. Patient is still doing physical therapy and Occupational Therapy at home and feels like this has been very beneficial. Her Eleazar has been reviewed and is appropriate. Review of Systems: General: No recent weight changes, no fever, no sleep disturbances Respiratory: No cough, no shortness of air, no recurring pulmonary infections Cardiovascular/peripheral vascular: No chest pain, no palpitations, no edema, no shortness of breath Gastrointestinal: No new onset incontinence, normal bowel movements reported Genitourinary: No new onset incontinence Musculoskeletal: Low back pain Psychiatric: [Normal mood/affect] Neurological: [Denies weakness in extremities], [denies balance issues] Pain at rest (0-10 scale): 4 Objective Objective:: General: Alert and oriented x3, pleasant and cooperative Lungs: Patient is able to say complete sentences without dyspnea Neurological: Speech clear Has patient had previous pain injection?: No Conservative treatment options previously tried: Prescription medications Length of treatment: Longer than 12 weeks Meds Home Medications and Allergies Home Medications ?Medication ?Instructions ?Recorded ?Confirmed ?Type carvedilol 12.5 mg tablet 12.5 mg PO BID 01/08/19 11/30/24 History rosuvastatin 10 mg tablet 10 mg PO HS 02/20/21 11/30/24 History pantoprazole 40 mg tablet,delayed 40 mg PO BID GERD 03/09/22 11/30/24 History release fluticasone propionate 50 1 spray intranasal DAILYP PRN 07/14/22 01/20/25 History mcg/actuation nasal Allergy Symptoms spray,suspension sucralfate 1 gram tablet 1 g PO ACHS 06/03/23 11/30/24 History budesonide-formoterol HFA 160 2 inh inhalation BIDRT 11/14/24 11/30/24 History mcg-4.5 mcg/actuation aerosol inhaler (Symbicort) buspirone 10 mg tablet 10 mg PO BID 11/14/24 11/30/24 History donepezil 5 mg tablet 5 mg PO HS 11/14/24 11/30/24 History nifedipine 30 mg tablet,extended 30 mg PO DAILY 11/14/24 11/30/24 History release azithromycin 250 mg tablet 250 mg PO DAILY 3 days #3 tabs 11/16/24 11/30/24 Rx cefdinir 300 mg capsule 300 mg PO BID 10 days #20 caps 11/16/24 11/30/24 Rx hydrocodone 5 mg-acetaminophen 325 1 tab PO TID #90 tabs 11/30/24 Rx mg tablet New Prescriptions to Start Prescriptions: Allergies Allergy/AdvReac Type Severity Reaction Status Date / Time Sulfa (Sulfonamide Allergy Intermediate HEART RACES Verified 06/03/23 15:03 Antibiotics) (SULFA (SULFONAMIDE ANTIBIOTICS)) Iodinated Contrast Media AdvReac Intermediate anxiety, Verified 11/15/24 09:16 rash Assessment and Plan *Assessment and plan (1) Lumbar radiculopathy: Status: Acute Category: Medical Code(s): M54.16 - Radiculopathy, lumbar region (2) CKD (chronic kidney disease) stage 3, GFR 30-59 ml/min: Status: Chronic Qualifiers: Chronic kidney disease stage 3 subtype: stage 3a (GFR 45-59) Qualified Code(s): N18.31 - Chronic kidney disease, stage 3a Category: Medical Code(s): N18.30 - Chronic kidney disease, stage 3 unspecified Plan We will refill the patient's Clovis and compounded cream and have the patient return to the clinic in 1 month. Patient agrees with this plan of care. This visit did occur from 24 10- Risks and benefits of the medication have been explained in detail to the patient. The patient does understand the risk of dependence on the medication when given over a prolonged period. Patient has been advised of risks of oversedation with the prescribed medication. Narcan has been offered to the paitent in the event of oversedation. Patient has been advised that a family member should also be educated regarding administration of Narcan. The patient has been advised to consult with his/her primary care provider and pharmacist regarding drug-drug interaction of medications currently prescribed. Patient has been prescribed a controlled substance after being counseled on the medication, medication safety, and possible side effects. Opioid contract was reviewed and signed by the patient, and that they have agreed to all of the terms set forth by our compliance program. A UDS is needed to verify patient's compliance with our office pain contract. This is ordered based off specific treatments related to chronic pain with the potential to abuse certain medications. Patient has been instructed to contact the clinic with any concerns before the next appointment. Dr. Mukherjee has reviewed this note and agrees with this plan of care. This note was dictated using voice recognition software and make contain errors or omissions.
== END 2024-12-31 23:59 | disposition home or self-care (01) ==
PROVIDERS: Visit Provider Nurse Practitioner Family
DX: M54.16 Radiculopathy, lumbar region (principal); N18.31 Chronic kidney disease, stage 3a; Z87.891 Personal history of nicotine dependence
CPT/HCPCS: 99212; G0463

== ENCOUNTER 2025-01-14 10:58 | Outpatient (CLI) | payer MEDICARE, OTHER, SELFPAY ==
--- NOTE | 2025-01-14 10:59 | CT_ITS ---
FINAL REPORT CLINICAL HISTORY: Sob COMPARISON: 11/15/2024 FINDINGS: CT CHEST without contrast COMPARISON: 11/15/2024. TECHNIQUE: Axial CT without contrast This study was performed with techniques to keep radiation doses as low as reasonably achievable, (ALARA). Individualized dose reduction techniques using automated exposure control or adjustment of mA and/or kV according to the patient's size were employed. FINDINGS: Since the prior exam of 11/15/2024, there has been interval resolution of the peripheral opacity in the left lower lobe, consistent with resolved pneumonia. There are scattered areas of scar noted in the lung teague bilaterally. There are nodules in the upper lobes bilaterally, that are stable and likely represent old granulomatous, most 4 mm or less in size. There is a new ovoid subpleural density in the anterior left upper lobe, best seen on image #35 of series 2, measuring 12 mm in size. This is probably infectious in nature. A large hiatal hernia is present. No pleural or pericardial effusion is seen . No adenopathy or mass lesion is present . IMPRESSION: Interval resolution of the peripheral opacity in the left lower lobe, consistent with resolved pneumonia. New ovoid subpleural density anterior left upper lobe measuring 12 mm, probably infectious in nature. There are nodular upper lobe opacities, likely old granulomas, mostly 4 mm or less in size, stable. This study was performed using automated techniques to achieve radiation exposure as low as reasonably achievable Reviewed, Interpreted and Dictated by Jenise Covington MD Transcribed by Karla Silva Authenticated and . [facility]
== END 2025-01-14 23:59 | disposition home or self-care (01) ==
LOC: RAD 10:59
PROVIDERS: PCP Internal Medicine Adolescent Medicine; Visit Provider Internal Medicine Pulmonary Disease
DX: R91.8 Other nonspecific abnormal finding of lung field (principal)
CPT/HCPCS: 71250

== ENCOUNTER 2025-01-15 12:51 | Outpatient (CLI) | payer MEDICARE, OTHER, SELFPAY ==
[2025-01-15 13:40] VITALS: PULSE 60; PULSE 61
[2025-01-15] MEDS: ALBUTEROL 0.083% 2.5 MG/3 ML NEB IH (13:40)
== END 2025-01-15 23:59 | disposition home or self-care (01) ==
PROVIDERS: PCP Internal Medicine Adolescent Medicine; Visit Provider Internal Medicine Pulmonary Disease
DX: R06.09 Other forms of dyspnea (principal)
CPT/HCPCS: 94060; 94618; 94640; 94726; 94729; J7613

== ENCOUNTER 2025-01-28 13:36 | Outpatient (POV) | payer MEDICARE, OTHER, SELFPAY ==
[2025-01-28 14:11] VITALS: BP 109/43; PULSE 57; RESP 16; O2SAT 97; BMI 27.6
--- NOTE | 2025-01-28 14:20 | A.OFFVIS_ITS ---
[facility] Disclaimer: The information contained in this section may have been updated after the patient was seen, as this information can be updated by other users. Medical History Multiple lung nodules on CT History of smoking 10-25 pack years Hypertensive urgency Hypervolemia CKD (chronic kidney disease) Degenerative disc disease, lumbar Shortness of breath GI bleed History of recurrent UTI (urinary tract infection) Hyperlipidemia Essential hypertension Renal cyst GI bleed UTI (urinary tract infection) Dizziness Rheumatoid arthritis GI bleed Uterine procidentia Surgical History History of tonsillectomy and adenoidectomy H/O tubal ligation Family History Other Cancer Hyperlipidemia Hypertension Stroke Social History Smoking Status: Former smoker tobacco type: cigarettes packs per day: 1 second hand exposure: No alcohol intake: never substance use type: denies use current occupational status: other Travel in the last 8 weeks: None household members: none housing: house current occupational exposures/hazards: No caffeine: Yes PM Subjective & Objective Subjective Subjective:: Patient is a pleasant 79-year-old female who presents today for follow-up. Today she rates her pain a 4 out of 10. She denies any new trauma or injury. She does state that she still feels like the Coleman is working well for her and even better than the tramadol had been. Patient is prescribed Coleman 5 mg 3 times a day from our office along with compounded cream. She denies any side effects. She does state that on most days she takes it twice a day and that she does not need refills at this time. Patient has been having a little bit more pain in and around her left shoulder around the armpit. Patient states she has been using the compounded cream and this does seem to help. Her Eleazar has been reviewed and is appropriate. Review of Systems: General: No recent weight changes, no fever, no sleep disturbances Respiratory: No cough, no shortness of air, no recurring pulmonary infections Cardiovascular/peripheral vascular: No chest pain, no palpitations, no edema, no shortness of breath Gastrointestinal: No new onset incontinence, normal bowel movements reported Genitourinary: No new onset incontinence Musculoskeletal: Low back pain, left shoulder pain Psychiatric: [Normal mood/affect] Neurological: [Denies weakness in extremities], [denies balance issues] Pain at rest (0-10 scale): 4 Objective Objective:: Physical Exam: General: Alert and oriented x3, no acute distress, pleasant and cooperative Lungs: Respirations even and unlabored, symmetrical chest expansion Eyes: PERRL Musculoskeletal: Flexion and extension of lumbar [spine] somewhat guarded secondary to pain, [antalgic gait noted] Neurological: Speech clear, no gross sensory deficit Has patient had previous pain injection?: No Conservative treatment options previously tried: Prescription medications Length of treatment: Longer than 12 weeks Meds Home Medications and Allergies Home Medications ?Medication ?Instructions ?Recorded ?Confirmed ?Type carvedilol 12.5 mg tablet 12.5 mg PO BID 01/08/19 01/19/25 History rosuvastatin 10 mg tablet 10 mg PO HS 02/20/21 01/19/25 History pantoprazole 40 mg tablet,delayed 40 mg PO BID GERD 03/09/22 01/19/25 History release fluticasone propionate 50 1 spray intranasal DAILYP PRN 05/24/22 01/19/25 History mcg/actuation nasal Allergy Symptoms spray,suspension sucralfate 1 gram tablet 1 g PO ACHS 06/03/23 01/19/25 History budesonide-formoterol HFA 160 2 inh inhalation BIDRT 11/14/24 01/19/25 History mcg-4.5 mcg/actuation aerosol inhaler (Symbicort) buspirone 10 mg tablet 10 mg PO BID 11/14/24 01/19/25 History donepezil 5 mg tablet 5 mg PO HS 11/14/24 01/19/25 History hydrocodone 5 mg-acetaminophen 325 1 tab PO TID #90 tabs 12/31/24 01/19/25 Rx mg tablet rnsjrrig-wgjzzglm-bhvky acid 240 tab PO 01/13/25 01/19/25 History mcg-vit K1 150 mcg-herb 357 tablet (Alive Women's 50 Plus Ultra Multivitamin) New Prescriptions to Start Prescriptions: Allergies Allergy/AdvReac Type Severity Reaction Status Date / Time Sulfa (Sulfonamide Allergy Intermediate HEART RACES Verified 01/13/25 11:26 Antibiotics) (SULFA (SULFONAMIDE ANTIBIOTICS)) Iodinated Contrast Media AdvReac Intermediate anxiety, Verified 01/13/25 11:26 rash Assessment and Plan *Assessment and plan (1) Lumbar radiculopathy: Status: Acute Category: Medical Code(s): M54.16 - Radiculopathy, lumbar region (2) Left shoulder pain: Status: Acute Category: Medical Code(s): M25.512 - Pain in left shoulder Plan Patient does not need refills on her medication currently. I will give her a tentative 1 month follow-up. Patient agrees with this plan of care. Patient has been instructed to contact the clinic with any concerns before the next appointment. Dr. Mukherjee has reviewed this note and agrees with this plan of care. This note was dictated using voice recognition software and make contain errors or omissions. All injections are used with Lidocaine, Bupivacaine and Depo Medrol. Occasionally urine drug screen is needed to verify patient's compliance with our office pain contract. This is ordered based off specific treatments related to chronic pain with the potential to abuse certain medications.
== END 2025-01-28 23:59 | disposition home or self-care (01) ==
LOC: SC.PAIN 13:37
PROVIDERS: PCP Internal Medicine Adolescent Medicine; Visit Provider Nurse Practitioner Family
DX: M54.16 Radiculopathy, lumbar region (principal); M25.512 Pain in left shoulder; Z87.891 Personal history of nicotine dependence
CPT/HCPCS: 99212; G0463

== ENCOUNTER 2025-02-25 13:29 | Outpatient (POV) | payer MEDICARE, OTHER, SELFPAY ==
--- NOTE | 2025-02-25 13:40 | A.OFFVIS_ITS ---
[facility] Disclaimer: The information contained in this section may have been updated after the patient was seen, as this information can be updated by other users. Medical History Multiple lung nodules on CT History of smoking 10-25 pack years Hypertensive urgency Hypervolemia CKD (chronic kidney disease) Degenerative disc disease, lumbar Shortness of breath GI bleed History of recurrent UTI (urinary tract infection) Hyperlipidemia Essential hypertension Renal cyst GI bleed UTI (urinary tract infection) Dizziness Rheumatoid arthritis GI bleed Uterine procidentia Surgical History History of tonsillectomy and adenoidectomy H/O tubal ligation Family History Other Cancer Hyperlipidemia Hypertension Stroke Social History Smoking Status: Former smoker tobacco type: cigarettes packs per day: 1 second hand exposure: No alcohol intake: never substance use type: denies use current occupational status: other Travel in the last 8 weeks: None household members: none housing: house current occupational exposures/hazards: No caffeine: Yes PM Subjective & Objective Subjective Subjective:: Patient is a pleasant 79-year-old female who presents today for medication refill and follow-up. Today she rates her pain a 4 out of 10. She states overall she really does feel like the Morrow has done much better to provide improvement compared to the tramadol. Patient does state that she did take an extra Tylenol today and that is really helped additionally. Patient is getting weaned from her oxygen and states that that is going overall really well. Patient is prescribed Morrow 5 mg 3 times a day from our office along with compounded cream. She denies any side effects. Her Eleazar has been reviewed and is appropriate. Review of Systems: General: No recent weight changes, no fever, no sleep disturbances Respiratory: No cough, no shortness of air, no recurring pulmonary infections Cardiovascular/peripheral vascular: No chest pain, no palpitations, no edema, no shortness of breath Gastrointestinal: No new onset incontinence, normal bowel movements reported Genitourinary: No new onset incontinence Musculoskeletal: Low back pain Psychiatric: [Normal mood/affect] Neurological: [Denies weakness in extremities], [denies balance issues] Pain at rest (0-10 scale): 4 Objective Objective:: Physical Exam: General: Alert and oriented x3, no acute distress, pleasant and cooperative Lungs: Respirations even and unlabored, symmetrical chest expansion Eyes: PERRL Musculoskeletal: Flexion and extension of lumbar [spine] somewhat guarded secondary to pain, [antalgic gait noted] Neurological: Speech clear, no gross sensory deficit Has patient had previous pain injection?: No Conservative treatment options previously tried: Prescription medications Length of treatment: Longer than 12 weeks Meds Home Medications and Allergies Home Medications ?Medication ?Instructions ?Recorded ?Confirmed ?Type carvedilol 12.5 mg tablet 12.5 mg PO BID 01/08/19 01/28/25 History rosuvastatin 10 mg tablet 10 mg PO HS 02/20/21 01/28/25 History pantoprazole 40 mg tablet,delayed 40 mg PO BID GERD 03/09/22 01/28/25 History release fluticasone propionate 50 1 spray intranasal DAILYP PRN 05/24/22 01/28/25 History mcg/actuation nasal Allergy Symptoms spray,suspension sucralfate 1 gram tablet 1 g PO ACHS 06/03/23 01/28/25 History budesonide-formoterol HFA 160 2 inh inhalation BIDRT 11/14/24 01/28/25 History mcg-4.5 mcg/actuation aerosol inhaler (Symbicort) buspirone 10 mg tablet 10 mg PO BID 11/14/24 01/28/25 History donepezil 5 mg tablet 5 mg PO HS 11/14/24 01/28/25 History hydrocodone 5 mg-acetaminophen 325 1 tab PO TID #90 tabs 12/31/24 01/28/25 Rx mg tablet dozfulik-zvgafbgw-ozppf acid 240 1 tab PO DIRECTED 01/13/25 01/28/25 History mcg-vit K1 150 mcg-herb 357 tablet (Alive Women's 50 Plus Ultra Multivitamin) New Prescriptions to Start Prescriptions: Allergies Allergy/AdvReac Type Severity Reaction Status Date / Time Sulfa (Sulfonamide Allergy Intermediate HEART RACES Verified 01/13/25 11:26 Antibiotics) (SULFA (SULFONAMIDE ANTIBIOTICS)) Iodinated Contrast Media AdvReac Intermediate anxiety, Verified 01/13/25 11:26 rash Assessment and Plan *Assessment and plan (1) Lumbar radiculopathy: Status: Acute Category: Medical Code(s): M54.16 - Radiculopathy, lumbar region (2) Left shoulder pain: Status: Acute Category: Medical Code(s): M25.512 - Pain in left shoulder Plan I will refill the patient's Morrow and provide a 1 month supply of this medication. Patient is doing well with this regimen and I will have her back in 2 months for reevaluation of symptoms and plan of care. Risks and benefits of the medication have been explained in detail to the patient. The patient does understand the risk of dependence on the medication when given over a prolonged period. Patient has been advised of risks of oversedation with the prescribed medication. Narcan has been offered to the paitent in the event of overs edation. Patient has been advised that a family member should also be educated regarding administration of Narcan. The patient has been advised to consult with his/her primary care provider and pharmacist regarding drug-drug interaction of medications currently prescribed. Patient has been prescribed a controlled substance after being counseled on the medication, medication safety, and possible side effects. Opioid contract was reviewed and signed by the patient, and that they have agreed to all of the terms set forth by our compliance program. A UDS is needed to verify patient's compliance with our office pain contract. This is ordered based off specific treatments related to chronic pain with the potential to abuse certain medications. Patient has been instructed to contact the clinic with any concerns before the next appointment. Dr. Mukherjee has reviewed this note and agrees with this plan of care. This note was dictated using voice recognition software and make contain errors or omissions.
[2025-02-25 14:51] VITALS: BP 130/76; PULSE 57; RESP 16; O2SAT 96; BMI 27.4
== END 2025-02-25 23:59 | disposition home or self-care (01) ==
PROVIDERS: PCP Internal Medicine Adolescent Medicine; Visit Provider Nurse Practitioner Family
DX: M54.16 Radiculopathy, lumbar region (principal); M25.512 Pain in left shoulder; Z87.891 Personal history of nicotine dependence
CPT/HCPCS: 99212; G0463

== ENCOUNTER 2025-04-21 14:11 | Outpatient (POV) | payer MEDICARE, OTHER, SELFPAY ==
--- OUTSIDE RECORDS SUMMARY | 2025-03-15 07:00 | XMS_ITS ---
Author Organization [facility] Address [address] [place] [address] Care Team Providers Care Chinese Instructor Name Role Phone Mayank Jimenes Primary Care Provider Allergies Allergen (clinical drug ingredient) Drug/Non Drug Allergy documented on EMR Reaction Allergy Type Onset Date Status SULFA (uncoded) itching Allergy Acti ve SULFATE BASED DRUGS (uncoded) heart problems Allergy Active REASON FOR VISIT 2 month check up, wants to talk to Dr. Jimenes by himself a few minutes before apt., anxiety is worse, gets anxious and breathing gets bad, having more confusion, is more emotional, needs duoneb and albuterol for nebulizer sent to pharmacy, does she still need to be on donepezil 5mg-if so, needs a refill, c/o being dry, anxiety gets worse at night-is wanting something to calm her down at night Medications Medication SIG (Take, Route, Frequency, Duration) Notes Start Date End Date Status Sucralfate 1 GM 1 tab(s) orally once a day for 30 days Active Carvedilol 12.5 MG 1 tab(s) orally 2 times a day for 30 days 10/29/2024 Active busPIRone HCl 10 MG 1 tab(s) orally twic e daily for 90 days 03/28/2024 Active Rosuvastatin Calcium 10 MG 1 tab(s) orally at night for 90 days Active Symbicort 160-4.5 MCG/ACT 2 INH inhaled 2 times a day for 30 days Please dispense spacer for MDI 10/14/2024 Active Ipratropium-Albutero l 0.5-2.5 (3) MG/3ML 3 mL by nebulizer three times a day for 90 days DX: R06.02, R06.2, R05.9, J96.21 01/25/2025 Active Pantoprazole Sodium 40 MG 1 tab(s) orally twice a day for 90 days Active Azelastine HCl 137 MCG/SPRAY 2 spray(s) in each nostril 2 times a day for 30 days 03/28/2024 Active Furosemide 20 MG 1 tab(s) orally twic e a week. for 30 days 06/24/2024 Active Nystatin 648531 UNIT/GM 1 boogie applied topically 2 times a day for 30 days prn 06/30/2024 Active ZOFRAN 4 MG 1 TAB(S) ORALLY 3 TIMES A DAY NEEDED FOR NAUSEA for 10 DAY(S) prn *Please review for potential replacement for e-prescription and drug interaction check* 11/02/2021 Active Fluticasone Propionate 50 MCG/ACT 2 spray(s) in each nostril once a day for 30 day(s) prn 08/29/2022 Active Triamcinolone Acetonide 0.5 % 1 boogie applied topically 2 times a day for 7 day(s) 04/24/2023 Active Brexpiprazole 1 MG 1 tablet Orally Once a day for 30 day(s) 03/15/2025 Active Estrace 0.1 MG/GM one applicator intravaginally 3 times a week for 30 day(s) Active MIRALAX (OBSOLETE) prn *Please review for potential replacement for e-prescription and drug interaction check* Active Tylenol 325 MG 2 tab(s) orally ever y 4 hours prn Active Lidocaine 4 % 1 boogie applied topically 3 times a day KEt/Juan Pablo/Lido/Clin /IBU compound Active MARCI 180 MG 1 TAB QD PRN prn *Please review for potential replacement for e-prescription and drug interaction check* Active HYDROcodone-Acetamin ophen 5-325 MG 1/2 tab(s) orally every 6 hours Active Donepezil HCl 5 MG 1 tab Orally Once a day for 14 days Active Centrum Silver Women 50+ *Please review and pick correct strength-formulat ion from [employer] options. If intended option is not shown, discontinue and re-order from Quick Search* Active Problems Problem Type SNOMED Code ICD Code Onset Dates Problem Status W/U Status Risk Notes Problem 216582440 COPD, moderate (J44.9) Active confirmed Problem 98751062 Moderate dementia with agitation, unspecified dementia type (F03.B11) Active confirmed Vital Signs Temperature 97.9 degrees Fahrenheit 03/15/20 25 Heart Rate 68 /min 03/15/2025 Blood pressure systolic 114 mm Hg 03/15/20 25 Blood pressure diastolic 64 mm Hg 025 Height 64.5 in 03/15/2025 Weight 163.2 lbs 03/15/2025 BMI 27.58 kg/m2 03/15/2025 Encounters Encounter Location Date Provider Diagnosis [facility] [address] [place] [address] 03/15/2025 Mayank Jimenes COPD, moderate J44.9 and Moderate dementia with agitation, unspecified dementia type F03.B11 Assessments Encounter Date Diagnosis (ICD Code) Assessment Notes Treatment Notes Treatment Clinical Notes Section Notes 03/15/2025 COPD, moderate (ICD-10 - J44.9) Continue as needed oxygen therapy and nebulizer treatments. No other changes in plan. Fairly good functional status. 03/15/2025 Moderate dementia with agitation, unspecified dementia type (ICD-10 - F03.B11) Overall patient stable, safe home environment. They are thinking about going to a mini home, but patient does not know that. Given increasing agitation problems will trial low-dose Rexulti. Started this and will follow-up closely. Plan Of Treatment Medication Medication Name Sig Start Date Stop Date Notes Ipratropium-Albuterol 0.5-2.5 (3) MG/3ML 3 mL by nebulizer three times a day for 90 days 01/25/2025 DX: R06.02, R06.2, R05.9, J96.21 Brexpiprazole 1 MG 1 tablet Orally Once a day for 30 day(s) 03/15/2025 Treatment Notes Assessment Notes COPD, moderate Continue as needed o xygen therapy and nebulizer treatments. No other changes in plan. Fairly good functional status. Moderate dementia with agita tion, unspecified dementia type Overall patient stable, safe home environment. They are thinking about going to a mini home, but patient does not know that. Given increasing agitation problems will trial low-dose Rexulti. Started this and will follow-up closely. Next Appt Details Follow Up: 2 Weeks, Reason: Provider Name:Mayank Jimenes, 06/14/2025 12:15:00 PM, [address], [place], [address], Progress Notes * Trice RICHARDS LDOB:1945 (79 yo F)Acc No.[id number]:03/15/2025 Progress Notes Patient: Trice BARRAZA Provider: Juan Jimenes MD :1945 A ge:79 Y S ex:Female Date:03/15/2025 Address:[address] [place] [address] [address] [place], [id number] Subjective: * Chief Complaints: * 1 . 2 month check up, wants to talk to Dr. Jimenes by himself a few minutes before apt.. 2. Anxiety is worse, gets anxious and breathing gets bad. 3. Having more confusion, is more emotional. 4. Needs duoneb and albuterol for nebulizer sent to pharmacy. 5. Does she still need to be on donepezil 5mg-if so, needs a refill. 6. C/o being dry. 7. Anxiety gets worse at night-is wanting something to calm her down at night. * HPI: g en: History as above. I talked with her son a little bit before I talked with the patient. He reports that in the evenings she does a little bit of sundowning and becomes slightly agitated and sometimes resists care. She does report that she is very concerned about people who are dying including younger people in the family who are not . She also gets very agitated when the television goes off for no apparent reason in her opinion. During the day she is a bit better. We stopped the donepezil because of lack of effectiveness with her memory issues. * Medical History: R A, osteoporosis, Spinal stenosis, Degenerative disc disease, Sciatic nerve problems, Low Vitamin D, Normal mammogram 02/25 and 11/2018, negative cologuard screening February 2017 and again in 07/2020, severe osteoporosis on DEXA scan in December 2018. Medical therapy started - still low in 01/31... prolia recommended. * Surgical History: T onsillectomy 1951, Barthlin cyst removal 1979, Breast tissue removed , Cataract removal rt eye 2008, Cararact removal lt eye 2012, Epidural injs x 2 2016, Upper GI 02/2022, Upper GI 05/2022, Teeth extraction 05/2023, Vaginal reconstruction 02/2024. * Hospitalization/Major Diagno stic Procedure: T onsillectomy , Child -tubal ligation , D&C , Blood pressure, sciatic 03/2017, vomiting blood 02/2022, pneumonia-[facility] 11/2024. * Family History: F ather: . M other: . P aternal Grand Father: . P aternal Grand Mother: . M aternal Grand Father: . M aternal Grand Mother: . Paternal uncle: . P aternal aunt: . M aternal uncle: . M aternal aunt: . S iblings: alive. C gwendolyn: alive, youngest son- prostate cancer- radiation damaged bladder- required a ileostomy. 4 sister(s) . 3 son(s) - healthy. . There is no family history of free bleeding, difficulty with anesthesia or malignant hyperthermia. * Social History: S moking A re you a:: nonsmoker. R ecreational drug use: no. Exercise: yes. Home smoke detector use: yes. Caffeine: yes, frequency:coffee-2 cups per day. Living Will: Yes. Alcohol: no. Sexually active: no. Travel outside [place]: no. Occupation: Retired. * Medications: T aking Centrum Silver Women 50+ , Notes to Pharmacist: *Please review and pick correct strength-formulation from [employer] options. If intended option is not shown, discontinue and re-order from Quick Search*, Taking HYDROcodone-Acetaminophen 5- 325 MG Tablet 1/2 tab(s) orally every 6 hours , Taking MIRALAX (OBSOLETE) , Notes to Pharmacist: prn *Please review for potential replacement for e-prescription and drug interaction check*, Taking Tylenol 325 MG Tablet 2 tab(s) orally every 4 hours , Notes to Pharmacist: prn, Taking Lidocaine 4 % Cream 1 boogie applied topically 3 times a day , Notes to Pharmacist: KEt/Juan Pablo/Lido/Clin/IBU compound, Taking MARCI 180 MG 1 TAB QD PRN , Notes to Pharmacist: prn *Please review for potential replacement for e-prescription and drug interaction check*, Taking ZOFRAN 4 MG TABLET 1 TAB(S) ORALLY 3 TIMES A DAY NEEDED FOR NAUSEA , Notes to Pharmacist: prn *Please review for potential replacement for e-prescription and drug interaction check*, Taking Fluticasone Propionate 50 MCG/ACT Suspension 2 spray(s) in each nostril once a day , Notes to Pharmacist: prn, Taking Triamcinolone Acetonide 0.5 % Ointment 1 boogie applied topically 2 times a day , Taking Estrace 0.1 MG/GM Cream one applicator intravaginally 3 times a week , Taking Azelastine HCl 137 MCG/SPRAY Solution 2 spray(s) in each nostril 2 times a day , Taking Furosemide 20 MG Tablet 1 tab(s) orally twice a week. , Taking Nystatin 497899 UNIT/GM Cream 1 boogie applied topically 2 times a day , Notes to Pharmacist: prn, Taking Pantoprazole Sodium 40 MG Tablet Delayed Release 1 tab(s) orally twice a day , Taking Rosuvastatin Calcium 10 MG Tablet 1 tab(s) orally at night , Taking Symbicort 160-4.5 MCG/ACT Aerosol 2 INH inhaled 2 times a day , Notes to Pharmacist: Please dispense spacer for MDI, Taking Sucralfate 1 GM Tablet 1 tab(s) orally once a day , Taking Carvedilol 12.5 MG Tablet 1 tab(s) orally 2 times a day , Taking busPIRone HCl 10 MG Tablet 1 tab(s) orally twice daily , Taking Ipratropium-Albuterol 0.5-2.5 (3) MG/3ML Solution 3 mL by nebulizer three times a day , Notes to Pharmacist: DX: R06.02, R06.2, R05.9, J96.21, Taking Donepezil HCl 5 MG Tablet 1 tab Orally Once a day , Medication List reviewed and reconciled with the patient * Allergies: S ULFA: itching, SULFATE BASED DRUGS: heart problems. Objective: * Vitals: N urse: jl, Pain: 5, Temp: 97.9, RR: 20, HR: 68, BP: 114/64, Ht: 64.5, Wt: 163.2, BMI:27.58. * Examination: G eneral Examination: General P leasant and Cooperative, NAD on RA,. HEENT: p harynx and tonsils normal, TM's normal. Lungs: L CTAB, No wheezes, crackles or rhonchi, Good air movement,. Assessment: * Assessment: 1. C OPD, moderate - J44.9 (Primary) 2 . M oderate dementia with agitation, unspecified dementia type - F03.B11 Plan: * Treatment: 2. M oderate dementia with agitation, unspecified dementia type Start Brexpiprazole Tablet, 1 MG, 1 tablet, Orally, Once a day, 30 day(s), 30. Notes: Overall patient stable, safe home environment. They are thinking about going to a mini home, but patient does not know that. Given increasing agitation problems will trial low-dose Rexulti. Started this and will follow-up closely. * Follow Up: 2 Weeks * * Sign off status: Completed true * Provider: Juan Jimenes MD Date: 0 03/15/2025 Generated for Printi ng/Charan/eTransmitting on: 0 04/21/2025 02:14 PM EDT History and Physical Notes * Examination Category Sub-Category Detail Notes Category Not es General Examination HEENT: pharynx and tonsils normal, TM's normal Lungs: LCTAB, No wheezes, c rackles or rhonchi, Good air movement, General Pleasant and Coopera tive, NAD on RA,
--- OUTSIDE RECORDS SUMMARY | 2025-03-29 10:30 | XMS_ITS ---
Author Organization [facility] Address [address] [facility] [address] [place] [address] Care Team Providers Care Cosmetics Supervisor Name Role Phone Mayank Jimenes Primary Care Provider Allergies Allergen (clinical drug ingredient) Drug/Non Drug Allergy documented on EMR Reaction Allergy Type Onset Date Status SULFA (uncoded) itching Allergy Acti ve SULFATE BASED DRUGS (uncoded) heart problems Allergy Active REASON FOR VISIT 2 week follow up Medications Medication SIG (Take, Route, Frequency, Duration) Notes Start Date End Date Status Donepezil HCl 5 MG 1 tab Orally Once a day for 14 days Active busPIRone HCl 10 MG 1 tab(s) orally twic e daily for 90 days 03/28/2024 Active Ipratropium-Albutero l 0.5-2.5 (3) MG/3ML 3 mL by nebulizer three times a day for 90 days DX: J44.9 01/25/2025 Active Rosuvastatin Calcium 10 MG TAKE 1 TABLET BY MOUTH AT NIGHT for 90 Active Nystatin 911918 UNIT/GM 1 boogie applied topically 2 times a day for 30 days prn 06/30/2024 Active Carvedilol 12.5 MG 1 tab(s) orally 2 times a day for 30 days 10/29/2024 Active Sucralfate 1 GM 1 tab(s) orally once a day for 30 days Active Symbicort 160-4.5 MCG/ACT 2 INH inhaled 2 times a day for 30 days Please dispense spacer for MDI 10/14/2024 Active Pantoprazole Sodium 40 MG 1 tab(s) orally twice a day for 90 days Active Triamcinolone Acetonide 0.5 % 1 boogie applied topically 2 times a day for 7 day(s) 04/24/2023 Active Fluticasone Propionate 50 MCG/ACT 2 spray(s) in each nostril once a day for 30 day(s) prn 08/29/2022 Active Furosemide 20 MG 1 tab(s) orally twic e a week. for 30 days 06/24/2024 Active Azelastine HCl 137 MCG/SPRAY 2 spray(s) in each nostril 2 times a day for 30 days 03/28/2024 Active Estrace 0.1 MG/GM one applicator intravaginally 3 times a week for 30 day(s) Active ZOFRAN 4 MG 1 TAB(S) ORALLY 3 TIMES A DAY NEEDED FOR NAUSEA for 10 DAY(S) prn *Please review for potential replacement for e-prescription and drug interaction check* 11/02/2021 Active SEROquel 25 MG 1/2 - 1 tab Orally Once a day for 30 days 03/29/2025 Active MARCI 180 MG 1 TAB QD PRN prn *Please review for potential replacement for e-prescription and drug interaction check* Active Lidocaine 4 % 1 boogie applied topically 3 times a day KEt/Juan Pablo/Lido/Clin /IBU compound Active Tylenol 325 MG 2 tab(s) orally ever y 4 hours prn Active HYDROcodone-Acetamin ophen 5-325 MG 1/2 tab(s) orally every 6 hours Active Centrum Silver Women 50+ *Please review and pick correct strength-formulat ion from [facility] options. If intended option is not shown, discontinue and re-order from Quick Search* Active MIRALAX (OBSOLETE) prn *Please review for potential replacement for e-prescription and drug interaction check* Active Vital Signs Temperature 97.7 degrees Fahrenheit 03/29/20 25 Heart Rate 72 /min 03/29/2025 Blood pressure systolic 120 mm Hg 03/29/20 25 Blood pressure diastolic 76 mm Hg 025 Height 64.5 in 03/29/2025 Weight 163 lbs 03/29/2025 BMI 27.54 kg/m2 03/29/2025 Encounters Encounter Location Date Provider Diagnosis [facility] [address] [facility] [address] [place], [place] [address] 03/29/2025 Mayank Jimenes Moderate dementia with agitation, unspecified dementia type F03.B11 and COPD, moderate J44.9 Assessments Encounter Date Diagnosis (ICD Code) Assessment Notes Treatment Notes Treatment Clinical Notes Section Notes 03/29/2025 Moderate dementia with agitation, unspecified dementia type (ICD-10 - F03.B11) -tried 5d of Rexulti scheduled; stopped then used 1/2 the buspar BID for 2d and then back to BID dosing -Had troubles w/drooling, slower cognition, anxiety seemed to worsen on Rexulti w/felt cognition was slowed- Per RN daughter in law, appeared obtunded. -Cecily Menezes had some of her better days- -now on Nebs for breathing titrating up to BID (eventually to TID) -ongoing nightly anxiety; family interested in alternative med for severe breakthrough anxiety which occurs intermittently- interested in PRN options -Seroquel 12.5mg-25mg (starting at 12.5mg) qHS PRN for severe agitation related to anxiety 03/29/2025 COPD, moderate (ICD-10 - J44.9) -improved, stable -brief period of congestion since last visit that self resolved Plan Of Treatment Medication Medication Name Sig Start Date Stop Date Notes SEROquel 25 MG 1/2 - 1 tab Orally Once a day for 30 days 0 03/29/2025 Treatment Notes Assessment Notes Moderate dementia with agita tion, unspecified dementia type -tried 5d of Rexulti scheduled; stopped then used 1/2 the buspar BID for 2d and then back to BID dosing -Had troubles w/drooling, slower cognition, anxiety seemed to worsen on Rexulti w/felt cognition was slowed- Per RN daughter in law, appeared obtunded. -Cecily Menezes had some of her better days- -now on Nebs for breathing titrating up to BID (eventually to TID) -ongoing nightly anxiety; family interested in alternative med for severe breakthrough anxiety which occurs intermittently- interested in PRN options -Seroquel 12.5mg-25mg (starting at 12.5mg) qHS PRN for severe agitation related to anxiety COPD, moderate -improved, stable -brief period of congestion since last visit that self resolved Next Appt Details Follow Up: prn, Reason: Provider Name:Mayankchristiano Jimenes, 06/14/2025 12:15:00 PM, [address], [address], [place], [address], Progress Notes * Trice RICHARDS LDOB:1945 (79 yo F)Acc No.[id number]:03/29/2025 Progress Notes Patient: Trice BARRAZA Provider: Juan Jimenes MD :1945 A ge:79 Y S ex:Female Date:03/29/2025 Address:[address] [place] [address] , [place], [id number] Subjective: * Chief Complaints: * 1 . 2 week follow up. * HPI: g en: Close follow-up on Rexulti for qHS anxiety ISO dementia. See A/P for details. * Medical History: R A, osteoporosis, Spinal [...] M aternal aunt: . S iblings: alive. Trever snow: alive, youngest son- prostate cancer- radiation damaged [...] *Please review and pick correct strength-formulation from [facility] options. If intended option is not shown, [...] orally twice a week. , Taking Nystatin 375953 UNIT/GM Cream 1 boogie applied topically 2 times a day , Notes to Pharmacist: prn, Taking Pantoprazole Sodium 40 MG Tablet Delayed Release 1 tab(s) orally twice a day , Taking Symbicort 160-4.5 MCG/ACT Aerosol 2 INH inhaled 2 times a day , Notes to Pharmacist: Please dispense spacer for MDI, Taking Sucralfate 1 GM Tablet 1 tab(s) orally once a day , Taking Carvedilol 12.5 MG Tablet 1 tab(s) orally 2 times a day , Taking busPIRone HCl 10 MG Tablet 1 tab(s) orally twice daily , Taking Donepezil HCl 5 MG Tablet 1 tab Orally Once a day , Taking Ipratropium-Albuterol 0.5-2.5 (3) MG/3ML Solution 3 mL by nebulizer three times a day , Notes to Pharmacist: DX: J44.9, Taking Rosuvastatin Calcium 10 MG Tablet TAKE 1 TABLET BY MOUTH AT NIGHT , Discontinued Brexpiprazole 1 MG Tablet 1 tablet Orally Once a day , Medication List reviewed and reconciled with the patient * Allergies: S ULFA: itching, SULFATE BASED DRUGS: heart problems. Objective: * Vitals: N urse: be, Pain: 4, Temp: 97.7, RR: 18, HR: 72, BP: 120/76, Ht: 64.5, Wt: 163, BMI:27.54. * Examination: G eneral Examination: General P leasant elderly gal of stated age, resting in wheelchair. Does not remember anxiety events but AOx2. Heart: R egular Rate and Rhythm, no murmur, rubs or gallops. Lungs: L CTAB, No wheezes, crackles or rhonchi, Good air movement,. Skin: w ithout acute rashes. Psych N ormal Mood/Affect, pleasantly confused. ? Assessment: * Assessment: 1. M oderate dementia with agitation, unspecified dementia type - F03.B11 (Primary) ?2. C OPD, moderate - J44.9 Plan: * Treatment: 2. C OPD, moderate Notes: -improved, stable -brief period of congestion since last visit that self resolved * Follow Up: p rn * * Sign off status: Completed true * Provider: Juan Jimenes MD Date: 0 03/29/2025 Generated for Armen bonilla/Charan/Sarahitting on: 0 04/21/2025 02:15 PM EDT History and Physical Notes * HPI (History of Present Illness) Category Sub-Category Detail Notes Category Not es gen Close follow-up on Rexulti for qHS anxiety ISO dementia. See A/P for details. Examination Category Sub-Category Detail Notes Category Not es General Examination Heart: Regular Rate and Rhythm, no murmur, rubs or gallops Lungs: LCTAB, No wheezes, c rackles or rhonchi, Good air movement, Skin: without acute rashes General Pleasant elderly gal of stated age, resting in wheelchair. Does not remember anxiety events but AOx2 Psych Normal Mood/Affect, pleasantly confused
--- OUTSIDE RECORDS SUMMARY | 2025-04-12 08:15 | XMS_ITS ---
Author Organization [facility] Address [address] [place] [address] Care Team Providers Care Assistant Scientist Name Role Phone Mayank Jimenes Primary Care Provider [phone] Allergies Allergen (clinical drug ingredient) Drug/Non Drug [...] 90 days DX: J44.9 01/25/2025 Active Nystatin 388773 UNIT/GM 1 boogie applied topically 2 times [...] review and pick correct strength-formulat ion from [employer]press options. If intended option is not shown, [...] [facility] [address] [facility] [address] [place] [address] 04/12/2025 Mayank Jimenes Moderate dementia with agitation, [...] BuSpar in the mornings. Long discussion with [id number] about further living arrangements. They plan to [...] BuSpar in the mornings. Long discussion with [id number] about further living arrangements. They plan to be transitioning to a mini home in the next couple of weeks. COPD, moderate Currently on nebs. N o changes in plan, respiratory status seems good Next Appt Details Follow Up: prn,6 Weeks, Reas on: Provider Name:Mayank Jimenes, 06/14/2025 12:15:00 PM, [address] [facility], [address], [place], [address], Progress Notes * Trice RICHARDS LDOB:1945 (79 yo F)Acc No.[id number]:04/12/2025 Progress Notes Patient: Trice BARRAZA Provider: Juan [...] , Notes to Pharmacist: prn, Taking Nystatin 460808 UNIT/GM Cream 1 boogie applied topically 2 [...] Date: 04/12/2025 Generated for Armen bonilla/Charan/eTransmitting on: 04/21/2025 02:14 PM EDT History and Physical [...]
--- OUTSIDE RECORDS SUMMARY | 2025-04-21 14:13 | XMS_ITS ---
Author Name Auto Generated, Auto Generated Organization [facility] Address [address] [place] [address] Phone [phone] Care Team Providers Care Jelly Filter Tender Name Role Phone Tommy Moore Unavailable [phone] Cherellejeremias Mayank A Unavailable Tatum Bañuelos Unavailable [phone] Functional Status No Results Mental Status No Results Allergies and Intolerances Name Onset Date Reaction Severity Sulfa (Sulfonamide Antibiotics) (Allergy) Fri Ja n 10 09:30:00 EST 2024 Encounters Program Name Primary Diagnosis Admission Date/Time Dis charge Date/Time null Alzheimer's disease with late onset SatDec 01 19:00:00 EST 2024 Medications Medication Directions Start Date End Date carvediloL 12.5 mg tablet 1 Tablet Oral 2 Times Daily Indication: Hypertension SatNov 19 00:00:00 EST 2024 rosuvastatin 10 mg tablet 1 Tablet Oral 1 Time Daily Indication: High Cholesterol SatNov 24 00:00:00 EST 2024 Protonix 40 mg tablet,delayed release 1 Tablet Oral 2 Times Daily Indication: Acid Reflux SatNov 24 00:00:00 EST 2024 fluticasone propionate 50 mcg/actuation nasal spray,suspension 1 [place]by Intranasal PRN Indication: allergy symptoms and/or stuff nose SatNov 24 00:00:00 EST 2024 sucralfate 1 gram tablet 1 Tablet Oral 2 Times Daily Indication: Stomach ulcers SatNov 24 00:00:00 EST 2024 HYDROcodone 5 mg-acetaminophen 325 mg tablet 1 Tablet Oral PRN Every 8 Hours Indication: pain control SatNov 24 00:00:00 EST 2024 busPIRone 10 mg tablet 1 Tablet Oral 1 T ann Daily Indication: anxiety SatNov 24 00:00:00 EST 2024 donepeziL 5 mg tablet 1 Tablet Oral Hour Of Sleep Indication: Memory Loss SatNov 24 00:00:00 EST 2024 Problems No Known Problems Social History Social History Observation Description Date Smoking Status Former smoker SatNov 19 00:00 :00 EST 2024 Sex Female SatSep 27 00:00 :00 EDT 1945 Reason for Referral
--- OUTSIDE RECORDS SUMMARY | 2025-04-21 14:14 | XMS_ITS | Clinical Summary ---
Author Organization [facility] Address [address] [place] [address] Phone Care Team Providers Care Paint Trimmer Pipe Bowls Name Role Phone Mayank Jimenes MD Primary Care Provider [phone] Allergies Active Allergy Reactions Criticality Noted Date Comments Sulfa (Sulfonamide Antibiotics) Anaphylaxis High Medications lisinopriL (PRINIVIL;ZEST RIL) 10 mg Oral Tablet Take 10 mg by mouth 2 times daily. Active pantoprazole (PROTONIX) 40 mg Oral Tablet, Delayed Release (E.C.) Take 40 mg by mouth daily. Active amLODIPine (NORVASC) 2.5 mg Oral Tablet Take 2.5 mg by mouth daily. Active rosuvastatin (CRESTOR) 10 mg Oral Tablet Take 10 mg by mouth daily. Active sucralfate (CARAFATE) 1 gram Oral Tablet Take 1,000 mg by mouth as needed with meals. Active fexofenadine (MARCI) 180 mg Oral Tablet Take 180 mg by mouth daily. Active polyethylene glycol (GLYCOLAX) 17 gram/dose Oral Powder Begin Miralax, 17 g (1 capful) PO mixed in your favorite drink once a day beginning 1 week prior to surgery, after surgery drink this twice a day for 2 weeks 595 g 4 Active estradioL (ESTRACE) 0.01 % (0.1 mg/gram) Vagl CreamIndicatio ns:Vaginal atrophy APPLY PEA-SIZED AMOUNT USING FINGERTIP INTO THE VAGINA (OR INSTRUCTED) NIGHTLY UNTIL NEXT APPOINTMENT. 42.5 g 4 Active docusate sodium (COLACE) 100 mg Oral Capsule Take 1 Capsule by mouth 2 times daily. 60 Capsule 2 4 Active ondansetron (ZOFRAN-ODT) 4 mg Oral Tablet, Rapid Dissolve Take 1 Tablet by mouth every 6 hours as needed for Nausea. 30 Tablet 4 Active senna (SENOKOT) 8.6 mg Oral Tablet Take 1 Tablet by mouth daily as needed for Constipation. 30 Tablet 1 4 Active traMADoL (ULTRAM) 50 mg Oral Tablet Take 1 Tablet by mouth every 6 hours as needed for Pain. 20 Tablet 4 Active traMADoL (ULTRAM) 50 mg Oral Tablet Take 50 mg by mouth 2 times daily. Active fexofenadine (MARCI ALLERGY) 180 mg Oral Tablet 1 tab qd prn Ac tive triamcinolone (ARISTOCORT) 0.5 % Top Ointment 1 boogie applied topically 2 times a day for 7 day(s) 3 Active amLODIPine (NORVASC) 2.5 mg Oral Tablet Take 2.5 mg by mouth daily. 2 Active estradioL (ESTRACE) 0.01 % (0.1 mg/gram) Vagl Cream USE DIRECTED INTRAVAGINALLY 3 TIMES A WEEK FOR 30 DAYS 2 Active lidocaine-pril ocaine 4-2.5-2.5 % Top Kit, Cream & Gel 1 boogie applied topically 3 times a day Active Calcium Carbonate-Tena min D3 600 mg-5 mcg (200 unit) Oral Tablet 1 (one) time each day at the same time. Active carvediloL (COREG) 12.5 mg Oral Tablet 9 Active Cholecalcifero l, Vitamin D3, 25 mcg (1,000 unit) Oral Capsule Take 25 Capsules by mouth daily. Active estradioL (ESTRACE) 0.01 % (0.1 mg/gram) Vagl CreamIndicatio ns:Vaginal atrophy APPLY A PEA-SIZED AMOUNT USING FINGERTIP INTO THE VAGINA (OR INSTRUCTED) NIGHTLY UNTIL NEXT APPOINTMENT 43 g 4 Active Active Problems Problem Noted Date Diagnosed Date Uterovaginal prolapse, complete 02/10/2024 Uterus problem 12/05/2023 Incomplete bladder emptying 12/05/2023 Complete uterovaginal prolapse 09/03/2023 Mixed stress and urge urinary incontinence 09/03 Surgical History Surgery Date Site/Laterality Comments TONSILLECTOMY DILATION AND CURETTAGE OF UTERUS TUBAL LIGATION UPPER GASTROINTESTINAL ENDOSCOPY gastric ulcer cauterization CT COLPOCLEISIS [place] TYPE 02/10/2024 N/A [place] Colpocleisis, Posterior Repair with levator plication, Placement of Transobturator Midurethral Sling, Cystoscopy; Surgeon: Hortencia Ibarra MD; Location: [facility] MAIN OR; Service: Gynecology Medical devices from this surgery are in the Medical Devices section. RECTOCELE REPAIR 02/10/2024 N/A .; Surgeon: Hortencia Ibarra MD; Location: [facility] MAIN OR; Service: Gynecology Medical devices from this surgery are in the Medical Devices section. URETHROPEXY 02/10/2024 N/A .; Surgeon: Hortencia Ibarra MD; Location: [facility] MAIN OR; Service: Gynecology Medical devices from this surgery are in the Medical Devices section. Medical History Medical History Date Comments Hypertension Urinary incontinence Shortness of breath with long di stances Arthritis Heartburn Constipation Hiatal hernia Gastric ulcer Urinary tract infection Short-term memory loss Prolapse of female pelvic organs Family History Medical History Relation Name Comments Anesth Problems Other Relation Name Status Comments Father Mother Other Social History Tobacco Use Types Packs/Day Years Used Date Smoking Tobacco: Former Cigarettes Smokeless Tobacco: Never Tobacco Cessation:Counseling Given: Not Answered Alcohol Use Standard Drinks/Week Comments Never 0 (1 standard drink = 0.6 oz pur e alcohol) Comments No Sex and Gender Information Value Date Recorded Sex Assigned at Not on file Legal Sex Female 1:32 PM EDT Gender Identity Not on file Sexual Orientation Not on file Obstetrics History Last Filed Vital Signs Vital Sign Reading Time Taken Comments Blood Pressure 115/59 02/11/2024 7:59 AM EDT Pulse 81 10/06/2024 1:03 PM EST Temperature 36.4 C (97.6 F) 02/11/2024 7:59 AM EDT Respiratory Rate 16 02/11/2024 7:59 AM EDT Oxygen Saturation 99% 10/06/2024 1:03 PM EST Inhaled Oxygen Concentration - - Weight 70.3 kg (155 lb) 10/06/2024 1:03 PM EST Height 165.1 cm (5' 5 ) 01/22/2024 4:07 PM EDT Body Mass Index 25.79 01/22/2024 4:07 PM EDT Plan of Treatment Health Maintenance Due Date Last Done Comments Wellness Exam Medicare 1948 DTaP/TDaP/Td (1 - Tdap) 1962 Zoster (1 of 2) 1993 Bone Density Screening 2008 RSV or 60+ (1 - 1-dose 75+ series) 2018 COVID-19 Vaccine ( season) 2024 08/28/2022, 07/19/2021, 12/19/2020, Additional history exists Pneumococcal Vaccine 50+ Completed 10/11/2016, 05/12 Influenza Vaccine Completed 08/12/2024, , 06/29/2021, Additional history exists Hepatitis B Vaccine Aged Out No longe r eligible based on patient's age to complete this topic Meningococcal B Vaccine Aged Out No l onger eligible based on patient's age to complete this topic Medical Devices Implanted Type Area Regrader Device Identifier Shelf Expiration Date Model / Serial / Lot Desara Sl Short Length Mesh Sling 12cm - [id number] Implanted:Qty: 1 on 02/10/2024 by Hortencia Ibarra MD at [facility] N/A: Urethra [employer] 08/19/2028 [id number]-[id number] 1SL / / [id number] Additional Health Concerns 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 02/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 02/17/2024 Insurance MEDICARE [place] PART A AND B [employer] MEDICARE [place] PART A AND B [employer] [employer] Advance Directives For more information, please contact: [phone] Documents on File Type Date Recorded Patient Flue Lining Dipper Expl anation Power of Collision Repairer 02/10/2024 ADVANCE DIRECTIVE 02/10/2024 * Full Code (Latest Code Status on File) Date Activated Date Inactivated Comments 02/10/2024 4:58 PM 02/11/2024 12:40 PM Care Teams Paint Trimmer Pipe Bowls Relationship Specialty Start Date End Date Mayank Jimenes MD [address] [place], [place] [address] [place] [id number] PCP - General Internal Medicine-Adolescent Medicine 02/03/24
--- OUTSIDE RECORDS SUMMARY | 2025-04-21 14:15 | XMS_ITS | Patient Health Record ---
Author Organization [facility] Address [address] [place] [address] Care Team Providers Care Bathing Suit Maker Name Role Phone CherelleMayank mcdowell Primary Care Provider Melissa Hastings Unavailable [phone] Migration, Provider Unavailable Unavailable Allergies Allergen (clinical drug ingredient) Drug/Non Drug Allergy documented on EMR Reaction Allergy Type Onset Date Status SULFA (uncoded) itching Allergy Acti ve SULFATE BASED DRUGS (uncoded) heart problems Allergy Active Results Component Value Reference Range Notes B TYPE NATRIURETIC PEPTIDE ( BNP) (53272) Reviewed date:01/14/2025 09:46:46 AM Interpretation: Performing Lab:[facility] Celsense-Vo[facility]em[facility] Uptem[facility]ets, MashON [id number] Avinash Kirk Notes/Report: NON-FASTING B TYPE NATRIURETIC PEPTIDE (BNP) 144 <100 pg/mL BNP levels increase with age in the general population with the highest values seen in individuals greater than 75 years of age. Reference: J. Am. Kaity. Cardiol. 2002; 40:976-982. CBC (INCLUDES DIFF/PLT) (639 9) Reviewed date:01/14/2025 09:46:46 AM Interpretation: Performing Lab:[facility] Uptel LeisureLink, ElectrochaeaMgexEW[address] Avinash Kirk Notes/Report: NON-FASTING; NON-FASTING; NON-FASTING WHITE BLOOD CELL COUNT 6.3 3.8-10.8 Thousand/ uL RED BLOOD CELL COUNT 4.05 3.80-5.10 Million/uL HEMOGLOBIN 10.9 11.7-15.5 g/dL HEMATOCRIT 35.0 35.0-45.0 % MCV 86.4 80.0-100.0 fL MCH 26.9 27.0-33.0 pg MCHC 31.1 32.0-36.0 g/dL For adults, a slight decrease in the calculated MCHC value (in the range of 30 to 32 g/dL) is most likely not clinically significant; however, it should be interpreted with caution in correlation with other red cell parameters and the patient's clinical condition. RDW 14.6 11.0-15.0 % PLATELET COUNT 204 140-400 Thousand/uL MPV 13.2 7.5-12.5 fL ABSOLUTE NEUTROPHILS 3648 4199-8118 cells/uL ABSOLUTE LYMPHOCYTES 1622 664-3788 cells/uL ABSOLUTE MONOCYTES 504 200-950 cells/uL ABSOLUTE EOSINOPHILS 290 15-500 cells/uL ABSOLUTE BASOPHILS 38 0-200 cells/uL NEUTROPHILS 57.9 LYMPHOCYTES 28.9 MONOCYTES 8.0 EOSINOPHILS 4.6 BASOPHILS 0.6 MAGNESIUM (622) Reviewed date:01/14/2025 09:46:45 AM Interpretation: Performing Lab:[facility], Celsense-MashON [id number] G[address] UpteKognitio, [id number] Avinash Kirk Notes/Report: NON-FASTING; NON-FASTING; NON-FASTING MAGNESIUM 1.8 1.5-2.5 mg/dL [facility] METABOLIC PANE (80146) Reviewed date:01/14/2025 09:46:45 AM Interpretation: Performing Lab:[facility] Celsense-MashON [id number] G[address] Uptel [facility], VozeemeRxbqKJ[address] Avinash Kirk Notes/Report: NON-FASTING; NON-FASTING; NON-FASTING GLUCOSE 116 65-99 mg/dL Fasting reference interval For someone without known diabetes, a glucose value between 100 and 125 mg/dL is consistent with prediabetes and should be confirmed with a follow-up test. UREA NITROGEN (BUN) 17 7-25 mg/dL CREATININE 1.06 0.60-0.95 mg/dL EGFR 53 > OR = 60 mL/min/1.73m2 BUN/CREATININE RATIO 16 6-22 (calc) SODIUM 139 135-146 mmol/L POTASSIUM 4.1 3.5-5.3 mmol/L CHLORIDE 104 98-110 mmol/L CARBON DIOXIDE 28 20-32 mmol/L CALCIUM 9.1 8.6-10.4 mg/dL PROTEIN, TOTAL 6.3 6.1-8.1 g/dL ALBUMIN 3.6 3.6-5.1 g/dL GLOBULIN 2.7 1.9-3.7 g/dL (calc) ALBUMIN/GLOBULIN RATIO 1.3 1.0-2.5 (calc) BILIRUBIN, TOTAL 0.5 0.2-1.2 mg/dL ALKALINE PHOSPHATASE 67 37-153 U/L AST 29 10-35 U/L ALT 16 6-29 U/L Urinalysis Reviewed date:01/11/2025 01:55:54 PM Interpretation: Performing Lab: Notes/Report: Color/Clarity yellow Leuk neg Nitrite neg Urobili 0.2 Protein neg pH 6.5 Blood neg Sp. Gr. >=1.030 Ketone neg Bili neg Glucose neg CULTURE, URINE, ROUTINE (395 ) Reviewed date:11/12/2024 10:28:39 AM Interpretation: Performing Lab:[facility], [facility] ManorYrsrWS[address] Avinash Kirk Notes/Report: NON-FASTING CULTURE, URINE, ROUTINE SEE NOTE Micro Number: [id number] Test Status: Final Specimen Source: Urine Specimen Quality: Adequate Result: Mixed genital femi isolated. These superficial bacteria are not indicative of a urinary tract infection. No further organism identification is warranted on this specimen. If clinically indicated, recollect clean-catch, mid-stream urine and transfer immediately to Urine Culture Transport Tube. CULTURE, URINE, ROUTINE Urinalysis Reviewed date:11/10/2024 10:54:15 AM Interpretation: Performing Lab: Notes/Report: Color/Clarity yellow Leuk neg Nitrite neg Urobili 0.2 Protein 30mg pH 7.0 Blood neg Sp. Gr. 1.020 Ketone neg Bili neg Glucose neg Urinalysis Reviewed date:06/09/2024 08:45:36 PM Interpretation: Performing Lab: Notes/Report: Color/Clarity yellow Leuk neg Nitrite neg Urobili 0.2 Protein neg pH 6.5 Blood neg Sp. Gr. >=1.030 Ketone neg Bili neg Glucose neg Urinalysis Reviewed date:05/13/2024 03:19:37 PM Interpretation: Performing Lab: Notes/Report: Color/Clarity yellow clear Leuk trace Nitrite neg Urobili 0.2 Protein neg pH 7.0 Blood neg Sp. Gr. 1.025 Ketone neg Bili neg Glucose neg ECHOCARDIOGRAM Reviewed date:07/10/2024 02:35:04 PM Interpretation: Performing Lab: Notes/Report: Medications Medication SIG (Take, Route, Frequency, Duration) Notes Start Date End Date Status Carvedilol 12.5 mg TAKE ONE TABLET BY MOUTH TWICE DAILY for 30 Active Ipratropium-Albutero l 0.5-2.5 (3) MG/3ML 3 mL by nebulizer three times a day for 90 days DX: J44.9 01/25/2025 Active Estrace 0.1 MG/GM one applicator intravaginally 3 times a week for 30 day(s) Active Rosuvastatin Calcium 10 MG TAKE 1 TABLET BY MOUTH AT NIGHT for 90 Active Azelastine HCl 137 MCG/SPRAY 2 spray(s) in each nostril 2 times a day for 30 days 03/28/2024 Active SEROquel 25 MG 1/2 - 1 tab Orally Once a day for 30 days 03/29/2025 Active Centrum Silver Women 50+ *Please review and pick correct strength-formulat ion from [employer] options. If intended option is not shown, discontinue and re-order from Quick Search* Active Furosemide 20 MG 1 tab(s) orally twic e a week. for 30 days prn 06/24/2024 Active HYDROcodone-Acetamin ophen 5-325 MG 1/2 tab(s) orally every 6 hours Active Nystatin 074116 UNIT/GM 1 boogie applied topically 2 times a day for 30 days prn 06/30/2024 Active MIRALAX (OBSOLETE) prn *Please review for potential replacement for e-prescription and drug interaction check* Active Pantoprazole Sodium 40 MG 1 tab(s) orally twice a day for 90 days Active Tylenol 325 MG 2 tab(s) orally ever y 4 hours prn Active Symbicort 160-4.5 MCG/ACT 2 INH inhaled 2 times a day for 30 days Please dispense spacer for MDI 10/14/2024 Active Lidocaine 4 % 1 boogie applied topically 3 times a day KEt/Juan Pablo/Lido/Clin /IBU compound Active Sucralfate 1 GM 1 tab(s) orally once a day for 30 days Active MARCI 180 MG 1 TAB QD PRN prn *Please review for potential replacement for e-prescription and drug interaction check* Active ZOFRAN 4 MG 1 TAB(S) ORALLY 3 TIMES A DAY NEEDED FOR NAUSEA for 10 DAY(S) prn *Please review for potential replacement for e-prescription and drug interaction check* 11/02/2021 Active busPIRone HCl 10 MG 1 tab(s) orally twic e daily for 90 days 03/28/2024 Active Fluticasone Propionate 50 MCG/ACT 2 spray(s) in each nostril once a day for 30 day(s) prn 08/29/2022 Active Triamcinolone Acetonide 0.5 % 1 boogie applied topically 2 times a day for 7 day(s) 04/24/2023 Active Immunizations Vaccine Route Administration Date Status Comme nts Fluvirin (MEDICARE ONLY) IM Intramuscular 07/30/2016 Admin istered Fluvirin--Influenza vaccine 3+ year IM Intramuscular 08/09/2014 Administered Fluzone High Dose IM Intramuscular 06/29/2021 Administered Fluzone High Dose IM Intramuscular 08/14/2019 Administered Fluzone High Dose IM Intramuscular 08/08/2018 Administered Fluzone High Dose IM Intramuscular 08/12/2024 Administered Influenza (Fluzone)--Medicare only IM Intramuscular 07/17/2017 Administered Influenza (Fluzone)--Medicare only IM Intramuscular 08/22/2015 Administered Pneumovax-23 (pneumococccal vaccine polyvalent)2 years or older IM Intramuscular 05/31/2014 Administered Prevnar PCV-13 (Pneumococcal conjugate 13) IM Intramuscular 10/11/2016 Administered Fluzone High Dose IM Intramuscular 08/15/2020 Administered Fluvirin--Influenza vaccine 3+ year IM Intramuscular 09/07/2008 Administered Fluvirin--Influenza vaccine 3+ year IM Intramuscular 08/08/2013 Administered Problems Problem Type SNOMED Code ICD Code Onset Dates Problem Status W/U Status Risk Notes Problem 38361995 Alzheimer's disease with late onset (G30.1) Active confirmed Problem Essential hypertension (11422703) Essential (primary) hypertension (I10) Active confirmed Problem Chronic kidney disease due to hypertension (865155944540671) Hypertensive chronic kidney disease with stage 1 through stage 4 chronic kidney disease, or unspecified chronic kidney disease (I12.9) Active confirmed Problem 05040835 Chronic maxillar y sinusitis (J32.0) Active confirmed Problem Pnyyl-xs-smpebkf hypoxemic respiratory failure (06658290415234590) Acute and chronic respiratory failure with hypoxia (J96.21) Active confirmed Problem Chronic gastric ulcer with haemorrhage (99871312) Chronic or unspecified gastric ulcer with hemorrhage (K25.4) Active confirmed Problem Chronic duodenal ulcer with hemorrhage (46144051) 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) Active confirmed Problem 84940528623703337 Sciatica, righ t side (M54.31) Active confirmed Problem 24329119 Sciatica, left side (M54.32) Active confirmed Problem 02357033 Vitamin D deficiency (E55.9) Active confirmed Problem 97191549 Osteoporosis (M81.0) Active confirmed Problem 404911220 Hyperlipemia, 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 confirmed Problem 610204729 Mild cognitive impairment (G31.84) Active confirmed Problem Urinary frequency (500011362) Urinary frequency (R35.0) Active confirmed Problem Cystitis (19498789) Cystitis (N30.90) Active co nfirmed Problem Fever (701020990) Fever (R50.9) Active confirme d Problem 75234565 Acute sinusitis (J01.90) Active confirmed Problem Urinary incontinence (935118919) Urinary incontinence (R32) Active confirmed Problem Dysuria (45872812) Burning with urination (R30.0) Active confirmed Problem 177908947 Gastroesophageal reflux disease without esophagitis (K21.9) Active confirmed Problem 84440859 Memory loss (R41.3) Active confirmed Problem 38921401 Contact dermatit is (L25.9) Active confirmed Problem Incontinence (65663728) Incontinence (R32) Active confirmed Problem 17794828 Anxiety, generalized (F41.1) Active confirmed Problem 469885927 Rheumatoid arthritis involving multiple sites, unspecified rheumatoid factor presence (M06.9) Active confirmed Problem 3847805 Urinary hesitanc y (R39.11) Active confirmed Problem 66270711 Vaginal dryness, menopausal (N95.1) Active confirmed Problem 47539807 Hyperlipidemia, unspecified hyperlipidemia type (E78.5) Active confirmed Problem 15033385 Recurrent major depressive disorder, in partial remission (F33.41) Active confirmed Problem Pulmonary edema (76676695) Pulmonary edema (J81.1) Active confirmed Problem 14450166 Seasonal allergi c rhinitis due to pollen (J30.1) Active confirmed Problem Esophageal spasm (56750917) Esophageal spasm (K22.4) Active confirmed Problem 260555529 Microcytic anemi a (D50.9) Active confirmed Problem 827851181 Healthcare maintenance (Z00.00) Active confirmed Problem 84928770 Uterine prolapse (N81.4) Active confirmed Problem Malignant hypertensive chronic kidney disease (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) Hypertensive chronic kidney disease w stg 1-4/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) Active confirmed Problem 13335698 Primary hypertension (I10) Active confirmed Problem 547936783 Seasonal allergi c rhinitis, unspecified trigger (J30.2) Active confirmed Problem Rheumatoid arthritis (62969645) Acute rheumatoid arthritis (M06.9) Active confirmed Problem 703061146 Renal mass (N28.89) Active confirmed Problem 5874555 Mild diastolic dysfunction (I51.9) Active confirmed Problem 687411924 COPD, moderate (J44.9) Active confirmed Problem Chronic kidney disease stage 3 (disorder) (341553274) Chronic kidney disease, stage 3 unspecified (N18.30) Active confirmed Problem Cough (09794356) Cough (R05.9) Active confirmed Problem 36588155 Moderate dementi a with agitation, unspecified dementia type (F03.B11) Active confirmed Vital Signs Heart Rate 78 /min 04/12/2025 Temperature 97.8 degrees Fahrenheit 04/12/2025 Oximetry 97.6 04/12/2025 Blood pressure diastolic 80 mm Hg 04/12/2025 Height 64.5 in 04/12/2025 Blood pressure systolic 138 mm Hg 04/12/2025 Weight 165.6 lbs 04/12/2025 BMI 27.98 kg/m2 04/12/2025 Encounters Encounter Location Date Provider Diagnosis [facility] [address] [place] [address] 02/13/2025 Provider Migration Anxiety, generalized F41.1 [facility] [address] [place], [place] [address] 05/13/2024 Mayank Besson Dysuria R30.0 [facility] [address] [facility] [address] [place] [address] 06/08/2024 Mayank Besson Dysuria R30.0 ; Dyspnea on exertion R06.00 ; Generalized anxiety disorder F41.1 and Moderate dementia with anxiety, unspecified dementia type F03.B4 [facility] [address] [facility] [address] [place] [address] 06/24/2024 Mayankchristiano Jimenes Peripheral edema R60.0 [facility] [address] [facility] [address] [place] [address] 07/15/2024 Mayankchristiano Jimenes Intertrigo L30.4 ; Alzheimer's disease with late onset G30.1 and Mild diastolic dysfunction I51.9 [facility] [address] [place] [address] 08/12/2024 Mayank Besson Essential (primary) hypertension I10 ; Mild cognitive impairment G31.84 ; Anxiety, generalized F41.1 and Immunization(s) administered Z23 [facility] [address] [place] [address] 09/08/2024 Mayank Besjeremias Acute bronchitis, unspecified organism J20.9 and Mild diastolic dysfunction I51.9 [facility] [address] [place] [address] 10/14/2024 Mayankchristiano Jimenes Chronic cough R05.3 ; Vitamin D deficiency E55.9 ; Essential (primary) hypertension I10 ; Hypertensive chronic kidney disease w stg 1-4/unsp chr kdny I12.9 ; Mild cognitive impairment G31.84 ; Recurrent major depressive disorder, in partial remission F33.41 and Routine medical exam Z00.00 [facility] [address] [facility] [address] [place] [address] 11/10/2024 Melissa Venkata Left flank pain R10. 9 [facility] [address] [facility] [address] [place] [address] 11/23/2024 Mayankchristiano Jimenes Lobar pneumonia J18. 1 ; Chronic kidney disease, stage 3 unspecified N18.30 ; Alzheimer's disease with late onset G30.1 and Hospital discharge follow-up Z09 [facility] [address] [facility] [address] [place] [address] 12/09/2024 Mayank Besson Mild diastolic dysfunction I51.9 and Hypertensive chronic kidney disease with stage 1 through stage 4 chronic kidney disease, or unspecified chronic kidney disease I12.9 [facility] [address] [place] [address] 01/11/2025 Mayank Besson Dysuria R30.0 ; Mild diastolic dysfunction I51.9 ; Pulmonary edema J81.1 ; SOB (shortness of breath) on exertion R06.02 and Alzheimer's disease with late onset G30.1 [facility] [address] [place] [address] 03/15/2025 Mayank Besson COPD, moderate J44.9 and Moderate dementia with agitation, unspecified dementia type F03.B11 [facility] [address] [place] [address] 03/29/2025 Mayank Besson Moderate dementia with agitation, unspecified dementia type F03.B11 and COPD, moderate J44.9 [facility] [address] [place] [address] 04/12/2025 Mayank Besson Moderate dementia with agitation, unspecified dementia type F03.B11 and COPD, moderate J44.9 [facility] [address] [facility] [address] [place] [address] 06/26/2024 Mayank Besson [facility] [address] [facility] [place] [address] 06/29/2024 Mayank Besson Pulmonary edema J81. 1 [facility] [address] [facility] [address] [place] [address] 07/09/2024 Mayank Besson [facility] [address] [facility] [address] [place] [address] 10/29/2024 Mayank Besson [facility] [address] [facility] [address] [place] [address] 11/10/2024 Mayank Besson [facility] [address] [place] [address] 11/16/2024 Mayank Besson [facility] [address] [place] [address] 11/27/2024 Mayank Besson [facility] [address] [facility] [address] [place] [address] 02/12/2025 Mayank Besson [facility] [address] [place] [address] 02/19/2025 Mayank Besson [facility] [address] [place] [address] 02/25/2025 Mayank Besson [facility] [place] [facility] [address] [place] [address] 03/10/2025 Mayank Besson Moderate dementia with anxiety, unspecified dementia type F03.B4 [facility] [address] [facility] [address] 03/15/2025 Mayank Besson COPD, moderate J44.9 [facility] [address] [place] [address] 03/06/2025 Mayank Besson [facility] [address] [place] [address] 06/16/2024 Mayank Besson [facility] [address] [place] [address] 06/29/2024 Mayank Besson [facility] [address] [place] [address] 06/29/2024 Mayank Besson [facility] [address] [place] [address] 10/28/2024 Mayank Besson Chronic cough R05.3 [facility] [address] [place] [address] 01/23/2025 Mayank Besson [facility] [address] [place] [address] 01/23/2025 Mayank Besson [facility] [address] [place], [place] [address] 02/12/2025 Mayank Besson [facility] [address] [place], [place] [address] 02/12/2025 Mayank Jimenes Anxiety, generalized F41.1 [facility] [address] [place], [place] [address] 03/25/2025 Mayank Jimenes Assessments Encounter Date Diagnosis (ICD Code) Assessment Notes Treatment Notes Treatment Clinical Notes Section Notes 05/13/2024 Dysuria (ICD-10 - R30.0) 06/08/2024 Dysuria (ICD-10 - R30.0) - negative UA. no need for abx. 06/08/2024 Dyspnea on exertion (ICD-10 - R06.00) - pt w/ progressive and chronic dyspnea on exertion. She is a prior smoker and has a chronic productive cough. pt walks up to 10 ft and having to sit down to catch her breath. dyspnea is limiting her ADLs - resting O2 low 90%, walking test while walking dropped to 80%. pt never had supplemental oxygen in the past. emphysema/COPD is likely a contributing factor given extensive hx of tobacco use w/ chronic cough. = Will send pt with supplemental oxygen at home to be used while ambulating. Pt has pulse ox at home and plans to measure her O2 saturation frequently at home. 06/24/2024 Peripheral edema (ICD-10 - R60.0) Stop calcium channel jc given propensity for edema. Start Lasix, daughter will evaluate daily to see if she needs a therapy, discussed effect on electrolytes and possible volume depletion. She is also been eating a lot of watermelon advised her to cut this back 06/29/2024 Pulmonary edema (ICD-10 - J81.1) 07/15/2024 Alzheimer's disease with late onset (ICD-10 - G30.1) - moved in with son 1 week ago - currently on donepezil, son has noticed maybe mild improvement - follow up in 1 month and can consider addition of memantine at that time 07/15/2024 Intertrigo (ICD-10 - L30.4) - patient is not very mobile and has noticed skin irritation in skin folds, specifically axillary and in groin - suspect to be candidal - advised patient to keep area clean and moisturized - can continue nystatin cream prn 09/08/2024 Acute bronchitis, unspecified organism (ICD-10 - J20.9) 09/08/2024 Mild diastolic dysfunction (ICD-10 - I51.9) Recommended continuing to dose Lasix as needed for weight gain or ankle edema. Given drop in blood pressure patient seems to be fluid balance/possibly low and I think we can safely cut back her blood pressure pills. I told her son to go down to 1/2 tablet in the morning only which will be 5 mg. They will follow-up with her next appointment or if blood pressure regulation remains a problem 10/14/2024 Vitamin D deficiency (ICD-10 - E55.9) Labs have been stable. No change in plans 10/14/2024 Chronic cough (ICD-10 - R05.3) Patient has had a chronic cough over the last couple of weeks that will not go away. She was treated for acute sinusitis and the azithromycin did not help. Concerned the cough may be a side effect of her lisinopril. Switching the patient to nifidipine and adding on symbicort. Will follow up in one month and see how she is doing. 10/28/2024 Chronic cough (ICD-10 - R05.3) 11/10/2024 Left flank pain (ICD-10 - R10.9) Encouraged by normal UA. I personally will review culture results once final. No indication for antibiotics at this time. Her left flank pain is felt to be muscular as she is tender when palpated in that region. Will give patient a steroid shot today. Patient to return to clinic if no improvement in a few days. Patient and son voice understanding and agree with this plan. Patient discussed with Attending Dr. Jimenes who agrees with the plan of care above. 11/23/2024 Lobar pneumonia (ICD-10 - J18.1) Overall seems to have improved. Finish up cefdinir. Like to see her in 2 weeks to make sure respiratory status is stable 01/11/2025 Mild diastolic dysfunction (ICD-10 - I51.9) Fluid balance seems good. No changes in the way family is dosing diuretics. Increased dosing of diuretics which helps her breathing seems to make her very weak and have lots of skin turgor issues. 02/12/2025 Anxiety, generalized (ICD-10 - F41.1) 02/13/2025 Anxiety, generalized (ICD-10 - F41.1) 03/10/2025 Moderate dementia with anxiety, unspecified dementia type (ICD-10 - F03.B4) 03/15/2025 COPD, moderate (ICD-10 - J44.9) Continue [...] Rexulti. Started this and will follow-up closely. 03/15/2025 COPD, moderate (ICD-10 - J44.9) 11/23/2024 Chronic kidney disease, stage 3 unspecified (ICD-10 - N18.30) Hold Lasix until she actually gets puffy. 12/09/2024 Hypertensive chronic kidney disease with stage 1 through stage 4 chronic kidney disease, or unspecified chronic kidney disease (ICD-10 - I12.9) Stable, good urine output. Check labs at next visit 12/09/2024 Mild diastolic dysfunction (ICD-10 - I51.9) Overall seems to be euvolemic. Fluid management seems good. Follow-up in a couple months with labs at that point. Encouraged patient that she seems to be volume balanced. 03/29/2025 Moderate dementia with agitation, unspecified dementia type (ICD-10 - F03.B11) -tried 5d of Rexulti scheduled; stopped then used 1/2 the buspar BID for 2d and then back to BID dosing -Had troubles w/drooling, slower cognition, anxiety seemed to worsen on Rexulti w/felt cognition was slowed- Per RN daughter in law, appeared obtunded. -Sat, Sun had some of her better days- -now on Nebs for breathing titrating up to BID (eventually to TID) -ongoing nightly anxiety; family interested in alternative med for severe breakthrough anxiety which occurs intermittently- interested in PRN options -Seroquel 12.5mg-25mg (starting at 12.5mg) qHS PRN for severe agitation related to anxiety 04/12/2025 COPD, moderate (ICD-10 - J44.9) Currently on nebs. No changes in plan, respiratory status seems good 04/12/2025 Moderate dementia with agitation, unspecified dementia type (ICD-10 - F03.B11) Overall doing much better with low-dose Seroquel. Sleeping better. We will stop BuSpar in the evenings. Only take BuSpar in the mornings. Long discussion with [id number] about further living arrangements. They plan to be transitioning to a mini home in the next couple of weeks. 01/11/2025 Dysuria (ICD-10 - R30.0) Patient really does not have chronic dysuria, states her urine feels hot and would like a UA done. This is normal, she was reassured. 08/12/2024 Essential (primary) hypertension (ICD-10 - I10) Blood pressure under good control. No changes in plans. 08/12/2024 Mild cognitive impairment (ICD-10 - G31.84) No addition of donepezil today. Will focus on anxiety issues and later stabilized and relatively new environment living with her son. 01/11/2025 Pulmonary edema (ICD-10 - J81.1) He notes above 03/29/2025 COPD, moderate (ICD-10 - J44.9) -improved, stable -brief period of congestion since last visit that self resolved 11/23/2024 Alzheimer's disease with late onset (ICD-10 - G30.1) Has had a couple of up-and-down days with environmental changes. Follow-up in 2 weeks as noted 10/14/2024 Essential (primary) hypertension (ICD-10 - I10) Blood pressure currently stable. Will make dose changes noted to help ameliorate cough 07/15/2024 Mild diastolic dysfunction (ICD-10 - I51.9) - echo EF 55%, mild diastolic dysfunction - currently on lasix 20 prn, discussed taking in morning to prevent staying up at night - patient is taking when gains 3 pounds in 1 day or 5 pounds in 1 week - cont prn lasix - advised compression stockings or elevating legs as needed 06/08/2024 Generalized anxiety disorder (ICD-10 - F41.1) - continue w/ Buspar PRN and Lexapro 10 mg daily. - if anxiety continues to persist, will consider increasing to Lexpro 20 mg daily 08/12/2024 Anxiety, generalized (ICD-10 - F41.1) BuSpar seems to do well. She had been on benzodiazepines many years ago from her previous family practitioner. I would rather not start these unless absolutely necessarily. 10/14/2024 Hypertensive chronic kidney disease w stg 1-4/unsp chr kdny (ICD-10 - I12.9) Kidney functions remain stable, reviewed previous labs 06/08/2024 Moderate dementia with anxiety, unspecified dementia type (ICD-10 - F03.B4) - prior dementia panel with borderline alzehimers disease. prior MRI head obtained w/ age related changes. Sons notice frequent short term memory loss and is transitioning to living with son soon . - Will start Donepazil today, if tolerated will consider adding Memantine in upcoming/follow-up appointments. 11/23/2024 Hospital discharge follow-up (ICD-10 - Z09) Reviewed H&P, discharge summary, personally reconciled medication. 01/11/2025 SOB (shortness of breath) on exertion (ICD-10 - R06.02) Possible reactive airway component given her wheezing and good response to Symbicort. I have asked her to increase her Symbicort to 2 puffs twice daily scheduled. She will see pulmonary. 08/12/2024 Immunization(s) administered (ICD-10 - Z23) 01/11/2025 Alzheimer's disease with late onset (ICD-10 - G30.1) Overall on dementia medications and doing about the same. Continues to have some foggy periods which seem to be increasing per her son's report. However no behavior disturbances and is is in a safe environment with her son and gejimmpr-gc-[id number]'s home 10/14/2024 Mild cognitive impairment (ICD-10 - G31.84) ZaidiRemains on current medication. Seems to be doing well with transition to son's house. Memory continues to be a struggle. Also is a problem but currently well-managed 10/14/2024 Recurrent major depressive disorder, in partial remission (ICD-10 - F33.41) Depression is currently stable. On medication. Safe home environment 10/14/2024 Routine medical exam (ICD-10 - Z00.00) Aged out of colonoscopy or other cancer screening. Has had DEXA in the past that has been acceptable. Depression treatment ongoing. Son is healthcare surrogate. Cognitive impairment screening not done because of her diagnosis of cognitive impairment. No recent falls in the past year. Up-to-date with vaccinations Plan Of Treatment Pending Test Test Name Order Date Urinalysis 03/26/2023 H-URINE CULTURE 07/10/2014 CT Scan : Kidneys with and without contr ast 03/05/2022 C-FERRITIN 09/18/2017 C-TRANSFERRIN 09/18/2017 C-CBC 01/15/2020 C-Sed Rate (ESR) 01/15/2020 C-CMP 01/15/2020 C-LIPID PANEL 01/15/2020 C-FOLATE 09/18/2017 C-IRON 09/18/2017 C-VITAMIN B12 09/18/2017 C-ARTHRITIS 06/02/2018 C-URINE CULTURE 01/05/2014 C-URINE CULTURE 11/02/2021 C-VITAMIN D, 25-HYDROXY 01/15/2020 C-TIBC 09/18/2017 DEXA [...] 06/14/2020 Next Appt Details Provider Name:Mayank Jimenes, 06/14/2025 12:15:00 PM, [address], [address], [place], [address], Insurance Providers Payer Name Payer Address Payer Phone Subscriber Number Group Number Insured Name Patient Relationship to Insured Coverage Start Date Coverage End Date [place]IC[place] [address] [place] [place] [address] [id number] Trice Mauro Self - patient is the insured [employer] [facility] [address] [address] [place] [address] [phone] [id number] Trice Mauro Self - patient is the insured [employer] [address] [place] [address] [address] [place], [place] [address] [facility] Trice Mauro Self - patient is the insured Medications Administered Medication Instructions Date of Administration Dosage Notes Dexamethasone 4mg Injection 10/01/2022 4 mg Triamcinolone Acetonide 40mg Injection 01/27/2019 1 mL Kenalog 03/19/2014 Kenalog 11/13/2014 1 mL Kenalog 11/25/2015 1 mL Kenalog 10/17/2016 1 mL Kenalog 02/04/2017 1 mL Medical (General) History Medical History History ICD Code RA, osteoporosis, [...] lt eye 2012 Epidural injs x 2 2017 Upper GI 02/2022 Upper GI 05/2022 Teeth extraction 05/2023 Vaginal reconstruction 02/2024 Hospitalization History Reason Date(Month/Year) pneumonia-H 11/2024 vomiting blood 02/2022 Blood pressure, sciatic 03/2017 D&C Child -tubal ligation Tonsillectomy
--- OUTSIDE RECORDS SUMMARY | 2025-04-21 14:15 | XMS_ITS | Clinical Summary ---
Author Organization Healthcare Address [address] [place] [address] Care Team Providers Care Supervisor Hydrochloric Area Name Role Phone Mayank Jimenes MD Primary Care Provider [phone] Allergies Active Allergy Reactions Criticality Noted Date Comments Other Itching Medium 12/13/2021 Sulfa Drugs Unknown - Patient st ates they do not know rxn details Low 01/17/2022 Medications amLODIPine (Norvasc) 2.5 MG tablet Take 2.5 mg by mouth 1 (one) time each day. 2 Active amoxicillin (Amoxil) 875 MG tablet 1 (one) time each day at the same time. 2 Active carvedilol (Coreg) 12.5 MG tablet 2 Active denosumab (Prolia) 60 MG/ML injection See administration instructions. Active estradiol (Estrace) 0.1 MG/GM vaginal cream USE DIRECTED INTRAVAGINALLY 3 TIMES A WEEK FOR 30 DAYS 2 Active fluticasone (Flonase) 50 MCG/ACT nasal spray 1 Active folic acid (Folvite) 1 MG tablet TAKE 1 TABLET ONCE A DAY 6 DAYS A WEEK FOR 90 DAYS 1 Active lisinopril 10 MG tablet every 12 (twelve) hours. Active meloxicam (Mobic) 15 MG tablet Take 15 mg by mouth 1 (one) time each day. 2 Active methotrexate 2.5 MG tablet 2 Active omeprazole (PriLOSEC) [address] capsule TAKE 1 CAPSULE BY MOUTH ONCE DAILY FOR 90 DAYS 1 Active nystatin (Mycostatin) cream APPLY CREAM TOPICALLY TO AFFECTED AREA THREE TIMES DAILY NEEDED FOR 7 DAYS 2 Active rosuvastatin (Crestor) 10 MG tablet Take 10 mg by mouth 1 (one) time each day. 2 Active traMADol (Ultram) 50 MG tablet Take 50 mg by mouth 3 (three) times a day. 2 Active fexofenadine (Xiao Allergy) 180 MG tablet 1 tab Active calcium carbonate-sol min D (Calcium 600+D) 600-200 MG-UNIT tablet 1 (one) time each day at the same time. Active omega-3 (Fish Oil) 1000 MG capsule 1 cap Active cholecalcifero l (Vitamin D3) 25 MCG (1000 UT) capsule 1 (one) time each day at the same time. Active Active Problems Problem Noted Date Diagnosed Date Acute sinusitis 01/17/2022 Chronic maxillary sinusitis 01/17/2022 Contact dermatitis 01/17/2022 Essential hypertension 01/17/2022 Hyperlipidemia 01/17/2022 Neuralgia of left sciatic nerve 01/17/2022 Neuralgia of right sciatic nerve 01/17/2022 Osteoporosis 01/17/2022 Rheumatoid arthritis 01/17/2022 Urinary hesitancy 01/17/2022 Vitamin D deficiency 01/17/2022 Recurrent UTI 01/17/2022 Rectocele 01/17/2022 Immunizations Immunization Administration Dates Next Due Influenza, high-dose, quadrivalent 06/29,08/15/2020,08/14/2019, 018 Influenza, injectable, quadrivalent 07/17/2017 Influenza, seasonal, injectable 07/30/20 16,08/09/2014,08/08/2013, 008 Pneumococcal Conjugate PCV 13 10/11/2016 Pneumococcal Polysaccharide PPV23 05/31/2014 Family History Medical History Relation Name Comments Hypertension Mother Relation Name Status Comments Father Mother Social History Tobacco Use Types Packs/Day Years Used Date Smoking Tobacco: Former Smokeless Tobacco: Never Alcohol Use Standard Drinks/Week Comments Yes 0 (1 standard drink = 0.6 oz pur e alcohol) drink wine sometimes Comments Unknown Sex and Gender Information Value Date Recorded Sex Assigned at Not on file Legal Sex Female 8:22 PM EDT Gender Identity Not on file Sexual Orientation Not on file Last Filed Vital Signs Vital Sign Reading Time Taken Comments Blood Pressure 111/65 01/17/2022 1:15 PM EST Pulse 87 01/17/2022 1:15 PM EST Temperature - - Respiratory Rate - - Oxygen Saturation - - Inhaled Oxygen Concentration - - Weight 69.9 kg (154 lb 1.6 oz) 01/17/2022 1:15 P M EST Height - - Body Mass Index - - Plan of Treatment Health Maintenance Due Date Last Done Comments [facility]-Bone Density Scan 1943 [facility]-Depression Screening 1943 [facility]-Infant/Child/Adol SDOH Screenings 1943 [facility]- SDOH Screenings 1961 [facility]-Adult SDOH Screenings 1961 [facility]-DTaP,Tdap,and Td Vaccines (1 - Tdap) 1962 [facility]-Zoster Vaccines (1 of 2) 1993 [facility]-RSV Vaccine: 60+ Years or (1 - 1-dose 75+ series) 2018 [id number] Vaccine ( season) 2024 07/19/2021, 12/19/2020, 11/18/2020 [facility]-Influenza Vaccine (Season Ended) 2025 06/29/2021, 08/15/2020, 08/14/2019, Additional history exists [facility]-Pneumococcal Vaccine: 50+ Years Completed 10/11/2016, 05/31/2014 HPV Vaccines Aged Out No longer eligi ble based on patient's age to complete this topic [facility]-HIB Vaccines Aged Out No longer e ligible based on patient's age to complete this topic [facility]-Hepatitis A Vaccines Aged Out No longer eligible based on patient's age to complete this topic [facility]-IPV Vaccines Aged Out No longer e ligible based on patient's age to complete this topic [facility]-Rotavirus Vaccines Aged Out No lo nger eligible based on patient's age to complete this [place] [address] [facility] [employer] DENT[employer] Care Teams Supervisor Hydrochloric Area Relationship Specialty Start Date End Date Mayank Jimenes MD [address] [place] [address] [place] [id number] PCP - General 03/24/21
--- NOTE | 2025-04-21 14:44 | EXP.PAIN.SOA ---
[facility] Disclaimer: The information contained in this section may have been updated after the patient was seen, as this information can be updated by other users. Medical History (Updated 04/21/25 @ 14:46 by Cathleen Momin APRN) Degenerative disc disease, lumbar Multiple lung nodules on CT History of smoking 10-25 pack years Hypertensive urgency Hypervolemia CKD (chronic kidney disease) Shortness of breath GI bleed History of recurrent UTI (urinary tract infection) Hyperlipidemia Essential hypertension Renal cyst GI bleed UTI (urinary tract infection) Dizziness Rheumatoid arthritis GI bleed Uterine procidentia Surgical History History of tonsillectomy and adenoidectomy H/O tubal ligation Family History Other Cancer Hyperlipidemia Hypertension Stroke Social History Smoking Status: Former smoker tobacco type: cigarettes packs per day: 1 second hand exposure: No alcohol intake: never substance use type: denies use current occupational status: other Travel in the last 8 weeks?: None household members: none housing: house current occupational exposures/hazards: No caffeine: Yes PM Subjective & Objective Subjective Subjective:: Patient is a pleasant 79-year-old female who presents today for medication refill and follow-up. Today she rates her pain a 4 out of 10. She denies any new trauma or injury. Patient is currently managed with [place] 5 mg 3 times a day from our office along with compounded cream. She denies any side effects and states she is overall doing well with this. Patient does make mention that she is going to a different home in about a week. She states that she is moving into a home in [place] with some other ladies that do also have some dementia. Patient denies any other changes. Her Eleazar has been reviewed and is appropriate. Review of Systems: General: No recent weight changes, no fever, no sleep disturbances Respiratory: No cough, no shortness of air, no recurring pulmonary infections Cardiovascular/peripheral vascular: No chest pain, no palpitations, no edema, no shortness of breath Gastrointestinal: No new onset incontinence, normal bowel movements reported Genitourinary: No new onset incontinence Musculoskeletal: Low back pain Psychiatric: [Normal mood/affect] Neurological: [Denies weakness in extremities], [denies balance issues] Pain at rest (0-10 scale): 4 Objective Objective:: Physical Exam: General: Alert and oriented x3, no acute distress, pleasant and cooperative Lungs: Respirations even and unlabored, symmetrical chest expansion Eyes: PERRL Musculoskeletal: Flexion and extension of lumbar [spine] somewhat guarded secondary to pain, [antalgic gait noted] Neurological: Speech clear, no gross sensory deficit Has patient had previous pain injection?: No Conservative treatment options previously tried: Prescription medications Length of treatment: Longer than 12 weeks Meds Home Medications and Allergies Home Medications ?Medication ?Instructions ?Recorded ?Confirmed ?Type carvedilol 12.5 mg tablet 12.5 mg PO BID 01/08/19 02/25/25 History rosuvastatin 10 mg tablet 10 mg PO HS 02/20/21 02/25/25 History pantoprazole 40 mg tablet,delayed 40 mg PO BID GERD 03/09/22 02/25/25 History release fluticasone propionate 50 1 spray intranasal DAILYP PRN 05/24/22 02/25/25 History mcg/actuation nasal Allergy Symptoms spray,suspension sucralfate 1 gram tablet 1 g PO ACHS 06/03/23 02/25/25 History budesonide-formoterol HFA 160 2 inh inhalation BIDRT 11/14/24 02/25/25 History mcg-4.5 mcg/actuation aerosol inhaler (Symbicort) buspirone 10 mg tablet 10 mg PO BID 11/14/24 02/25/25 History donepezil 5 mg tablet 5 mg PO HS 11/14/24 02/25/25 History mgnfdhqw-dbcdvkfs-xxeqg acid 240 1 tab PO DIRECTED 01/13/25 02/25/25 History mcg-vit K1 150 mcg-herb 357 tablet (Alive Women's 50 Plus Ultra Multivitamin) hydrocodone 5 mg-acetaminophen 325 1 tab PO TID #90 tabs 02/25/25 Rx mg tablet New Prescriptions to Start Prescriptions: Allergies Allergy/AdvReac Type Severity Reaction Status Date / Time Sulfa (Sulfonamide Allergy Intermediate HEART RACES Verified 01/13/25 11:26 Antibiotics) (SULFA (SULFONAMIDE ANTIBIOTICS)) Iodinated Contrast Media AdvReac Intermediate anxiety, Verified 01/13/25 11:26 rash Assessment and Plan *Assessment and plan (1) Lumbar radiculopathy: Status: Acute Category: Medical Code(s): M54.16 - Radiculopathy, lumbar region (2) Degenerative disc disease, lumbar: Status: Acute Category: Medical Code(s): M51.369 - Other intervertebral disc degeneration, lumbar region without mention of lumbar back pain or lower extremity pain Plan I will refill the patient's [place] and provide a 1 month supply of this medication. Patient will return to clinic in 1 month for reevaluation of symptoms and plan of care. Risks and benefits of the medication have been explained in detail to the patient. The patient does understand the risk of dependence on the medication when given over a prolonged period. Patient has been advised of risks of oversedation with the prescribed medication. Narcan has been offered to the paitent in the event of oversedation. Patient has been advised that a family member should also be educated regarding administration of Narcan. The patient has been advised to consult with his/her primary care provider and pharmacist regarding drug-drug interaction of medications currently prescribed. Patient has been prescribed a controlled substance after being counseled on the medication, medication safety, and possible side effects. Opioid contract was reviewed and signed by the patient, and that they have agreed to all of the terms set forth by our compliance program. A UDS is needed to verify patient's compliance with our office pain contract. This is ordered based off specific treatments related to chronic pain with the potential to abuse certain medications. Patient has been instructed to contact the clinic with any concerns before the next appointment. Dr. Mukherjee has reviewed this note and agrees with this plan of care. This note was dictated using voice recognition software and make contain errors or omissions.
[2025-04-21 14:54] VITALS: BP 107/52; PULSE 68; RESP 14; O2SAT 92; BMI 30.1
== END 2025-04-21 23:59 | disposition home or self-care (01) ==
PROVIDERS: PCP Internal Medicine Adolescent Medicine; Visit Provider Nurse Practitioner Family
DX: M51.16 Intervertebral disc disorders with radiculopathy, lumbar region (principal); Z79.891 Long term (current) use of opiate analgesic
CPT/HCPCS: 99212; G0463

== ENCOUNTER 2025-05-04 10:49 | Inpatient (IN) | payer MEDICARE, OTHER, SELFPAY ==
--- OUTSIDE RECORDS SUMMARY | 2025-03-29 10:30 | XMS_ITS ---
Author Organization [facility] Address [address] [facility] [address] [place] [address] Care Team Providers Care Rv Repair Technician Name Role Phone Mayank Jimenes Primary Care [...] MOUTH AT NIGHT for 90 Active Nystatin 784812 UNIT/GM 1 boogie applied topically 2 times [...] review and pick correct strength-formulat ion from [facility] options. If intended option is not shown, [...] 03/29/2025 Encounters Encounter Location Date Provider Diagnosis [facility] [address] [facility] [address] [place], [place] [address] 03/29/2025 Mayank Jimenes Moderate dementia with agitation, [address], [place], [address], Progress Notes * Trice RICHARDS LDOB:1945 (79 yo F)Acc No.[id number]:03/29/2025 Progress Notes Patient: Trice BARRAZA Provider: Juan Jimenes MD :1945 A ge:79 Y S ex:Female Date:03/29/2025 Address:[address] [place] [address] , [place], [id number] Subjective: * Chief Complaints: * 1 . [...] *Please review and pick correct strength-formulation from [facility] options. If intended option is not shown, [...] orally twice a week. , Taking Nystatin 275630 UNIT/GM Cream 1 boogie applied topically 2 [...] 03/29/2025 Generated for Armen bonilla/Charan/Sarahitting on: 0 05/04/2025 11:11 AM EDT History and Physical Notes * HPI [...]
--- OUTSIDE RECORDS SUMMARY | 2025-04-12 08:15 | XMS_ITS ---
Author Organization [facility] Address [address] [place] [address] Care Team Providers Care Leather Finisher Name Role Phone Mayank Jimenes Primary Care Provider [phone] Allergies Allergen (clinical drug ingredient) Drug/Non Drug Allergy documented on EMR Reaction Allergy Type Onset Date Status SULFA (uncoded) itching Allergy Acti ve SULFATE BASED DRUGS (uncoded) heart problems Allergy Active REASON FOR VISIT 2 wk FU, is better since starting Seroquel, should she still be using the Symbicort Medications Medication SIG (Take, Route, Frequency, Duration) Notes Start Date End Date Status Rosuvastatin Calcium 10 MG TAKE 1 TABLET BY MOUTH AT NIGHT for 90 Active SEROquel 25 MG 1/2 - 1 tab Orally Once a day for 30 days 03/29/2025 Active busPIRone HCl 10 MG 1 tab(s) orally twic e daily for 90 days 03/28/2024 Active Ipratropium-Albutero l 0.5-2.5 (3) MG/3ML 3 mL by nebulizer three times a day for 90 days DX: J44.9 01/25/2025 Active Nystatin 578431 UNIT/GM 1 boogie applied topically 2 times a day for 30 days prn 06/30/2024 Active Pantoprazole Sodium 40 MG 1 tab(s) orally twice a day for 90 days Active Symbicort 160-4.5 MCG/ACT 2 INH inhaled 2 times a day for 30 days Please dispense spacer for MDI 10/14/2024 Active Sucralfate 1 GM 1 tab(s) orally once a day for 30 days Active Carvedilol 12.5 MG 1 tab(s) orally 2 times a day for 30 days 10/29/2024 Active Estrace 0.1 MG/GM one applicator intravaginally 3 times a week for 30 day(s) Active Azelastine HCl 137 MCG/SPRAY 2 spray(s) in each nostril 2 times a day for 30 days 03/28/2024 Active Furosemide 20 MG 1 tab(s) orally twic e a week. for 30 days prn 06/24/2024 Active Fluticasone Propionate 50 MCG/ACT 2 spray(s) in each nostril once a day for 30 day(s) prn 08/29/2022 Active Triamcinolone Acetonide 0.5 % 1 boogie applied topically 2 times a day for 7 day(s) 04/24/2023 Active MIRALAX (OBSOLETE) prn *Please review for [...] for e-prescription and drug interaction check* Active ZOFRAN 4 MG 1 TAB(S) ORALLY 3 TIMES A DAY NEEDED FOR NAUSEA for 10 DAY(S) prn *Please review for potential replacement for e-prescription and drug interaction check* 11/02/2021 Active Centrum Silver Women 50+ *Please review and pick correct strength-formulat ion from Frugalo options. If intended option is not shown, discontinue and re-order from Quick Search* Active HYDROcodone-Acetamin ophen 5-325 MG 1/2 tab(s) orally every 6 hours Active Vital Signs Temperature 97.8 degrees Fahrenheit 04/12/20 25 Oximetry 97.6 04/12/2025 Heart Rate 78 /min 04/12/2025 Blood pressure systolic 138 mm Hg 04/12/20 25 Blood pressure diastolic 80 mm Hg 025 Height 64.5 in 04/12/2025 Weight 165.6 lbs 04/12/2025 BMI 27.98 kg/m2 04/12/2025 Encounters Encounter Location Date Provider Diagnosis [facility] [address] [facility] [address] [place] [address] 04/12/2025 Mayank Jimenes Moderate dementia with agitation, unspecified dementia type F03.B11 and COPD, moderate J44.9 Assessments Encounter Date Diagnosis (ICD Code) Assessment Notes Treatment Notes Treatment Clinical Notes Section Notes 04/12/2025 Moderate dementia with agitation, unspecified dementia type (ICD-10 - F03.B11) Overall doing much better with low-dose Seroquel. Sleeping better. We will stop BuSpar in the evenings. Only take BuSpar in the mornings. Long discussion with [id number] about further living arrangements. They plan to be transitioning to a mini home in the next couple of weeks. 04/12/2025 COPD, moderate (ICD-10 - J44.9) Currently on nebs. No changes in plan, respiratory status seems good Plan Of Treatment Treatment Notes Assessment Notes Moderate dementia with agita tion, unspecified dementia type Overall doing much better with low-dose Seroquel. Sleeping better. We will stop BuSpar in the evenings. Only take BuSpar in the mornings. Long discussion with [id number] about further living arrangements. They plan to be transitioning to a mini home in the next couple of weeks. COPD, moderate Currently on nebs. N o changes in plan, respiratory status seems good Next Appt Details Follow Up: prn,6 Weeks, Reas on: Provider Name:Mayank Jimenes, 06/14/2025 12:15:00 PM, [address] [facility], [address], [place], [address], Progress Notes * Trice RICHARDS LDOB:1945 (79 yo F)Acc No.[id number]:04/12/2025 Progress Notes Patient: Trice BARRAZA Provider: Juan Jimenes MD :1945 A ge:79 Y S ex:Female Date:04/12/2025 Address:[address], [id number] Subjective: * Chief Complaints: * 1 . 2 wk FU. 2. is better since starting Seroquel. 3. should she still be using the Symbicort. * Medical History: R A, osteoporosis, Spinal stenosis, Degenerative disc disease, Sciatic nerve problems, Low Vitamin D, Normal mammogram 02/25 and 11/2018, negative cologuard screening February 2017 and again in 07/2020, severe osteoporosis on DEXA scan in December 2018. Medical therapy started - still low in 01/31... prolia recommended, Breast Feeding: yes. * Surgical History: T onsillectomy 1951, [place] [...] 1 tab(s) orally twice a week. , Notes to Pharmacist: prn, Taking Nystatin [id number] UNIT/GM Cream 1 boogie applied topically 2 [...] 1 TABLET BY MOUTH AT NIGHT , Taking SEROquel 25 MG Tablet 1/2 - 1 tab Orally Once a day , Discontinued Donepezil HCl 5 MG Tablet 1 tab Orally Once a day , Medication List reviewed and reconciled with the patient * Allergies: S ULFA: itching, SULFATE BASED DRUGS: heart problems. Objective: * Vitals: N urse: jl, Pain: 4low back, Temp: 97.8, Pulse O2: 97.6, RR: 20, HR: 78, BP: 138/80, Ht: 64.5, Wt: 165.6, BMI:27.98. * Examination: G eneral Examination: General P [...] * Treatment: 2. C OPD, moderate Notes: Currently on nebs. No changes in plan, respiratory status seems good * Follow Up: p rn,6 Weeks * * Sign off status: Completed true * Provider: Juan Jimenes MD Date: 04/12/2025 Generated for Armen bonilla/Charan/eTransmitting on: 05/04/2025 11:10 AM EDT History and Physical Notes * Examination [...]
[2025-05-04] VITALS (12 sets, daily range): BP systolic 114–168; BP diastolic 64–94; PULSE 58–83; RESP 14–30; TEMP 35.8–37; O2SAT 93–99; BMI 30.1; BMI 28.2
--- NOTE | 2025-05-04 11:00 | ECG_ITS ---
APPROVED REPORT Exam: Resting ECG HR:71 bpm ECG Measurements Heart Rate 71 AXES MI 149 P 74 QRSd 112 QRS 68 QT 351 T 47 QTc 374 Conclusion SINUS RHYTHM POSSIBLE LEFT ATRIAL ENLARGEMENT [-0.1mV P-WAVE IN V1/V2] INCOMPLETE RIGHT BUNDLE BRANCH BLOCK [90+ ms QRS DURATION, TERMINAL R IN V1/V2, 40+ ms S IN I/aVL/V4/V5/V6] MODERATE ST DEPRESSION [0.05+ mV ST DEPRESSION] ABNORMAL ECG UNCONFIRMED REPORT Electronically signed by : NICHOLAS MARVIN, 05/05/2025 06:32:02
--- NOTE | 2025-05-04 11:04 | XR_ITS ---
FINAL REPORT TECHNIQUE: Single view chest CLINICAL HISTORY: short of breath COMPARISON: 11/16/2024 FINDINGS: A single view of the chest was obtained. The heart and mediastinum are within normal limits. There is new airspace opacity at the right lung base consistent with pneumonia. Patchy density is seen in the left midlung similar to prior exam. A large hiatal hernia is noted. There is no significant pleural effusion. There is no pneumothorax. IMPRESSION: Right base opacity consistent with pneumonia. Recommend follow-up. Reviewed, Interpreted and Dictated by Jenise Covington MD Transcribed by Gayathri Jernigan Authenticated and . [facility]
--- NOTE | 2025-05-04 11:09 | [facility].EDCP ---
Discharge Plan Disposition Patient Disposition: Admitted Clinical Impressions Clinical Impression: Acute on chronic hypoxic respiratory failure, Pneumonia Discharge ED Provider: Everardo Ken HPI <Jaimie Lombardo (ED), COMMUNITY INTEGRATION SPECIALIST - Last Filed: 05/04/25 15:27> General Chief Complaint: Shortness of Breath/Dyspnea Stated Complaint: sent by Yudy for poss. pneumonia Time Seen by Provider: 05/04/25 10:52 History of Present Illness HPI narrative: 79-year-old female presents to the ED today for complaint of shortness of breath that has been made worse by possible pneumonia since about Saturday. Sons are at bedside telling us that she has recently moved from son's house that she has been out for 10 months to a caretakers house to [place]. Patient is weak, confused, very short of breath. She says she has not been wearing her O2 as much as she usually does. Patient has been on a Z-Alon since Saturday. She did not take the last dose today. She was diagnosed with pneumonia. Patient does have history of COPD, pneumonia, CKD and rheumatoid arthritis. Patient's son did state that patient started on Saturday with garbled slurred speech, some weakness on her right side. He states that he is unsure why this is happening. He is not sure if this is from the pneumonia. Patient does know where she is but difficult to understand. I also had Dr. Ken assess patient. Related Data Home Medications ?Medication ?Instructions ?Recorded ?Confirmed carvedilol 12.5 mg tablet 12.5 mg PO BID 01/08/19 05/04/25 rosuvastatin 10 mg tablet 10 mg PO HS 02/20/21 05/04/25 sucralfate 1 gram tablet 1 g PO ACHS 06/03/23 05/04/25 buspirone 10 mg tablet 10 mg PO BID 11/14/24 05/04/25 donepezil 5 mg tablet 5 mg PO HS 11/14/24 05/04/25 quetiapine 25 mg tablet 12.5 - 25 mg PO DAILY 05/04/25 05/04/25 Previous Rx's ?Medication ?Instructions ?Recorded hydrocodone 5 mg-acetaminophen 325 1 tab PO TID #90 tabs 04/21/25 mg tablet Allergies Allergy/AdvReac Type Severity Reaction Status Date / Time Sulfa (Sulfonamide Allergy Intermediate HEART RACES Verified 05/04/25 12:59 Antibiotics) (SULFA (SULFONAMIDE ANTIBIOTICS)) Iodinated Contrast Media AdvReac Intermediate anxiety, Verified 05/04/25 12:59 rash PFS <Jaimie Lombardo (ED), COMMUNITY INTEGRATION SPECIALIST - Last Filed: 05/04/25 15:27> [facility] Disclaimer: The information contained in this section may have been updated after the patient was seen, as this information can be updated by other users. Medical History (Updated 05/04/25 @ 16:06 by Floridalma Andrews APRN) Essential hypertension Dementia Multiple lung nodules on CT History of smoking 10-25 pack years Rheumatoid arthritis GI bleed Hypertensive urgency Hypervolemia CKD (chronic kidney disease) Degenerative disc disease, lumbar Uterine procidentia Shortness of breath GI bleed History of recurrent UTI (urinary tract infection) Hyperlipidemia Renal cyst GI bleed UTI (urinary tract infection) Dizziness Surgical History History of tonsillectomy and adenoidectomy H/O tubal ligation Family History Other Cancer Hyperlipidemia Hypertension Stroke Social History (Updated 05/04/25 @ 15:05 by Dianna Gya RN) Smoking Status: Former smoker tobacco type: cigarettes packs per day: 1 second hand exposure: No alcohol intake: never substance use type: denies use current occupational status: other Travel in the last 8 weeks?: None household members: none housing: house current occupational exposures/hazards: No caffeine: Yes Have you lived/traveled outside US in past 30 days?: No Contact w/someone who lives/traveled outside US past 30 days?: No Exposure to someone with infectious disease in past 14 days?: No Do you have a fever (greater than 100.4 F or 38 C)?: No Have you tested positive for COVID-19?: No Exposed to someone with COVID-19 in past 14 days?: No Do you have a sore throat?: No Do you have a cough?: Yes Do you have any weakness?: Yes Are you experiencing any nausea/vomitting?: No Do you have any diarrhea?: No Are you experiencing any unusual bleeding?: No Do you have any muscle aches/pain?: No Do you have any abdominal pain?: No Are you experiencing loss of taste or smell?: No Other Medical History Have you received the Flu Vaccine for this season: Yes Have you received the Pneumonia Vaccine: Yes <[facility] (ED), COMMUNITY INTEGRATION SPECIALIST - Last Filed: 05/04/25 15:27> ROS Obtained: Yes Systems reviewed as appropriate & no additional complaints except as documented Constitutional Constitutional: Reports as per HPI Physical Exam <[facility] (ED), COMMUNITY INTEGRATION SPECIALIST - Last Filed: 05/04/25 15:27> General General appearance: alert, anxious and in distress Head Head exam: normocephalic Eye Eye exam: Present PERRL and EOMI ENT ENT exam: Present normal oropharynx and mucous membranes moist Neck Neck exam: Present full ROM and trachea midline Respiratory Respiratory exam: Present respiratory distress and wheezes Cardiovascular Cardiovascular exam: Present regular rate, normal rhythm, normal heart sounds, +S1 and +S2 Abdominal Exam Abdominal exam: Present soft and normal bowel sounds Extremities Exam Extremities exam: Present full ROM and normal capillary refill Neurological Exam Neurological exam: Present other (right side with some weakness, facial droop on right side ) Skin Skin exam: Present warm, dry and intact HEART Score <[facility] (ED), COMMUNITY INTEGRATION SPECIALIST - Last Filed: 05/04/25 15:27> HEART Score HEART Score assessment performed?: Yes History (anamnesis): Moderately suspicious ECG: Non-specific disturbance Age: >65 years Risk factors: 1-2 risk factors Troponin: </= normal limit HEART Score: 5 <Everardo Ken MD - Last Filed: 05/05/25 10:33> HEART Score HEART Score: 5 Critical Care <[facility] (ED), COMMUNITY INTEGRATION SPECIALIST - Last Filed: 05/04/25 15:27> Critical Care Time Critical Care Time: No <Everardo Ken MD - Last Filed: 05/05/25 10:33> Critical Care Time Critical Care Time: Yes (respiratory, neurologic) Attestation: On 05/04/25, the high probability of a clinically significant, sudden or life threatening deterioration of the following system(s) required my full and direct attention, intervention and personal management. The time I documented below is in addition to time spent performing reported procedures but includes the following listed in this critical care notation. Total Time Total Critical Care Time: 35 Medical Decision Making <Jaimie Grupo (ED), COMMUNITY INTEGRATION SPECIALIST - Last Filed: 05/04/25 15:27> Medical Records Medical records reviewed: Yes I reviewed the patient's medical records. Eleazar Inquiry Pt receiving controlled substance: No Eleazar was queried for this patient: No Vital Signs Vital Signs: 05/04/25 11:00 05/04/25 11:03 05/04/25 11:31 Temperature 98.6 F Temperature Source Oral Pulse Rate 71 68 Pulse Rate [Left Radial] 77 Respiratory Rate 28 H 15 Blood Pressure 114/94 H 168/91 H Blood Pressure [Right Arm] 114/94 H Blood Pressure Mean 110 Blood Pressure Mean [Right Arm] 100 02 Sat by Pulse Oximetry 94 L 93 L 97 Oxygen Delivery Method Nasal Cannula Nasal Cannula Oxygen Flow Rate (LPM) 3 3 05/04/25 12:31 05/04/25 13:01 05/04/25 13:14 Temperature Temperature Source Pulse Rate 83 72 Pulse Rate [Left Radial] Respiratory Rate 22 16 Blood Pressure 151/81 H 148/76 H Blood Pressure [Right Arm] Blood Pressure Mean 117 Blood Pressure Mean [Right Arm] 02 Sat by Pulse Oximetry 94 L 99 Oxygen Delivery Method Nasal Cannula Oxygen Flow Rate (LPM) 4 05/04/25 13:30 05/04/25 13:47 Temperature 98.1 F Temperature Source Pulse Rate 68 77 Pulse Rate [Left Radial] Respiratory Rate 14 30 H Blood Pressure 155/85 H 155/85 H Blood Pressure [Right Arm] Blood Pressure Mean 126 Blood Pressure Mean [Right Arm] 02 Sat by Pulse Oximetry 97 Oxygen Delivery Method Nasal Cannula Oxygen Flow Rate (LPM) 4 Lab Data Labs: Lab Results 05/04/25 11:10: WBC 19.1 H, RBC 4.01 L, Hgb 11.8 L, Hct 35.7 L, MCV 89.0, MCH 29.4, MCHC 33.1, RDW 13.3, Plt Count 263, MPV 11.1 H, Neut % (Auto) 83.5 H, Lymph % (Auto) 7.3 L, [place] % (Auto) 6.3, Eos % (Auto) 0.1, Baso % (Auto) 0.4, Neut # (Auto) 16.0 H, Lymph # (Auto) 1.4, [place] # (Auto) 1.2 H, Eos # (Auto) 0.0, Baso # (Auto) 0.1, ESR 1, PT 13.0 H, INR 1.19 H, APTT 34.5 H, Sodium 131 L, Potassium 4.7, Chloride 95 L, Carbon Dioxide 34 H, Anion Gap 6.7, BUN 25 H, Creatinine 0.80, Estimated Creat Clear 54, Estimated GFR 69, Est GFR ( Amer) 83, Glucose 133 H, Lactate 1.1, Calcium 10.0, Total Bilirubin 1.4 H, AST 140 H, ALT 90 H, Alkaline Phosphatase 193 H, Troponin I 0.03, C-Reactive Protein 186.1 H, NT-Pro-B Natriuret Pep 5500 H, Total Protein 8.0, Albumin 3.6, Globulin 4.4 H, Albumin/Globulin Ratio 0.8 L 05/04/25 11:17: VBG pH 7.37, VBG pCO2 55.8 H, VBG pO2 76.1 H, VBG HCO3 31.2 H, VBG Total CO2 33.0 H, VBG O2 Saturation 95.4 H, VBG Base Excess 5.9 H, VBG Lactic Acid 1.7, Chlamy pneumoniae PCR Not detected, Adenovirus (PCR) Not detected, B. pertussis DNA (PCR) Not detected, Coronavirus OC43 (PCR) Not detected, Coronavirus HKU1 (PCR) Not detected, Coronavirus 229E (PCR) Not detected, SARS-CoV-2 (PCR) Not detected, Coronavirus NL63 (PCR) Not detected, Human Metapneumovir PCR Not detected, Influenza A (H1) PCR Not detected, Influ A (H1N1/09) PCR Not detected, Influenza A (H3) PCR Not detected, Influenza Type A (PCR) Not detected, Influenza Type B (PCR) Not detected, M. pneumoniae (PCR) Not detected, Parainfluenza 1 (PCR) Not detected, Parainfluenza 2 (PCR) Not detected, Parainfluenza 3 (PCR) Not detected, Parainfluenza 4 (PCR) Not detected, RSV (PCR) Not detected, Entero/Rhino (PCR) Not detected 05/05/25 05:40 05/05/25 05:40 Response Orders (Tests/Meds): ED MEDICATIONS Generic Name Dose Route Start Last Admin Trade Name Ellis PRN Reason Stop Dose Admin Acetaminophen 650 mg 05/04/25 14:35 Acetaminophen 325mg Tab PO 06/03/25 14:34 Q4HP PRN Fever or Mild Pain (1-3) Hydrocodone Bitart/Acetaminophen 1 tab 05/04/25 14:35 Hydrocodone/Apap 5/325 Mg Tablet PO 06/03/25 14:34 Q4HP PRN Mild to Moderate Pain (1-6) Albuterol/Ipratropium 3 ml 05/04/25 18:00 05/05/25 06:07 Ipratropium/Albuterol 3 Ml Neb IH 06/03/25 17:59 3 ml Q6RT ANKIT Administration Atorvastatin Calcium 40 mg 05/04/25 21:00 05/04/25 20:41 Atorvastatin 40mg Tablet PO 06/03/25 20:59 Not Given HS ANKIT Buspirone HCl 10 mg 05/04/25 21:00 05/05/25 08:44 Buspirone Hcl 10 Mg Tablet PO 06/03/25 20:59 Not Given BID ANKIT Carvedilol 12.5 mg 05/04/25 21:00 05/05/25 08:46 Carvedilol 12.5mg Tablet PO 06/03/25 20:59 12.5 mg BID ANKIT Administration Donepezil HCl 5 mg 05/04/25 21:00 05/04/25 20:41 Donepezil 5mg Tab PO 06/03/25 20:59 Not Given HS ANKIT Enoxaparin Sodium 40 mg 05/05/25 09:00 05/05/25 08:46 Enoxaparin 40mg/0.4ml Syringe SUBCUT 06/04/25 08:59 40 mg DAILY ANKIT Administration Haloperidol Lactate 3 mg 05/04/25 18:48 05/05/25 01:22 Haloperidol Lactate 5 Mg/Ml Vial IV 06/03/25 18:47 3 mg Q4HP PRN Administration Agitation Azithromycin 500 mg/ Sodium 250 mls @ 250 mls/hr 05/04/25 11:30 05/04/25 11:39 Chloride IV 05/14/25 11:29 250 mls/hr Q24H ANKIT Administration Doxycycline Hyclate 100 mg/ 250 mls @ 166.667 mls/hr 05/04/25 16:00 05/05/25 03:56 Sodium Chloride IV 05/14/25 15:59 166.667 mls/hr Q12H ANKIT Administration Ceftriaxone Sodium 2 gm/ 100 mls @ 200 mls/hr 05/05/25 09:00 05/05/25 08:47 Sodium Chloride IV 05/15/25 08:59 200 mls/hr Q24H ANKIT Administration Sodium Chloride 10 ml 05/04/25 14:53 Sodium Chloride 0.9% 10ml Flush Syringe IV 06/03/25 14:52 NEEDED PRN Maintain IV Site Sodium Chloride 3 ml 05/05/25 07:51 Sodium Chloride 3% 15ml Neb 06/04/25 07:50 ONCE PRN INDUCE SPUTUM COLLECTION Discontinued Medications Generic Name Dose Route Start Last Admin Trade Name Freq PRN Reason Stop Dose Admin Albuterol/Ipratropium 9 ml 05/04/25 11:19 05/04/25 11:26 Ipratropium/Albuterol 3 Ml [facility] 05/04/25 11:20 9 ml ONCE ONE Administration Diphenhydramine HCl 25 mg 05/04/25 11:35 05/04/25 11:43 Diphenhydramine 50mg/Ml Vial IV 05/04/25 11:36 25 mg ONCE ONE Administration Ceftriaxone Sodium 2 gm/ 100 mls @ 200 mls/hr 05/04/25 11:03 05/04/25 11:26 Sodium Chloride IV 05/04/25 11:32 200 mls/hr ONCE ONE Administration Magnesium Sulfate 2 gm in 50 mls @ 50 mls/hr 05/04/25 11:19 05/04/25 11:27 Magnesium Sulfate 2gm/50ml Premix IV 05/04/25 12:18 50 mls/hr ONCE ONE Administration Iopamidol 160 ml 05/04/25 12:10 05/04/25 12:11 Iopamidol-370 (76%);100ml Bottle IV 05/04/25 12:11 160 ml ONCE ONE Administration Methylprednisolone Sodium Succinate 125 mg 05/04/25 11:21 05/04/25 11:26 Methylprednisolone Sod Succ 125mg Vial IV 05/04/25 11:22 125 mg ONCE ONE Administration Sodium Chloride 10 ml 05/04/25 12:10 05/04/25 12:11 Sodium Chloride 0.9% 10ml Syr (Rad Only) IV 05/04/25 12:11 10 ml ONCE ONE Administration Sodium Chloride 100 ml 05/04/25 12:10 05/04/25 12:11 0.9 % Sodium Chloride 50 Ml Vial IV 05/04/25 12:11 100 ml ONCE ONE Administration ORDERS Category Date Time Status CT angio chest - dissection Stat Cat Scan 05/04/25 11:[address] angio head Stat Cat Scan 05/04/25 11:[address] angio neck Stat Cat Scan 05/04/25 11:[address] head/brain wo con Stat Cat Scan 05/04/25 11:35 Completed XR chest portable Stat Exams 05/04/25 11:04 Completed Activated Partial Thrombo Time Stat Lab 05/04/25 11:10 Completed BNP [NT Pro Brain Natriuretic Pep.] Stat Lab 05/04/25 11:10 Completed C-Reactive Protein Stat Lab 05/04/25 11:10 Completed Complete Blood Count Auto Diff Stat Lab 05/04/25 11:10 Completed Comprehensive Metabolic Panel Stat Lab 05/04/25 11:10 Completed Erythrocyte Sedimentation Rate Stat Lab 05/04/25 11:10 Completed Full Resp Panel w/COVID ([facility]) Routine Lab 05/04/25 11:17 Completed Lactic Acid Stat Lab 05/04/25 11:10 Completed Prothrombin Time INR Stat Lab 05/04/25 11:10 Completed Trop I [Troponin I] Stat Lab 05/04/25 11:10 Completed Troponin I Q3H Lab 05/04/25 14:36 Completed Troponin I Q3H Lab 05/04/25 17:20 Completed Urinalysis and Microscopic Stat Lab 05/04/25 16:13 Completed Blood Culture Stat Micro 05/04/25 11:05 Received Urine Culture Stat Micro 05/04/25 16:13 Received VBG [Venous Blood Gas] Stat RT 05/04/25 11:17 Completed MDM Narrative Medical Decision Narrative: patient is a 79-year-old female presenting to the emergency department for evaluation of shortness of breath, possible worsening pneumonia and slurred speech since Saturday. Patient is afebrile, hypoxic on arrival at 74% on room air. Patient took 3 and half liters nasal cannula to get to 94%. Differential diagnosis includes pneumonia, CVA, hypoxia, PE, among others. Workup will be conducted with hematologic labs, specific imaging, provocative tests. Initial inventions include Solu-Medrol, DuoNebs, mag. Initial workup reviewed by me white count was 19.1, lactic was 1.7, BNP 5500, troponin 0.03, BUN 25 creatinine 0.08. Imaging informally interpreted by me and remarkable for pneumonia. Please see CT reading for formal radiology read. Upon repeat evaluation patient's pain is improved, appears better perfused, however patient has needed increased oxygen from home O2, white count is elevated patient has confusion and altered mental status patient will be admitted to hospitalist Dr. Moore for pneumonia. Patient has been accepted by hospital medicine and we are awaiting bed. <Everardo Ken MD - Last Filed: 05/05/25 10:33> Vital Signs Vital Signs: 05/04/25 11:00 05/04/25 11:03 05/04/25 11:31 Temperature 98.6 F Temperature Source Oral Pulse Rate 71 68 Pulse Rate [Left Radial] 77 Respiratory Rate 28 H 15 Blood Pressure 114/94 H 168/91 H Blood Pressure [Right Arm] 114/94 H Blood Pressure Mean 110 Blood Pressure Mean [Right Arm] 100 02 Sat by Pulse Oximetry 94 L 93 L 97 Oxygen Delivery Method Nasal Cannula Nasal Cannula Oxygen Flow Rate (LPM) 3 3 05/04/25 12:31 05/04/25 13:01 05/04/25 13:14 Temperature Temperature Source Pulse Rate 83 72 Pulse Rate [Left Radial] Respiratory Rate 22 16 Blood Pressure 151/81 H 148/76 H Blood Pressure [Right Arm] Blood Pressure Mean 117 Blood Pressure Mean [Right Arm] 02 Sat by Pulse Oximetry 94 L 99 Oxygen Delivery Method Nasal Cannula Oxygen Flow Rate (LPM) 4 05/04/25 13:30 05/04/25 13:47 Temperature 98.1 F Temperature Source Pulse Rate 68 77 Pulse Rate [Left Radial] Respiratory Rate 14 30 H Blood Pressure 155/85 H 155/85 H Blood Pressure [Right Arm] Blood Pressure Mean 126 Blood Pressure Mean [Right Arm] 02 Sat by Pulse Oximetry 97 Oxygen Delivery Method Nasal Cannula Oxygen Flow Rate (LPM) 4 Lab Data Labs: Lab Results 05/04/25 11:10: WBC 19.1 H, RBC 4.01 L, Hgb 11.8 L, Hct 35.7 L, MCV 89.0, MCH 29.4, MCHC 33.1, RDW 13.3, Plt Count 263, MPV 11.1 H, Neut % (Auto) 83.5 H, Lymph % (Auto) 7.3 L, [place] % (Auto) 6.3, Eos % (Auto) 0.1, Baso % (Auto) 0.4, Neut # (Auto) 16.0 H, Lymph # (Auto) 1.4, [place] # (Auto) 1.2 H, Eos # (Auto) 0.0, Baso # (Auto) 0.1, ESR 1, PT 13.0 H, INR 1.19 H, APTT 34.5 H, Sodium 131 L, Potassium 4.7, Chloride 95 L, Carbon Dioxide 34 H, Anion Gap 6.7, BUN 25 H, Creatinine 0.80, Estimated Creat Clear 54, Estimated GFR 69, Est GFR ( Amer) 83, Glucose 133 H, Lactate 1.1, Calcium 10.0, Total Bilirubin 1.4 H, AST 140 H, ALT 90 H, Alkaline Phosphatase 193 H, Troponin I 0.03, C-Reactive Protein 186.1 H, NT-Pro-B Natriuret Pep 5500 H, Total Protein 8.0, Albumin 3.6, Globulin 4.4 H, Albumin/Globulin Ratio 0.8 L 05/04/25 11:17: VBG pH 7.37, VBG pCO2 55.8 H, VBG pO2 76.1 H, VBG HCO3 31.2 H, VBG Total CO2 33.0 H, VBG O2 Saturation 95.4 H, VBG Base Excess 5.9 H, VBG Lactic Acid 1.7, Chlamy pneumoniae PCR Not detected, Adenovirus (PCR) Not detected, B. pertussis DNA (PCR) Not detected, Coronavirus OC43 (PCR) Not detected, Coronavirus HKU1 (PCR) Not detected, Coronavirus 229E (PCR) Not detected, SARS-CoV-2 (PCR) Not detected, Coronavirus NL63 (PCR) Not detected, Human Metapneumovir PCR Not detected, Influenza A (H1) PCR Not detected, Influ A (H1N1/09) PCR Not detected, Influenza A (H3) PCR Not detected, Influenza Type A (PCR) Not detected, Influenza Type B (PCR) Not detected, M. pneumoniae (PCR) Not detected, Parainfluenza 1 (PCR) Not detected, Parainfluenza 2 (PCR) Not detected, Parainfluenza 3 (PCR) Not detected, Parainfluenza 4 (PCR) Not detected, RSV (PCR) Not detected, Entero/Rhino (PCR) Not detected Response Orders (Tests/Meds): ED MEDICATIONS Generic Name Dose Route Start Last Admin Trade Name Freq PRN Reason Stop Dose Admin Acetaminophen 650 mg 05/04/25 14:35 Acetaminophen 325mg Tab PO 06/03/25 14:34 Q4HP PRN Fever or Mild Pain (1-3) Hydrocodone Bitart/Acetaminophen 1 tab 05/04/25 14:35 Hydrocodone/Apap 5/325 Mg Tablet PO 06/03/25 14:34 Q4HP PRN Mild to Moderate Pain (1-6) Albuterol/Ipratropium 3 ml 05/04/25 18:00 05/05/25 06:07 Ipratropium/Albuterol 3 Ml Neb IH 06/03/25 17:59 3 ml Q6RT ANKIT Administration Atorvastatin Calcium 40 mg 05/04/25 21:00 05/04/25 20:41 Atorvastatin 40mg Tablet PO 06/03/25 20:59 Not Given HS ANKIT Buspirone HCl 10 mg 05/04/25 21:00 05/05/25 08:44 Buspirone Hcl 10 Mg Tablet PO 06/03/25 20:59 Not Given BID ANKIT Carvedilol 12.5 mg 05/04/25 21:00 05/05/25 08:46 Carvedilol 12.5mg Tablet PO 06/03/25 20:59 12.5 mg BID ANKIT Administration Donepezil HCl 5 mg 05/04/25 21:00 05/04/25 20:41 Donepezil 5mg Tab PO 06/03/25 20:59 Not Given HS ANKIT Enoxaparin Sodium 40 mg 05/05/25 09:00 05/05/25 08:46 Enoxaparin 40mg/0.4ml Syringe SUBCUT 06/04/25 08:59 40 mg DAILY ANKIT Administration Haloperidol Lactate 3 mg 05/04/25 18:48 05/05/25 01:22 Haloperidol Lactate 5 Mg/Ml Vial IV 06/03/25 18:47 3 mg Q4HP PRN Administration Agitation Azithromycin 500 mg/ Sodium 250 mls @ 250 mls/hr 05/04/25 11:30 05/04/25 11:39 Chloride IV 05/14/25 11:29 250 mls/hr Q24H ANKIT Administration Doxycycline Hyclate 100 mg/ 250 mls @ 166.667 mls/hr 05/04/25 16:00 05/05/25 03:56 Sodium Chloride IV 05/14/25 15:59 166.667 mls/hr Q12H ANKIT Administration Ceftriaxone Sodium 2 gm/ 100 mls @ 200 mls/hr 05/05/25 09:00 05/05/25 08:47 Sodium Chloride IV 05/15/25 08:59 200 mls/hr Q24H ANKIT Administration Sodium Chloride 10 ml 05/04/25 14:53 Sodium Chloride 0.9% 10ml Flush Syringe IV 06/03/25 14:52 NEEDED PRN Maintain IV Site Sodium Chloride 3 ml 05/05/25 07:51 Sodium Chloride 3% 15ml Neb 06/04/25 07:50 ONCE PRN INDUCE SPUTUM COLLECTION Discontinued Medications Generic Name Dose Route Start Last Admin Trade Name Freq PRN Reason Stop Dose Admin Albuterol/Ipratropium 9 ml 05/04/25 11:19 05/04/25 11:26 Ipratropium/Albuterol 3 Ml Neb 05/04/25 11:20 9 ml ONCE ONE Administration Diphenhydramine HCl 25 mg 05/04/25 11:35 05/04/25 11:43 Diphenhydramine 50mg/Ml Vial IV 05/04/25 11:36 25 mg ONCE ONE Administration Ceftriaxone Sodium 2 gm/ 100 mls @ 200 mls/hr 05/04/25 11:03 05/04/25 11:26 Sodium Chloride IV 05/04/25 11:32 200 mls/hr ONCE ONE Administration Magnesium Sulfate 2 gm in 50 mls @ 50 mls/hr 05/04/25 11:19 05/04/25 11:27 Magnesium Sulfate 2gm/50ml Premix IV 05/04/25 12:18 50 mls/hr ONCE ONE Administration Iopamidol 160 ml 05/04/25 12:10 05/04/25 12:11 Iopamidol-370 (76%);100ml Bottle IV 05/04/25 12:11 160 ml ONCE ONE Administration Methylprednisolone Sodium Succinate 125 mg 05/04/25 11:21 05/04/25 11:26 Methylprednisolone Sod Succ 125mg Vial IV 05/04/25 11:22 125 mg ONCE ONE Administration Sodium Chloride 10 ml 05/04/25 12:10 05/04/25 12:11 Sodium Chloride 0.9% 10ml Syr (Rad Only) IV 05/04/25 12:11 10 ml ONCE ONE Administration Sodium Chloride 100 ml 05/04/25 12:10 05/04/25 12:11 0.9 % Sodium Chloride 50 Ml Vial IV 05/04/25 12:11 100 ml ONCE ONE Administration ORDERS Category Date Time Status CT angio chest - dissection Stat Cat Scan 05/04/25 11:[address] angio head Stat Cat Scan 05/04/25 11:[address] angio neck Stat Cat Scan 05/04/25 11:[address] head/brain wo con Stat Cat Scan 05/04/25 11:35 Completed XR chest portable Stat Exams 05/04/25 11:04 Completed Activated Partial Thrombo Time Stat Lab 05/04/25 11:10 Completed BNP [NT Pro Brain Natriuretic Pep.] Stat Lab 05/04/25 11:10 Completed C-Reactive Protein Stat Lab 05/04/25 11:10 Completed Complete Blood Count Auto Diff Stat Lab 05/04/25 11:10 Completed Comprehensive Metabolic Panel Stat Lab 05/04/25 11:10 Completed Erythrocyte Sedimentation Rate Stat Lab 05/04/25 11:10 Completed Full Resp Panel w/COVID ([facility]) Routine Lab 05/04/25 11:17 Completed Lactic Acid Stat Lab 05/04/25 11:10 Completed Prothrombin Time INR Stat Lab 05/04/25 11:10 Completed Trop I [Troponin I] Stat Lab 05/04/25 11:10 Completed Troponin I Q3H Lab 05/04/25 14:36 Completed Troponin I Q3H Lab 05/04/25 17:20 Completed Urinalysis and Microscopic Stat Lab 05/04/25 16:13 Completed Blood Culture Stat Micro 05/04/25 11:05 Received Urine Culture Stat Micro 05/04/25 16:13 Received VBG [Venous Blood Gas] Stat RT 05/04/25 11:17 Completed ECG Data Tracing #1: Attestation: I reviewed this ECG and interpreted as documented below: (Sinus rhythm 71 bpm with CO 149, QRS 112, QRS 374. Incomplete right bundle branch block morphology. She does have nonspecific ST changes) MDM Narrative Medical Decision Narrative: patient is a 79-year-old female presenting to the emergency department for evaluation of shortness of breath, possible worsening pneumonia and slurred speech since Saturday. Patient is afebrile, hypoxic on arrival at 74% on room air. Patient took 3 and half liters nasal cannula to get to 94%. Differential diagnosis includes pneumonia, CVA, hypoxia, PE, among others. Workup will be conducted with hematologic labs, specific imaging, provocative tests. Initial inventions include Solu-Medrol, DuoNebs, mag. Initial workup reviewed by me white count was 19.1, lactic was 1.7, BNP 5500, troponin 0.03, BUN 25 creatinine 0.08. Imaging informally interpreted by me and remarkable for pneumonia. Please see CT reading for formal radiology read. Upon repeat evaluation patient's pain is improved, appears better perfused, however patient has needed increased oxygen from home O2, white count is elevated patient has confusion and altered mental status patient will be admitted to hospitalist Dr. Moore for pneumonia. Patient has been accepted by hospital medicine and we are awaiting bed. I was consulted by the ALYSSA, and we discussed the complexity of the problems being addressed. I approved the treatment and management plan for this patient's care in the Emergency Department, thus performing a substantive portion of the medical decision making. Everardo Ken MD
--- OUTSIDE RECORDS SUMMARY | 2025-05-04 11:10 | XMS_ITS ---
Author Name Auto Generated, Auto Generated Organization [facility] Address [address] [place] [place] [address] Phone [phone] Care Team Providers Care Tobacco Sorter Name Role Phone Tommy Moore Unavailable [phone] CherellejeremiasMayank Unavailable Tatum Bañuelos Unavailable [phone] Functional Status No Results Mental Status No [...] fluticasone propionate 50 mcg/actuation nasal spray,suspension 1 [place] Intranasal PRN Indication: allergy symptoms and/or stuff [...]
--- OUTSIDE RECORDS SUMMARY | 2025-05-04 11:11 | XMS_ITS | Clinical Summary ---
Author Organization [facility] Address [address] [place] [address] Phone Care Team Providers Care Panel Gluer Name Role Phone Mayank Jimenes MD Primary Care Provider + [phone] Allergies Active Allergy Reactions Criticality Noted Date [...] LIGATION UPPER GASTROINTESTINAL ENDOSCOPY gastric ulcer cauterization OR COLPOCLEISIS LE FORT TYPE 02/10/2024 N/A LeFort [...] N/A .; Surgeon: Hortencia Ibarra MD; Location: [facility]; Service: Gynecology [...] this topic Medical Devices Implanted Type Area Scheduling Coordinator Device Identifier Shelf Expiration Date Model / Serial / Lot Desara Sl Short Length Mesh Sling 12cm - [id number] Implanted:Qty: 1 on 02/10/2024 by Hortencia Ibarra MD at [facility] N/A: Urethra [employer] 08/19/2028 HELGA-DS0 1SL / / [id number] Additional Health Concerns 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 02/17/2024 02/17/2024 Insurance MEDICARE [place] PART A AND B PETER CARO MEDICARE [place] PART A AND B [place]ER [place]O Advance Directives For more information, please contact: [phone] Documents on File Type Date Recorded Patient Manager Biostatistics Expl anation Power of Technical Planner 02/10/2024 ADVANCE DIRECTIVE 02/10/2024 * Full Code (Latest Code Status on File) Date Activated Date Inactivated Comments 02/10/2024 4:58 PM 02/11/2024 12:40 PM Care Teams Panel Gluer Relationship Specialty Start Date End Date Mayank Jimenes MD [address] [place], [place] [address] [place] [phone] PCP - General Internal Medicine-Adolescent Medicine 02/03/24
--- OUTSIDE RECORDS SUMMARY | 2025-05-04 11:11 | XMS_ITS | Clinical Summary ---
Author Organization Healthcare Address [address] [place] [address] Care Team Providers Care Newspaper Subscription Solicitor Name Role Phone Mayank Jimenes MD Primary Care Provider [phone] Allergies Active Allergy Reactions Criticality Noted Date [...] or (1 - 1-dose 75+ series) 2018 [id number] Vaccine ( season) 2024 07/19/2021, 12/19/2020, 11/18/2020 [...] age to complete this topic [place] [address] [facility] [employer] CLAIMS DENTAL Care Teams Newspaper Subscription Solicitor Relationship Specialty Start Date End Date Mayank Jimenes MD [address] [address] [place] [address] PCP - General 03/24/21
--- OUTSIDE RECORDS SUMMARY | 2025-05-04 11:11 | XMS_ITS | Patient Health Record ---
Author Organization [facility] Address [address] [place] [address] Care Team Providers Care Director Of Advertising Sales Name Role Phone Mayank Jimenes Primary Care Provider Venkata Melissa Unavailable [phone] Migration, Provider Unavailable Unavailable Allergies Allergen (clinical drug ingredient) Drug/Non Drug Allergy documented on EMR Reaction Allergy Type Onset Date Status SULFA (uncoded) itching Allergy Acti ve SULFATE BASED DRUGS (uncoded) heart problems Allergy Active Results Component Value Reference Range Notes CULTURE, URINE, ROUTINE (395 ) Reviewed date:11/12/2024 10:28:39 AM Interpretation: Performing Lab:[facility] [id number], MapR [id number] Avinash Kirk Notes/Report: NON-FASTING CULTURE, URINE, ROUTINE SEE NOTE Micro Number: [id number] Test Status: Final Specimen Source: Urine Specimen Quality: Adequate Result: Mixed genital femi isolated. These superficial bacteria are not indicative of a urinary tract infection. No further organism identification is warranted on this specimen. If clinically indicated, recollect clean-catch, mid-stream urine and transfer immediately to Urine Culture Transport Tube. CULTURE, URINE, ROUTINE COMPREHENSIVE METABOLIC PANE L (96698) Reviewed date:01/14/2025 09:46:45 AM Interpretation: Performing Lab:[facility] [id number], MapR [id number] Avinash Kirk Notes/Report: NON-FASTING; NON-FASTING; NON-FASTING GLUCOSE [...] neg Bili neg Glucose neg Urinalysis Reviewed date:11/10/2024 10:54:15 AM Interpretation: Performing [...] 1.025 Ketone neg Bili neg Glucose neg B TYPE NATRIURETIC PEPTIDE ( BNP) (26328) Reviewed date:01/14/2025 09:46:46 AM Interpretation: Performing Lab:[facility] [id number] [place] [employer] [address] [place] [id number] Avinash Kirk Notes/Report: NON-FASTING B TYPE NATRIURETIC PEPTIDE (BNP) 144 <100 pg/mL BNP levels increase with age in the general population with the highest values seen in individuals greater than 75 years of age. Reference: J. Am. Kaity. Cardiol. 2002; 40:976-982. CBC (INCLUDES DIFF/PLT) (639 9) Reviewed date:01/14/2025 09:46:46 AM Interpretation: Performing Lab:[facility] [id number] [place] [employer] [address] [place] [id number] Avinash Kirk Notes/Report: NON-FASTING; NON-FASTING; NON-FASTING WHITE [...] MPV 13.2 7.5-12.5 fL ABSOLUTE NEUTROPHILS 3648 3483-0256 cells/uL ABSOLUTE LYMPHOCYTES 8637 975-5934 cells/uL ABSOLUTE MONOCYTES 504 200-950 cells/uL ABSOLUTE EOSINOPHILS 290 15-500 cells/uL ABSOLUTE BASOPHILS 38 0-200 cells/uL NEUTROPHILS 57.9 LYMPHOCYTES 28.9 MONOCYTES 8.0 EOSINOPHILS 4.6 BASOPHILS 0.6 MAGNESIUM (622) Reviewed date:01/14/2025 09:46:45 AM Interpretation: Performing Lab:[facility] [id number] [facility] HospitalHarrisonZccgQE[address] Avinash Darby Kirk Notes/Report: NON-FASTING; NON-FASTING; NON-FASTING MAGNESIUM 1.8 1.5-2.5 mg/dL ECHOCARDIOGRAM Reviewed date:07/10/2024 02:35:04 PM Interpretation: Performing [...] review and pick correct strength-formulat ion from Real Life Plus options. If intended option is not shown, discontinue and re-order from Quick Search* Active Furosemide 20 MG 1 tab(s) orally twic e a week. for 30 days prn 06/24/2024 Active HYDROcodone-Acetamin ophen 5-325 MG 1/2 tab(s) orally every 6 hours Active Nystatin 565597 UNIT/GM 1 boogie applied topically 2 times [...] a day for 7 day(s) 04/24/2023 Active Zithromax Z-Alon 250 MG as directed Orally for 5 days 04/30/2025 Active Immunizations Vaccine Route Administration Date Status Comme nts Fluvirin (MEDICARE ONLY) IM Intramuscular 07/30/2016 Admin istered Fluvirin--Influenza vaccine 3+ year IM Intramuscular 09/07/2008 Administered Fluvirin--Influenza vaccine 3+ year IM Intramuscular 08/08/2013 Administered Fluvirin--Influenza vaccine 3+ year IM Intramuscular 08/09/2014 Administered Fluzone High Dose IM Intramuscular 08/08/2018 Administered Fluzone High Dose IM Intramuscular 08/14/2019 Administered Fluzone High Dose IM Intramuscular 08/15/2020 Administered Fluzone High Dose IM Intramuscular 06/29/2021 Administered Fluzone High Dose IM Intramuscular 08/12/2024 Administered Influenza (Fluzone)--Medicare only IM Intramuscular 08/22/2015 Administered Influenza (Fluzone)--Medicare only IM Intramuscular 07/17/2017 Administered Pneumovax-23 (pneumococccal vaccine polyvalent)2 years or older IM Intramuscular 05/31/2014 Administered Prevnar PCV-13 (Pneumococcal conjugate 13) IM Intramuscular 10/11/2016 Administered Problems Problem Type SNOMED Code ICD Code Onset Dates Problem Status W/U Status Risk Notes Problem 38933644 Alzheimer's disease with late onset (G30.1) Active confirmed Problem Essential hypertension (79455223) Essential (primary) hypertension (I10) Active confirmed Problem Chronic kidney disease due to hypertension (854997714874342) Hypertensive chronic kidney disease with stage 1 through stage 4 chronic kidney disease, or unspecified chronic kidney disease (I12.9) Active confirmed Problem 82608761 Chronic maxillar y sinusitis (J32.0) Active confirmed Problem Aeboo-sm-zkzvnla hypoxemic respiratory failure (13473301546558418) Acute and chronic respiratory failure with hypoxia (J96.21) Active confirmed Problem Chronic gastric ulcer with haemorrhage (60409630) Chronic or unspecified gastric ulcer with hemorrhage (K25.4) Active confirmed Problem Chronic duodenal ulcer with hemorrhage (92465194) 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) Active confirmed Problem 49649231675852753 Sciatica, righ t side (M54.31) Active confirmed Problem 83868155 Sciatica, left side (M54.32) Active confirmed Problem 64222474 Vitamin D deficiency (E55.9) Active confirmed Problem 71649918 Osteoporosis (M81.0) Active confirmed Problem 585046435 Hyperlipemia, 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 confirmed Problem 084782869 Mild cognitive impairment (G31.84) Active confirmed Problem Urinary frequency (108352742) Urinary frequency (R35.0) Active confirmed Problem Cystitis (17787435) Cystitis (N30.90) Active co nfirmed Problem Fever (873026200) Fever (R50.9) Active confirme d Problem 05831005 Acute sinusitis (J01.90) Active confirmed Problem Urinary incontinence (142431342) Urinary incontinence (R32) Active confirmed Problem Dysuria (44393429) Burning with urination (R30.0) Active confirmed Problem 897419501 Gastroesophageal reflux disease without esophagitis (K21.9) Active confirmed Problem 82820456 Memory loss (R41.3) Active confirmed Problem 80281625 Contact dermatit is (L25.9) Active confirmed Problem Incontinence (71542783) Incontinence (R32) Active confirmed Problem 48839544 Anxiety, generalized (F41.1) Active confirmed Problem 897104624 Rheumatoid arthritis involving multiple sites, unspecified rheumatoid factor presence (M06.9) Active confirmed Problem 6377729 Urinary hesitanc y (R39.11) Active confirmed Problem 04145328 Vaginal dryness, menopausal (N95.1) Active confirmed Problem 27142645 Hyperlipidemia, unspecified hyperlipidemia type (E78.5) Active confirmed Problem 90769640 Recurrent major depressive disorder, in partial remission (F33.41) Active confirmed Problem Pulmonary edema (74983684) Pulmonary edema (J81.1) Active confirmed Problem 52806455 Seasonal allergi c rhinitis due to pollen (J30.1) Active confirmed Problem Esophageal spasm (98639624) Esophageal spasm (K22.4) Active confirmed Problem 860838925 Microcytic anemi a (D50.9) Active confirmed Problem 623396985 Healthcare maintenance (Z00.00) Active confirmed Problem 96755670 Uterine prolapse (N81.4) Active confirmed Problem Malignant hypertensive chronic kidney disease (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) Hypertensive chronic kidney disease w stg 1-4/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) Active confirmed Problem 98953643 Primary hypertension (I10) Active confirmed Problem 487404681 Seasonal allergi c rhinitis, unspecified trigger (J30.2) Active confirmed Problem Rheumatoid arthritis (41910724) Acute rheumatoid arthritis (M06.9) Active confirmed Problem 960448994 Renal mass (N28.89) Active confirmed Problem 2499183 Mild diastolic dysfunction (I51.9) Active confirmed Problem 538195022 COPD, moderate (J44.9) Active confirmed Problem Chronic kidney disease stage 3 (disorder) (533425732) Chronic kidney disease, stage 3 unspecified (N18.30) Active confirmed Problem Cough (16821985) Cough (R05.9) Active confirmed Problem 35967832 Moderate dementi a with agitation, unspecified dementia type (F03.B11) Active confirmed Vital Signs Heart Rate 78 /min 04/12/2025 Temperature 97.8 degrees Fahrenheit 04/12/2025 Oximetry 97.6 04/12/2025 Blood pressure diastolic 80 mm Hg 04/12/2025 Height 64.5 in 04/12/2025 Blood pressure systolic 138 mm Hg 04/12/2025 Weight 165.6 lbs 04/12/2025 BMI 27.98 kg/m2 04/12/2025 Encounters Encounter Location Date Provider Diagnosis [facility] [address] [place], [place] [address] 02/13/2025 Provider Migration Anxiety, generalized F41.1 [facility] [address] [place] [address] 05/13/2024 Mayank Jimenes Dysuria R30.0 [facility] [address] [place] [address] 06/08/2024 Mayankchristiano Jimenes Dysuria R30.0 ; Dyspnea on exertion R06.00 ; Generalized anxiety disorder F41.1 and Moderate dementia with anxiety, unspecified dementia type F03.B4 [facility] [address] [place] [address] 06/24/2024 Mayankchristiano Jimenes Peripheral edema R60.0 [facility] [address] [place] [address] 07/15/2024 Mayank Yudy Intertrigo L30.4 ; Alzheimer's disease with late onset G30.1 and Mild diastolic dysfunction I51.9 [facility] [address] [place] [address] 08/12/2024 Mayankchristiano Jimenes Essential (primary) hypertension I10 ; Mild cognitive impairment G31.84 ; Anxiety, generalized F41.1 and Immunization(s) administered Z23 [facility] [address] [place] [address] 09/08/2024 Mayankchristiano Jimenes Acute bronchitis, unspecified organism J20.9 and Mild diastolic dysfunction I51.9 [facility] [address] [place] [address] 10/14/2024 Mayankchristiano Jimenes Chronic cough R05.3 ; Vitamin D deficiency E55.9 ; Essential (primary) hypertension I10 ; Hypertensive chronic kidney disease w stg 1-4/unsp chr kdny I12.9 ; Mild cognitive impairment G31.84 ; Recurrent major depressive disorder, in partial remission F33.41 and Routine medical exam Z00.00 [facility] [address] [place] [address] 11/10/2024 Melissa Venkata Left flank pain R10. 9 [facility] [address] [place] [address] 11/23/2024 Mayank Besson Lobar pneumonia J18. 1 ; Chronic kidney disease, stage 3 unspecified N18.30 ; Alzheimer's disease with late onset G30.1 and Hospital discharge follow-up Z09 [facility] [address] [facility] [address] [place] [address] 12/09/2024 Mayank Besson Mild diastolic dysfunction I51.9 and Hypertensive chronic kidney disease with stage 1 through stage 4 chronic kidney disease, or unspecified chronic kidney disease I12.9 [facility] [address] [facility] [address] [place] [address] 01/11/2025 Mayank Besson Dysuria R30.0 ; Mild diastolic dysfunction I51.9 ; Pulmonary edema J81.1 ; SOB (shortness of breath) on exertion R06.02 and Alzheimer's disease with late onset G30.1 [facility] [address] [place] [address] 03/15/2025 Mayank Besson COPD, moderate J44.9 and Moderate dementia with agitation, unspecified dementia type F03.B11 [facility] [address] [facility] [address] [place] [address] 03/29/2025 Mayank Besson Moderate dementia with agitation, unspecified dementia type F03.B11 and COPD, moderate J44.9 [facility] [address] [place] [address] 04/12/2025 Mayank Besson Moderate dementia with agitation, unspecified dementia type F03.B11 and COPD, moderate J44.9 [facility] [address] [facility] [address] [place] [address] 06/26/2024 Mayank Besson [facility] [address] [place] [address] 06/29/2024 Mayank Besson Pulmonary edema J81. 1 [facility] [address] [facility] [address] [place] [address] 07/09/2024 Mayank Besson [facility] [address] [facility] [address] [place] [address] 10/29/2024 Mayank Besson [facility] [address] [place] [address] 11/10/2024 Mayank Besson [facility] [address] [place] [address] 11/16/2024 Mayank Besson [facility] [address] [place] [address] 11/27/2024 Mayank Besson [facility] [address] [facility] [address] [place] [address] 02/12/2025 Mayank Besson [facility] [address] [place] [address] 02/19/2025 Mayank Besson [facility] [address] [place] [address] 02/25/2025 Mayank Besson [facility] [place] [address] [place] [address] 03/10/2025 Mayank Besson Moderate dementia with anxiety, unspecified dementia type F03.B4 [facility] [address] [place] [address] 03/15/2025 Mayank Besson COPD, moderate J44.9 [facility] [address] [place] [address] 04/30/2025 Mayank Besson [facility] [address] [place] [address] 05/04/2025 Mayank Besson [facility] [address] [place] [address] 03/06/2025 Mayank Besson [facility] [address] [place] [address] 06/16/2024 Mayank Besson [facility] [address] [place] [address] 06/29/2024 Mayank Besson [facility] [address] [place] [address] 06/29/2024 Mayank Besson [facility] [address] [place] [address] 10/28/2024 Mayank Besson Chronic cough R05.3 [facility] [address] [place] [address] 01/23/2025 Mayank Besson [facility] [address] [place] [address] 01/23/2025 Mayank Besson [facility] [address] [place] [address] 02/12/2025 Mayank Besson [facility] [address] [place] [address] 02/12/2025 Mayank Besson Anxiety, generalized F41.1 [facility] [address] [place] [address] 03/25/2025 Mayank Besson Assessments Encounter Date Diagnosis (ICD Code) Assessment [...] moisturized - can continue nystatin cream prn 08/12/2024 Essential (primary) hypertension (ICD-10 - I10) Blood pressure under good control. No changes in plans. 08/12/2024 Mild cognitive impairment (ICD-10 - G31.84) No addition of donepezil today. Will focus on anxiety issues and later stabilized and relatively new environment living with her son. 09/08/2024 Acute bronchitis, unspecified organism (ICD-10 - [...] to make sure respiratory status is stable 11/23/2024 Chronic kidney disease, stage 3 unspecified [...] that she seems to be volume balanced. 01/11/2025 Mild diastolic dysfunction (ICD-10 - I51.9) [...] closely. 03/15/2025 COPD, moderate (ICD-10 - J44.9) 01/11/2025 Dysuria (ICD-10 - R30.0) Patient really does not have chronic dysuria, states her urine feels hot and would like a UA done. This is normal, she was reassured. 03/29/2025 Moderate dementia with agitation, unspecified dementia [...] BuSpar in the mornings. Long discussion with [id number]-sv-[id number] about further living arrangements. They plan to be transitioning to a mini home in the next couple of weeks. 01/11/2025 Pulmonary edema (ICD-10 - J81.1) He [...] dose changes noted to help ameliorate cough 08/12/2024 Anxiety, generalized (ICD-10 - F41.1) Boone seems to do well. She had been on benzodiazepines many years ago from her previous family practitioner. I would rather not start these unless absolutely necessarily. 07/15/2024 Mild diastolic dysfunction (ICD-10 - I51.9) [...] consider increasing to Lexpro 20 mg daily 06/08/2024 Moderate dementia with anxiety, unspecified dementia type (ICD-10 - F03.B4) - prior dementia panel with borderline alzehimers disease. prior MRI head obtained w/ age related changes. Sons notice frequent short term memory loss and is transitioning to living with son soon . - Will start Donepazil today, if tolerated will consider adding Memantine in upcoming/follow-up appointments. 08/12/2024 Immunization(s) administered (ICD-10 - Z23) 11/23/2024 Hospital discharge follow-up (ICD-10 - Z09) Reviewed H&P, discharge summary, personally reconciled medication. 01/11/2025 SOB (shortness of breath) on exertion (ICD-10 - R06.02) Possible reactive airway component given her wheezing and good response to Symbicort. I have asked her to increase her Symbicort to 2 puffs twice daily scheduled. She will see pulmonary. 10/14/2024 Hypertensive chronic kidney disease w stg 1-4/unsp chr kdny (ICD-10 - I12.9) Kidney functions remain stable, reviewed previous labs 10/14/2024 Mild cognitive impairment (ICD-10 - G31.84) ZaidiRemains on current medication. Seems to be doing well with transition to son's house. Memory continues to be a struggle. Also is a problem but currently well-managed 01/11/2025 Alzheimer's disease with late onset (ICD-10 - G30.1) Overall on dementia medications and doing about the same. Continues to have some foggy periods which seem to be increasing per her son's report. However no behavior disturbances and is is in a safe environment with her son and asbihzur-fq-mzi's home 10/14/2024 Recurrent major depressive disorder, in partial [...] Name:Mayank Jimenes, 06/14/2025 12:15:00 PM, [address] [facility] [address] [facility], [address], [place], [address], Insurance Providers Payer Name Payer Address Payer Phone Subscriber Number Group Number Insured Name Patient Relationship to Insured Coverage Start Date Coverage End Date [place]IC[place] [address] [place] [place] [address] [id number] Trice Mauro Self - patient is the insured [employer] [facility] [address] [address] [place] [address] [phone] [id number] Trice Mauro Self - patient is the insured [employer] [address] [place] [address] [facility] Trice Mauro Self - patient is the [...]
[2025-05-04 11:20] LABS: Basophils # 0.1 K/mm3 (0-0.2); Basophils % 0.4 % (0.1-2.0); Eosinophils % 0.1 % (0.1-12.0); Hematocrit 35.7 % (37.0-47.0); Hemoglobin 11.8 g/dL (12.2-16.2); Immature Granulocytes # 0.45 10^3uL; Immature Granulocytes % 2.4 %; Lymphocytes # 1.4 K/mm3 (0.7-4.5); Lymphocytes % 7.3 % (10-50); Mean Corpuscular HGB Conc 33.1 g/dL (31.8-35.4); Mean Corpuscular Hemoglobin 29.4 pg (27.0-31.2); Mean Platelet Volume 11.1 fl (7.4-10.4); Monocytes # 1.2 K/mm3 (0.1-1.0); Monocytes % 6.3 % (1.7-9.3); Neutrophils % 83.5 % (37.0-80.0); Nucleated Red Blood Cells # 0 10^3/uL; Nucleated Red Blood Cells % 0 %; Platelet Count 263 K/mm3 (142-424); Red Blood Count 4.01 M/mm3 (4.20-5.40); Red Cell Distribution Width 13.3 % (11.5-17.5); Red Cell Distribution Width-SD 43.4 fL; White Blood Count 19.1 K/mm3 (4.8-10.8)
[2025-05-04 11:22] LABS: Adenovirus,PCR Not Detected (NotDetected); Bordetella Pertussis Not Detected (NotDetected); Chlamydophila Pneumoniae, PCR Not Detected (NotDetected); Coronavirus 19, PCR Not Detected (NotDetected); Coronavirus 229E Not Detected (NotDetected); Coronavirus NL63 Not Detected (NotDetected); Coronavirus OC43 Not Detected (NotDetected); Coronovirus HKU1,PCR Not Detected (NotDetected); Human Metapneumovirus Not Detected (NotDetected); Influenza A, PCR Not Detected (NotDetected); Influenza AH1, 2009 Not Detected (NotDetected); Influenza AH1, PCR Not Detected (NotDetected); Influenza AH3,PCR Not Detected (NotDetected); Influenza B, PCR Not Detected (NotDetected); Mycoplasma Pneumoniae, PCR Not Detected (NotDetected); Parainfluenza 1, PCR Not Detected (NotDetected); Parainfluenza 2, PCR Not Detected (NotDetected); Parainfluenza 3, PCR Not Detected (NotDetected); Parainfluenza 4, PCR Not Detected (NotDetected); Respiratory Syncytial Virus Not Detected (NotDetected); Rhinovirus/Enterovirus Not Detected (NotDetected)
[2025-05-04 11:24] LABS: Lactate Venous 1.7 mmol/L (0.4-2.0); VBG Base Excess 5.9 mmol/L (-2.4-2.3); VBG HCO3 31.2 mmol/L (23-30); VBG Oxygen Saturation 95.4 % (50-70); VBG PH 7.37 mmol/L (7.31-7.41); VBG PO2 76.1 mmol/L (28-40)
[2025-05-04] MEDS: METHYLPREDNISOLONE SOD SUCC 125MG VIAL 125 MG IV (11:26)
[2025-05-04] MEDS: IPRATROPIUM/ALBUTEROL 3 ML NEB 9 ML IH (11:26)
[2025-05-04] MEDS: CEFTRIAXONE SODIUM 2 GM in 0.9 % SODIUM CHLORIDE 100 ML IV (11:26)
[2025-05-04 11:27] LABS: VBG PCO2 55.8 mmol/L (35-51)
[2025-05-04] MEDS: MAGNESIUM SULFATE IN WATER 2 GM/50 ML PIGGYBACK IV (11:27)
[2025-05-04 11:30] LABS: Activated Partial Thrombo Time 34.5 seconds (22.8-30.6); INR 1.19 (0.9-1.1)
--- NOTE | 2025-05-04 11:35 | CT_ITS ---
FINAL REPORT TECHNIQUE: Noncontrast exam This study was performed with techniques to keep radiation doses as low as reasonably achievable, (ALARA). Individualized dose reduction techniques using automated exposure control or adjustment of mA and/or kV according to the patient's size were employed. CLINICAL HISTORY: ams, R sided deficits (R facial droop/dysarthria) RO STROKE COMPARISON: 10/05/2021 FINDINGS: Mild atrophy and chronic ischemic white matter changes are noted. No cortical edema is present. There is no mass or hemorrhage. Ventricles are normal. Bone windows show no skull fracture or obvious obstructive lesion. IMPRESSION: 1. No acute intracranial abnormality or obvious mass. 2. Atrophy and chronic ischemic white matter changes as above. Reviewed, Interpreted and Dictated by Jenise Covington MD Transcribed by Karla Silva Authenticated and . [facility]
--- NOTE | 2025-05-04 11:35 | CT_ITS ---
FINAL REPORT CLINICAL HISTORY: R facial droop, dysarthria, weakness STROKE COMPARISON: None FINDINGS: CTA HEAD TECHNIQUE: Thin section axial CT with contrast with 3D MIP reconstruction This study was performed with techniques to keep radiation doses as low as reasonably achievable, (ALARA). Individualized dose reduction techniques using automated exposure control or adjustment of mA and/or kV according to the patient's size were employed. FINDINGS: No aneurysm is seen. Major intracranial vessels are patent without significant stenosis. . IMPRESSION: Unremarkable This study was performed using automated techniques to achieve radiation exposure as low as reasonably achievable Reviewed, Interpreted and Dictated by Jenise Covington MD Transcribed by Karla Silva Authenticated and [facility]
--- NOTE | 2025-05-04 11:35 | CT_ITS ---
FINAL REPORT TECHNIQUE: Postcontrast axial images of the chest were performed in a CTA protocol. This study was performed with techniques to keep radiation doses as low as reasonably achievable, (ALARA). Individualized dose reduction technique using automated exposure control or adjustment of mA and/or kV according to the patient's size were employed. CLINICAL HISTORY: soa, AMS, R sided weakness COMPARISON: 01/14/2025 FINDINGS: The heart is normal in size. No adenopathy is identified. No pleural or pericardial effusion is identified. The thoracic aorta is normal in caliber with no focal aneurysm or dissection identified. There is no filling defect to suggest pulmonary embolism. There are multifocal peripheral airspace opacities which are worse from prior exam likely representing areas of bronchopneumonia. There is a large hiatal hernia. Limited imaging of the upper abdomen is otherwise unremarkable. IMPRESSION: No evidence for PE on this exam. Multifocal pneumonia, greatest in the upper lobes. Due to nodularity associated with pneumonia, recommend CT follow-up in 2-3 months. Reviewed, Interpreted and Dictated by Jenise Covington MD Transcribed by Gayathri Jernigan Authenticated and [facility]
--- NOTE | 2025-05-04 11:35 | CT_ITS ---
FINAL REPORT CLINICAL HISTORY: R facial droop, dysarthria, weakness COMPARISON: None FINDINGS: CT NECK ANGIO, WITHOUT AND WITH CONTRAST TECHNIQUE: Thin section axial CT with contrast with multiplanar 3D MIP reconstruction. This study was performed with techniques to keep radiation doses as low as reasonably achievable, (ALARA). Individualized dose reduction techniques using automated exposure control or adjustment of mA and/or kV according to the patient's size were employed. NASCET criteria and technique was utilized during interpretation. FINDINGS: Aortic arch: Arch shows no significant narrowing. Great vessel origins are widely patent. Right carotid: No significant stenosis is seen of the cervical common or internal carotid artery. Left carotid: No significant stenosis is seen of the cervical common or internal carotid artery. Vertebrals: No significant stenosis is present. IMPRESSION: No significant stenosis of the cervical carotid arteries This study was performed using automated techniques to achieve radiation exposure as low as reasonably Reviewed, Interpreted and Dictated by Jenise Covington MD Transcribed by Karla Silva Authenticated and . [facility]
--- NOTE | 2025-05-04 11:38 | HMH.PHAINT1 ---
Pharmacy Intervention Comments: MEDICATION RECONCILIATION COMPLETED ON PATIENT USING EXTERNAL FILL HISTORY FROM PHARMACY. -PERRY PEACOCK, [place]
[2025-05-04] MEDS: AZITHROMYCIN 500 MG in 0.9 % SODIUM CHLORIDE 250 ML 250 MG IV (11:39)
[2025-05-04 11:40] LABS: Alanine Aminotransferase 90 U/L (12-78); Albumin Level 3.6 g/dl (3.5-5.0); Albumin/Globulin Ratio 0.8 (1.1-1.8); Alkaline Phosphatase 193 U/L (38-126); Anion Gap 6.7 mEq/L (5-15); Aspartate Amino Transferase 140 U/L (14-36); Bilirubin,Total 1.4 mg/dl (0.2-1.3); Blood Urea Nitrogen 25 mg/dl (7-17); Carbon Dioxide 34 mmol/L (22.0-30.0); Chloride 95 mmol/L (98-107); Creatinine Clearance Estimated 54 mL/min (50-200); Estimated Glomerular Filt Rate 69 ml/min (>60); GFR (African American) 83 ML/MIN (>60); Globulin 4.4 g/dL (1.3-3.2); Glucose 133 mg/dl (74-100); Lactic Acid 1.1 mmol/L (0.7-2.1); Potassium 4.7 mmoL/L (3.5-5.1); Sodium 131 mmol/L (136-145)
[2025-05-04] MEDS: diphenhydrAMINE 50MG/ML VIAL 25 MG IV (11:43)
[2025-05-04 11:45] LABS: C-Reactive Protein 186.1 mg/L (0-4)
[2025-05-04 11:51] LABS: NT Pro Brain Natriuretic Pep. 5500 pg/mL (0-450); Troponin I 0.03 ng/ml (0.00-0.034)
[2025-05-04] MEDS: 0.9 % SODIUM CHLORIDE 50 ML VIAL 100 ML IV (12:11)
[2025-05-04] MEDS: IOPAMIDOL-370 (76%);100ML BOTTLE 160 ML IV (12:11)
[2025-05-04] MEDS: SODIUM CHLORIDE 0.9% 10ML SYR (RAD ONLY) 10 ML IV (12:11)
[2025-05-04 12:23] LABS: Erythrocyte Sedimentation Rate 1 mm/hr (0-30)
--- NOTE | 2025-05-04 12:35 | PC.NURSE ---
Repositioned patient in bed at this time
--- NOTE | 2025-05-04 13:01 | EXP.HP ---
[facility] Disclaimer: The information contained in this section may have been updated after the patient was seen, as this information can be updated by other users. Medical History Degenerative disc disease, lumbar Multiple lung nodules on CT History of smoking 10-25 pack years Hypertensive urgency Hypervolemia CKD (chronic kidney disease) Shortness of breath GI bleed History of recurrent UTI (urinary tract infection) Hyperlipidemia Essential hypertension Renal cyst GI bleed UTI (urinary tract infection) Dizziness Rheumatoid arthritis GI bleed Uterine procidentia Surgical History History of tonsillectomy and adenoidectomy H/O tubal ligation Family History Other Cancer Hyperlipidemia Hypertension Stroke Social History Smoking Status: Former smoker tobacco type: cigarettes packs per day: 1 second hand exposure: No alcohol intake: never substance use type: denies use current occupational status: other Travel in the last 8 weeks?: None household members: none housing: house current occupational exposures/hazards: No caffeine: Yes Have you lived/traveled outside [place] in past 30 days?: No Contact w/someone who lives/traveled outside US past 30 days?: No Exposure to someone with infectious disease in past 14 days?: No Do you have a fever (greater than 100.4 F or 38 C)?: No Have you tested positive for COVID-19?: No Exposed to someone with COVID-19 in past 14 days?: No Do you have a sore throat?: No Do you have a cough?: Yes Do you have any weakness?: Yes Do you have any diarrhea?: No Are you experiencing any unusual bleeding?: No Do you have any muscle aches/pain?: No Do you have any abdominal pain?: No Are you experiencing loss of taste or smell?: No Other Medical History Have you received the Flu Vaccine for this season: Yes Have you received the Pneumonia Vaccine: Yes Meds Home Medications and Allergies Home Medications ?Medication ?Instructions ?Recorded ?Confirmed ?Type carvedilol 12.5 mg tablet 12.5 mg PO BID 01/08/19 05/04/25 History rosuvastatin 10 mg tablet 10 mg PO HS 02/20/21 05/04/25 History sucralfate 1 gram tablet 1 g PO ACHS 06/03/23 05/04/25 History buspirone 10 mg tablet 10 mg PO BID 11/14/24 05/04/25 History donepezil 5 mg tablet 5 mg PO HS 11/14/24 05/04/25 History hydrocodone 5 mg-acetaminophen 325 1 tab PO TID #90 tabs 04/21/25 05/04/25 Rx mg tablet quetiapine 25 mg tablet 12.5 - 25 mg PO DAILY 05/04/25 05/04/25 History New Prescriptions to Start Prescriptions: Allergies Allergy/AdvReac Type Severity Reaction Status Date / Time Sulfa (Sulfonamide Allergy Intermediate HEART RACES Verified 05/04/25 12:59 Antibiotics) (SULFA (SULFONAMIDE ANTIBIOTICS)) Iodinated Contrast Media AdvReac Intermediate anxiety, Verified 05/04/25 12:59 rash Exam Data for Last 24 hours Vital signs and Labs for Last 24 Hours: Temp Pulse Resp BP Pulse Ox O2 Del Method O2 Flow Rate 98.6 F 83 22 151/81 H 94 L Nasal Cannula 3 05/04/25 11:03 05/04/25 12:31 05/04/25 12:31 05/04/25 12:31 05/04/25 12:31 05/04/25 11:03 05/04/25 11:03 Laboratory Results - last 24 hr 05/04/25 11:10: WBC 19.1 H, RBC 4.01 L, Hgb 11.8 L, Hct 35.7 L, MCV 89.0, MCH 29.4, MCHC 33.1, RDW 13.3, Plt Count 263, MPV 11.1 H, Neut % (Auto) 83.5 H, Lymph % (Auto) 7.3 L, [place] % (Auto) 6.3, Eos % (Auto) 0.1, Baso % (Auto) 0.4, Neut # (Auto) 16.0 H, Lymph # (Auto) 1.4, [place] # (Auto) 1.2 H, Eos # (Auto) 0.0, Baso # (Auto) 0.1, ESR 1, PT 13.0 H, INR 1.19 H, APTT 34.5 H, Sodium 131 L, Potassium 4.7, Chloride 95 L, Carbon Dioxide 34 H, Anion Gap 6.7, BUN 25 H, Creatinine 0.80, Estimated Creat Clear 54, Estimated GFR 69, Est GFR ( Amer) 83, Glucose 133 H, Lactate 1.1, Calcium 10.0, Total Bilirubin 1.4 H, AST 140 H, ALT 90 H, Alkaline Phosphatase 193 H, Troponin I 0.03, C-Reactive Protein 186.1 H, NT-Pro-B Natriuret Pep 5500 H, Total Protein 8.0, Albumin 3.6, Globulin 4.4 H, Albumin/Globulin Ratio 0.8 L 05/04/25 11:17: VBG pH 7.37, VBG pCO2 55.8 H, VBG pO2 76.1 H, VBG HCO3 31.2 H, VBG Total CO2 33.0 H, VBG O2 Saturation 95.4 H, VBG Base Excess 5.9 H, VBG Lactic Acid 1.7 I & O for Last 24 hours: Intake & Output 05/01/25 05/02/25 05/03/25 05/04/25 23:59 23:59 23:59 23:59 Weight 77.111 kg
--- NOTE | 2025-05-04 13:03 | PC.NURSE ---
[facility] NOTIFIED OF ADMISSION
--- NOTE | 2025-05-04 13:30 | PC.NURSE ---
attempted to call report to floor rn
--- NOTE | 2025-05-04 14:26 | PC.NURSE ---
arrived by stretcher from ED
--- NOTE | 2025-05-04 14:38 | CA_ITS ---
APPROVED REPORT EXAM: Comprehensive 2D, Doppler, and color-flow Echocardiogram Assembler Trim: Elen Odonnell RVT Ht: 5 ft 3 in Wt: 159lbs BSA: 1.75 BP: 151/81 mmHg Indications: SHORTNESS OF BREATH,HFpEF,PNEUMONIA 2D Dimensions LA Volume 31.00 mL LA Volume Index 17.61 mL/m2 (M/F) 16-34 M-Mode Dimensions RVDd 3.04 cm (0.9-2.6) LA Diam 3.81 cm (1.9-4.0) LVDd 4.90 cm (3.5-5.7) LVDs 2.96 cm (3.5-5.7) IVSd 0.84 cm (0.6-1.1) PWd 0.61 cm (0.6-1.1) EF (Teich) 69.90% FS 39.60% EDV (Teich) 112.80 mL TAPSE 1.98 (<1.7) ESV (Teich) 33.90 mL LV Diastology E Decel Time 150 (160-240 msec) E/A Ratio 0.9 Aortic Valve TERESA Index 3.03 cm2/m2 AoV Peak Bony. 112.0 (50-130 cm/s) AI PHT 665.00 ms AO Peak GR. 5.00 mmHg AO Mean GR. 2.70 (<5 mmHg) AO VTI 20.3 (18-25 cm) TERESA (VTI) 5.46 (2.5-4.5 cm2) Mitral Valve MV E Max Bony. 103.0 (40-130 cm/s) MV A Velocity 114.0 (40-130 cm/s) E/A Ratio 0.91 MV Mean Gr. 3.00 (<2mmHg) MV PHT 44.0 ms Pulmonary Valve PV Peak Velocity 88.0 (50-150 cm/s) Tricuspid Valve TR P. Velocity 327.00 cm/s RAP Estimate 10.00 mmHg RVSP 52.80 mmHg Left Ventricle The left ventricle is normal size. The left ventricular systolic function is normal. The left ventricular ejection fraction is within the normal range. There is increased LV wall thickness. There is normal LV segmental wall motion. Grade 2 diastolic dysfunction is present. LVEF is 55%. Right Ventricle Right ventricle is mildly dilated. The right ventricular systolic function is normal. Atria Left atrium is mildly dilated. Right atrium is mildly dilated. There is no Doppler evidence of interatrial shunt. Aortic Valve Aortic valve is mildly thickened. There is no aortic valvular stenosis. Mild aortic regurgitation. Mitral Valve Mild mitral annular calcification. The mitral valve leaflets are mildly thickened. No evidence of mitral valve stenosis. Mild mitral regurgitation. Tricuspid Valve Tricuspid valve is grossly normal in structure and function. Moderate tricuspid regurgitation. RVSP is 40-45 mmHg. Pulmonic Valve The pulmonary valve is normal in structure. Mild pulmonic regurgitation. Great Vessels The aortic root is normal in size. IVC is normal in size and collapses >50% with inspiration. Pericardium There is no pericardial effusion. Other Information Study Quality: Fair Conclusion Normal biventricular systolic function. Grade 2 diastolic dysfunction. Mild RV dilation. Biatrial dilation. Moderate TR. Mild AI, mild MR, mild PI. Elevated RVSP 40-45 mmHg. Electronically signed by : Jaki Catherine MD 05/04/2025 23:18:19
--- NOTE | 2025-05-04 14:50 | P.HP_ITS ---
<Statement entered by Tommy Moore MD - 05/05/25 22:02> Evaluated patient and agree with plan of care as outlined by E/M ENGINEER. History of Present Illness *Admission Date: 05/04/25 *Reason for visit:: Community-acquired pneumonia *History of present illness: Ms. Rocha is a 79-year-old female who presented to the emergency department with worsening shortness of breath, metabolic encephalopathy, and weakness. She has a past medical history of lumbar radiculopathy, GI bleed, renal cyst, hypertension, hyperlipidemia, anemia, CKD stage III, O2 dependence (2 L), dementia, multiple long nodules on CT, degenerative disc disease. She follows with Dr. Bhatia, pulmonology, and was last seen in January/2025. Her son is at bedside and states that she went to Dr. Jimenes's office, her PCP, approximately 2 weeks ago and was put on azithromycin. Course completed yesterday. Patient lives in a caregivers home in [facility]. Upon assessment patient seems disoriented, eye-opening to speech. Son states that she is normally alert and oriented, but has been slowly declining. Patient is currently on 4 L O2 nasal cannula satting 90%. Due to multifocal pneumonia seen on CT, metabolic encephalopathy, need for IV antibiotics and supplemental O2; agreed to admit patient for further management. [facility] Disclaimer: The information contained in this section may have been updated after the patient was seen, as this information can be updated by other users. Medical History (Updated 05/04/25 @ 16:06 by Floridalma Andrews APRN) Essential hypertension Dementia Multiple lung nodules on CT History of smoking 10-25 pack years Rheumatoid arthritis GI bleed Hypertensive urgency Hypervolemia CKD (chronic kidney disease) Degenerative disc disease, lumbar Uterine procidentia Shortness of breath GI bleed History of recurrent UTI (urinary tract infection) Hyperlipidemia Renal cyst GI bleed UTI (urinary tract infection) Dizziness Surgical History History of tonsillectomy and adenoidectomy H/O tubal ligation Family History Other Cancer Hyperlipidemia Hypertension Stroke Social History (Updated 05/04/25 @ 15:05 by Dianna Gay RN) Smoking Status: Former smoker tobacco type: cigarettes packs per day: 1 second hand exposure: No alcohol intake: never substance use type: denies use current occupational status: other Travel in the last 8 weeks?: None household members: none housing: house current occupational exposures/hazards: No caffeine: Yes Have you lived/traveled outside US in past 30 days?: No Contact w/someone who lives/traveled outside US past 30 days?: No Exposure to someone with infectious disease in past 14 days?: No Do you have a fever (greater than 100.4 F or 38 C)?: No Have you tested positive for COVID-19?: No Exposed to someone with COVID-19 in past 14 days?: No Do you have a sore throat?: No Do you have a cough?: Yes Do you have any weakness?: Yes Are you experiencing any nausea/vomitting?: No Do you have any diarrhea?: No Are you experiencing any unusual bleeding?: No Do you have any muscle aches/pain?: No Do you have any abdominal pain?: No Are you experiencing loss of taste or smell?: No Other Medical History Have you received the Flu Vaccine for this season: Yes Have you received the Pneumonia Vaccine: Yes Review of Systems Constitutional Constitutional: Reports fatigue, Reports poor appetite, Reports malaise and Reports weakness Eyes Eyes: Reports system reviewed and no additional complaints, except as documented ENT Ears, Nose, Mouth, and Throat: Reports system reviewed and no additional complaints, except as documented and Denies dysphagia *Cardiovascular Cardiovascular: Reports system reviewed and no additional complaints, except as documented and Reports dyspnea *Respiratory Respiratory: Reports chest congestion, Reports cough and Reports dyspnea *Gastrointestinal Gastrointestinal: Reports system reviewed and no additional complaints, except as documented, Denies abdominal pain, Denies dysphagia and Denies melena *Genitourinary Genitourinary: Reports system reviewed and no additional complaints, except as documented and Reports as per HPI *Musculoskeletal Musculoskeletal: Reports arthralgias and Reports limited range of motion Integumentary/Breasts Skin/Breast: Reports system reviewed and no additional complaints, except as documented and Reports dry skin *Neurologic Neurologic: Reports abnormal speech, Reports confusion and Reports weakness Psychiatric Psychiatric: Reports confusion Endocrine Endocrine: Reports fatigue Meds Home Medications and Allergies Home Medications ?Medication ?Instructions ?Recorded ?Confirmed ?Type carvedilol 12.5 mg tablet 12.5 mg PO BID 01/08/1904/12 History rosuvastatin 10 mg tablet 10 mg PO HS 02/20/21 5 History sucralfate 1 gram tablet 1 g PO ACHS 06/03/23 5 History buspirone 10 mg tablet 10 mg PO BID 11/14/24 History donepezil 5 mg tablet 5 mg PO HS 11/14/24 05/04/25 History hydrocodone 5 mg-acetaminophen 325 1 tab PO TID #90 ta bs 04/21/25 05/04/25 Rx mg tablet quetiapine 25 mg tablet 12.5 - 25 mg PO DAILY 05/04/25 History New Prescriptions to Start Prescriptions: Allergies Allergy/AdvReac Type Severity Reaction Status Date / Time Sulfa (Sulfonamide Allergy Intermediate HEART RACES Verified 05/04/25 12:59 Antibiotics) (SULFA (SULFONAMIDE ANTIBIOTICS)) Iodinated Contrast Media AdvReac Intermediate anxiety, Verified 05/04/25 12:59 rash Exam Data for Last 24 hours Vital signs and Labs for Last 24 Hours: Temp Pulse Resp BP Pulse Ox O2 Del Method O2 Flow Rate 98.1 F 77 30 H 155/85 H 97 Nasal Cannula 4 05/04/25 13:47 05/04/25 13:47 05/04/25 13:47 05/04/25 13:47 05/04/25 13:30 05/04/25 13:47 05/04/25 13:47 Laboratory Results - last 24 hr 05/04/25 11:10: WBC 19.1 H, RBC 4.01 L, Hgb 11.8 L, Hct 35.7 L, MCV 89.0, MCH 29.4, MCHC 33.1, RDW 13.3, Plt Count 263, MPV 11.1 H, Neut % (Auto) 83.5 H, Lymph % (Auto) 7.3 L, [place] % (Auto) 6.3, Eos % (Auto) 0.1, Baso % (Auto) 0.4, Neut # (Auto) 16.0 H, Lymph # (Auto) 1.4, [place] # (Auto) 1.2 H, Eos # (Auto) 0.0, Baso # (Auto) 0.1, ESR 1, PT 13.0 H, INR 1.19 H, APTT 34.5 H, Sodium 131 L, Potassium 4.7, Chloride 95 L, Carbon Dioxide 34 H, Anion Gap 6.7, BUN 25 H, Creatinine 0.80, Estimated Creat Clear 54, Estimated GFR 69, Est GFR ( Amer) 83, Glucose 133 H, Lactate 1.1, Calcium 10.0, Total Bilirubin 1.4 H, AST 140 H, ALT 90 H, Alkaline Phosphatase 193 H, Troponin I 0.03, C-Reactive Protein 186.1 H, NT-Pro-B Natriuret Pep 5500 H, Total Protein 8.0, Albumin 3.6, Globulin 4.4 H, Albumin/Globulin Ratio 0.8 L 05/04/25 11:17: VBG pH 7.37, VBG pCO2 55.8 H, VBG pO2 76.1 H, VBG HCO3 31.2 H, VBG Total CO2 33.0 H, VBG O2 Saturation 95.4 H, VBG Base Excess 5.9 H, VBG Lactic Acid 1.7 I & O for Last 24 hours: Intake & Output 05/01/25 05/02/25 05/03/25 05/04/25 23:59 23:59 23:59 23:59 Weight 72.235 kg Constitutional Constitutional: mild distress *Routine HEENT Exam Head: Present normocephalic Eye: Present EOMI and PERRL ENT: Present mucous membranes moist *Routine Neck Exam Neck: Present supple and full ROM *Routine Respiratory Exam Respiratory: Present decreased breath sounds, rhonchi, wheezes and symmetric chest movement *Routine Cardiovascular Exam Cardiovascular: Present RRR *Routine Abdominal Exam Abdominal: Present soft and normoactive bowel sounds; Absent tenderness *Routine Rectal Exam Rectal:: deferred *Routine Genitalia Exam Genitalia:: deferred *Routine Extremities Exam Extremities: Present normal capillary refill; Absent edema *Routine Skin Exam Skin: Present intact and dry *Routine Neurological Exam Neurological: Present altered mental status Assessment and Plan *Assessment and plan (1) Community acquired pneumonia: Status: Acute Category: Medical Code(s): J18.9 - Pneumonia, unspecified organism (2) Acute on chronic hypoxic respiratory failure: Status: Acute Category: Medical Code(s): J96.21 - Acute and chronic respiratory failure with hypoxia (3) Metabolic encephalopathy: Status: Acute Category: Medical Code(s): G93.41 - Metabolic encephalopathy (4) Leukocytosis: Status: Acute Category: Medical Code(s): D72.829 - Elevated white blood cell count, unspecified (5) Degenerative disc disease, lumbar: Status: Acute Category: Medical Code(s): M51.369 - Other intervertebral disc degeneration, lumbar region without mention of lumbar back pain or lower extremity pain (6) Hypertension: Status: Acute Category: Medical Code(s): I10 - Essential (primary) hypertension (7) Rheumatoid arthritis: Status: Acute Category: Medical Code(s): M06.9 - Rheumatoid arthritis, unspecified (8) Dementia: Status: Acute Category: Medical Code(s): F03.90 - Unspecified dementia, unspecified severity, without behavioral disturbance, psychotic disturbance, mood disturbance, and anxiety Plan Trice Rocha is a 79-year-old female who was admitted for acute on chronic hypoxic respiratory failure from community-acquired pneumonia. She presented to the emergency room with weakness, shortness of air, altered mental status. Patient's son at bedside states that she was diagnosed with pneumonia in the office and given a Z-Alon 2 weeks ago. She has since gotten worse and she has recently become more altered mentally. Upon examination patient is unable to answer any questions. She is very sleepy and lethargic. After discussion with the emergency room physician, decision was made by myself to admit patient for antibiotic therapy for CAP and continued monitoring. Patient's son does state that patient is a DNR and DNI. Orders placed in chart. Managed care as follows: #Community-acquired pneumonia ? Leukocytosis noted, 19.1. H&H stable at patient baseline hemoglobin 11.8. Electrolyte abnormalities noted, sodium 131. Liver function elevated AST 140, ALT 90. CRP 186, BNP 5500. ? Chest x-ray was independently interpreted by myself, showing bilateral lung pneumonia. ? Chest CTA shows no evidence of PE, multifocal pneumonia greatest in upper lobes. Patient does have known nodules on previous CT. ? Blood cultures pending.. ? Patient given methylprednisolone 125 mg IV once in the ED ? Patient given azithromycin and ceftriaxone in the emergency room. Will continue ceftriaxone 2 g daily, doxycycline 100 mg twice daily IV. ? Patient baseline 2 L nasal cannula, currently on 4 L nasal cannula with a goal of O2 saturation greater than 88%. - Pulmonology consulted. #History of reactive airway disease ? History of rheumatoid arthritis, might have underlying interstitial lung disease. ? Patient has been evaluated outpatient pulmonology, last seen in 02/02. ? Resume home Symbicort and DuoNebs 4 times daily as needed. #Multiple pleural lesions -Patient has known pulmonary nodules. Pulmonary consulted. #Dementia ? Continue home donepezil. Continue buspirone 10 mg twice daily. #Hypertension ? Continue home carvedilol. #Rheumatoid arthritis ?Continue [place] 5/325 mg as needed. Monitor for toxicity Cardiac diet DNR/DNI Lovenox VTE Ambulate as tolerated
[2025-05-04 15:04] LABS: Troponin I 0.02 ng/ml (0.00-0.034)
[2025-05-04] MEDS: DOXYCYCLINE HYCLATE 100 MG in 0.9 % SODIUM CHLORIDE 250 ML 166.667 MG IV (16:11)
[2025-05-04 16:19] LABS: Microscopic, Urine URINE MICROSCOPIC (MICROSCOPIC)
[2025-05-04 16:22] LABS: Appearance,Urine CLEAR (Clear); Bilirubin,Urine Negative (Negative); Blood, Urine TRACE-I (Negative); Color,Urine YELLOW (Yellow); Glucose,Urine (UA) Negative (Negative); Ketones,Urine Negative (Negative); Leukocyte Esterase,Urine Negative (Negative); Nitrate,Urine Negative (Negative); Protein,Urine 2+ (Negative)
[2025-05-04 16:40] LABS: Bacteria,Urine Trace /lpf
[2025-05-04] MEDS: IPRATROPIUM/ALBUTEROL 3 ML NEB IH (17:08)
[2025-05-04 18:06] LABS: Troponin I 0.02 ng/ml (0.00-0.034)
--- NOTE | 2025-05-04 18:51 | PC.NURSE ---
PATIENT IS ALERT TO SELF ONLY, CURRENTLY ON 4LNC. PATIENT HAD BEEN RESTING SINCE ADMISSION TO THE FLOOR. PATIENT BECAME RESTLESS AROUND 1800. MD NOTIFIED. CONTINUED TO ORIENT PATIENT,WARM BLANKETS APPLIED DUE TO PATIENT STATING SHE WAS COLD. PATIENT BECAME MORE RELAXED ONCE BLANKETS APPLIED. MD ORDERED PRN HALDOL AT 1848. FAMILY CURRENTLY AT BEDSIDE, BED ALARM IN PLACE.
--- NOTE | 2025-05-04 23:45 | PC.NURSE ---
Attempted to give patient scheduled Douneb tx, family at bedside states a refusal due to patient just getting settled and sleeping.
[2025-05-05] VITALS (8 sets, daily range): BP systolic 146–174; BP diastolic 67–96; PULSE 74–87; RESP 16–24; TEMP 36.3–36.8; O2SAT 91–99; BMI 28.5
--- NOTE | 2025-05-05 00:21 | PC.NURSE ---
at midnight pt refused turn family at bedside wanted to leave on left side r/t comfortable, nurse was in room also.
[2025-05-05] MEDS: HALOPERIDOL LACTATE 5 MG/ML VIAL 3 MG IV (01:22)
[2025-05-05] MEDS: DOXYCYCLINE HYCLATE 100 MG in 0.9 % SODIUM CHLORIDE 250 ML 166.667 MG IV ×2 (03:56→16:36)
--- NOTE | 2025-05-05 05:22 | PC.NURSE ---
Pt A&O to self. Pt is on 4L/NC. Pt was unable to swallow her medication, provider notified. Pt has been asleep for majority of the shift. Pt did become slightly agitated throughout the night, rt her dementia. Pt medicated per JAN. Pt receiving her antibiotics. No further complaints at this time. Pt resting, call light within reach, and family at bedside. Plan of care ongoing.
[2025-05-05] MEDS: IPRATROPIUM/ALBUTEROL 3 ML NEB IH ×4 (06:07→23:49)
[2025-05-05 06:24] LABS: Chloride 96 mmol/L (98-107); Sodium 137 mmol/L (136-145)
[2025-05-05 06:25] LABS: Basophils # 0.1 K/mm3 (0-0.2); Basophils % 0.7 % (0.1-2.0); Hematocrit 36.7 % (37.0-47.0); Hemoglobin 11.3 g/dL (12.2-16.2); Immature Granulocytes # 1.12 10^3uL; Immature Granulocytes % 6.8 %; Lymphocytes # 1.3 K/mm3 (0.7-4.5); Lymphocytes % 7.9 % (10-50); Mean Corpuscular HGB Conc 30.8 g/dL (31.8-35.4); Mean Corpuscular Hemoglobin 28.2 pg (27.0-31.2); Mean Corpuscular Volume 91.5 fl (81-99); Mean Platelet Volume 10.7 fl (7.4-10.4); Monocytes # 0.7 K/mm3 (0.1-1.0); Monocytes % 4.1 % (1.7-9.3); Neutrophils # 13.4 K/mm3 (1.8-7.8); Neutrophils % 80.5 % (37.0-80.0); Nucleated Red Blood Cells # 0 10^3/uL; Nucleated Red Blood Cells % 0 %; Platelet Count 248 K/mm3 (142-424); Red Blood Count 4.01 M/mm3 (4.20-5.40); Red Cell Distribution Width 13.6 % (11.5-17.5); Red Cell Distribution Width-SD 46.1 fL; White Blood Count 16.6 K/mm3 (4.8-10.8)
[2025-05-05 06:27] LABS: Blood Urea Nitrogen 28 mg/dl (7-17); Carbon Dioxide 32 mmol/L (22.0-30.0); Cholesterol 84 mg/dl (140-200); Creatinine Clearance Estimated 51 mL/min (50-200); Estimated Glomerular Filt Rate 53 ml/min (>60); GFR (African American) 64 ML/MIN (>60); Triglycerides 115 mg/dl (30-150); VLDL Cholesterol 23 mg/dL (0-40)
[2025-05-05 06:28] LABS: Calcium 9.2 mg/dl (8.4-10.2); Glucose 122 mg/dl (74-100); HDL Cholesterol 12 mg/dl (40-60); Magnesium 2.4 mg/dl (1.6-2.3)
[2025-05-05 06:39] LABS: Direct LDL Cholesterol 38.74 mg/dL (100-129)
[2025-05-05 06:47] LABS: MANUAL DIFFERENTIAL MANUAL DIFFERENTIAL (MANUAL DIFF)
[2025-05-05 06:56] LABS: Albumin Level 2.9 g/dl (3.5-5.0)
[2025-05-05 06:59] LABS: Alanine Aminotransferase 78 U/L (12-78); Alkaline Phosphatase 192 U/L (38-126); Aspartate Amino Transferase 96 U/L (14-36); Bilirubin,Direct 0.3 mg/dl (0.0-0.4); Bilirubin,Total 0.3 mg/dl (0.2-1.3); Total Protein,Serum 6.4 g/dl (6.3-8.2)
[2025-05-05 08:05] LABS: Lymphocytes % 8 % (10-50); Monocytes % 1 % (2-9); Neutrophils % 91 % (42-76); Platelet Estimate Normal; RBC Morphology Normal; Total Cells Counted 100
[2025-05-05] MEDS: ENOXAPARIN 40MG/0.4ML SYRINGE 40 MG SUBCUT (08:46)
[2025-05-05] MEDS: CARVEDILOL 12.5MG TABLET 12.5 MG PO ×2 (08:46→20:54)
[2025-05-05] MEDS: CEFTRIAXONE SODIUM 2 GM in 0.9 % SODIUM CHLORIDE 100 ML IV (08:47)
--- NOTE | 2025-05-05 09:37 | EXP.PULM.CON ---
History of Present Illness History of present illness: Ms. Lopez is a 79-year-old female with reported history of severe COPD at baseline on Symbicort inhaler large hiatal hernia compressing right lower lobe, lumbar radiculopathy hypertension dyslipidemia CKD stage III chronic hypoxic respiratory failure on 2 L nasal oxygen supplementation presented to the with worsening respiratory distress altered mentation weakness and pulmonary was called for further evaluation and management. Patient currently living in assisted care home. [facility] Disclaimer: The information contained in this section may have been updated after the patient was seen, as this information can be updated by other users. Medical History (Updated 05/04/25 @ 16:06 by Floridalma Andrews APRN) Essential hypertension Dementia Multiple lung nodules on CT History of smoking 10-25 pack years Rheumatoid arthritis GI bleed Hypertensive urgency Hypervolemia CKD (chronic kidney disease) Degenerative disc disease, lumbar Uterine procidentia Shortness of breath GI bleed History of recurrent UTI (urinary tract infection) Hyperlipidemia Renal cyst GI bleed UTI (urinary tract infection) Dizziness Surgical History History of tonsillectomy and adenoidectomy H/O tubal ligation Family History Other Cancer Hyperlipidemia Hypertension Stroke Social History (Updated 05/04/25 @ 15:05 by Dianna Gay RN) Smoking Status: Former smoker tobacco type: cigarettes packs per day: 1 second hand exposure: No alcohol intake: never substance use type: denies use current occupational status: other Travel in the last 8 weeks?: None household members: none housing: house current occupational exposures/hazards: No caffeine: Yes Have you lived/traveled outside [place] in past 30 days?: No Contact w/someone who lives/traveled outside US past 30 days?: No Exposure to someone with infectious disease in past 14 days?: No Do you have a fever (greater than 100.4 F or 38 C)?: No Have you tested positive for COVID-19?: No Exposed to someone with COVID-19 in past 14 days?: No Do you have a sore throat?: No Do you have a cough?: Yes Do you have any weakness?: Yes Are you experiencing any nausea/vomitting?: No Do you have any diarrhea?: No Are you experiencing any unusual bleeding?: No Do you have any muscle aches/pain?: No Do you have any abdominal pain?: No Are you experiencing loss of taste or smell?: No Review of Systems Constitutional Constitutional: Reports fatigue and Reports weakness Eyes Eyes: Denies eye discharge, Denies dry eyes, Denies irritation and Denies itchy eyes ENT Ears, Nose, Mouth, and Throat: Denies epistaxis, Denies facial pain, Denies lip swelling and Denies throat swelling *Cardiovascular Cardiovascular: Reports dyspnea and Reports dyspnea on exertion *Respiratory Respiratory: Reports chest congestion, Reports cough, Reports dyspnea, Reports dyspnea on exertion, Reports excessive phlegm production and Reports wheezing *Gastrointestinal Gastrointestinal: Denies abdominal pain, Denies belching and Denies cramping *Musculoskeletal Musculoskeletal: Reports back pain, Reports myalgias and Reports other (No small joint swelling or Pain) *Neurologic Neurologic: Reports abnormal speech, Reports confusion and Reports weakness Psychiatric Psychiatric: Reports confusion Endocrine Endocrine: Reports fatigue and Denies heat intolerance Hematologic/Lymphatic Hematologic/Lymphatic: Denies easy bleeding and Denies lymphadenopathy Allergic/Immunologic Allergic/Immunologic: Denies itchy eyes, Denies lip swelling, Denies throat swelling and Reports wheezing Pulmonology Exam Inpatient Vital signs and Labs for Last 24 Hours: Temp Pulse Resp BP Pulse Ox O2 Del Method O2 Flow Rate 97.9 F 80 24 152/67 H 96 Nasal Cannula 4 05/05/25 08:00 05/05/25 08:00 05/05/25 08:00 05/05/25 08:00 05/05/25 08:00 05/05/25 09:00 05/05/25 09:00 Laboratory Results - last 24 hr 05/04/25 11:10: WBC 19.1 H, RBC 4.01 L, Hgb 11.8 L, Hct 35.7 L, MCV 89.0, MCH 29.4, MCHC 33.1, RDW 13.3, Plt Count 263, MPV 11.1 H, Neut % (Auto) 83.5 H, Lymph % (Auto) 7.3 L, Villalba % (Auto) 6.3, Eos % (Auto) 0.1, Baso % (Auto) 0.4, Neut # (Auto) 16.0 H, Lymph # (Auto) 1.4, Villalba # (Auto) 1.2 H, Eos # (Auto) 0.0, Baso # (Auto) 0.1, ESR 1, PT 13.0 H, INR 1.19 H, APTT 34.5 H, Sodium 131 L, Potassium 4.7, Chloride 95 L, Carbon Dioxide 34 H, Anion Gap 6.7, BUN 25 H, Creatinine 0.80, Estimated Creat Clear 54, Estimated GFR 69, Est GFR ( Amer) 83, Glucose 133 H, Lactate 1.1, Calcium 10.0, Total Bilirubin 1.4 H, AST 140 H, ALT 90 H, Alkaline Phosphatase 193 H, Troponin I 0.03, C-Reactive Protein 186.1 H, NT-Pro-B Natriuret Pep 5500 H, Total Protein 8.0, Albumin 3.6, Globulin 4.4 H, Albumin/Globulin Ratio 0.8 L 05/04/25 11:17: VBG pH 7.37, VBG pCO2 55.8 H, VBG pO2 76.1 H, VBG HCO3 31.2 H, VBG Total CO2 33.0 H, VBG O2 Saturation 95.4 H, VBG Base Excess 5.9 H, VBG Lactic Acid 1.7, Chlamy pneumoniae PCR Not detected, Adenovirus (PCR) Not detected, B. pertussis DNA (PCR) Not detected, Coronavirus OC43 (PCR) Not detected, Coronavirus HKU1 (PCR) Not detected, Coronavirus 229E (PCR) Not detected, SARS-CoV-2 (PCR) Not detected, Coronavirus NL63 (PCR) Not detected, Human Metapneumovir PCR Not detected, Influenza A (H1) PCR Not detected, Influ A (H1N1/09) PCR Not detected, Influenza A (H3) PCR Not detected, Influenza Type A (PCR) Not detected, Influenza Type B (PCR) Not detected, M. pneumoniae (PCR) Not detected, Parainfluenza 1 (PCR) Not detected, Parainfluenza 2 (PCR) Not detected, Parainfluenza 3 (PCR) Not detected, Parainfluenza 4 (PCR) Not detected, RSV (PCR) Not detected, Entero/Rhino (PCR) Not detected 05/04/25 14:36: Troponin I 0.02 05/04/25 16:13: Urine Color Yellow, Urine Appearance Clear, Urine pH 6.0, Ur Specific Faulkner 1.010, Urine Protein 2+ A, Urine Glucose (UA) Negative, Urine Ketones Negative, Urine Blood Trace-i, Urine Nitrate Negative, Urine Bilirubin Negative, Urine Urobilinogen 1.0, Ur Leukocyte Esterase Negative, Urine WBC 5-10, Ur Squamous Epith Cells 5-10, Urine Bacteria Trace 05/04/25 17:20: Troponin I 0.02 05/05/25 05:40: WBC 16.6 H, RBC 4.01 L, Hgb 11.3 L, Hct 36.7 L, MCV 91.5, MCH 28.2, MCHC 30.8 L, RDW 13.6, Plt Count 248, MPV 10.7 H, Neut % (Auto) 80.5 H, Lymph % (Auto) 7.9 L, Villalba % (Auto) 4.1, Eos % (Auto) 0.0 L, Baso % (Auto) 0.7, Neut # (Auto) 13.4 H, Lymph # (Auto) 1.3, Villalba # (Auto) 0.7, Eos # (Auto) 0.0, Baso # (Auto) 0.1, Total Counted 100, Neutrophils % (Manual) 91 H, Lymphocytes % (Manual) 8 L, Monocytes % (Manual) 1 L, Platelet Estimate Normal, RBC Morphology Normal, Sodium 137, Potassium 4.0, Chloride 96 L, Carbon Dioxide 32 H, Anion Gap 13.0, BUN 28 H, Creatinine 1.00 D, Estimated Creat Clear 51, Estimated GFR 53 L, Est GFR ( Amer) 64 D, Glucose 122 H, Calcium 9.2, Magnesium 2.4 H, Total Bilirubin 0.3, Direct Bilirubin 0.3, Conjugated Bilirubin 0.0, Indirect Bilirubin 0.0, Unconjugated Bilirubin 0.0, AST 96 H D, ALT 78, Alkaline Phosphatase 192 H, Total Protein 6.4, Albumin 2.9 L D, Triglycerides 115, Cholesterol 84 L, LDL Cholesterol Direct 38.74 L, VLDL Cholesterol 23, HDL Cholesterol 12 L, Cholesterol/HDL Ratio 7.0 H I & O for Labs for Last 24 Hours: Intake & Output 05/02/25 05/03/25 05/04/25 05/05/25 23:59 23:59 23:59 23:59 Intake Total 250 / 250 120 / 120 Output Total 200 / 200 250 / 250 Balance 50 / 50 -130 / -130 Weight 159 lb 4 oz 161 lb Constitutional: Present moderate distress Head: Present normocephalic and atraumatic ENT: Present normal exam, normal oropharynx and mucous membranes moist Neck: Present normal inspection and full ROM Respiratory: Present prolonged expiratory phase, respiratory distress, rhonchi, wheezes, crackles, diminished air movement and able to speak in complete sentences Cardiac: Present S1/S2, Tachycardia and radial pulses present GI: Present soft and distention; Absent tenderness or guarding Rectal (female): Present deferred (female): Present deferred Skin: Present intact; Absent cyanosis or jaundice Neuro: Present alert and awake Extremities: Present normal inspection; Absent clubbing or cyanosis Psychiatric: Present unable to assess Meds Home Medications and Allergies Home Medications ?Medication ?Instructions ?Recorded ?Confirmed ?Type carvedilol 12.5 mg tablet 12.5 mg PO BID 01/08/19 05/04/25 History rosuvastatin 10 mg tablet 10 mg PO HS 02/20/21 05/04/25 History sucralfate 1 gram tablet 1 g PO ACHS 06/03/23 05/04/25 History buspirone 10 mg tablet 10 mg PO BID 11/14/24 05/04/25 History donepezil 5 mg tablet 5 mg PO HS 11/14/24 05/04/25 History hydrocodone 5 mg-acetaminophen 325 1 tab PO TID #90 tabs 04/21/25 05/04/25 Rx mg tablet quetiapine 25 mg tablet 12.5 - 25 mg PO DAILY 05/04/25 05/04/25 History New Prescriptions to Start Prescriptions: Allergies Allergy/AdvReac Type Severity Reaction Status Date / Time Sulfa (Sulfonamide Allergy Intermediate HEART RACES Verified 05/04/25 12:59 Antibiotics) (SULFA (SULFONAMIDE ANTIBIOTICS)) Iodinated Contrast Media AdvReac Intermediate anxiety, Verified 05/04/25 12:59 rash Results Laboratory Findings 05/05/25 05:40 05/05/25 05:40 PT/INR, D-dimer PT 13.0 seconds (10.1-12.5) H 05/04/25 11:10 INR 1.19 (0.9-1.1) H 05/04/25 11:10 Abnormal lab findings: Abnormal Labs 05/04/25 05/04/25 05/04/25 11:10 11:17 16:13 WBC 19.1 H RBC 4.01 L Hgb 11.8 L Hct 35.7 L MCHC MPV 11.1 H Neut % (Auto) 83.5 H Lymph % (Auto) 7.3 L Eos % (Auto) Neut # (Auto) 16.0 H Villalba # (Auto) 1.2 H Neutrophils % (Manual) Lymphocytes % (Manual) Monocytes % (Manual) PT 13.0 H INR 1.19 H APTT 34.5 H VBG pCO2 55.8 H VBG pO2 76.1 H VBG HCO3 31.2 H VBG Total CO2 33.0 H VBG O2 Saturation 95.4 H VBG Base Excess 5.9 H Sodium 131 L Chloride 95 L Carbon Dioxide 34 H BUN 25 H Estimated GFR Glucose 133 H Magnesium Total Bilirubin 1.4 H AST 140 H ALT 90 H Alkaline Phosphatase 193 H C-Reactive Protein 186.1 H NT-Pro-B Natriuret Pep 5500 H Albumin Globulin 4.4 H Albumin/Globulin Ratio 0.8 L Cholesterol LDL Cholesterol Direct HDL Cholesterol Cholesterol/HDL Ratio Urine Protein 2+ A 05/05/25 05:40 WBC 16.6 H RBC 4.01 L Hgb 11.3 L Hct 36.7 L MCHC 30.8 L MPV 10.7 H Neut % (Auto) 80.5 H Lymph % (Auto) 7.9 L Eos % (Auto) 0.0 L Neut # (Auto) 13.4 H Villalba # (Auto) Neutrophils % (Manual) 91 H Lymphocytes % (Manual) 8 L Monocytes % (Manual) 1 L PT INR APTT VBG pCO2 VBG pO2 VBG HCO3 VBG Total CO2 VBG O2 Saturation VBG Base Excess Sodium Chloride 96 L Carbon Dioxide 32 H BUN 28 H Estimated GFR 53 L Glucose 122 H Magnesium 2.4 H Total Bilirubin AST 96 H D ALT Alkaline Phosphatase 192 H C-Reactive Protein NT-Pro-B Natriuret Pep Albumin 2.9 L D Globulin Albumin/Globulin Ratio Cholesterol 84 L LDL Cholesterol Direct 38.74 L HDL Cholesterol 12 L Cholesterol/HDL Ratio 7.0 H Urine Protein Assessment and Plan *Assessment and plan (1) Community acquired pneumonia: Status: Acute Category: Medical Code(s): J18.9 - Pneumonia, unspecified organism (2) Acute on chronic hypoxic respiratory failure: Status: Acute Category: Medical Code(s): J96.21 - Acute and chronic respiratory failure with hypoxia Plan Ms. Lopez is a 79-year-old female with reported history of severe COPD at baseline on Symbicort inhaler large hiatal hernia compressing right lower lobe, lumbar radiculopathy hypertension dyslipidemia CKD stage III chronic hypoxic respiratory failure on 2 L nasal oxygen supplementation presented to the with worsening respiratory distress altered mentation weakness and pulmonary was called for further evaluation and management. Patient currently living in assisted care home. Afebrile. Hemodynamically stable. Neutrophilic predominant leukocytosis improving. Respiratory viral PCR panel negative. Blood gas upon admission mild hypercarbic respiratory failure with pH of 7.37PCO 255.8. CTA PE protocol upon admission no evidence of pulm embolism. Bilateral upper lobe predominant micronodular opacities along with bilateral upper lobe and right lower lobe patchy airspace disease noted. CT chest from January 2025 showed bilateral micronodular opacities and nodular densities consistent with infectious etiology, appear to be worsening on her current CT scan Currently being managed for community-acquired pneumonia with ceftriaxone azithromycin. Plan: Follow with serum fungal serologies and sputum bacterial,AFB fungal stain cultures Continue oxygen supplementation to maintain O2 saturation goal of 90% and above. Weaned to 2 L nasal cannula this morning which is her home baseline. DuoNebs every 6 hours and Pulmicort every 12 scheduled Continue ceftriaxone and doxycycline pending sputum culture results
--- NOTE | 2025-05-05 09:42 | HMH.PTEV ---
Physical Therapy Evaluation Rehab PT IP Evaluation Start: 05/04/25 14:38 Freq: ONCE Status: Active Protocol: Document 05/05/25 09:37 RUY (Rec: 05/05/25 09:41 RUY [id number]) Subjective/History History History Per H&P: Ms. Rocha is a 79-year-old female who presented to the emergency department with worsening shortness of breath, metabolic encephalopathy, and weakness. She has a past medical history of lumbar radiculopathy, GI bleed, renal cyst, hypertension, hyperlipidemia, anemia, CKD stage III, O2 dependence (2 L), dementia, multiple long nodules on CT, degenerative disc disease. She follows with Dr. Bhatia, pulmonology, and was last seen in January/2025. Her son is at bedside and states that she went to Dr. Jimenes's office, her PCP, approximately 2 weeks ago and was put on azithromycin. Course completed yesterday. Patient lives in a caregivers home in [facility]. Upon assessment patient seems disoriented, eye-opening to speech. Son states that she is normally alert and oriented, but has been slowly declining. Patient is currently on 4 L O2 nasal cannula satting 90 %. Due to multifocal pneumonia seen on CT, metabolic encephalopathy, need for IV antibiotics and supplemental O2; agreed to admit patient for further management. Subjective Subjective PLOF: required 24/7 supervision but was able to ambulate short distances with RW. Lives at a residential facility with 24/7 supervision and assistance. Some [facility] home. New diagnosis of No cancer in past 12 months? [facility] How much help from another person do you currently need... Turning from your A little back to your side while in a flat bed without using bedrails? Moving from lying on A little back to sitting on the side of a flat bed without using bedrails? Moving to and from a A little bed to a chair ( including a wheelchair)? Standing up from a A little chair using your arms? (e.g., wheelchair, bedside chair) Walking in hospital A little room? Climbing 3-5 steps A little with a railing? Mobility Score 18 Mobility Level [facility] Mobility 6 Walk 10 steps or more Mobility Calculator Rehab PT IP Eval Objective Appearance Patient Behavior Appropriate,Cooperative Patient Orientation Person Difficulty following none instructions Speech Pattern Clear Ambulation Patient Able to Yes Ambulate Ambulation Observation IP General Gait Wide Based Gait Pattern Observation Ambulation Distance 15 (feet) Ambulation Assistive Rolling Walker Device Ambulation Ability Minimal x 1 (25% assist) Balance Ability to Arise Able, uses arms to help Sitting Balance Steady, safe Standing Balance Steady, wide stance Dynamic Sitting Good Balance Ability Dynamic Standing Fair Balance Ability Transfers Bed Transfer Ability Minimal x 1 (25% assist) Sit to Stand Bed Minimal x 1 (25% assist) Transfer Ability Sit to Stand Chair Minimal x 1 (25% assist) Transfer Ability Rehab PT IP prob,goals,plan Problems Date of Evaluation: 05/05/25 PT IP Problems Bed Mobility,Transfers,Gait,Balance,Self care,Safety Rehab Potential Rehab Potential Good Plan PT Intervention Plan Bed Mobility,Transfers,Gait,Balance,Self care,Safety, Therapeutic Exercise Other Intervention 1-2 times Plan PT Plan Frequency Daily Duration LOS Discharge Plan PT Discharge Plan Initial PT evaluation performed and pt presents below baseline in mobility. Pt would benefit from skilled IP rehabilitation however, may be safe to return to current living situation with 24/ supervision and PT. Pt would benefit from skilled IP PT while at [facility]. Eval Complexity Eval Charge Codes 63103 - Moderate Complexity PHYSICIAN CERTIFICATION: I certify the specified therapy services for Trice Rocha are required, authorized, and reviewed every 30 days.
--- NOTE | 2025-05-05 09:49 | SW/DCPLANNER ---
I spoke w/ patient's son regarding discharge plans for patient once medically stable. Per son patient currently resides at a private home in [place] / [facility]. Son and family prefer that patient return to home in [place] once medically stable for discharge. Discharge date is unknown at this time.
--- NOTE | 2025-05-05 09:52 | HMH.OTEV ---
OT Inpatient Evaluation Rehab OT IP Evaluation Start: 05/04/25 15:02 Freq: ONCE Status: Active Protocol: Document 05/05/25 09:37 MARISOL (Rec: 05/05/25 09:52 MARISOL [id number]) Rehab OT IP Assessment Subjective History Per HPI narrative: 79-year-old female presents to the ED today for complaint of shortness of breath that has been made worse by possible pneumonia since about Saturday. Sons are at bedside telling us that she has recently moved from son's house that she has been out for 10 months to a caretakers house to [place]. Patient is weak, confused, very short of breath. She says she has not been wearing her O2 as much as she usually does . Patient has been on a Z-Alon since Saturday. She did not take the last dose today. She was diagnosed with pneumonia. Patient does have history of COPD, pneumonia, CKD and rheumatoid arthritis. Patient's son did state that patient started on Saturday with garbled slurred speech, some weakness on her right side. He states that he is unsure why this is happening. He is not sure if this is from the pneumonia. Patient does know where she is but difficult to understand. I also had Dr. Ken assess patient. Subjective She needs to rest right now. Son was present in chair while pt supine in bed sleeping. Son reported that pt had just been moved by PT and was in chair for 30 minutes before requesting to get back in bed. OT agreed to let pt rest, but reported they would be back in afternoon to see how pt moves. Mone helped report background and hx of pt. Sone reported pt lives in residential home in [place] with 03/06 assistance. Son reported pt needs assist for ADLs and IADLs are completed by workers at home. Son reported he is unsure if pt has showerchair at residential home. son reports pt does have grab bars. son reports pt is normally on 2 L O2, currently on 4 L O2. son reports pt uses walker for functional mobility and w/c for completion of social outings. PT assisted in providing OT with background of how pt was able to complete transfers and functional mobility. PT reported pt was Min A x1 for transfers from bed to chair. Objective Decrease in Yes Endurance Rehab OT IP prob,goals,plan Problems Date of Evaluation: 05/05/25 OT IP Problems Bed Mobility,Transfers,Balance,Self care,Safety Rehab Potential Rehab Potential Good Equipment Needs Assistive Devices Rolling / Wheeled Walker,Wheelchair Plan OT intervention Plan Bed Mobility,Transfers,Balance,Self care,Safety, Therapeutic Exercise OT Plan Frequency Daily Duration LOS Discharge Goals Bed Mobility Ability Assistance x1 Sit to Stand Chair Minimal x 1 (25% assist) Transfer Ability Chair Transfer Minimal x 1 (25% assist) Ability Chair Transfer Sit to/from Ambulatory Technique Chair Transfer Standard Walker,Rolling Walker Assistive Devices Feeding Ability Assist with Tray Set Up Commode/Toilet Raised Toilet Seat,Toilet Rails,Grab Bars Transfer Assistive Devices Decrease in No Endurance Discharge Plan OT Discharge Plan At this time, pt would benefit from skilled acute OT services and interventions to address functional limitations in occupational performance. Pt would benefit from skilled rehab placement to further address functional decline. If pt has 24/ care, pt able to return to residential home with OT HH services to address functional limitations in occupational performance. Eval Complexity Eval Charge Codes 97846 - Moderate Complexity PHYSICIAN CERTIFICATION: I certify the specified therapy services for Trice Rocha are required, authorized, and reviewed every 30 days.
[2025-05-05] MEDS: BUMETANIDE 1MG/4ML VIAL 1 MG IV (11:43)
--- NOTE | 2025-05-05 13:04 | P.PN_ITS ---
<Statement entered by Car High MD - 05/05/25 17:18> Rounded on patient after nurse practitioner. Personally examined and interviewed patient. Agree with exam findings and care plan as documented. Subjective *Date: 05/05/25 *Time: 14:28 Interval history: Ms. Rocha is sitting up in the chair this morning. She states she is feeling much more like herself. She is alert and oriented answering questions appropriately. She denies pain, she states she ate her breakfast well with no problems. Son is at bedside. Medical Exam Vital signs and Labs for Last 24 Hours: Vital Signs Temp Pulse Pulse Resp BP BP Pulse Ox 05/05/25 12:36 05/05/25 11:59 97.6 F 75 20 160/78 H 99 05/05/25 11:00 05/05/25 09:00 05/05/25 08:00 05/05/25 08:00 97.9 F 80 24 152/67 H 96 05/05/25 07:50 05/05/25 06:48 05/05/25 06:07 78 05/05/25 06:07 82 05/05/25 06:07 97 05/05/25 05:00 05/05/25 04:00 98.0 F 80 16 146/68 H 93 L 05/05/25 02:57 05/05/25 00:52 05/04/25 23:55 96.5 F L 58 L 17 134/72 99 05/04/25 23:00 05/04/25 21:00 05/04/25 20:00 05/04/25 19:48 98.3 F 63 18 133/64 96 05/04/25 18:37 05/04/25 17:09 82 05/04/25 17:09 78 05/04/25 17:09 93 L 05/04/25 16:53 05/04/25 16:00 97.8 F 76 16 138/68 97 05/04/25 15:00 05/04/25 14:30 70 19 160/88 H 98 05/04/25 13:47 98.1 F 77 30 H 155/85 H 05/04/25 13:30 68 14 155/85 H 97 05/04/25 13:14 O2 Del Method O2 Flow Rate 05/05/25 12:36 Nasal Cannula 4 05/05/25 11:59 Nasal Cannula 2 05/05/25 11:00 Nasal Cannula 4 05/05/25 09:00 Nasal Cannula 4 05/05/25 08:00 Nasal Cannula 4 05/05/25 08:00 Nasal Cannula 4 05/05/25 07:50 Nasal Cannula 4 05/05/25 06:48 Nasal Cannula 4 05/05/25 06:07 05/05/25 06:07 05/05/25 06:07 Nasal Cannula 4 05/05/25 05:00 Nasal Cannula 4 05/05/25 04:00 4 05/05/25 02:57 Nasal Cannula 4 05/05/25 00:52 Nasal Cannula 4 05/04/25 23:55 Nasal Cannula 4 05/04/25 23:00 Nasal Cannula 4 05/04/25 21:00 Nasal Cannula 4 05/04/25 20:00 Nasal Cannula 4 05/04/25 19:48 Nasal Cannula 4 05/04/25 18:37 Nasal Cannula 05/04/25 17:09 05/04/25 17:09 05/04/25 17:09 Nasal Cannula 4 05/04/25 16:53 Nasal Cannula 05/04/25 16:00 Nasal Cannula 4 05/04/25 15:00 Nasal Cannula 05/04/25 14:30 Nasal Cannula 4 05/04/25 13:47 Nasal Cannula 4 05/04/25 13:30 05/04/25 13:14 Nasal Cannula 4 Intake and Output 05/04/25 05/05/25 05/05/25 23:59 07:59 15:59 Intake Total 250 / 250 120 / 120 Output Total 200 / 200 200 / 250 50 / 250 Balance 50 / 50 -200 / -130 70 / -130 Intake: Intake, Oral Amount 120 / 120 Intake, Total IV Amount 250 / 250 Doxycycline Hyclate 100 mg In 0 250 / 250 .9 % Sodium Chloride 250 ml @ 166.667 mls/hr IV Q12H [facility] Rx#: [id number] Output: Output, Urine Amount 200 / 200 200 / 250 50 / 250 Other: Number of Unmeasured Voids 0 0 Weight 73.028 kg Patient Weight 05/05/25 23:59 Weight 73.028 kg Laboratory Results - last 24 hr 05/04/25 11:17: Chlamy pneumoniae PCR Not detected, Adenovirus (PCR) Not detected, B. pertussis DNA (PCR) Not detected, Coronavirus OC43 (PCR) Not detected, Coronavirus HKU1 (PCR) Not detected, Coronavirus 229E (PCR) Not detected, SARS-CoV-2 (PCR) Not detected, Coronavirus NL63 (PCR) Not detected, Human Metapneumovir PCR Not detected, Influenza A (H1) PCR Not detected, Influ A (H1N1/09) PCR Not detected, Influenza A (H3) PCR Not detected, Influenza Type A (PCR) Not detected, Influenza Type B (PCR) Not detected, M. pneumoniae (PCR) Not detected, Parainfluenza 1 (PCR) Not detected, Parainfluenza 2 (PCR) Not detected, Parainfluenza 3 (PCR) Not detected, Parainfluenza 4 (PCR) Not detected, RSV (PCR) Not detected, Entero/Rhino (PCR) Not detected 05/04/25 14:36: Troponin I 0.02 05/04/25 16:13: Urine Color Yellow, Urine Appearance Clear, Urine pH 6.0, Ur Specific [place] 1.010, Urine Protein 2+ A, Urine Glucose (UA) Negative, Urine Ketones Negative, Urine Blood Trace-i, Urine Nitrate Negative, Urine Bilirubin Negative, Urine Urobilinogen 1.0, Ur Leukocyte Esterase Negative, Urine WBC 5- 10, Ur Squamous Epith Cells 5-10, Urine Bacteria Trace 05/04/25 17:20: Troponin I 0.02 05/05/25 05:40: WBC 16.6 H, RBC 4.01 L, Hgb 11.3 L, Hct 36.7 L, MCV 91.5, MCH 28.2, MCHC 30.8 L, RDW 13.6, Plt Count 248, MPV 10.7 H, Neut % (Auto) 80.5 H, Lymph % (Auto) 7.9 L, [place] % (Auto) 4.1, Eos % (Auto) 0.0 L, Baso % (Auto) 0.7, Neut # (Auto) 13.4 H, Lymph # (Auto) 1.3, [place] # (Auto) 0.7, Eos # (Auto) 0.0, Baso # (Auto) 0.1, Total Counted 100, Neutrophils % (Manual) 91 H, Lymphocytes % (Manual) 8 L, Monocytes % (Manual) 1 L, Platelet Estimate Normal, RBC Morphology Normal, Sodium 137, Potassium 4.0, Chloride 96 L, Carbon Dioxide 32 H, Anion Gap 13.0, BUN 28 H, Creatinine 1.00 D, Estimated Creat Clear 51, Estimated GFR 53 L , Est GFR ( Amer) 64 D, Glucose 122 H, Calcium 9.2, Magnesium 2.4 H, Total Bilirubin 0.3, Direct Bilirubin 0.3, Conjugated Bilirubin 0.0, Indirect Bilirubin 0.0, Unconjugated Bilirubin 0.0, AST 96 H D, ALT 78, Alkaline Phosphatase 192 H, Total Protein 6.4, Albumin 2.9 L D, Triglycerides 115, Cholesterol 84 L, LDL Cholesterol Direct 38.74 L, VLDL Cholesterol 23, HDL Cholesterol 12 L, Cholesterol/HDL Ratio 7.0 H I & O for Labs for Last 24 Hours: Intake & Output 05/02/25 05/03/25 05/04/25 05/05/25 23:59 23:59 23:59 23:59 Intake Total 250 / 250 120 / 120 Output Total 200 / 200 250 / 250 Balance 50 / 50 -130 / -130 Weight 72.235 kg 73.028 kg Microbiology Reports for the Last 24 Hours: Microbiology 05/05/25 10:20 Sputum - Expectorated Sputum SOL Preparation - Final No growth. 05/04/25 11:05 Blood Blood Culture - Preliminary NO GROWTH AFTER 24 HOURS 05/04/25 11:10 Blood Blood Culture - Preliminary NO GROWTH AFTER 24 HOURS Constitutional: Present no acute distress and cooperative Head: Present atraumatic Eyes: Present as per HPI ENT: Present normal exam Respiratory: Present rhonchi, diminished air movement, normal respiratory effort, able to speak in complete sentences and symmetric chest movement Cardiac: Present Reg Rate and Rhythm GI: Present soft and distention; Absent tenderness Rectal (female): Present deferred (female): Present deferred Extremities: Present normal inspection and normal capillary refill Skin: Present intact and dry Neuro: Present awake and oriented x 3 Assessment and Plan *Assessment and plan (1) Community acquired pneumonia: Status: Acute Category: Medical Code(s): J18.9 - Pneumonia, unspecified organism (2) Acute on chronic hypoxic respiratory failure: Status: Acute Category: Medical Code(s): J96.21 - Acute and chronic respiratory failure with hypoxia (3) Metabolic encephalopathy: Status: Acute Category: Medical Code(s): G93.41 - Metabolic encephalopathy (4) Leukocytosis: Status: Acute Category: Medical Code(s): D72.829 - Elevated white blood cell count, unspecified (5) Degenerative disc disease, lumbar: Status: Acute Category: Medical Code(s): M51.369 - Other intervertebral disc degeneration, lumbar region without mention of lumbar back pain or lower extremity pain (6) Rheumatoid arthritis: Status: Acute Category: Medical Code(s): M06.9 - Rheumatoid arthritis, unspecified (7) Hypertension: Status: Acute Category: Medical Code(s): I10 - Essential (primary) hypertension (8) Dementia: Status: Acute Category: Medical Code(s): F03.90 - Unspecified dementia, unspecified severity, without behavioral disturbance, psychotic disturbance, mood disturbance, and anxiety Plan Trice Rocha is a 79-year-old female who was admitted for acute on chronic hypoxic respiratory failure from community-acquired pneumonia. She presented to the emergency room with weakness, shortness of air, altered mental status. Patient's son at bedside states that she was diagnosed with pneumonia in the office and given a Z-Alon 2 weeks ago. She has since gotten worse and she has recently become more altered mentally. Patient was admitted overnight for continued monitoring and medical management. Patient up in chair today, looking much better. She is alert and oriented, answering questions appropriately. She states she is somewhat short of breath still, but is stable on 2 L nasal cannula. Son is at bedside. #Community-acquired pneumonia ? Leukocytosis trending down 19.1 yesterday, 16.6 today. Continuing doxycycline and ceftriaxone for broad coverage. Blood cultures are still pending. ?H&H stable at patient baseline hemoglobin 11.3. Liver function trending down 140, 96 today, ALT 78. ?BNP 5500, Bumex 1 mg IV x 1 ? Chest x-ray was independently interpreted by myself, showing bilateral lung pneumonia. ? Chest CTA shows no evidence of PE, multifocal pneumonia greatest in upper lobes. Patient does have known nodules on previous CT. ? Patient given azithromycin and ceftriaxone in the emergency room. Will continue ceftriaxone 2 g daily, doxycycline 100 mg twice daily IV. ? Patient has baseline 2 L nasal cannula, weaned back down to her baseline of 2 L O2 saturation above 95%. - Pulmonology consulted. ?Will repeat CBC, CMP in the a.m. #History of reactive airway disease ? History of rheumatoid arthritis, might have underlying interstitial lung disease. ? Patient has been evaluated outpatient pulmonology, last seen in 02/02. ? Resume home Symbicort and DuoNebs 4 times daily as needed. #Multiple pleural lesions -Patient has known pulmonary nodules. Pulmonary consulted. #Dementia ? Continue home donepezil. Continue buspirone 10 mg twice daily. ?Continue home Seroquel 25 mg at bedtime. #Hypertension ? Continue home carvedilol. #Rheumatoid arthritis ?Continue [place] 5/325 mg as needed. Monitor for toxicity Cardiac diet DNR/DNI Lovenox VTE Ambulate as tolerated
[2025-05-05 13:21] LABS: Acinetobacter calcoaceticus-ba Not Detected; Bacteroides fragilis Not Detected; Candida albicans Not Detected; Candida auris Not Detected; Candida glabrata Not Detected; Candida krusei Not Detected; Candida parapsilosis Not Detected; Candida tropicalis Not Detected; Cryptococcus neoformans/gattii Not Detected; Enterobacter cloacae complex Not Detected; Enterobacterales Not Detected; Enterococcus faecalis Not Detected; Enterococcus faecium Not Detected; Haemophilus influenzae Not Detected; Klebsiella aerogenes Not Detected; Klebsiella pneumoniae grp Not Detected; Listeria monocytogenes Not Detected; Neisseria meningitidis Not Detected; Proteus spp. Not Detected; Pseudomonas aeruginosa Not Detected; Salmonella spp. Not Detected; Serratia marcescens Not Detected; Staphylococcus epidermidis Not Detected; Staphylococcus lugdunensis Not Detected; Stenotrophomonas maltophilia Not Detected; Streptococcus agalactiae(GrpB) Not Detected; Streptococcus pneumoniae Not Detected; Streptococcus pyogenes Group A Not Detected; Streptococcus spp. Not Detected
[2025-05-05 13:40] LABS: Staphylococcus spp. Detected
--- NOTE | 2025-05-05 16:53 | PC.NURSE ---
PT IS RESTING IN BED. ALERT TO SELF ONLY. FOLLOWS COMMANDS AND ANSWERS SIMPLE QUESTIONS. PT HAS TOLERATED SITTING UP IN THE CHAIR FOR A FEW HOURS THIS SHIFT. LUNG SOUNDS DIMINISHED WITH SCATTERED RHONCHI. ABDOMEN SOFT/NON TENDER WITH ACTIVE BOWEL SOUNDS. PURWICK IN PLACE. DIURESING WELL. O2 SATURATION HAS MAINTAINED 92-95% ON 2 L NC. WILL CONTINUE TO MONITOR.
[2025-05-05] MEDS: BUDESONIDE 0.5MG/2ML NEB 0.5 MG IH (18:18)
[2025-05-05] MEDS: ATORVASTATIN 40MG TABLET 40 MG PO (20:53)
[2025-05-05] MEDS: DONEPEZIL 5MG TAB 5 MG PO (20:53)
[2025-05-05] MEDS: QUETIAPINE 25MG TABLET 12.5 MG PO (20:54)
[2025-05-06] VITALS (8 sets, daily range): BP systolic 151–165; BP diastolic 53–105; PULSE 65–85; RESP 14–20; TEMP 36.3–36.8; O2SAT 92–96; BMI 28.4
--- NOTE | 2025-05-06 04:23 | PC.NURSE ---
Pt alert to self only. She has tolerated 2L nasal cannula. Lung sounds diminished and bowel sounds active. She has received IV abx. Purewick has remained in place. Family has remained at bedside. No complaints at this time, call light within reach.
[2025-05-06] MEDS: DOXYCYCLINE HYCLATE 100 MG in 0.9 % SODIUM CHLORIDE 250 ML 166.667 MG IV ×2 (04:31→16:29)
[2025-05-06] MEDS: IPRATROPIUM/ALBUTEROL 3 ML NEB IH ×3 (06:07→18:09)
[2025-05-06] MEDS: BUDESONIDE 0.5MG/2ML NEB 0.5 MG IH ×2 (06:07→18:09)
[2025-05-06 06:54] LABS: Basophils # 0.1 K/mm3 (0-0.2); Basophils % 0.4 % (0.1-2.0); Eosinophils # 0.2 Kmm3 (0.0-0.4); Eosinophils % 0.8 % (0.1-12.0); Hematocrit 37.4 % (37.0-47.0); Hemoglobin 11.6 g/dL (12.2-16.2); Immature Granulocytes # 1.04 10^3uL; Immature Granulocytes % 5.1 %; Lymphocytes # 1.8 K/mm3 (0.7-4.5); Lymphocytes % 8.7 % (10-50); Mean Corpuscular Hemoglobin 27.6 pg (27.0-31.2); Mean Corpuscular Volume 88.8 fl (81-99); Mean Platelet Volume 10.6 fl (7.4-10.4); Monocytes # 0.9 K/mm3 (0.1-1.0); Monocytes % 4.3 % (1.7-9.3); Neutrophils # 16.5 K/mm3 (1.8-7.8); Neutrophils % 80.7 % (37.0-80.0); Nucleated Red Blood Cells # 0 10^3/uL; Nucleated Red Blood Cells % 0 %; Platelet Count 277 K/mm3 (142-424); Red Blood Count 4.21 M/mm3 (4.20-5.40); Red Cell Distribution Width 13.5 % (11.5-17.5); Red Cell Distribution Width-SD 44.1 fL; White Blood Count 20.5 K/mm3 (4.8-10.8)
--- NOTE | 2025-05-06 06:55 | PC.NURSE ---
pt repositioned per staff, family at bedside throughout night. Staff asst up to chair this am using walker.Chair alarm in place
[2025-05-06 06:58] LABS: Chloride 91 mmol/L (98-107)
[2025-05-06 06:59] LABS: Potassium 3.4 mmoL/L (3.5-5.1); Sodium 134 mmol/L (136-145)
[2025-05-06 07:01] LABS: Blood Urea Nitrogen 34 mg/dl (7-17); Creatinine Clearance Estimated 51 mL/min (50-200); Estimated Glomerular Filt Rate 53 ml/min (>60); GFR (African American) 64 ML/MIN (>60)
[2025-05-06 07:02] LABS: Anion Gap 10.4 mEq/L (5-15); Calcium 9.4 mg/dl (8.4-10.2); Carbon Dioxide 36 mmol/L (22.0-30.0); Chol/HDL Ratio 7.6 (1-3.5); Cholesterol 91 mg/dl (140-200); Glucose 116 mg/dl (74-100); HDL Cholesterol 12 mg/dl (40-60); Magnesium 1.9 mg/dl (1.6-2.3); Triglycerides 135 mg/dl (30-150); VLDL Cholesterol 27 mg/dL (0-40)
[2025-05-06 07:07] LABS: MANUAL DIFFERENTIAL MANUAL DIFFERENTIAL (MANUAL DIFF)
[2025-05-06 07:13] LABS: Direct LDL Cholesterol 43.53 mg/dL (100-129)
[2025-05-06 08:37] LABS: Eosinophils % 1 % (0-3); Hypochromasia 1+; Lymphocytes % 9 % (10-50); Monocytes % 4 % (2-9); Neutrophils % 82 % (42-76); Platelet Estimate Normal; Total Cells Counted 100
[2025-05-06] MEDS: ENOXAPARIN 40MG/0.4ML SYRINGE 40 MG SUBCUT (08:56)
[2025-05-06] MEDS: BUMETANIDE 1 MG TABLET PO (08:56)
[2025-05-06] MEDS: CARVEDILOL 12.5MG TABLET 12.5 MG PO ×2 (08:56→22:06)
[2025-05-06] MEDS: CEFTRIAXONE SODIUM 2 GM in 0.9 % SODIUM CHLORIDE 100 ML IV (08:56)
[2025-05-06] MEDS: HYDROCODONE/APAP 5/325 MG TABLET 1 TAB PO ×2 (09:41→22:07)
--- NOTE | 2025-05-06 10:03 | P.PN_ITS ---
Subjective *Date: 05/06/25 *Time: 12:50 Interval history: No acute respiratory events overnight. Patient family is concerned that patient is more confused today Pulmonology Exam Inpatient Vital signs and Labs for Last 24 Hours: Temp Pulse Resp BP Pulse Ox O2 Del Method O2 Flow Rate 98.1 F 82 18 165/105 H 96 Nasal Cannula 2 05/06/25 08:00 05/06/25 08:00 05/06/25 08:00 05/06/25 08:00 05/06/25 08:00 05/06/25 08:00 05/06/25 08:00 Laboratory Results - last 24 hr 05/05/25 13:20: A. baumannii (PCR) Not detected, Bacteroides fragilis Not detected, Lynda albicans (PCR) Not detected, Lynda auris (PCR) Not detected, C. glabrata (PCR) Not detected, C. krusei (PCR) Not detected, C. parapsilosis (PCR) Not detected, C. tropicalis (PCR) Not detected, Cryptococcus neoformans PCR Not detected, Enterobacterales (PCR) Not detected, Enterococc faecalis PCR Not detected, Enterococc faecium PCR Not detected, E. coli (PCR) Not detected, H. influenzae DNA Not detected, Klebsiella aerogenes (PCR) Not detected, Klebsiella oxytoca PCR Not detected, K. pneumoniae group (PCR) Not detected, List. monocytogenes PCR Not detected, N. meningitidis (PCR) Not detected, Proteus species (PCR) Not detected, Salmonella spp. (PCR) Not detected, Serratia marcescens PCR Not detected, Staphylococcus sp PCR Detected, Staph aureus (PCR) Not detected, mecA/C & MREJ Resist Gene Not applicable, mecA/C-Methicil Resis Gene Not applicable, Staph epidermidis (PCR) Not detected, Staph lugdunensis (TEM-PCR) Not detected, S. maltophilia (PCR) Not detected, Streptococcus sp PCR Not detected, S.agalactiae Grp B [place] Not detected, Strep pneumoniae (PCR) Not detected, S. pyogenes GrpA [place] Not detected, P. aeruginosa (PCR) Not detected, Nehal/B-Vanco Res Genes Not applicable, blaIMP Car res Gene PCR Not applicable, KPC-Carbap Res Gene PCR Not applicable, blaNDM Car Res Gene PCR Not applicable, OXA-48 Carbapenem Resis Gene (PCR) Not applicable, blaVIM Car Res Gene PCR Not applicable, CTX-M Gene Resistance (PCR) Not applicable, MCR-1 Resistance Gene Not applicable 05/06/25 06:09: WBC 20.5 H*, RBC 4.21, Hgb 11.6 L, Hct 37.4, MCV 88.8, MCH 27.6, MCHC 31.0 L, RDW 13.5, Plt Count 277, MPV 10.6 H, Neut % (Auto) 80.7 H, Lymph % (Auto) 8.7 L, [place] % (Auto) 4.3, Eos % (Auto) 0.8, Baso % (Auto) 0.4, Neut # (Auto) 16.5 H, Lymph # (Auto) 1.8, [place] # (Auto) 0.9, Eos # (Auto) 0.2, Baso # (Auto) 0.1, Total Counted 100, Neutrophils % (Manual) 82 H, Lymphocytes % (Manual) 9 L, Atypical Lymphs % 4.0, Monocytes % (Manual) 4, Eosinophils % (Manual) 1, Platelet Estimate Normal, Hypochromasia 1+, Sodium 134 L, Potassium 3.4 L, Chloride 91 L, Carbon Dioxide 36 H, Anion Gap 10.4, BUN 34 H, Creatinine 1.00, Estimated Creat Clear 51, Estimated GFR 53 L, Est GFR ( Amer) 64, Glucose 116 H, Calcium 9.4, Magnesium 1.9 D, Triglycerides 135, Cholesterol 91 L, LDL Cholesterol Direct 43.53 L, VLDL Cholesterol 27, HDL Cholesterol 12 L, Cholesterol/HDL Ratio 7.6 H Temp Pulse Resp BP Pulse Ox O2 Del Method O2 Flow Rate 97.9 F 80 24 152/67 H 96 Nasal Cannula 4 05/05/25 08:00 05/05/25 08:00 05/05/25 08:00 05/05/25 08:00 05/05/25 08:00 05/05/25 09:00 05/05/25 09:00 Laboratory Results - last 24 hr 05/04/25 11:10: WBC 19.1 H, RBC 4.01 L, Hgb 11.8 L, Hct 35.7 L, MCV 89.0, MCH 29.4, MCHC 33.1, RDW 13.3, Plt Count 263, MPV 11.1 H, Neut % (Auto) 83.5 H, Lymph % (Auto) 7.3 L, [place] % (Auto) 6.3, Eos % (Auto) 0.1, Baso % (Auto) 0.4, Neut # (Auto) 16.0 H, Lymph # (Auto) 1.4, [place] # (Auto) 1.2 H, Eos # (Auto) 0.0, Baso # (Auto) 0.1, ESR 1, PT 13.0 H, INR 1.19 H, APTT 34.5 H, Sodium 131 L, Potassium 4.7, Chloride 95 L, Carbon Dioxide 34 H, Anion Gap 6.7, BUN 25 H, Creatinine 0.80, Estimated Creat Clear 54, Estimated GFR 69, Est GFR ( Amer) 83, Glucose 133 H, Lactate 1.1, Calcium 10.0, Total Bilirubin 1.4 H, AST 140 H, ALT 90 H, Alkaline Phosphatase 193 H, Troponin I 0.03, C-Reactive Protein 186.1 H, NT-Pro-B Natriuret Pep 5500 H, Total Protein 8.0, Albumin 3.6, Globulin 4.4 H, Albumin/Globulin Ratio 0.8 L 05/04/25 11:17: VBG pH 7.37, VBG pCO2 55.8 H, VBG pO2 76.1 H, VBG HCO3 31.2 H, VBG Total CO2 33.0 H, VBG O2 Saturation 95.4 H, VBG Base Excess 5.9 H, VBG Lactic Acid 1.7, Chlamy pneumoniae PCR Not detected, Adenovirus (PCR) Not detected, B. pertussis DNA (PCR) Not detected, Coronavirus OC43 (PCR) Not detected, Coronavirus HKU1 (PCR) Not detected, Coronavirus 229E (PCR) Not detected, SARS-CoV-2 (PCR) Not detected, Coronavirus NL63 (PCR) Not detected, Human Metapneumovir PCR Not detected, Influenza A (H1) PCR Not detected, Influ A (H1N1/09) PCR Not detected, Influenza A (H3) PCR Not detected, Influenza Type A (PCR) Not detected, Influenza Type B (PCR) Not detected, M. pneumoniae (PCR) Not detected, Parainfluenza 1 (PCR) Not detected, Parainfluenza 2 (PCR) Not detected, Parainfluenza 3 (PCR) Not detected, Parainfluenza 4 (PCR) Not detected, RSV (PCR) Not detected, Entero/Rhino (PCR) Not detected 05/04/25 14:36: Troponin I 0.02 05/04/25 16:13: Urine Color Yellow, Urine Appearance Clear, Urine pH 6.0, Ur Specific [place] 1.010, Urine Protein 2+ A, Urine Glucose (UA) Negative, Urine Ketones Negative, Urine Blood Trace-i, Urine Nitrate Negative, Urine Bilirubin Negative, Urine Urobilinogen 1.0, Ur Leukocyte Esterase Negative, Urine WBC 5- 10, Ur Squamous Epith Cells 5-10, Urine Bacteria Trace 05/04/25 17:20: Troponin I 0.02 05/05/25 05:40: WBC 16.6 H, RBC 4.01 L, Hgb 11.3 L, Hct 36.7 L, MCV 91.5, MCH 28.2, MCHC 30.8 L, RDW 13.6, Plt Count 248, MPV 10.7 H, Neut % (Auto) 80.5 H, Lymph % (Auto) 7.9 L, [place] % (Auto) 4.1, Eos % (Auto) 0.0 L, Baso % (Auto) 0.7, Neut # (Auto) 13.4 H, Lymph # (Auto) 1.3, [place] # (Auto) 0.7, Eos # (Auto) 0.0, Baso # (Auto) 0.1, Total Counted 100, Neutrophils % (Manual) 91 H, Lymphocytes % (Manual) 8 L, Monocytes % (Manual) 1 L, Platelet Estimate Normal, RBC Morphology Normal, Sodium 137, Potassium 4.0, Chloride 96 L, Carbon Dioxide 32 H, Anion Gap 13.0, BUN 28 H, Creatinine 1.00 D, Estimated Creat Clear 51, Estimated GFR 53 L , Est GFR ( Amer) 64 D, Glucose 122 H, Calcium 9.2, Magnesium 2.4 H, Total Bilirubin 0.3, Direct Bilirubin 0.3, Conjugated Bilirubin 0.0, Indirect Bilirubin 0.0, Unconjugated Bilirubin 0.0, AST 96 H D, ALT 78, Alkaline Phosphatase 192 H, Total Protein 6.4, Albumin 2.9 L D, Triglycerides 115, Cholesterol 84 L, LDL Cholesterol Direct 38.74 L, VLDL Cholesterol 23, HDL Cholesterol 12 L, Cholesterol/HDL Ratio 7.0 H I & O for Labs for Last 24 Hours: Intake & Output 05/03/25 05/04/25 05/05/25 05/06/25 23:59 23:59 23:59 23:59 Intake Total 250 / 250 740 / 990 590 / 590 Output Total 200 / 200 1350 / 1650 500 / 500 Balance 50 / 50 -610 / -660 90 / 90 Weight 159 lb 4 oz 161 lb 160 lb 4.8 oz Intake & Output 05/02/25 05/03/25 05/04/25 05/05/25 23:59 23:59 23:59 23:59 Intake Total 250 / 250 120 / 120 Output Total 200 / 200 250 / 250 Balance 50 / 50 -130 / -130 Weight 159 lb 4 oz 161 lb Microbiology Reports for the Last 24 Hours: Microbiology 05/04/25 11:05 Blood Blood Culture - Preliminary 05/04/25 16:13 Urine,Random Urine Culture - Final NO GROWTH AFTER 48 HOURS 05/05/25 10:20 Sputum - Expectorated Sputum Gram Stain - Final 05/05/25 10:20 Sputum - Expectorated Sputum SOL Preparation - Final No growth. 05/04/25 11:10 Blood Blood Culture - Preliminary NO GROWTH AFTER 24 HOURS Constitutional: Present moderate distress Head: Present normocephalic and atraumatic ENT: Present normal exam, normal oropharynx and mucous membranes moist Neck: Present normal inspection and full ROM Respiratory: Present prolonged expiratory phase, respiratory distress, rhonchi, wheezes, crackles, diminished air movement and able to speak in complete sentences Cardiac: Present S1/S2, Tachycardia and radial pulses present GI: Present soft and distention; Absent tenderness or guarding Rectal (female): Present deferred (female): Present deferred Skin: Present intact; Absent cyanosis or jaundice Neuro: Absent alert or awake Extremities: Present normal inspection; Absent clubbing or cyanosis Psychiatric: Present unable to assess Assessment and Plan *Assessment and plan (1) Community acquired pneumonia: Status: Acute Category: Medical Code(s): J18.9 - Pneumonia, unspecified organism (2) Acute on chronic hypoxic respiratory failure: Status: Acute Category: Medical Code(s): J96.21 - Acute and chronic respiratory failure with hypoxia Plan Ms. Lopez is a 79-year-old female with reported history of severe COPD at baseline on Symbicort inhaler large hiatal hernia compressing right lower lobe, lumbar radiculopathy hypertension dyslipidemia CKD stage III chronic hypoxic respiratory failure on 2 L nasal oxygen supplementation presented to the with worsening respiratory distress altered mentation weakness and pulmonary was called for further evaluation and management. [facility] Afebrile. Hemodynamically stable. Neutrophilic predominant leukocytosis improving. Respiratory viral PCR panel negative. Blood gas upon admission mild hypercarbic respiratory failure with pH of 7.37PCO 255.8. CTA PE protocol upon admission no evidence of pulm embolism. Bilateral upper lobe predominant micronodular opacities along with bilateral upper lobe and right lower lobe patchy airspace disease noted. CT chest from January 2025 showed bilateral micronodular opacities and nodular densities consistent with infectious etiology, appear to be worsening on her current CT scan Currently being managed for community-acquired pneumonia with ceftriaxone azithromycin. Interval update: Worsening leukocytosis. Blood gas from this morning tachypnea. Did not show any evidence of hypercarbic respiratory failure. pCO2 low at 48.7. Continued to be needing 2 L nasal oxygen supplementation to maintain O2 saturation above 90%, which is her baseline. Sputum obtained for bacterial fungal stain and cultures along with AFB stain cultures. Chest x-ray from this morning is severely rotated. Overall infiltrates in the right lower lung teague. Sputum culture less than WBC gram-positive cocci. AFB and fungal stain cultures pending. Serum fungal serologies also pending. Plan: F/U Procalcitonin and CRP Follow with serum fungal serologies and final sputum bacterial,AFB fungal stain cultures Continue oxygen supplementation to maintain O2 saturation goal of 90% and above. Weaned to 2 L nasal cannula this morning which is her home baseline. DuoNebs every 6 hours and Pulmicort every 12 scheduled Continue ceftriaxone and doxycycline pending final sputum culture results
--- NOTE | 2025-05-06 10:04 | XR_ITS ---
FINAL REPORT CLINICAL HISTORY: PNM COMPARISON: 05/04/2025 FINDINGS: A single frontal view of the chest was obtained. Chronic changes are noted in the bilateral lung bases suspicious for pneumonia. Small right pleural effusion is noted. Mediastinum is unremarkable. There is a large hiatal hernia. Heart size is normal. IMPRESSION: No significant change. Reviewed, Interpreted and Dictated by Jenise Covington MD Transcribed by Payal Mariee Authenticated and [facility]
--- NOTE | 2025-05-06 11:40 | P.PN_ITS ---
<Statement entered by Car High MD - 05/06/25 15:59> Rounded on patient after nurse practitioner. Personally examined and interviewed patient. Agree with exam findings and care plan as documented. Subjective *Date: 05/06/25 *Time: 15:11 Interval history: Patient lying in bed resting with her eyes closed. She is arousable to speech, and ask how she rested she says well. She is more lethargic today than yesterday. Family at bedside, son and [id number]. Medical Exam Vital signs and Labs for Last 24 Hours: Vital Signs Temp Pulse Pulse Resp BP Pulse Ox O2 Del Method 05/06/25 11:34 68 05/06/25 11:34 68 05/06/25 10:37 Nasal Cannula 05/06/25 08:00 Nasal Cannula 05/06/25 08:00 98.1 F 82 18 165/105 H 96 Nasal Cannula 05/06/25 07:57 Nasal Cannula 05/06/25 07:48 Nasal Cannula 05/06/25 06:43 Nasal Cannula 05/06/25 06:08 80 05/06/25 06:08 84 05/06/25 06:08 95 Nasal Cannula 05/06/25 05:00 Nasal Cannula 05/06/25 04:00 98.2 F 80 14 165/94 H 92 L Nasal Cannula 05/06/25 03:00 Nasal Cannula 05/06/25 01:00 Nasal Cannula 05/06/25 00:00 98.0 F 69 20 151/87 H 92 L Nasal Cannula 05/05/25 23:50 83 05/05/25 23:50 78 05/05/25 23:00 Nasal Cannula 05/05/25 21:00 Nasal Cannula 05/05/25 20:00 Nasal Cannula 05/05/25 19:59 97.4 F L 78 22 174/96 H 95 Nasal Cannula 05/05/25 18:43 Nasal Cannula 05/05/25 18:19 87 05/05/25 18:19 86 05/05/25 18:19 91 L Nasal Cannula 05/05/25 16:52 Nasal Cannula 05/05/25 16:00 Nasal Cannula 05/05/25 16:00 98.3 F 74 20 155/70 H 98 Nasal Cannula 05/05/25 15:00 Nasal Cannula 05/05/25 12:36 Nasal Cannula 05/05/25 11:59 97.6 F 75 20 160/78 H 99 Nasal Cannula O2 Flow Rate 05/06/25 11:34 05/06/25 11:34 05/06/25 10:37 2 05/06/25 08:00 2 05/06/25 08:00 2 05/06/25 07:57 2 05/06/25 07:48 2 05/06/25 06:43 2 05/06/25 06:08 05/06/25 06:08 05/06/25 06:08 2 05/06/25 05:00 2 05/06/25 04:00 2 05/06/25 03:00 2 05/06/25 01:00 2 05/06/25 00:00 2 05/05/25 23:50 05/05/25 23:50 05/05/25 23:00 2 05/05/25 21:00 2 05/05/25 20:00 2 05/05/25 19:59 05/05/25 18:43 2 05/05/25 18:19 05/05/25 18:19 05/05/25 18:19 2 05/05/25 16:52 2 05/05/25 16:00 2 05/05/25 16:00 2 05/05/25 15:00 2 05/05/25 12:36 4 05/05/25 11:59 2 Intake and Output 05/05/25 05/06/25 05/06/25 23:59 07:59 15:59 Intake Total 620 / 990 470 / 590 120 / 590 Output Total 1100 / 1650 500 / 500 Balance -480 / -660 -30 / 120 / 90 Intake: Intake, Oral Amount 270 / 390 220 / 340 120 / 340 Intake, Total IV Amount 350 / 600 250 / 250 Ceftriaxone Sodium 2 gm In 0.9 100 / 100 % Sodium Chloride 100 ml @ 200 mls/hr IV Q24H [facility] Rx#:[id number] Doxycycline Hyclate 100 mg In 0 250 / 500 250 / 250 .9 % Sodium Chloride 250 ml @ 166.667 mls/hr IV Q12H [facility] Rx#: [id number] Output: Output, Urine Amount 1100 / 1650 500 / 500 Other: Number of Unmeasured Voids 0 0 Number of Bowel Movements 1 Weight 72.711 kg Patient Weight 05/06/25 23:59 Weight 72.711 kg Laboratory Results - last 24 hr 05/05/25 13:20: A. baumannii (PCR) Not detected, Bacteroides fragilis Not detected, Lynda albicans (PCR) Not detected, Lynda auris (PCR) Not detected, C. glabrata (PCR) Not detected, C. krusei (PCR) Not detected, C. parapsilosis (PCR) Not detected, C. tropicalis (PCR) Not detected, Cryptococcus neoformans PCR Not detected, Enterobacterales (PCR) Not detected, Enterococc faecalis PCR Not detected, Enterococc faecium PCR Not detected, E. coli (PCR) Not detected, H. influenzae DNA Not detected, Klebsiella aerogenes (PCR) Not detected, Klebsiella oxytoca PCR Not detected, K. pneumoniae group (PCR) Not detected, List. monocytogenes PCR Not detected, N. meningitidis (PCR) Not detected, Proteus species (PCR) Not detected, Salmonella spp. (PCR) Not detected, Serratia marcescens PCR Not detected, Staphylococcus sp PCR Detected, Staph aureus (PCR) Not detected, mecA/C & MREJ Resist Gene Not applicable, mecA/C-Methicil Resis Gene Not applicable, Staph epidermidis (PCR) Not detected, Staph lugdunensis (TEM-PCR) Not detected, S. maltophilia (PCR) Not detected, Streptococcus sp PCR Not detected, S.agalactiae Grp B [place] Not detected, Strep pneumoniae (PCR) Not detected, S. pyogenes GrpA [place] Not detected, P. aeruginosa (PCR) Not detected, Nehal/B-Vanco Res Genes Not applicable, blaIMP Car res Gene PCR Not applicable, KPC-Carbap Res Gene PCR Not applicable, blaNDM Car Res Gene PCR Not applicable, OXA-48 Carbapenem Resis Gene (PCR) Not applicable, blaVIM Car Res Gene PCR Not applicable, CTX-M Gene Resistance (PCR) Not applicable, MCR-1 Resistance Gene Not applicable 05/06/25 06:09: WBC 20.5 H*, RBC 4.21, Hgb 11.6 L, Hct 37.4, MCV 88.8, MCH 27.6, MCHC 31.0 L, RDW 13.5, Plt Count 277, MPV 10.6 H, Neut % (Auto) 80.7 H, Lymph % (Auto) 8.7 L, [place] % (Auto) 4.3, Eos % (Auto) 0.8, Baso % (Auto) 0.4, Neut # (Auto) 16.5 H, Lymph # (Auto) 1.8, [place] # (Auto) 0.9, Eos # (Auto) 0.2, Baso # (Auto) 0.1, Total Counted 100, Neutrophils % (Manual) 82 H, Lymphocytes % (Manual) 9 L, Atypical Lymphs % 4.0, Monocytes % (Manual) 4, Eosinophils % (Manual) 1, Platelet Estimate Normal, Hypochromasia 1+, Sodium 134 L, Potassium 3.4 L, Chloride 91 L, Carbon Dioxide 36 H, Anion Gap 10.4, BUN 34 H, Creatinine 1.00, Estimated Creat Clear 51, Estimated GFR 53 L, Est GFR ( Amer) 64, Glucose 116 H, Calcium 9.4, Magnesium 1.9 D, Triglycerides 135, Cholesterol 91 L, LDL Cholesterol Direct 43.53 L, VLDL Cholesterol 27, HDL Cholesterol 12 L, Cholesterol/HDL Ratio 7.6 H I & O for Labs for Last 24 Hours: Intake & Output 05/03/25 05/04/25 05/05/25 05/06/25 23:59 23:59 23:59 23:59 Intake Total 250 / 250 740 / 990 590 / 590 Output Total 200 / 200 1350 / 1650 500 / 500 Balance 50 / 50 -610 / -660 90 / 90 Weight 72.235 kg 73.028 kg 72.711 kg Microbiology Reports for the Last 24 Hours: Microbiology 05/04/25 11:10 Blood Blood Culture - Preliminary NO GROWTH AFTER 48 HOURS 05/04/25 11:05 Blood Blood Culture - Preliminary 05/04/25 16:13 Urine,Random Urine Culture - Final NO GROWTH AFTER 48 HOURS 05/05/25 10:20 Sputum - Expectorated Sputum Gram Stain - Final 05/05/25 10:20 Sputum - Expectorated Sputum SOL Preparation - Final No growth. Constitutional: Present no acute distress and somnolent Head: Present atraumatic Eyes: Present as per HPI ENT: Present normal exam Neck: Present normal inspection Respiratory: Present decreased breath sounds, rhonchi and wheezes Cardiac: Present Reg Rate and Rhythm GI: Present soft, distention and normal bowel sounds; Absent tenderness Rectal (female): Present deferred (female): Present deferred Extremities: Present normal inspection; Absent tenderness Skin: Present intact, dry and pallor Neuro: Present Weakness Assessment and Plan *Assessment and plan (1) Acute on chronic hypoxic respiratory failure: Status: Acute Category: Medical Code(s): J96.21 - Acute and chronic respiratory failure with hypoxia (2) Metabolic encephalopathy: Status: Acute Category: Medical Code(s): G93.41 - Metabolic encephalopathy (3) Pneumonia: Status: Acute Category: Medical Code(s): J18.9 - Pneumonia, unspecified organism (4) Dementia: Status: Acute Category: Medical Code(s): F03.90 - Unspecified dementia, unspecified severity, without behavioral disturbance, psychotic disturbance, mood disturbance, and anxiety Plan Trice Rocha is a 79-year-old female who was admitted for acute on chronic hypoxic respiratory failure from community-acquired pneumonia. She presented to the emergency room with weakness, shortness of air, altered mental status. Patient's son at bedside states that she was diagnosed with pneumonia in the office and given a Z-Alon 2 weeks ago. She has since gotten worse and she has recently become more altered mentally. Patient was admitted overnight for continued monitoring and medical management. Patient up in chair today, looking much better. She is alert and oriented, answering questions appropriately. She states she is somewhat short of breath still, but is stable on 2 L nasal cannula. Son is at bedside. #Community-acquired pneumonia ?Patient admitted with leukocytosis 19.9, trended down yesterday to 16.6, back up today to 20. Will continue antibiotic course. ? Leukocytosis trending down 19.1 yesterday, 16.6 today. Continuing doxycycline and ceftriaxone for broad coverage. Blood cultures are still pending. ? Potassium 3.4, replace per electrolyte protocol. ?BNP 5500, Bumex 1 mg IV x 1. patient started on Bumex 1 mg p.o. daily. ? Chest x-ray was independently interpreted by myself, showing bilateral lung pneumonia. Repeat chest x-ray shows no significant change. ? Chest CTA shows no evidence of PE, multifocal pneumonia greatest in upper lobes. Patient does have known nodules on previous CT. ? Patient given azithromycin and ceftriaxone in the emergency room. Will continue ceftriaxone 2 g daily, doxycycline 100 mg twice daily IV. ? Patient has baseline 2 L nasal cannula, weaned back down to her baseline of 2 L O2 saturation above 95%. - Pulmonology consulted. ?Will continue to monitor repeat CBC, CMP in the a.m. #History of reactive airway disease ? History of rheumatoid arthritis, might have underlying interstitial lung disease. ? Patient has been evaluated outpatient pulmonology, last seen in 02/02. ? DuoNebs every 6 hours and Pulmicort every 12 hours scheduled in the inpatient setting. #Multiple pleural lesions -Patient has known pulmonary nodules. Pulmonary consulted. Recommended above. #Dementia ? Initially when patient was admitted her MAR from the [facility] stated she took Aricept, BuSpar twice daily, and Seroquel. ?Son at bedside today states that Dr. Jimenes has been changing her medications due to the new move to the personal[facility], she is no longer taking the donzepil or BuSpar. Is taking Seroquel 12.5 at bedtime. ?Suspect the Seroquel is making her more lethargic, will hold today. Haldol ordered as needed. #Hypertension ? Continue home carvedilol 12.5 mg BID. #Rheumatoid arthritis ?Continue [place] 5/325 mg as needed. Monitor for toxicity DNR/DNI Cardiac diet Lovenox VTE Ambulate as tolerated
[2025-05-06 11:41] LABS: VBG Base Excess 8.6 mmol/L (-2.4-2.3); VBG HCO3 31.2 mmol/L (23-30); VBG Oxygen Saturation 89.6 % (50-70); VBG PCO2 37.5 mmol/L (35-51); VBG PH 7.54 mmol/L (7.31-7.41); VBG PO2 48.7 mmol/L (28-40); VBG Total CO2 32.4 mmol/L (23-27)
--- NOTE | 2025-05-06 12:07 | HMH.PHAINT1 ---
Pharmacy Intervention Comments: home medication list reviewed again with patient's son, list from outpatient pharmacy and list from PCP office.
[2025-05-06] MEDS: POTASSIUM CHLORIDE 20MEQ TAB 40 MEQ PO ×2 (12:52→16:23)
--- NOTE | 2025-05-06 17:28 | PC.NURSE ---
PT IS RESTING IN BED. ALERT TO SELF ONLY. PT ANSWERS QUESTIONS AND FOLLOWS COMMANDS. PT STATES SHE IS VERY TIRED. TOLERATED SITTING UP IN THE CHAIR A FEW TIMES THIS SHIFT. O2 SATURATION HAS MAINTAINED 90-95% ON 2 L NC. LUNG SOUNDS DIMINISHED WITH SCATTERED WHEEZES/RHONCHI. ABDOMEN SOFT/NON TENDER WITH ACTIVE BOWEL SOUNDS. PURWICK IN PLACE. WILL CONTINUE TO MONITOR.
[2025-05-06] MEDS: ATORVASTATIN 40MG TABLET 40 MG PO (22:06)
[2025-05-06] MEDS: HALOPERIDOL LACTATE 5 MG/ML VIAL 3 MG IV (22:07)
[2025-05-07] VITALS (10 sets, daily range): BP systolic 136–165; BP diastolic 65–93; PULSE 68–102; RESP 14–20; TEMP 36.3–37; O2SAT 94–97; BMI 28.0
[2025-05-07] MEDS: IPRATROPIUM/ALBUTEROL 3 ML NEB IH ×4 (00:47→18:38)
[2025-05-07] MEDS: DOXYCYCLINE HYCLATE 100 MG in 0.9 % SODIUM CHLORIDE 250 ML 166.667 MG IV (04:19)
[2025-05-07] MEDS: BUDESONIDE 0.5MG/2ML NEB 0.5 MG IH ×2 (05:53→18:38)
[2025-05-07 06:45] LABS: Chloride 90 mmol/L (98-107)
[2025-05-07 06:46] LABS: Potassium 3.7 mmoL/L (3.5-5.1); Sodium 134 mmol/L (136-145)
[2025-05-07 06:48] LABS: Basophils # 0.1 K/mm3 (0-0.2); Basophils % 0.4 % (0.1-2.0); Blood Urea Nitrogen 20 mg/dl (7-17); Creatinine Clearance Estimated 50 mL/min (50-200); Eosinophils # 0.2 Kmm3 (0.0-0.4); Eosinophils % 1.2 % (0.1-12.0); Estimated Glomerular Filt Rate 53 ml/min (>60); GFR (African American) 64 ML/MIN (>60); Hematocrit 35.7 % (37.0-47.0); Hemoglobin 11.5 g/dL (12.2-16.2); Immature Granulocytes # 1.17 10^3uL; Lymphocytes # 2.2 K/mm3 (0.7-4.5); Lymphocytes % 11.1 % (10-50); Mean Corpuscular HGB Conc 32.2 g/dL (31.8-35.4); Mean Corpuscular Hemoglobin 28.1 pg (27.0-31.2); Mean Corpuscular Volume 87.3 fl (81-99); Mean Platelet Volume 10.2 fl (7.4-10.4); Monocytes # 0.9 K/mm3 (0.1-1.0); Monocytes % 4.4 % (1.7-9.3); Neutrophils # 14.9 K/mm3 (1.8-7.8); Neutrophils % 76.9 % (37.0-80.0); Nucleated Red Blood Cells # 0 10^3/uL; Nucleated Red Blood Cells % 0 %; Platelet Count 278 K/mm3 (142-424); Red Blood Count 4.09 M/mm3 (4.20-5.40); Red Cell Distribution Width 13.7 % (11.5-17.5); Red Cell Distribution Width-SD 43.8 fL; White Blood Count 19.4 K/mm3 (4.8-10.8)
[2025-05-07 06:49] LABS: Anion Gap 8.7 mEq/L (5-15); Calcium 9.2 mg/dl (8.4-10.2); Carbon Dioxide 39 mmol/L (22.0-30.0); Glucose 126 mg/dl (74-100); Magnesium 1.6 mg/dl (1.6-2.3)
[2025-05-07 07:13] LABS: MANUAL DIFFERENTIAL MANUAL DIFFERENTIAL (MANUAL DIFF)
--- NOTE | 2025-05-07 07:35 | P.PN_ITS ---
Subjective *Date: 05/07/25 *Time: 07:35 Medical Exam Vital signs and Labs for Last 24 Hours: Vital Signs Temp Pulse Pulse Resp BP Pulse Ox O2 Del Method 05/07/25 05:54 84 05/07/25 05:54 75 05/07/25 05:54 97 Nasal Cannula 05/07/25 05:00 Nasal Cannula 05/07/25 04:00 97.8 F 84 16 151/72 H 97 Nasal Cannula 05/07/25 03:00 Nasal Cannula 05/07/25 01:00 Nasal Cannula 05/07/25 00:47 78 05/07/25 00:47 76 05/07/25 00:00 97.5 F L 75 16 136/67 94 L Nasal Cannula 05/06/25 23:00 Nasal Cannula 05/06/25 21:00 Nasal Cannula 05/06/25 20:00 Nasal Cannula 05/06/25 20:00 97.8 F 85 16 163/53 H 96 Nasal Cannula 05/06/25 18:31 Nasal Cannula 05/06/25 18:10 79 05/06/25 18:10 77 05/06/25 18:10 96 Nasal Cannula 05/06/25 16:57 Nasal Cannula 05/06/25 15:00 Nasal Cannula 05/06/25 13:00 Nasal Cannula 05/06/25 12:00 97.4 F L 65 18 165/76 H 96 Nasal Cannula 05/06/25 11:34 68 05/06/25 11:34 68 05/06/25 10:37 Nasal Cannula 05/06/25 08:00 Nasal Cannula 05/06/25 08:00 98.1 F 82 18 165/105 H 96 Nasal Cannula 05/06/25 07:57 Nasal Cannula 05/06/25 07:48 Nasal Cannula O2 Flow Rate 05/07/25 05:54 05/07/25 05:54 05/07/25 05:54 2 05/07/25 05:00 2 05/07/25 04:00 05/07/25 03:00 2 05/07/25 01:00 2 05/07/25 00:47 05/07/25 00:47 05/07/25 00:00 2 05/06/25 23:00 2 05/06/25 21:00 2 05/06/25 20:00 2 05/06/25 20:00 2 05/06/25 18:31 2 05/06/25 18:10 05/06/25 18:10 05/06/25 18:10 2 05/06/25 16:57 2 05/06/25 15:00 2 05/06/25 13:00 2 05/06/25 12:00 2 05/06/25 11:34 05/06/25 11:34 05/06/25 10:37 2 05/06/25 08:00 2 05/06/25 08:00 2 05/06/25 07:57 2 05/06/25 07:48 2 Intake and Output 05/06/25 05/06/25 05/07/25 15:59 23:59 07:59 Intake Total 500 / 1550 340 / 1550 240 / 240 Output Total 600 / 1750 650 / 1750 350 / 350 Balance -100 / -200 -310 / -200 -110 / -110 Intake: Intake, Oral Amount 500 / 960 240 / 240 Intake, Total IV Amount 340 / 590 Ceftriaxone Sodium 2 gm In 0.9 95 / 95 % Sodium Chloride 100 ml @ 200 mls/hr IV Q24H [facility] Rx#:[id number] Doxycycline Hyclate 100 mg In 0 245 / 495 .9 % Sodium Chloride 250 ml @ 166.667 mls/hr IV Q12H [facility] Rx#: [id number] Output: Output, Urine Amount 600 / 1750 650 / 1750 350 / 350 Other: Number of Unmeasured Voids 0 1 Weight 71.668 kg Patient Weight 05/07/25 23:59 Weight 71.668 kg Laboratory Results - last 24 hr 05/06/25 06:09: Total Counted 100, Neutrophils % (Manual) 82 H, Lymphocytes % (Manual) 9 L, Atypical Lymphs % 4.0, Monocytes % (Manual) 4, Eosinophils % (Manual) 1, Platelet Estimate Normal, Hypochromasia 1+, LDL Cholesterol Direct 43.53 L 05/06/25 11:20: VBG pH 7.54 H, VBG pCO2 37.5, VBG pO2 48.7 H, VBG HCO3 31.2 H, VBG Total CO2 32.4 H, VBG O2 Saturation 89.6 H, VBG Base Excess 8.6 H, VBG Lactic Acid 2.0 05/07/25 06:09: WBC 19.4 H, RBC 4.09 L, Hgb 11.5 L, Hct 35.7 L, MCV 87.3, MCH 28.1, MCHC 32.2, RDW 13.7, Plt Count 278, MPV 10.2, Neut % (Auto) 76.9, Lymph % (Auto) 11.1, [place] % (Auto) 4.4, Eos % (Auto) 1.2, Baso % (Auto) 0.4, Neut # (Auto) 14.9 H, Lymph # (Auto) 2.2, [place] # (Auto) 0.9, Eos # (Auto) 0.2, Baso # (Auto) 0.1, Sodium 134 L, Potassium 3.7, Chloride 90 L, Carbon Dioxide 39 H, Anion Gap 8.7, BUN 20 H D, Creatinine 1.00, Estimated Creat Clear 50, Estimated GFR 53 L, Est GFR ( Amer) 64, Glucose 126 H, Calcium 9.2, Magnesium 1.6 D I & O for Labs for Last 24 Hours: Intake & Output 05/04/25 05/05/25 05/06/25 05/07/25 23:59 23:59 23:59 23:59 Intake Total 250 / 250 740 / 990 1310 / 1550 240 / 240 Output Total 200 / 200 1350 / 1650 1750 / 1750 350 / 350 Balance 50 / 50 -610 / -660 -440 / -200 -110 / -110 Weight 72.235 kg 73.028 kg 72.711 kg 71.668 kg Microbiology Reports for the Last 24 Hours: Microbiology 05/04/25 11:10 Blood Blood Culture - Preliminary NO GROWTH AFTER 48 HOURS 05/04/25 11:05 Blood Blood Culture - Preliminary 05/04/25 16:13 Urine,Random Urine Culture - Final NO GROWTH AFTER 48 HOURS The patient's infection will respond to the chosen ABx?: Yes (SPUTUM PENDING, BLOOD/URINE CX NO GROWTH AT 48 HR, AFEBRILE OVER 24 HR) Is the patient receiving the right drug, dose, and route?: Yes Could a more targeted ABx be ordered?: No How long ABx needed (days)?: 7 (PNEUMONIA)
[2025-05-07 07:36] LABS: C-Reactive Protein 71.4 mg/L (0-4)
[2025-05-07 07:50] LABS: Procalcitonin 0.118 ng/mL (0.0-2.0)
[2025-05-07 08:08] LABS: Eosinophils % 1 % (0-3); Lymphocytes % 19 % (10-50); Monocytes % 5 % (2-9); Neutrophils % 71 % (42-76); Platelet Estimate Normal; RBC Morphology Normal; Total Cells Counted 100
[2025-05-07] MEDS: BUMETANIDE 1 MG TABLET PO (08:08)
[2025-05-07] MEDS: CARVEDILOL 12.5MG TABLET 12.5 MG PO ×2 (08:08→20:01)
[2025-05-07] MEDS: CEFTRIAXONE SODIUM 2 GM in 0.9 % SODIUM CHLORIDE 100 ML IV (08:11)
[2025-05-07] MEDS: ENOXAPARIN 40MG/0.4ML SYRINGE 40 MG SUBCUT (08:11)
[2025-05-07] MEDS: HYDROCODONE/APAP 5/325 MG TABLET 1 TAB PO (08:14)
--- NOTE | 2025-05-07 09:26 | EXP.PULM.PN ---
Subjective *Date: 05/07/25 *Time: 12:06 Interval history: No acute respiratory events overnight Pulmonology Exam Inpatient Vital signs and Labs for Last 24 Hours: Temp Pulse Resp BP Pulse Ox O2 Del Method O2 Flow Rate 97.3 F L 102 H 20 161/91 H 96 Nasal Cannula 2 05/07/25 07:42 05/07/25 07:42 05/07/25 07:42 05/07/25 07:42 05/07/25 07:42 05/07/25 07:42 05/07/25 07:42 Laboratory Results - last 24 hr 05/06/25 11:20: VBG pH 7.54 H, VBG pCO2 37.5, VBG pO2 48.7 H, VBG HCO3 31.2 H, VBG Total CO2 32.4 H, VBG O2 Saturation 89.6 H, VBG Base Excess 8.6 H, VBG Lactic Acid 2.0 05/07/25 06:09: WBC 19.4 H, RBC 4.09 L, Hgb 11.5 L, Hct 35.7 L, MCV 87.3, MCH 28.1, MCHC 32.2, RDW 13.7, Plt Count 278, MPV 10.2, Neut % (Auto) 76.9, Lymph % (Auto) 11.1, [place] % (Auto) 4.4, Eos % (Auto) 1.2, Baso % (Auto) 0.4, Neut # (Auto) 14.9 H, Lymph # (Auto) 2.2, [place] # (Auto) 0.9, Eos # (Auto) 0.2, Baso # (Auto) 0.1, Total Counted 100, Neutrophils % (Manual) 71, Lymphocytes % (Manual) 19, Atypical Lymphs % 3.0, Monocytes % (Manual) 5, Eosinophils % (Manual) 1, Blast Cells % 1.0, Platelet Estimate Normal, RBC Morphology Normal, Sodium 134 L, Potassium 3.7, Chloride 90 L, Carbon Dioxide 39 H, Anion Gap 8.7, BUN 20 H D, Creatinine 1.00, Estimated Creat Clear 50, Estimated GFR 53 L, Est GFR ( Amer) 64, Glucose 126 H, Calcium 9.2, Magnesium 1.6 D, C-Reactive Protein 71.4 H D, Procalcitonin 0.118 Temp Pulse Resp BP Pulse Ox O2 Del Method O2 Flow Rate 97.9 F 80 24 152/67 H 96 Nasal Cannula 4 05/05/25 08:00 05/05/25 08:00 05/05/25 08:00 05/05/25 08:00 05/05/25 08:00 05/05/25 09:00 05/05/25 09:00 Laboratory Results - last 24 hr 05/04/25 11:10: WBC 19.1 H, RBC 4.01 L, Hgb 11.8 L, Hct 35.7 L, MCV 89.0, MCH 29.4, MCHC 33.1, RDW 13.3, Plt Count 263, MPV 11.1 H, Neut % (Auto) 83.5 H, Lymph % (Auto) 7.3 L, [place] % (Auto) 6.3, Eos % (Auto) 0.1, Baso % (Auto) 0.4, Neut # (Auto) 16.0 H, Lymph # (Auto) 1.4, [place] # (Auto) 1.2 H, Eos # (Auto) 0.0, Baso # (Auto) 0.1, ESR 1, PT 13.0 H, INR 1.19 H, APTT 34.5 H, Sodium 131 L, Potassium 4.7, Chloride 95 L, Carbon Dioxide 34 H, Anion Gap 6.7, BUN 25 H, Creatinine 0.80, Estimated Creat Clear 54, Estimated GFR 69, Est GFR ( Amer) 83, Glucose 133 H, Lactate 1.1, Calcium 10.0, Total Bilirubin 1.4 H, AST 140 H, ALT 90 H, Alkaline Phosphatase 193 H, Troponin I 0.03, C-Reactive Protein 186.1 H, NT-Pro-B Natriuret Pep 5500 H, Total Protein 8.0, Albumin 3.6, Globulin 4.4 H, Albumin/Globulin Ratio 0.8 L 05/04/25 11:17: VBG pH 7.37, VBG pCO2 55.8 H, VBG pO2 76.1 H, VBG HCO3 31.2 H, VBG Total CO2 33.0 H, VBG O2 Saturation 95.4 H, VBG Base Excess 5.9 H, VBG Lactic Acid 1.7, Chlamy pneumoniae PCR Not detected, Adenovirus (PCR) Not detected, B. pertussis DNA (PCR) Not detected, Coronavirus OC43 (PCR) Not detected, Coronavirus HKU1 (PCR) Not detected, Coronavirus 229E (PCR) Not detected, SARS-CoV-2 (PCR) Not detected, Coronavirus NL63 (PCR) Not detected, Human Metapneumovir PCR Not detected, Influenza A (H1) PCR Not detected, Influ A (H1N1/09) PCR Not detected, Influenza A (H3) PCR Not detected, Influenza Type A (PCR) Not detected, Influenza Type B (PCR) Not detected, M. pneumoniae (PCR) Not detected, Parainfluenza 1 (PCR) Not detected, Parainfluenza 2 (PCR) Not detected, Parainfluenza 3 (PCR) Not detected, Parainfluenza 4 (PCR) Not detected, RSV (PCR) Not detected, Entero/Rhino (PCR) Not detected 05/04/25 14:36: Troponin I 0.02 05/04/25 16:13: Urine Color Yellow, Urine Appearance Clear, Urine pH 6.0, Ur Specific [place] 1.010, Urine Protein 2+ A, Urine Glucose (UA) Negative, Urine Ketones Negative, Urine Blood Trace-i, Urine Nitrate Negative, Urine Bilirubin Negative, Urine Urobilinogen 1.0, Ur Leukocyte Esterase Negative, Urine WBC 5-10, Ur Squamous Epith Cells 5-10, Urine Bacteria Trace 05/04/25 17:20: Troponin I 0.02 05/05/25 05:40: WBC 16.6 H, RBC 4.01 L, Hgb 11.3 L, Hct 36.7 L, MCV 91.5, MCH 28.2, MCHC 30.8 L, RDW 13.6, Plt Count 248, MPV 10.7 H, Neut % (Auto) 80.5 H, Lymph % (Auto) 7.9 L, [place] % (Auto) 4.1, Eos % (Auto) 0.0 L, Baso % (Auto) 0.7, Neut # (Auto) 13.4 H, Lymph # (Auto) 1.3, [place] # (Auto) 0.7, Eos # (Auto) 0.0, Baso # (Auto) 0.1, Total Counted 100, Neutrophils % (Manual) 91 H, Lymphocytes % (Manual) 8 L, Monocytes % (Manual) 1 L, Platelet Estimate Normal, RBC Morphology Normal, Sodium 137, Potassium 4.0, Chloride 96 L, Carbon Dioxide 32 H, Anion Gap 13.0, BUN 28 H, Creatinine 1.00 D, Estimated Creat Clear 51, Estimated GFR 53 L, Est GFR ( Amer) 64 D, Glucose 122 H, Calcium 9.2, Magnesium 2.4 H, Total Bilirubin 0.3, Direct Bilirubin 0.3, Conjugated Bilirubin 0.0, Indirect Bilirubin 0.0, Unconjugated Bilirubin 0.0, AST 96 H D, ALT 78, Alkaline Phosphatase 192 H, Total Protein 6.4, Albumin 2.9 L D, Triglycerides 115, Cholesterol 84 L, LDL Cholesterol Direct 38.74 L, VLDL Cholesterol 23, HDL Cholesterol 12 L, Cholesterol/HDL Ratio 7.0 H I & O for Labs for Last 24 Hours: Intake & Output 05/04/25 05/05/25 05/06/25 05/07/25 23:59 23:59 23:59 23:59 Intake Total 250 / 250 740 / 990 1310 / 1550 240 / 240 Output Total 200 / 200 1350 / 1650 1750 / 1750 350 / 350 Balance 50 / 50 -610 / -660 -440 / -200 -110 / -110 Weight 159 lb 4 oz 161 lb 160 lb 4.8 oz 158 lb Intake & Output 05/02/25 05/03/25 05/04/25 05/05/25 23:59 23:59 23:59 23:59 Intake Total 250 / 250 120 / 120 Output Total 200 / 200 250 / 250 Balance 50 / 50 -130 / -130 Weight 159 lb 4 oz 161 lb Microbiology Reports for the Last 24 Hours: Microbiology 05/05/25 10:20 Sputum - Expectorated Sputum - Final 05/05/25 10:20 Sputum - Expectorated Sputum Acid Fast Bacilli Smear - Final 05/04/25 11:10 Blood Blood Culture - Preliminary NO GROWTH AFTER 48 HOURS 05/04/25 11:05 Blood Blood Culture - Preliminary 05/04/25 16:13 Urine,Random Urine Culture - Final NO GROWTH AFTER 48 HOURS Constitutional: Present moderate distress Head: Present normocephalic and atraumatic ENT: Present normal exam, normal oropharynx and mucous membranes moist Neck: Present normal inspection and full ROM Respiratory: Present prolonged expiratory phase, respiratory distress, rhonchi, wheezes, crackles, diminished air movement and able to speak in complete sentences Cardiac: Present S1/S2, Tachycardia and radial pulses present GI: Present soft and distention; Absent tenderness or guarding Rectal (female): Present deferred (female): Present deferred Skin: Present intact; Absent cyanosis or jaundice Neuro: Absent alert or awake Extremities: Present normal inspection; Absent clubbing or cyanosis Psychiatric: Present unable to assess Assessment and Plan *Assessment and plan (1) Community acquired pneumonia: Status: Acute Category: Medical Code(s): J18.9 - Pneumonia, unspecified organism (2) Acute on chronic hypoxic respiratory failure: Status: Acute Category: Medical Code(s): J96.21 - Acute and chronic respiratory failure with hypoxia (3) ILD (interstitial lung disease): Status: Acute Category: Medical Code(s): J84.9 - Interstitial pulmonary disease, unspecified (4) History of rheumatoid arthritis: Status: Acute Category: Medical Code(s): Z87.39 - Personal history of other diseases of the musculoskeletal system and connective tissue Plan Ms. Lopez is a 79-year-old female with reported history of severe COPD at baseline on Symbicort inhaler large hiatal hernia compressing right lower lobe, lumbar radiculopathy hypertension dyslipidemia CKD stage III chronic hypoxic respiratory failure on 2 L nasal oxygen supplementation presented to the with worsening respiratory distress altered mentation weakness and pulmonary was called for further evaluation and management. 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 Afebrile. Hemodynamically stable. Neutrophilic predominant leukocytosis improving. Respiratory viral PCR panel negative. Blood gas upon admission mild hypercarbic respiratory failure with pH of 7.37PCO 255.8. CTA PE protocol upon admission no evidence of pulm embolism. Bilateral upper lobe predominant micronodular opacities along with bilateral upper lobe and right lower lobe patchy airspace disease noted. CT chest from January 2025 showed bilateral micronodular opacities and nodular densities consistent with infectious etiology, appear to be worsening on her current CT scan Currently being managed for community-acquired pneumonia with ceftriaxone azithromycin. Interval update: Improving leukocytosis. No acute respiratory events. Continue to receive ceftriaxone azithromycin. Stable oxygen requirements at 2 L CRP elevated at 71.4. Pro-Jose within normal limits at 0.12. Prelim sputum less than 10 WBC and less than 10 epithelial cells. Gram-positive cocci. Given patient's prior history rheumatoid arthritis the possible waxing and waning pulmonary infiltrates can well be from organizing pneumonia / rheumatoid arthritis-ILD. Family concern for steroid-induced psychosis given her dementia with high-dose steroids Plan: Follow with serum fungal serologies and final sputum bacterial,AFB fungal stain cultures Prednisone 20 mg daily pending clinical improvement. Continue ceftriaxone and doxycycline, antibiotics can be weaned to cefdinir from pulmonary standpoint to complete a total of 7-day course Continue oxygen supplementation to maintain O2 saturation goal of 90% and above. Weaned to 2 L nasal cannula this morning which is her home baseline. DuoNebs every 6 hours and Pulmicort every 12 scheduled. # Thank you for involving pulmonaryin this patient care. Will follow the patient in pulmonary clinic 1 to 2 weeks post discharge with chest x-ray PA lateral and lab work including CRP prior to clinic visit
[2025-05-07] MEDS: MAGNESIUM SULFATE IN WATER 2 GM/50 ML PIGGYBACK IV ×2 (10:50→11:50)
[2025-05-07] MEDS: predniSONE 20MG TAB 20 MG PO (12:52)
--- NOTE | 2025-05-07 14:05 | P.PN_ITS ---
<Statement entered by Car High MD - 05/07/25 15:26> Rounded on patient after nurse practitioner. Personally examined and interviewed patient. Agree with exam findings and care plan as documented. Subjective *Date: 05/07/25 *Time: 15:23 Interval history: Patient is sitting up in bed, son and grandson at bedside. Long discussion with patient and family about the plan of care, goals of care. Patient is resting intermittently with eyes closed. She has no complaints at this time. Medical Exam Vital signs and Labs for Last 24 Hours: Vital Signs Temp Pulse Pulse Resp BP Pulse Ox O2 Del Method 05/07/25 12:00 98.6 F 78 20 141/65 H 95 Nasal Cannula 05/07/25 11:28 82 05/07/25 11:28 87 05/07/25 11:28 96 Nasal Cannula 05/07/25 07:42 97.3 F L 102 H 20 161/91 H 96 Nasal Cannula 05/07/25 07:00 Nasal Cannula 05/07/25 05:54 84 05/07/25 05:54 75 05/07/25 05:54 97 Nasal Cannula 05/07/25 05:00 Nasal Cannula 05/07/25 04:00 97.8 F 84 16 151/72 H 97 Nasal Cannula 05/07/25 03:00 Nasal Cannula 05/07/25 01:00 Nasal Cannula 05/07/25 00:47 78 05/07/25 00:47 76 05/07/25 00:00 97.5 F L 75 16 136/67 94 L Nasal Cannula 05/06/25 23:00 Nasal Cannula 05/06/25 21:00 Nasal Cannula 05/06/25 20:00 Nasal Cannula 05/06/25 20:00 97.8 F 85 16 163/53 H 96 Nasal Cannula 05/06/25 18:31 Nasal Cannula 05/06/25 18:10 79 05/06/25 18:10 77 05/06/25 18:10 96 Nasal Cannula 05/06/25 16:57 Nasal Cannula 05/06/25 15:00 Nasal Cannula O2 Flow Rate 05/07/25 12:00 2 05/07/25 11:28 05/07/25 11:28 05/07/25 11:28 2 05/07/25 07:42 2 05/07/25 07:00 2 05/07/25 05:54 05/07/25 05:54 05/07/25 05:54 2 05/07/25 05:00 2 05/07/25 04:00 05/07/25 03:00 2 05/07/25 01:00 2 05/07/25 00:47 05/07/25 00:47 05/07/25 00:00 2 05/06/25 23:00 2 05/06/25 21:00 2 05/06/25 20:00 2 05/06/25 20:00 2 05/06/25 18:31 2 05/06/25 18:10 05/06/25 18:10 05/06/25 18:10 2 05/06/25 16:57 2 05/06/25 15:00 2 Intake and Output 05/06/25 05/07/25 05/07/25 23:59 07:59 15:59 Intake Total 340 / 1550 240 / 440 200 / 440 Output Total 650 / 1750 350 / 600 250 / 600 Balance -310 / -200 -110 / -160 -50 / -160 Intake: Intake, Oral Amount 240 / 440 200 / 440 Intake, Total IV Amount 340 / 590 Ceftriaxone Sodium 2 gm In 0.9 95 / 95 % Sodium Chloride 100 ml @ 200 mls/hr IV Q24H [facility] Rx#:[id number] Doxycycline Hyclate 100 mg In 0 245 / 495 .9 % Sodium Chloride 250 ml @ 166.667 mls/hr IV Q12H [facility] Rx#: [id number] Output: Output, Urine Amount 650 / 1750 350 / 600 250 / 600 Other: Number of Unmeasured Voids 0 1 Weight 71.668 kg 71.66 kg Patient Weight 05/07/25 23:59 Weight 71.66 kg Laboratory Results - last 24 hr 05/04/25 16:13: Urine Color Yellow, Urine Appearance Clear, Urine pH 6.0, Ur Specific [place] 1.010, Urine Protein 2+ A, Urine Glucose (UA) Negative, Urine Ketones Negative, Urine Blood Trace-i, Urine Nitrate Negative, Urine Bilirubin Negative, Urine Urobilinogen 1.0, Ur Leukocyte Esterase Negative, Urine WBC 5- 10, Ur Squamous Epith Cells 5-10, Urine Bacteria Trace 05/07/25 06:09: WBC 19.4 H, RBC 4.09 L, Hgb 11.5 L, Hct 35.7 L, MCV 87.3, MCH 28.1, MCHC 32.2, RDW 13.7, Plt Count 278, MPV 10.2, Neut % (Auto) 76.9, Lymph % (Auto) 11.1, [place] % (Auto) 4.4, Eos % (Auto) 1.2, Baso % (Auto) 0.4, Neut # (Auto) 14.9 H, Lymph # (Auto) 2.2, [place] # (Auto) 0.9, Eos # (Auto) 0.2, Baso # (Auto) 0.1, Total Counted 100, Neutrophils % (Manual) 71, Lymphocytes % (Manual) 19, Atypical Lymphs % 3.0, Monocytes % (Manual) 5, Eosinophils % (Manual) 1, Blast Cells % 1.0, Platelet Estimate Normal, RBC Morphology Normal, Sodium 134 L , Potassium 3.7, Chloride 90 L, Carbon Dioxide 39 H, Anion Gap 8.7, BUN 20 H D, Creatinine 1.00, Estimated Creat Clear 50, Estimated GFR 53 L, Est GFR ( Amer) 64, Glucose 126 H, Calcium 9.2, Magnesium 1.6 D, C-Reactive Protein 71.4 H D, Procalcitonin 0.118 I & O for Labs for Last 24 Hours: Intake & Output 05/04/25 05/05/25 05/06/25 05/07/25 23:59 23:59 23:59 23:59 Intake Total 250 / 250 740 / 990 1310 / 1550 440 / 440 Output Total 200 / 200 1350 / 1650 1750 / 1750 600 / 600 Balance 50 / 50 -610 / -660 -440 / -200 -160 / -160 Weight 72.235 kg 73.028 kg 72.711 kg 71.66 kg Microbiology Reports for the Last 24 Hours: Microbiology 05/05/25 10:20 Sputum - Expectorated Sputum Gram Stain - Final 05/05/25 10:20 Sputum - Expectorated Sputum Sputum Culture - Final 05/04/25 11:05 Blood Blood Culture - Preliminary Gram Positive Cocci 05/05/25 10:20 Sputum - Expectorated Sputum - Final 05/05/25 10:20 Sputum - Expectorated Sputum Acid Fast Bacilli Smear - Final 06/24/25 11:10 Blood Blood Culture - Preliminary NO GROWTH AFTER 48 HOURS Constitutional: Present no acute distress and somnolent Head: Present atraumatic Eyes: Present as per HPI ENT: Present normal exam Neck: Present normal inspection and full ROM Respiratory: Present rhonchi, normal respiratory effort and symmetric chest movement Cardiac: Present Reg Rate and Rhythm GI: Present soft and distention; Absent tenderness or guarding Rectal (female): Present deferred (female): Present deferred Extremities: Present normal inspection and full ROM Skin: Present intact and pallor Assessment and Plan *Assessment and plan (1) Acute on chronic hypoxic respiratory failure: Status: Acute Category: Medical Code(s): J96.21 - Acute and chronic respiratory failure with hypoxia (2) Community acquired pneumonia: Status: Acute Category: Medical Code(s): J18.9 - Pneumonia, unspecified organism (3) Metabolic encephalopathy: Status: Acute Category: Medical Code(s): G93.41 - Metabolic encephalopathy (4) Dementia: Status: Acute Category: Medical Code(s): F03.90 - Unspecified dementia, unspecified severity, without behavioral disturba nce, psychotic disturbance, mood disturbance, and anxiety (5) History of rheumatoid arthritis: Status: Acute Category: Medical Code(s): Z87.39 - Personal history of other diseases of the musculoskeletal system and connective tissue (6) ILD (interstitial lung disease): Status: Acute Category: Medical Code(s): J84.9 - Interstitial pulmonary disease, unspecified Plan Trice Rocha is a 79-year-old female who was admitted for acute on chronic hypoxic respiratory failure from community-acquired pneumonia. She presented to the emergency room with weakness, shortness of air, altered mental status. Patient's son at bedside states that she was diagnosed with pneumonia in the office and given a Z-Alon 2 weeks ago. She has since gotten worse and she has recently become more altered mentally. #Community-acquired pneumonia ? Patient's white count continues to fluctuate, 19.4 this morning. Ordered peripheral blood smear test to rule out blood abnormalities. ? Potassium 3.7. ? Patient continues Bumex 1 mg p.o. daily. ? Chest x-ray was independently interpreted by myself, showing bilateral lung pneumonia. Repeat chest x-ray shows no significant change. ? Chest CTA shows no evidence of PE, multifocal pneumonia greatest in upper lobes. Patient does have known nodules on previous CT. ? Due to consistent leukocytosis despite antibiotic coverage, stopping doxycycline and Rocephin, changing to Levaquin 750 mg p.o. daily starting today. ? Patient has baseline 2 L nasal cannula, weaned back down to her baseline of 2 L O2 saturation above 95%. - Pulmonology consulted-recommendations of prednisone 20 mg daily as a taper. Suspicion of interstitial lung disease related to her rheumatoid arthritis. ? Will continue to monitor repeat CBC, CMP in the a.m. ?Blood cultures show no growth after 48 hours we will continue to monitor. #History of reactive airway disease ? History of rheumatoid arthritis, might have underlying interstitial lung disease. ? Patient has been evaluated outpatient pulmonology, last seen in 02/02. ? DuoNebs every 6 hours and Pulmicort every 12 hours scheduled in the inpatient setting. #Multiple pleural lesions -Patient has known pulmonary nodules. Pulmonary consulted. Recommended above. #Dementia ? Initially when patient was admitted her [facility] from the [facility] stated she took Aricept, BuSpar twice daily, and Seroquel. ?Son at bedside today states that Dr. Jimenes has been changing her medications due to the new move to the personal-retirement, she is no longer taking the donzepil or BuSpar. Is taking Seroquel 12.5 at bedtime. ?Seroquel was held last night, patient's son states that patient was very confused and was not sleeping. Long discussion was had regarding starting medication for sleep. Will start Seroquel 12.5 mg and melatonin 5 mg at night. Discussed with family and patient staying up during the day up to chair so as to sleep better in the evening. ?Haldol ordered as needed. #Hypertension ? Continue home carvedilol 12.5 mg BID. #Rheumatoid arthritis ?Continue [place] 5/325 mg as needed. Monitor for toxicity DNR/DNI Cardiac diet Lovenox VTE Ambulate as tolerated
[2025-05-07] MEDS: MELATONIN 5MG TABLET 5 MG PO ×2 (19:55→20:22)
[2025-05-07] MEDS: QUETIAPINE 25MG TABLET 12.5 MG PO ×2 (19:56→20:23)
[2025-05-07] MEDS: ATORVASTATIN 40MG TABLET 40 MG PO (20:01)
--- NOTE | 2025-05-07 23:01 | PC.NURSE ---
Family requested all 4 bedrails to be up due to confusion and fall risk.
--- NOTE | 2025-05-08 04:59 | PC.NURSE ---
Fresh ice water given and room trash taken out by this SRNA at [id number]
[2025-05-08 06:00] VITALS: BP 169/95; PULSE 76; RESP 18; TEMP 36.4; O2SAT 92
--- NOTE | 2025-05-08 06:07 | PC.NURSE ---
Pt alert to self only. Family remains at bedside. V/s, 2LNC satting in 90's. Per MD and family pt is to be left alone from the hours of [id number]. All four bed rails up over night per family request. No acute events to report. Plan of care ongoing.
[2025-05-08] MEDS: BUDESONIDE 0.5MG/2ML NEB 0.5 MG IH (06:21)
[2025-05-08] MEDS: IPRATROPIUM/ALBUTEROL 3 ML NEB IH ×2 (06:21→12:24)
[2025-05-08 06:22] VITALS: PULSE 65; PULSE 68; O2SAT 93
[2025-05-08 07:46] LABS: Basophils # 0.1 K/mm3 (0-0.2); Basophils % 0.3 % (0.1-2.0); Eosinophils # 0.1 Kmm3 (0.0-0.4); Eosinophils % 0.5 % (0.1-12.0); Hematocrit 35.8 % (37.0-47.0); Hemoglobin 11.5 g/dL (12.2-16.2); Immature Granulocytes # 1.26 10^3uL; Immature Granulocytes % 6.8 %; Lymphocytes # 2.3 K/mm3 (0.7-4.5); Lymphocytes % 12.6 % (10-50); Mean Corpuscular HGB Conc 32.1 g/dL (31.8-35.4); Mean Corpuscular Hemoglobin 28.3 pg (27.0-31.2); Mean Platelet Volume 10.2 fl (7.4-10.4); Monocytes # 0.8 K/mm3 (0.1-1.0); Monocytes % 4.3 % (1.7-9.3); Neutrophils % 75.5 % (37.0-80.0); Nucleated Red Blood Cells # 0 10^3/uL; Nucleated Red Blood Cells % 0 %; Platelet Count 255 K/mm3 (142-424); Red Blood Count 4.07 M/mm3 (4.20-5.40); Red Cell Distribution Width 13.9 % (11.5-17.5); Red Cell Distribution Width-SD 44.7 fL; White Blood Count 18.5 K/mm3 (4.8-10.8)
--- NOTE | 2025-05-08 07:50 | P.DS_ITS ---
General Admission date:: 05/04/25 Discharge date: 05/08/25 HPI HPI HPI: Ms. Rocha is a 79-year-old female who presented to the emergency department with worsening shortness of breath, metabolic encephalopathy, and weakness. She has a past medical history of lumbar radiculopathy, GI bleed, renal cyst, hypertension, hyperlipidemia, anemia, CKD stage III, O2 dependence (2 L), dementia, multiple long nodules on CT, degenerative disc disease. She follows with Dr. Bhatia, pulmonology, and was last seen in January/2025. Her son is at bedside and states that she went to Dr. Jimenes's office, her PCP, approximately 2 weeks ago and was put on azithromycin. Course completed yesterday. Patient lives in a caregivers home in [facility]. Upon assessment patient seems disoriented, eye-opening to speech. Son states that she is normally alert and oriented, but has been slowly declining. Patient is currently on 4 L O2 nasal cannula satting 90%. Due to multifocal pneumonia seen on CT, metabolic encephalopathy, need for IV antibiotics and supplemental O2; agreed to admit patient for further management. Hospital Course Hospital Course Hospital Course: Trice Rocha is a 79-year-old female who was admitted for acute on chronic hypoxic respiratory failure from community-acquired pneumonia. She presented to the emergency room with weakness, shortness of air, altered mental status. Patient's son at bedside states that she was diagnosed with pneumonia in the office and given a Z-Alon 2 weeks ago. She has since gotten worse and she has recently become more altered mentally. Treated for community-acquired pneumonia and suspected interstitial lung disease during admission. Showing improvement. Improved mentation with adjustments to sleep aid meds. Stable discharge back to her [facility] [facility] for further management and completion of antibiotic course. Needs to follow with PCP and pulmonology in the coming weeks for further management. Problems addressed as follows: #Community-acquired pneumonia ? Presented with concern for pneumonia. Cultures obtained, negative at this time. Chest x-ray on admission showed bilateral pneumonia. Stable on serial imaging. No significant changes. Was initiated on diuretics as well along with antibiotics including ceftriaxone and doxycycline. Pulmonology consulted to assist with care. Initially required higher oxygen than her baseline, has gradually weaned to 2 L oxygen which is her baseline with sats in the 90s. White count remains elevated at 18, concern for component of steroid effect versus component of blood abnormality. Peripheral smear obtained and pending still at discharge. Pulmonology was consulted to assist with care. Transition to cefdinir at discharge to complete 7 days total of antibiotics. Needs 2 more days of antibiotics. Continuing steroids 20 mg prednisone daily for potential inflammatory process related to her RA. Will continue until follow-up with pulmonology. Further adjustments to be made at that time. Stable on 2 L oxygen which is patient's baseline coming into the hospital. Will also continue DuoNebs as needed every 6 hours. #History of reactive airway disease ? History of rheumatoid arthritis, might have underlying interstitial lung dise ase. Patient has been evaluated outpatient pulmonology, last seen in 02/02. DuoNebs every 6 hours and Pulmicort every 12 hours scheduled in the inpatient setting. #Multiple pleural lesions: Patient has known pulmonary nodules. Pulmonary consulted. Recommended above. #Dementia ? Initially when patient was admitted her MAR from the [facility] [facility] stated she took Aricept, BuSpar twice daily, and Seroquel. Patient no longer taking donepezil and BuSpar. Seroquel was initially held. Gradually resumed. Tolerating 12 and half milligrams with melatonin with improved sleep. Did need second dose. Recommend continuing Seroquel 12 and half to 25 mg nightly and 2 separate doses. If continues to require 25 mg over the next few days to achieve sleep benefit and improve mentation during the day, would recommend increasing to single 25 mg dose at bedtime. Defer further management about sleep hygiene and adjustments with sleep aids to primary care. Slept better last night in the hospital. Stable discharge back to her facility. Goals of care discussion with family also broached the subject of hospice. They would like to discuss further with primary care the potential for hospice given patient's dementia and decline over the past year. Feel this would be appropriate to consider. #Hypertension: Continue home carvedilol 12.5 mg BID. #Rheumatoid arthritis: Continue [place] 5/325 mg as needed. Total time spent on discharge 35 minutes in counseling, documentation, chart review, and direct care with patient. Exam Data for Last 24 hours Vital signs and Labs for Last 24 Hours: Temp Pulse Resp BP Pulse Ox O2 Del Method O2 Flow Rate 97.5 F L 68 18 169/95 H 93 L Nasal Cannula 2 05/08/25 06:00 05/08/25 06:22 05/08/25 06:00 05/08/25 06:00 05/08/25 06:22 05/08/25 06:22 05/08/25 06:22 Laboratory Results - last 24 hr 05/04/25 16:13: Urine Color Yellow, Urine Appearance Clear, Urine pH 6.0, Ur Specific [place] 1.010, Urine Protein 2+ A, Urine Glucose (UA) Negative, Urine Ketones Negative, Urine Blood Trace-i, Urine Nitrate Negative, Urine Bilirubin Negative, Urine Urobilinogen 1.0, Ur Leukocyte Esterase Negative, Urine WBC 5- 10, Ur Squamous Epith Cells 5-10, Urine Bacteria Trace 05/07/25 06:09: Total Counted 100, Neutrophils % (Manual) 71, Lymphocytes % (Manual) 19, Atypical Lymphs % 3.0, Monocytes % (Manual) 5, Eosinophils % (Manual) 1, Blast Cells % 1.0, Platelet Estimate Normal, RBC Morphology Normal, C-Reactive Protein 71.4 H D, Procalcitonin 0.118 I & O for Last 24 hours: Intake & Output 05/05/25 05/06/25 05/07/25 05/08/25 23:59 23:59 23:59 23:59 Intake Total 740 / 990 1310 / 1550 740 / 860 120 / 120 Output Total 1350 / 1650 1750 / 1750 1000 / 1000 0 / 0 Balance -610 / -660 -440 / -200 -260 / -140 120 / 120 Weight 73.028 kg 72.711 kg 71.66 kg Microbiology Reports for the Last 24 Hours: Microbiology 05/05/25 10:20 Sputum - Expectorated Sputum Gram Stain - Final 05/05/25 10:20 Sputum - Expectorated Sputum Sputum Culture - Final 05/04/25 11:05 Blood Blood Culture - Preliminary Gram Positive Cocci 05/05/25 10:20 Sputum - Expectorated Sputum - Final 05/05/25 10:20 Sputum - Expectorated Sputum Acid Fast Bacilli Smear - Final Constitutional Constitutional: no acute distress, chronically ill appearing and cooperative *Routine HEENT Exam Head: Present normocephalic Eye: Present EOMI and PERRL ENT: Present mucous membranes moist *Routine Neck Exam Neck: Present supple; Absent lymphadenopathy *Routine Respiratory Exam Respiratory: Present prolonged expiratory phase and crackles (Faint in the bases); Absent respiratory distress, rhonchi, stridor or wheezes *Routine Cardiovascular Exam Cardiovascular: Present RRR *Routine Abdominal Exam Abdominal: Present soft and normoactive bowel sounds; Absent tenderness *Routine Rectal Exam Patient deferred: visual exam *Routine Exam Patient deferred: external exam *Routine Extremities Exam Extremities: Absent cyanosis, clubbing or edema *Routine Skin Exam Skin: Present intact and warm; Absent rash *Routine Neurological Exam Neurological: Present alert and moving all extremities; Absent altered mental status Comments: Fatigued but answering questions appropriately today. Alert and oriented to self and place Results Data Completed and Pending Labs on day of discharge: Labs from last 24 hours 05/07/25 05/04/25 06:09 16:13 Total Counted 100 Neutrophils % (Manual) 71 Lymphocytes % (Manual) 19 Atypical Lymphs % 3.0 Monocytes % (Manual) 5 Eosinophils % (Manual) 1 Blast Cells % 1.0 Platelet Estimate Normal RBC Morphology Normal C-Reactive Protein 71.4 H D Procalcitonin 0.118 Urine Color Yellow Urine Appearance Clear Urine pH 6.0 Ur Specific [place] 1.010 Urine Protein 2+ A Urine Glucose (UA) Negative Urine Ketones Negative Urine Blood Trace-i Urine Nitrate Negative Urine Bilirubin Negative Urine Urobilinogen 1.0 Ur Leukocyte Esterase Negative Urine WBC 5-10 Ur Squamous Epith Cells 5-10 Urine Bacteria Trace Preliminary micro results at discharge 05/04/25 11:05 Blood Culture - Preliminary Blood Gram Positive Cocci 05/04/25 11:10 Blood Culture - Preliminary Blood NO GROWTH AFTER 48 HOURS DS: Diagnosis Discharge Diagnosis (1) Acute on chronic hypoxic respiratory failure: Status: Acute Code(s): J96.21 - Acute and chronic respiratory failure with hypoxia (2) Community acquired pneumonia: Status: Acute Code(s): J18.9 - Pneumonia, unspecified organism (3) Metabolic encephalopathy: Status: Acute Code(s): G93.41 - Metabolic encephalopathy (4) Dementia: Status: Acute Code(s): F03.90 - Unspecified dementia, unspecified severity, without behavioral disturbance, psychotic disturbance, mood disturbance, and anxiety (5) History of rheumatoid arthritis: Status: Acute Code(s): Z87.39 - Personal history of other diseases of the musculoskeletal system and connective tissue (6) ILD (interstitial lung disease): Status: Acute Code(s): J84.9 - Interstitial pulmonary disease, unspecified Meds Home Medications and Allergies Home Medications ?Medication ?Instructions ?Recorded ?Confirmed ?Type carvedilol 12.5 mg tablet 12.5 mg PO BID 01/08/1904/12 History rosuvastatin 10 mg tablet 10 mg PO HS 02/20/21 5 History sucralfate 1 gram tablet 1 g PO DAILY 06/03/23 History quetiapine 25 mg tablet 12.5 - 25 mg PO HS 05/04/25 05/06/25 History hydrocodone 5 mg-acetaminophen 325 1 tab PO BID 05/06/25 History mg tablet cefdinir 300 mg capsule 300 mg PO BID #4 caps Rx ipratropium 0.5 mg-albuterol 3 mg 3 ml inhalation Q6HP PRN shortness 05/08/25 Rx (2.5 mg base)/3 mL nebulization of breath or wheezing #180 mL soln melatonin 5 mg tablet 5 mg PO HS 30 days #30 tabs 05/08/25 Rx prednisone 20 mg tablet 20 mg PO DAILY 30 days #30 t abs 05/08/25 Rx New Prescriptions to Start Prescriptions: Car Daugherty ipratropium-albuterol Car High melatonin Car High prednisone Car High Allergies Allergy/AdvReac Type Severity Reaction Status Date / Time Sulfa (Sulfonamide Allergy Intermediate HEART RACES Verified 05/04/25 12:59 Antibiotics) (SULFA (SULFONAMIDE ANTIBIOTICS)) Iodinated Contrast Media AdvReac Intermediate anxiety, Verified 05/04/25 12:59 rash Discharge Plan Disposition Patient Disposition: Home, Self-Care Condition: Fair Discharge Order Discharge Orders: Discharge Order (Routine); Ordered 05/08/25 Ordered By: Car High Follow up Plan Follow up with: Deion Glaser MD [Physician, Pulmonology] - Enter time for follow up Mayank Jimenes MD [Primary Care Provider, Internal Medicine] - Enter time for follow up Prescriptions/Medication Reconciliation: New prednisone 20 mg Tablet 20 mg PO DAILY 30 Days Qty: 30 0RF melatonin 5 mg Tablet 5 mg PO HS 30 Days Qty: 30 0RF ipratropium-albuterol 0.5 mg-3 mg(2.5 mg base)/3 mL Solution For Nebulization 3 ml inhalation Q6HP PRN (Reason: shortness of breath or wheezing) Qty: 180 0RF cefdinir 300 mg capsule 300 mg PO BID Qty: 4 0RF Continued sucralfate 1 gram tablet 1 g PO DAILY Patient Comments: TAKE 1 TABLET BY MOUTH 4 TIMES DAILY BEFORE MEAL(S) AND AT BEDTIME carvedilol 12.5 MG tablet 12.5 mg PO BID rosuvastatin 10 MG tablet 10 mg PO HS quetiapine 25 mg tablet 12.5 - 25 mg PO HS Patient Comments: TAKE 1/2 TO 1 (ONE-HALF TO ONE) TABLET BY MOUTH ONCE DAILY hydrocodone-acetaminophen 5-325 mg tablet 1 tab PO BID Discontinued buspirone 10 mg tablet 10 mg PO DAILY Other Ambulatory Orders: Home Medical Equipment (Routine) Location: None Selected Ordered By: Car High Problem Reconciliation Problems Reviewed?: Yes Patient Discharge Instructions ACTIVITY: Continue current activity DIET: continue same diet Patient Instructions: DI for Pneumonia -- Adult, DI for Respiratory Failure, Stop Light Pneumonia, Stop Light COPD Print Language: Tongan Providers Primary Care Provider: Mayank Jimenes Admit Provider: Tommy Moore Attending Provider: Tommy Moore
[2025-05-08 07:51] LABS: MANUAL DIFFERENTIAL MANUAL DIFFERENTIAL (MANUAL DIFF)
[2025-05-08 08:05] LABS: Chloride 87 mmol/L (98-107); Potassium 3.8 mmoL/L (3.5-5.1); Sodium 132 mmol/L (136-145)
[2025-05-08 08:08] LABS: Anion Gap 11.8 mEq/L (5-15); Blood Urea Nitrogen 20 mg/dl (7-17); Carbon Dioxide 37 mmol/L (22.0-30.0); Creatinine Clearance Estimated 50 mL/min (50-200); Estimated Glomerular Filt Rate 60 ml/min (>60); GFR (African American) 73 ML/MIN (>60)
[2025-05-08 08:09] LABS: Calcium 8.9 mg/dl (8.4-10.2); Glucose 129 mg/dl (74-100)
[2025-05-08 09:27] LABS: Eosinophils % 1 % (0-3); Lymphocytes % 22 % (10-50); Monocytes % 2 % (2-9); Neutrophils % 74 % (42-76); Platelet Estimate Normal; RBC Morphology Normal; Total Cells Counted 100
[2025-05-08] MEDS: ENOXAPARIN 40MG/0.4ML SYRINGE 40 MG SUBCUT (09:46)
[2025-05-08] MEDS: BUMETANIDE 1 MG TABLET PO (09:46)
[2025-05-08] MEDS: predniSONE 20MG TAB 20 MG PO (09:46)
[2025-05-08] MEDS: CARVEDILOL 12.5MG TABLET 12.5 MG PO (09:46)
[2025-05-08] MEDS: levoFLOXacin 750 MG TABLET PO (10:09)
[2025-05-08 10:49] LABS: Magnesium 2.1 mg/dl (1.6-2.3)
[2025-05-08 12:26] VITALS: PULSE 89; PULSE 91; O2SAT 97
--- NOTE | 2025-05-09 07:50 | PC.NURSE ---
blood culture report forwarded to hospitalist
[2025-05-09 11:20] LABS: Peripheral Smear Review Scanned Result
[2025-05-09 12:09] LABS: Aspergillus flavus Negative (Neg:<1:1); Aspergillus fumigatus Negative (Neg:<1:1); Aspergillus niger Negative (Neg:<1:1); Blastomyces Antibody Negative (Neg:<1:1); Histoplasma Antibody Quant Negative (Neg:<1:1)
--- NOTE | 2025-05-10 11:24 | SW/DCPLANNER ---
Spoke with patient's son in law. Patients son in law stated that she is doing well. Patient's son in law stated that they are aware of her upcoming appointments. Patient's son in law stated that they were able to get her new medicine picked up. Patient's son in law stated that they already had a nebulizer at home. Patient's son in law stated that they have no concerns or questions at this time. Elizabeth ANDREWS [employer]
== END 2025-05-08 14:16 | disposition home or self-care (01) | DRG 193 ==
LOC: ER 13:07 → 2ND 13:12
PROVIDERS: Internal Medicine Adolescent Medicine; Internal Medicine Pulmonary Disease; Nurse Practitioner; Admitting Provider Student in an Organized Health Care Education/Training Program; Emergency Provider Emergency Medicine; PCP Internal Medicine Adolescent Medicine; Visit Provider Student in an Organized Health Care Education/Training Program
DX: J18.9 Pneumonia, unspecified organism (principal); G93.41 Metabolic encephalopathy; J96.21 Acute and chronic respiratory failure with hypoxia; J44.0 Chronic obstructive pulmonary disease with (acute) lower respiratory infection; F03.90 Unspecified dementia, unspecified severity, without behavioral disturbance, psychotic disturbance, mood disturbance, and anxiety; M06.9 Rheumatoid arthritis, unspecified; Z66 Do not resuscitate; Z87.891 Personal history of nicotine dependence; R91.8 Other nonspecific abnormal finding of lung field; I12.9 Hypertensive chronic kidney disease with stage 1 through stage 4 chronic kidney disease, or unspecified chronic kidney disease; N18.30 Chronic kidney disease, stage 3 unspecified; K44.9 Diaphragmatic hernia without obstruction or gangrene; Z99.81 Dependence on supplemental oxygen; Z88.2 Allergy status to sulfonamides; Z91.041 Radiographic dye allergy status; Z79.51 Long term (current) use of inhaled steroids
CPT/HCPCS: 36415; 70450; 70496; 70498; 71045; 71275; 80048; 80053; 80061; 80076; 81001; 82803; 83605; 83735; 83880; 84145; 84484; 85007; 85025; 85610; 85651; 85730; 86140; 86606; 86612; 86698; 87040; 87070; 87077; 87086; 87116; 87154; 87186; 87205; 87206; 87220; 87633; 93005; 93306; 94640; 94760; 94761; 97162; 97166; 97530; J0456; J0696; J1200; J1630; J1650; J1939; J2919; J3475; J7050; Q9967